=== PATIENT | female | born 1950 | race Caucasian/White ===

== ENCOUNTER → 2017-01-12 | Outpatient (CLI) | payer MEDICARE, BC ==
[2016-11-05 15:00] VITALS: BP 139/61
[~2017-01-12] MED LIST: ALBU2.5V14 NEB; ALPR1TAB2 PO; AMOX1TAB61 PO; ASPI-482 PO; BARIUM SULFATE 40% 148 GM PWD PO ONE; CILO50TA PO; CITA20TA5 PO; DABI150C PO; DIGO125T PO; DILT180C29 PO; DILT300C23 PO; DILT360C PO; DIPH25CA58 PO; FERR325C PO; FLUT1DIS3 INH; FURO20TA3 PO; FURO40TA4 PO; GABA-586 PO; GUAI600T38 PO; HYDR-2762 PO; INSU100I13 SQ; INSU100V31 SQ; INSU100V8 SQ; IPRA4AER IH; LEVO750T31 PO; MELA1TAB6 PO; MOME13HF2 IH; MORP10CA2 PO; MORP30TA3 PO; NIFE60TA16 PO; POTA20TA82 PO; PROP150T PO; PROP150T2 PO; TIOT18CA IH; VITA1TAB61 PO
--- NOTE | 2017-01-12 11:34 | RAD ---
Clinical Indication: Dysphagia Technique: Current study is dated January 12, 2017. Oropharyngeal swallow evaluation was performed with the speech therapist present with images obtained in the lateral view. Total fluoroscopy time was 4.7 minutes. Image count is 16. Patient was challenged with thin, nectar, honey, pureed, and solid consistencies. Findings: There is mild oral discoordination with repeated loss of a portion of the bolus over the base of the tongue and pooling repeatedly noted within the vallecula and piriform sinuses. There is repeated silent deep penetration with all consistencies, with or without chin tuck. Multiple prompted clearing swallows were required to avoid aspiration. There was a single episode of aspiration of thin liquid. There is a prominent cricopharyngeal bar. Please see speech therapy notes for additional details. Impression: 1. Aspiration of thin liquid, silent. 2. Repeated silent penetration with all consistencies. 3. Significant pooling within the vallecula and piriform sinuses prior to triggering of the swallow mechanism. Significant post swallow residual within the vallecula and piriform sinuses.
== END | disposition home or self-care (01) ==
LOC: RAD 08:19
PROVIDERS: ATTEND Internal Medicine Cardiovascular Disease
DX: R13.10 Dysphagia, unspecified (principal)
CPT/HCPCS: 74230; 92526; 92611; G8996; G8997; G8998

== ENCOUNTER 2017-02-17 07:13 | Inpatient (IN) | payer MEDICARE, BC ==
[~2017-02-17] VITALS: Ht 175.3 cm; Wt 91.8 kg
[2017-02-17] VITALS (8 sets, daily range): BP systolic 116–171; BP diastolic 51–89
[~2017-02-17 07:13] MED LIST changes: -BARIUM SULFATE 40% 148 GM PWD PO ONE
[2017-02-17] MEDS ORDERED: IPRATRPIUM/ALBUTEROL 0.5/2.5MG 3 ML NEBU. ONE (07:40)
[2017-02-17] MEDS ORDERED: IPRATRPIUM/ALBUTEROL 0.5/2.5MG 3 ML NEBU. NEB ONE (07:45)
[2017-02-17 07:54] LABS: BASO # 0.1 x10^3/uL (0.0-0.2); BASO % 0 % (0-3); EOS % 0 % (0-3); HEMATOCRIT 33.2 % (36.0-47.0); HEMOGLOBIN 10.4 g/dL (12.0-15.5); LYMPH # 1.2 x10^3/uL (1.0-4.8); LYMPH % 5 % (24-48); MEAN CORPUSCULAR HEMOGLOBIN 29 pg (25-35); MEAN CORPUSCULAR HGB CONC 31 g/dL (31-37); MEAN CORPUSCULAR VOLUME 94 fL (79-100); MONO % 6 % (0-9); NEUT % 89 % (31-73); PLATELET COUNT 582 x10^3/uL (140-400); RED BLOOD COUNT 3.52 x10^6/uL (3.50-5.40); WHITE BLOOD COUNT 21.5 x10^3/uL (4.0-11.0)
--- NOTE | 2017-02-17 07:55 | PHYS DOC ---
Past Medical History Past Medical History: A-Fib, Asthma, CHF, COPD, Diabetes-Type II, Hypertension Past Surgical History: Tubal ligation, Other Additional Past Surgical Histo: TIP OF RIGHT FINGER #2 AMPUTATED Alcohol Use: Rarely Drug Use: None Adult General Chief Complaint Chief Complaint: SHORTNESS OF BREATH HPI HPI Patient is a 67 year old female presents to the emergency department with a history of SOA since Wednesday. Patient was seen by her PCP Dr Bowling in which she was placed on prednisone and antibiotic at that time. She comes to the emergency department with increase SOA. Patient has a hx of CHF, COPD Diabetes and hypertension. Patient is afebrile at the current time. O2 sat is 88-92. Patient als C/o left wrist pain and discomfort after hitting wrist on wall when tripping on step at home. Review of Systems Review of Systems Constitutional: Denies fever or chills [] Eyes: Denies change in visual acuity, redness, or eye pain [] HENT: Denies nasal congestion or sore throat [] Respiratory: Denies cough C/o shortness of breath [] Cardiovascular: No additional information not addressed in HPI [] GI: Denies abdominal pain, nausea, vomiting, bloody stools or diarrhea [] : Denies dysuria or hematuria [] Musculoskeletal: Denies back pain or joint pain [] Integument: Denies rash or skin lesions [] Neurologic: Denies headache, focal weakness or sensory changes [] Current Medications Current Medications Current Medications Medications (Trade) Dose Ordered Sig/Myrtle Start Time Stop Time Status Last Admin Dose Admin Albuterol/ Ipratropium (Duoneb) 3 ml STK-MED ONCE 02/17/17 07:40 02/17/17 07:41 DC Allergies Allergies Allergies Coded Allergies Type Severity Reaction Last Updated Verified lisinopril Allergy Severe Anaphylaxis 01/08/15 Yes zolpidem Adverse Reaction Mild 07/09/16 Yes Physical Exam Physical Exam Constitutional: Well developed, well nourished, no acute distress, non-toxic appearance. [] HENT: Normocephalic, atraumatic, bilateral external ears normal, oropharynx moist, no oral exudates, nose normal. [] Eyes: PERRLA, EOMI, conjunctiva normal, no discharge. [] Neck: Normal range of motion, no tenderness, supple, no stridor. [] Cardiovascular:Heart rate regular rhythm, no murmur [] Lungs & Thorax: Bilateral breath sounds wheezes and coarse noted decreased air movement noted. Abdomen: Bowel sounds normal, soft, no tenderness, no masses, no pulsatile masses. [] Skin: Warm, dry, no erythema, no rash. [] Back: No tenderness Extremities: No tenderness, no cyanosis, no clubbing, ROM intact, no edema. Peripheral pulses 2+ cap refill is less than 3 seconds. No lower extremity edema noted. Neurologic: Alert and oriented X 3, normal motor function, normal sensory function, no focal deficits noted. [] Psychologic: Affect normal, judgement normal, mood normal. [] Current Patient Data Vital Signs Vital Signs Date Time Temp Pulse Resp B/P Pulse Ox O2 Delivery O2 Flow Rate FiO2 02/17/17 07:46 89 Venturi Mask 02/17/17 07:16 98.3 106 32 152/61 98.3 Lab Values Laboratory Tests Test 02/17/17 07:30 White Blood Count 21.5x10^3/uL (4.0-11.0) H Red Blood Count 3.52x10^6/uL (3.50-5.40) Hemoglobin 10.4g/dL (12.0-15.5) L Hematocrit 33.2% (36.0-47.0) L Mean Corpuscular Volume 94fL (79-100) Mean Corpuscular Hemoglobin 29pg (25-35) Mean Corpuscular Hemoglobin Concent 31g/dL (31-37) Red Cell Distribution Width 17.0% (11.5-14.5) H Platelet Count 582x10^3/uL (140-400) H Neutrophils (%) (Auto) 89% (31-73) H Lymphocytes (%) (Auto) 5% (24-48) L Monocytes (%) (Auto) 6% (0-9) Eosinophils (%) (Auto) 0% (0-3) Basophils (%) (Auto) 0% (0-3) Neutrophils # (Auto) 19.0x10^3uL (1.8-7.7) H Lymphocytes # (Auto) 1.2x10^3/uL (1.0-4.8) Monocytes # (Auto) 1.2x10^3/uL (0.0-1.1) H Eosinophils # (Auto) 0.0x10^3/uL (0.0-0.7) Basophils # (Auto) 0.1x10^3/uL (0.0-0.2) Segmented Neutrophils % 87% (35-66) H Band Neutrophils % 3% (0-9) Lymphocytes % 6% (24-48) L Monocytes % 4% (0-10) Platelet Estimate Adequate (ADEQUATE) Sodium Level 127mmol/L (136-145) L Potassium Level 5.8mmol/L (3.5-5.1) H Chloride Level 92mmol/L (98-107) L Carbon Dioxide Level 22mmol/L (21-32) Anion Gap 13 (6-14) Blood Urea Nitrogen 54mg/dL (7-20) H Creatinine 2.4mg/dL (0.6-1.0) H Estimated GFR (Cockcroft-Gault) 20.2 BUN/Creatinine Ratio 23 (6-20) H Glucose Level 285mg/dL (70-99) H Uric Acid 9.1mg/dL (2.6-6.0) H Calcium Level 9.3mg/dL (8.5-10.1) Total Bilirubin 0.3mg/dL (0.2-1.0) Aspartate Amino Transferase (AST) 175U/L (15-37) H Alanine Aminotransferase (ALT) 92U/L (14-59) H Alkaline Phosphatase 98U/L (46-116) Creatine Kinase 221U/L (26-192) H Troponin I Quantitative < 0.017ng/mL (0.000-0.055) ME-Ovq-V-Type Natriuretic Peptide 370pg/mL (0-124) H Total Protein 7.6g/dL (6.4-8.2) Albumin 3.1g/dL (3.4-5.0) L Albumin/Globulin Ratio 0.7 (1.0-1.7) L Laboratory Tests 02/17/17 07:30 Laboratory Tests 02/17/17 07:30 EKG EKG EKG completed with a heart rate of 103 A. fib/A flutter noted with no STEMI noted per Dr Mishra.[] Radiology/Procedures Radiology/Procedures [facility] [address] [place], [place] [id number] IMAGING REPORT Signed PATIENT: LILIAN CABRAL ACCOUNT: [id number] : 1950 LOCATION: ER AGE: 67 SEX: F EXAM STATUS: PRE ER ORD. PHYSICIAN: GAB ARIAS APRN REASON: shortness of air PROCEDURE: PORTABLE CHEST 1V Portable chest, 02/17/2017: History: Shortness of breath Comparison is made to the study 11/04/2016. A left-sided transvenous pacemaker remains in place with a single lead extending into the right ventricle. The heart is moderately enlarged. The pulmonary vascularity appears congested. There are persistent prominent basilar interstitial markings. There appears to be left infrahilar infiltrate or atelectasis. Moderate pleural thickening has developed inferolaterally in the left compatible with pleural fluid. No definite right-sided pleural fluid is seen. IMPRESSION: 1. Congestive heart failure with associated left-sided pleural fluid. 2. Left infrahilar atelectasis/infiltrate. DICTATED and SIGNED BY: KEELY BROWN MD DATE: 02/17/17 0800 CC: MINERVA BOWLING MD; GAB ARIAS APRN ~ [facility] [address], [place] [id number] IMAGING REPORT Signed PATIENT: LILIAN CABRAL ACCOUNT: [id number] : 1950 LOCATION: ER AGE: 67 SEX: F EXAM STATUS: PRE ER ORD. PHYSICIAN: GAB ARIAS APRN REASON: pain and discomfort PROCEDURE: WRIST 3V LEFT Right wrist, 3 views, 02/17/2017: History: Wrist pain and discomfort No fracture or dislocation is identified. A benign-appearing cyst in the lunate bone is probably on a degenerative basis. There is mild degenerative change at the first CMC joint. There is mild subcutaneous edema about the wrist. IMPRESSION: No acute bony abnormality is detected. DICTATED and SIGNED BY: KEELY BORWN MD DATE: 02/17/17 0814 CC: MINERVA BOWLING MD; GAB ARIAS APRN ~ [] Course & Med Decision Making Course & Med Decision Making Pertinent Labs and Imaging studies reviewed. (See chart for details) 0748 Dr Mishra in to evaluate the patient. 0815 presents with more of movement noted although she sounds wheezy throughout. 0842 Dr. Mishra in to evaluate the patient. ABG ordered. [address] Saha in regards to admission for this patient. Dr Saha was provided with lab results. Recommend renal consult. No further recommendations received. Dr Saha aware antibiotics have been ordered. 0925 Dr Mishra in with patient. pH is low, CO2 is high. Dr Mishra will have the patient placed on Bipap. Patient re-assessed by myself with Bilateral breath sounds coarse throughout. [] Dragon Disclaimer Dragon Disclaimer This electronic medical record was generated, in whole or in part, using a voice recognition dictation system. Departure Departure Impression: Primary Impression: Community acquired pneumonia Additional Impression: COPD exacerbation Disposition: 09 ADMITTED INPATIENT Admitting Physician: Miesha Saha Condition: STABLE Referrals: MINERVA BOWLING MD (PCP) Problem Qualifiers GAB ARIAS APRN Feb 17, 2017 07:55
[2017-02-17] MEDS ORDERED: methylPREDNISolone SOD SUCC PF 125 MG/2 ML VIAL. IV ONE (08:00)
[2017-02-17] MEDS ORDERED: ALBUTEROL SULFATE 2.5 MG/3 ML NEBU. CONT NEB ONE (08:00)
[2017-02-17] MEDS ORDERED: DOXYCYCLINE HYCLATE 100 MG in IV DEXTROSE 5% 100 ML IV ONE (08:15)
[2017-02-17] MEDS ORDERED: CEFTRIAXONE 1GM IVPB FOR OMNI 50 ML IV ONE (08:15)
--- NOTE | 2017-02-17 08:17 | RAD ---
Portable chest, 02/17/2017: History: Shortness of breath Comparison is made to the study 11/04/2016. A left-sided transvenous pacemaker remains in place with a single lead extending into the right ventricle. The heart is moderately enlarged. The pulmonary vascularity appears congested. There are persistent prominent basilar interstitial markings. There appears to be left infrahilar infiltrate or atelectasis. Moderate pleural thickening has developed inferolaterally in the left compatible with pleural fluid. No definite right-sided pleural fluid is seen. IMPRESSION: 1. Congestive heart failure with associated left-sided pleural fluid. 2. Left infrahilar atelectasis/infiltrate.
[2017-02-17 08:18] LABS: CALCIUM 9.3 mg/dL (8.5-10.1); CREATININE 2.4 mg/dL (0.6-1.0); GFR 20.2; POTASSIUM 5.8 mmol/L (3.5-5.1)
--- NOTE | 2017-02-17 08:18 | RAD ---
Right wrist, 3 views, 02/17/2017: History: Wrist pain and discomfort No fracture or dislocation is identified. A benign-appearing cyst in the lunate bone is probably on a degenerative basis. There is mild degenerative change at the first CMC joint. There is mild subcutaneous edema about the wrist. IMPRESSION: No acute bony abnormality is detected.
--- NOTE | 2017-02-17 08:36 | EKG ---
[facility] [address] [place] [address] Test Date: 2017-02-17 Test Time: 07:36:02 Pat Name: LILIAN CABRAL Department: Room: Gender: F Filer Finish: : 1950 Requested By: GAB ARIAS Order Number: [id number] Reading MD: Rubina Johnson Measurements Intervals [place] Rate: 103 P: CA: QRS: 81 QRSD: 98 T: -116 QT: 320 QTc: 421 Interpretive Statements ATRIAL FIB./FLUTTER WITH RAPID VENTRICULAR RESPONSE QRS(T) CONTOUR ABNORMALITY CONSIDER ANTEROSEPTAL MYOCARDIAL DAMAGE ST & T ABNORMALITY, CONSIDER ANTEROLATERAL ISCHEMIA INFEROLATERAL ISCHEMIA Electronically Signed On 02-21-2017 15:05:44 CDT by Rubina Johnson
[2017-02-17 08:39] LABS: ALBUMIN 3.1 g/dL (3.4-5.0); ALBUMIN/GLOBULIN RATIO 0.7 (1.0-1.7); TOTAL BILIRUBIN 0.3 mg/dL (0.2-1.0); TOTAL PROTEIN 7.6 g/dL (6.4-8.2)
[2017-02-17 09:14] LABS: PLT ESTIMATE ADEQUATE (ADEQUATE)
[2017-02-17 09:20] LABS: BASE EXCESS COOX -6 mmol/L (-3-3); CARBON MONOXIDE 1.4 % (0.0-1.9); HCO3 COOX 22 mmol/L (21-28); METHEMOGLOBIN 0.4 % (0.0-1.9); OXYHEMOGLOBIN 86.7 %; PCO2 COOX 49 mmHg (35-46); PH COOX 7.26 (7.35-7.45); PO2 COOX 67 mmHg (65-108); SAT O2 COOX 88 % (92-99); TOTAL HEMOGLOBIN 11.6 g/dL
[2017-02-17] MEDS ORDERED: DEXTROSE 50% 25 GM / 50ML DISP.SYRIN. IV PRN (10:00)
[2017-02-17 11:28] LABS: HCO3 ABG 22 mmol/L (21-28); PO2 ABG 65 mmHg (65-108); SAT O2 ABG 90 % (92-99)
[2017-02-17 11:31] LABS: PCO2 ABG 44 mmHg (35-46); PH ABG 7.32 (7.35-7.45)
--- NOTE | 2017-02-17 12:39 | ACF ---
Admission Forms Criteria PNEUMONIA, COMMUNITY ACQUIRED Clinical Indications for Admission to Inpatient Care ( Place 'X' for any and all applicable criteria): Admission is indicated for ANY ONE of the following (1)(2)(3): [ ]I. Hypoxemia indicated by ANY ONE of the following: [ ]a) Oxygen saturation less than 90% while breathing room air [ ]b) PO2 less than 60 mm Hg (8.0 kPa) while breathing room air [ ]c) Chronic lung disease with significant deterioration from baseline oxygenation [ ]II. Appropriate diagnostic testing and treatment unavailable in outpatient or recovery facility (eg,testing or infection control measures unavailable(10) [X]III. Moderate-risk or high-risk category patients (Pneumonia Severity Index (PSI) class IV or V, or CURB-65 score of 3 or greater). [ ]IV. Outpatient treatment failure as indicated by ANY ONE of the following(9) : [ ]a) Failure to respond to antibiotic (eg, resistant organism) [ ]b) Clinically significant adverse effects from medication (eg, vomiting) [ ]c) Complications of pneumonia (eg, empyema, bacteremia) [ ]d) Significant worsening of comorbid cond necessitating inpatient care (eg, chronic heart failure) [ ]V. Intermediate-risk category patients (eg, PSI class III or CURB-65 score 2) who do not improve with initial therapy and observation. [ ]. Immunocompromised patients (eg, AIDS, chronic steroid use) at moderate or high risk based on clinical evaluation. [ ]VII. Complicated pleural effusions (eg, exudative, loculated) [ ]VIII.Hemodynamic instability [ ] IX. Altered mental status that is severe or persistent. [ ]X. Dehydration that is severe or persistent. [ ]XI. Bacteremia [ ]XII. Respiratory finding (eg. tachypnea) that do not respond to outpatient or observation care treatment Extended stay beyond goal length of stay may be needed for (20) [ ]a) Unclear diagnosis [ ]b) Pleural disease [ ]c) Severe pneumonia or treatment failure (25 [ ]d) Respiratory failure (anticipate invasive or noninvasive ventilatory support) [ ]e) Abnormal serum electrolytes (serum Na concentration less than 135 mEq/L (mmol/L) (32)(33) [ ]f) Clinically significant comorbid illness (eg, heart failure, atrial fibrillation with rapid heart rate, alcohol withdrawal, renal insufficiency)(34)(35) [ ]g) Comorbid acute exacerbation of COPD(36) [ ]h) Concomitant diagnosis of malignancy that may be associated with malnutrition, immunologic impairment, or bronchial obstruction. [ ]i) Concomitant altered mental status [ ]j) Culture-identified Gram-negative or antibiotic-resistant organism (eg, Pseudomonas, methicillin-resistant Staphylococcus aureus)(30) [ ]k) Healthcare-associated pneumonia The original [facility] content created by [employer] has been revised. The portions of the content which have been revised are identified through the use of italic text or in bold, and [facility] has neither reviewed nor approved the modified material. All other unmodified content is copyright [facility]. Please see references footnoted in the original [facility] edition 2016 Admission Criteria Met?: Yes JOSE BAUMANN Feb 17, 2017 12:39
[2017-02-17] MEDS ORDERED: SULF1TAB3 PO (14:20)
[2017-02-17] MEDS ORDERED: PRED2.5T PO (14:20)
--- NOTE | 2017-02-17 14:40 | PDOC2 ---
CONSULT Date of Consult Date of Consult DATE: 02/17/17 TIME: 14:36 Reason for Consult Reason for Consult: JOSE Referring Physician Referring Physician: Dr Saha Source Source: Chart review, Patient Past Medical History Cardiovascular: AFIB, CHF, HTN Pulmonary: Bronchitis, COPD GI: GERD Endocrine: Diabetes Past Surgical History Past Surgical History: Pacemaker, Tubal Ligation Family History Family History: Hypertension Social History ALCOHOL: none Drugs: None Current Problem List Problem List Problems Medical Problems: (1) Community acquired pneumonia Status: Acute (2) COPD exacerbation Status: Acute Current Medications Current Medications Current Medications Albuterol/ Ipratropium (Duoneb) 3 ml 1X ONCE NEB Last administered on 07:46; Start 02/17/17 at 07:45; Stop 02/17/17 at 07:46; Status DC Albuterol/ Ipratropium (Duoneb) 3 ml STK-MED ONCE .ROUTE ; Start 02/17/17 at 07: 40; Stop 02/17/17 at 07:41; Status DC Albuterol Sulfate (Ventolin Neb Soln) 10 mg 1X ONCE CONT NEB Last administered on 02/17/17 08:02; Start 02/17/17 at 08:00; Stop 02/17/17 at 08:01 ; Status DC Methylprednisolone Sodium Succinate 60 mg 60 mg 1X ONCE IV Last administered on 02/17/17 08:49; Start 02/17/17 at 08:00; Stop 02/17/17 at 08:06; Status DC Ceftriaxone Sodium 50 ml @ 100 mls/hr 1X ONCE IV Last administered on 08:50; Start 02/17/17 at 08:15; Stop 02/17/17 at 08:44; Status DC Doxycycline Hyclate 100 mg/ Dextrose 100 ml @ 50 mls/hr 1X ONCE IV Last administered on 02/17/17 08:50; Start 02/17/17 at 08:15; Stop 02/17/17 at 10:14 ; Status DC Ceftriaxone Sodium 50 ml @ 100 mls/hr DAILY IV ; Start 02/18/17 at 09:00; Status UNV Doxycycline Hyclate 100 mg/ Dextrose 100 ml @ 50 mls/hr BID IV ; Start at 21:00 Ceftriaxone Sodium/Sodium Chloride (Rocephin/Iv Sodium Chloride 0.9% 50ml) 50 ml @ 100 mls/hr Q24H IV ; Start 02/18/17 at 09:00 Insulin Aspart (Novolog) 0-7 UNITS TIDWMEALS SQ ; Start 02/17/17 at 12:00 Dextrose (Dextrose 50%-Water Syringe) 12.5 gm PRN Q15MIN PRN IV SEE COMMENTS; Start 02/17/17 at 10:00 Active Scripts Active Iron (Ferrous Sulfate) 325 Mg Capsule.er 325 Mg PO DAILY B Complex # 1 (Vitamin B Complex) 1 Each Tablet 1 Each PO DAILY Levaquin (Levofloxacin) 750 Mg Tablet 1 Tab PO DAILY Advair 250-50 Diskus (Fluticasone/Salmeterol) 1 Puff Puff 1 Puff INH BID Mucinex (Guaifenesin) 600 Mg Tablet.er 600 Mg PO BID Reported Prednisone 2.5 Mg Tablet 2 Tab PO DAILY Sulfamethoxazole-Tmp Ds Tablet (Sulfamethoxazole/Trimethoprim) 1 Each Tablet 1 Tab PO BID Albuterol Sulfate Conc Neb Soln (Albuterol Sulfate) 2.5 Mg/0.5 Ml Vial.neb 1 Vial NEB Q4HRS Lantus Solostar (Insulin Glargine,Hum.rec.anlog) 100 Unit/1 Ml Insuln.pen 14 Unit SQ BID Furosemide 40 Mg Tablet 1 Tab PO DAILY Mucinex (Guaifenesin) 600 Mg Tablet.er 400 Mg PO BID Xanax (Alprazolam) 1 Mg Tablet 1 Tab PO Q8HRS PRN Melatonin 10 Mg Tablet (Melatonin/Pyridoxine Hcl (B6)) 1 Each Tab.mphase 1 Each PO HS Nifedipine Er (Nifedipine) 60 Mg Tab.er.24 1 Tab PO DAILY Morphine Sulfate Er (Morphine Sulfate) 30 Mg Tablet.er 1 Tab PO TID Gabapentin 300 Mg Capsule 900 Mg PO QID Furosemide 20 Mg Tablet 1.5 Tab PO DAILY Cardizem Cd (Diltiazem Hcl) 360 Mg Cap.er.24h 1 Cap PO DAILY Next dose: 05/14 Rythmol (Propafenone Hcl) 150 Mg Tablet 150 Mg PO BID Next dose: 05/13 in pm Benadryl (Diphenhydramine Hcl) 25 Mg Capsule 2 Cap PO QHS Next dose: 05/14 Novolog (Insulin Aspart) 100 Unit/1 Ml Vial 100 Unit SQ Next dose: 05/13 at dinner Lantus (Insulin Glargine,Hum.rec.anlog) 100 Unit/1 Ml Vial 1 Unit SQ Next dose: 05/13 at bedtime Hydrocodone-Apap 7.5-325 (Hydrocodone Bit/Acetaminophen) 1 Each Tablet 1 Tab PO QID Next dose: 05/14 at 1 pm Combivent Respimat Inhal (Ipratropium/Albuterol Sulfate) 4 Gm Aer.w.adap 2 Inh IH QID Spiriva (Tiotropium [place]) 18 Mcg Cap.w.dev 1 Cap IH DAILY Next dose: 05/13 Dulera 100 Mcg/5 Mcg Inhaler (Mometasone/Formoterol) 13 Gm Hfa.aer.ad 2 Puff IH BID Digoxin 125 Mcg Tablet 1 Tab PO DAILY Next dose: 05/14 Citalopram Hbr (Citalopram Hydrobromide) 20 Mg Tablet 1 Tab PO DAILY Next dose: 05/14 Aspir 81 (Aspirin) 81 Mg Tablet.dr 1 Tab PO DAILY Next dose: 05/14 Cilostazol 50 Mg Tablet 50 Mg PO BID Next dose: 05/13 in PM Pradaxa (Dabigatran Etexilate Mesylate) 150 Mg Capsule 1 Cap PO BID Next dose: 05/13 in PM Potassium Chloride 20 Meq Tablet.er 20 Meq PO DAILY Next dose: 05/14 Allergies Allergies: Coded Allergies: lisinopril (Verified Allergy, Severe, Anaphylaxis, 01/08/15) zolpidem (Verified Adverse Reaction, Mild, 07/09/16) "Gets really loopy, 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" ROS Review of System Unable to get ROS while pt is on BiPAP Physical Exam Physical Exam General Appearance: Awake senior care Alert Oriented x 1 In mod resp Distress Eyes: VIsion Unchanged Conjunctiva Normal EN: No EN Drainage Mucous Memb. dry Neck: + JVD + JVP Supple no Thyromegaly CVS: S1 S2 + Murmur No Gallop No Rub tr Edema Resp: few Rales no Rhonchi no Acc. Muscle use GI: BAS +ve NO Bruit Non Tender ? Distended : no CVA tenderness; no Suprapubic Tenderness SKIN: no Rashes Breast Exam deferred Mu.Sk: Adequate ROM moist Muscle Atrophy Heme: Unable to palpate Obvious LAD no palp Splenomegaly NEURO: Unable to assess currently while on BiPAP Psych: Unable to assess currently while on BiPAP Vital Signs Vital Signs Date Time Temp Pulse Resp B/P Pulse Ox O2 Delivery O2 Flow Rate FiO2 02/17/17 13:00 96.7 99 24 116/75 92 Nasal Cannula 4.0 96.7 Assessment & Plan JOSE - suspect Vol depletion; Bactrim, Current FLuid and E-lyte status does not necessitate emergent need for Dialysis. Will re-evaluate for Dialysis in am ^K - Possibl etios include, Bactrim, JOSE, KCL supplementation, Cannot R/o Addisonian state due to Ch Pred use. Low Na - ? Vol dpeltion, SSRi, Cannot R/o Addisonian state due to Ch Pred use. - Will hold off of IVF unless Oliguric SOB - currently felt to be COPD Exac significant Cardiac ABN as noted on most recent ECHO. Suspect ^^ JVD is due Rt HF ? vol depletion - ([facility]) - may need IVF/ Alb Discussed Plan of Care and prognosis etc. at length with family. Labs Labs Laboratory Tests Test 02/17/17 07:30 02/17/17 09:20 02/17/17 11:20 02/17/17 13:15 White Blood Count 21.5x10^3/uL (4.0-11.0) Red Blood Count 3.52x10^6/uL (3.50-5.40) Hemoglobin 10.4g/dL (12.0-15.5) Hematocrit 33.2% (36.0-47.0) Mean Corpuscular Volume 94fL (79-100) Mean Corpuscular Hemoglobin 29pg (25-35) Mean Corpuscular Hemoglobin Concent 31g/dL (31-37) Red Cell Distribution Width 17.0% (11.5-14.5) Platelet Count 582x10^3/uL (140-400) Neutrophils (%) (Auto) 89% (31-73) Lymphocytes (%) (Auto) 5% (24-48) Monocytes (%) (Auto) 6% (0-9) Eosinophils (%) (Auto) 0% (0-3) Basophils (%) (Auto) 0% (0-3) Neutrophils # (Auto) 19.0x10^3uL (1.8-7.7) Lymphocytes # (Auto) 1.2x10^3/uL (1.0-4.8) Monocytes # (Auto) 1.2x10^3/uL (0.0-1.1) Eosinophils # (Auto) 0.0x10^3/uL (0.0-0.7) Basophils # (Auto) 0.1x10^3/uL (0.0-0.2) Segmented Neutrophils % 87% (35-66) Band Neutrophils % 3% (0-9) Lymphocytes % 6% (24-48) Monocytes % 4% (0-10) Platelet Estimate Adequate (ADEQUATE) Sodium Level 127mmol/L (136-145) Potassium Level 5.8mmol/L (3.5-5.1) Chloride Level 92mmol/L (98-107) Carbon Dioxide Level 22mmol/L (21-32) Anion Gap 13 (6-14) Blood Urea Nitrogen 54mg/dL (7-20) Creatinine 2.4mg/dL (0.6-1.0) Estimated GFR (Cockcroft-Gault) 20.2 BUN/Creatinine Ratio 23 (6-20) Glucose Level 285mg/dL (70-99) Calcium Level 9.3mg/dL (8.5-10.1) Total Bilirubin 0.3mg/dL (0.2-1.0) Aspartate Amino Transf (AST/SGOT) 175U/L (15-37) Alanine Aminotransferase (ALT/SGPT) 92U/L (14-59) Alkaline Phosphatase 98U/L (46-116) Troponin I Quantitative < 0.017ng/mL (0.000-0.055) MZ-Ssp-S-Type Natriuretic Peptide 370pg/mL (0-124) Total Protein 7.6g/dL (6.4-8.2) Albumin 3.1g/dL (3.4-5.0) Albumin/Globulin Ratio 0.7 (1.0-1.7) O2 Saturation 88% (92-99) 90% (92-99) Arterial Blood pH 7.26 (7.35-7.45) 7.32 (7.35-7.45) Arterial Blood pCO2 at Patient Temp 49mmHg (35-46) 44mmHg (35-46) Arterial Blood pO2 at Patient Temp 67mmHg (65-108) 65mmHg (65-108) Arterial Blood HCO3 22mmol/L (21-28) 22mmol/L (21-28) Arterial Blood Base Excess -6mmol/L (-3-3) -4mmol/L (-3-3) Oxyhemoglobin 86.7% Methemoglobin 0.4% (0.0-1.9) Carbon Monoxide, Quantitative 1.4% (0.0-1.9) FiO2 40.0 35.0 Glucose (Fingerstick) 279mg/dL (70-99) Laboratory Tests Test 02/17/17 07:30 02/17/17 09:20 02/17/17 11:20 02/17/17 13:15 White Blood Count 21.5x10^3/uL (4.0-11.0) Red Blood Count 3.52x10^6/uL (3.50-5.40) Hemoglobin 10.4g/dL (12.0-15.5) Hematocrit 33.2% (36.0-47.0) Mean Corpuscular Volume 94fL (79-100) Mean Corpuscular Hemoglobin 29pg (25-35) Mean Corpuscular Hemoglobin Concent 31g/dL (31-37) Red Cell Distribution Width 17.0% (11.5-14.5) Platelet Count 582x10^3/uL (140-400) Neutrophils (%) (Auto) 89% (31-73) Lymphocytes (%) (Auto) 5% (24-48) Monocytes (%) (Auto) 6% (0-9) Eosinophils (%) (Auto) 0% (0-3) Basophils (%) (Auto) 0% (0-3) Neutrophils # (Auto) 19.0x10^3uL (1.8-7.7) Lymphocytes # (Auto) 1.2x10^3/uL (1.0-4.8) Monocytes # (Auto) 1.2x10^3/uL (0.0-1.1) Eosinophils # (Auto) 0.0x10^3/uL (0.0-0.7) Basophils # (Auto) 0.1x10^3/uL (0.0-0.2) Segmented Neutrophils % 87% (35-66) Band Neutrophils % 3% (0-9) Lymphocytes % 6% (24-48) Monocytes % 4% (0-10) Platelet Estimate Adequate (ADEQUATE) Sodium Level 127mmol/L (136-145) Potassium Level 5.8mmol/L (3.5-5.1) Chloride Level 92mmol/L (98-107) Carbon Dioxide Level 22mmol/L (21-32) Anion Gap 13 (6-14) Blood Urea Nitrogen 54mg/dL (7-20) Creatinine 2.4mg/dL (0.6-1.0) Estimated GFR (Cockcroft-Gault) 20.2 BUN/Creatinine Ratio 23 (6-20) Glucose Level 285mg/dL (70-99) Calcium Level 9.3mg/dL (8.5-10.1) Total Bilirubin 0.3mg/dL (0.2-1.0) Aspartate Amino Transf (AST/SGOT) 175U/L (15-37) Alanine Aminotransferase (ALT/SGPT) 92U/L (14-59) Alkaline Phosphatase 98U/L (46-116) Troponin I Quantitative < 0.017ng/mL (0.000-0.055) NE-Qun-H-Type Natriuretic Peptide 370pg/mL (0-124) Total Protein 7.6g/dL (6.4-8.2) Albumin 3.1g/dL (3.4-5.0) Albumin/Globulin Ratio 0.7 (1.0-1.7) O2 Saturation 88% (92-99) 90% (92-99) Arterial Blood pH 7.26 (7.35-7.45) 7.32 (7.35-7.45) Arterial Blood pCO2 at Patient Temp 49mmHg (35-46) 44mmHg (35-46) Arterial Blood pO2 at Patient Temp 67mmHg (65-108) 65mmHg (65-108) Arterial Blood HCO3 22mmol/L (21-28) 22mmol/L (21-28) Arterial Blood Base Excess -6mmol/L (-3-3) -4mmol/L (-3-3) Oxyhemoglobin 86.7% Methemoglobin 0.4% (0.0-1.9) Carbon Monoxide, Quantitative 1.4% (0.0-1.9) FiO2 40.0 35.0 Glucose (Fingerstick) 279mg/dL (70-99) Images Images IMPRESSION: 1. Congestive heart failure with associated left-sided pleural fluid. 2. Left infrahilar atelectasis/infiltrate. ECHO from 2016: The left ventricular systolic function is normal and the ejection fraction is within normal range. The Ejection Fraction is 60%. There is mild concentric left ventricular hypertrophy. The right ventricle is hypertrophic The left atrium is mildly to moderately dilated. The right atrium is mildly to moderately dilated. Doppler and Color Flow revealed moderate aortic regurgitation. The aortic valve is mildly to moderatly calcified but opens well. The aortic valve is tri-cuspid. The mitral valve is moderatly calcified and displays decreased opening. Mitral annular calcification is moderate. cannot exclude mitral valve vegitation. Doppler and Color Flow revealed moderate mitral regurgitation. There is moderate mitral valve stenosis. Calculated mitral valve area is 1.5 cm2 with maximum pressure gradient of 18 mmHg and mean pressure gradient of 6 mmHg. Doppler and Color Flow revealed moderate tricuspid regurgitation. There is moderate-severe pulmonary hypertension. The PA pressure was estimated at 62 mmHg. The pulmonic valve is not well visualized. There is a trace pericardial effusion. JUNIOR VALERIO MD Feb 17, 2017 14:40
[2017-02-17] MEDS ORDERED: MAGNESIUM SULFATE 2GM 50 ML IV PRN (14:45)
[2017-02-17] MEDS ORDERED: IV NORMAL SALINE 500ML BAG 500 ML IV PRN (15:00)
[2017-02-17 15:22] LABS: URIC ACID 9.1 mg/dL (2.6-6.0)
[2017-02-17] MEDS ORDERED: SODIUM BICARB ADULT 8.4% 50 MEQ/50 ML DISP.SYRIN. IV ONE (15:30)
[2017-02-17] MEDS ORDERED: SODIUM POLYSTYRENE SULFONATE 15 GM/60 ML ORAL.SUSP. PO ONE (15:30)
--- NOTE | 2017-02-17 15:30 | PDOC ---
Provider Note Provider Note dictated BARBARA KELLOGG MD Feb 17, 2017 15:30
[2017-02-17] MEDS ORDERED: ALPRAZOLAM 1 MG TABLET PO PRN (15:45)
[2017-02-17] MEDS ORDERED: IV NORMAL SALINE 1000ML BAG 1,000 ML IV ONE (15:45)
[2017-02-17] MEDS ORDERED: IPRATRPIUM/ALBUTEROL 0.5/2.5MG 3 ML NEBU. NEB SCH (16:00)
--- NOTE | 2017-02-17 16:17 | PDOC1 ---
History and Physical Date of Admission Date of Admission DATE: 02/17/17 TIME: 16:06 Identification/Chief Complaint Chief Complaint dyspnea, cough Problems: Source Source: Caregiver, Chart review, Patient History of Present Illness History of Present Illness Ms. Mendoza, is a 67 year old female admitted from ER with acutely worsening dyspnea for hte past few days SHe had contacted Dr. Silva last week, and nebs and steroid and abx given , no tmuch improved, Lasix was doubled yesterday, and dyspnea worse today Pt has history of long hospitalisation with LTAC stay about 6 mos ago. cough and dyspnea but no sputum she has ongoing dysphagia and drinks thickened liquids, . Patient has a hx of CHF, COPD Diabetes and hypertension. Past Medical History Cardiovascular: AFIB, CHF, HTN Pulmonary: Bronchitis, COPD GI: GERD Musculoskeletal: low back pain Infectious disease: No pertinent hx ENT: No pertinent hx Endocrine: Diabetes Past Surgical History Past Surgical History: Pacemaker, Tubal Ligation Family History Family History: Hypertension Social History Smoke: Quit ALCOHOL: none Drugs: None Current Problem List Problem List Problems Medical Problems: (1) Community acquired pneumonia Status: Acute (2) COPD exacerbation Status: Acute Problems: Current Medications Current Medications Current Medications Albuterol/ Ipratropium (Duoneb) 3 ml 1X ONCE NEB Last administered on 07:46; Start 02/17/17 at 07:45; Stop 02/17/17 at 07:46; Status DC Albuterol/ Ipratropium (Duoneb) 3 ml STK-MED ONCE .ROUTE ; Start 02/17/17 at 07: 40; Stop 02/17/17 at 07:41; Status DC Albuterol Sulfate (Ventolin Neb Soln) 10 mg 1X ONCE CONT NEB Last administered on 02/17/17 08:02; Start 02/17/17 at 08:00; Stop 02/17/17 at 08:01 ; Status DC Methylprednisolone Sodium Succinate 60 mg 60 mg 1X ONCE IV Last administered on 02/17/17 08:49; Start 02/17/17 at 08:00; Stop 02/17/17 at 08:06; Status DC Ceftriaxone Sodium 50 ml @ 100 mls/hr 1X ONCE IV Last administered on 08:50; Start 02/17/17 at 08:15; Stop 02/17/17 at 08:44; Status DC Doxycycline Hyclate 100 mg/ Dextrose 100 ml @ 50 mls/hr 1X ONCE IV Last administered on 02/17/17t 08:50; Start 02/17/17 at 08:15; Stop 02/17/17 at 10:14 ; Status DC Ceftriaxone Sodium 50 ml @ 100 mls/hr DAILY IV ; Start 02/18/17 at 09:00; Status UNV Doxycycline Hyclate 100 mg/ Dextrose 100 ml @ 50 mls/hr BID IV ; Start at 21:00 Ceftriaxone Sodium/Sodium Chloride (Rocephin/Iv Sodium Chloride 0.9% 50ml) 50 ml @ 100 mls/hr Q24H IV ; Start 02/18/17 at 09:00 Insulin Aspart (Novolog) 0-7 UNITS TIDWMEALS SQ ; Start 02/17/17 at 12:00 Dextrose 12.5 gm 12.5 gm PRN Q15MIN PRN IV SEE COMMENTS; Start 02/17/17 at 10: 00 Magnesium Sulfate/ Dextrose (Magnesium Sulfate PREMIX 2GM) 50 ml @ 25 mls/hr PRN DAILY PRN IV for Mag < 1.7 on am labs; Start 02/17/17 at 14:45 Sodium Polystyrene Sulfonate 45 gm 45 gm 1X ONCE PO ; Start 02/17/17 at 15:30; Stop 02/17/17 at 15:31; Status DC Sodium Chloride (Iv Sodium Chloride 0.9% 500ml Bag) 500 ml @ 0 mls/hr PRN QID PRN IV UO< 30cc/hr over previous 6hrs; Start 02/17/17 at 15:00 Sodium Bicarbonate 50 meq 50 meq 1X ONCE IV Last administered on 02/17/17t 15: 46; Start 02/17/17 at 15:30; Stop 02/17/17 at 15:35; Status DC Sodium Chloride (Iv Sodium Chloride 0.9% 1000ml Bag) 1,000 ml @ 75 mls/hr 1X ONCE IV ; Start 02/17/17 at 15:45; Stop 02/18/17 at 05:04 Prednisone (Prednisone) 60 mg DAILY07 PO ; Start 02/18/17 at 07:00 Alprazolam (Xanax) 1 mg PRN Q8HRS PRN PO ANXIETY / AGITATION; Start 02/17/17 at 15:45 Aspirin (Ecotrin) 81 mg DAILY PO ; Start 02/18/17 at 09:00 Cilostazol (Pletal) 50 mg BID PO ; Start 02/17/17 at 21:00 Citalopram Hydrobromide (Celexa) 20 mg DAILY PO ; Start 02/18/17 at 09:00 Dabigatran (Pradaxa) 75 mg BID PO ; Start 02/17/17 at 21:00 Digoxin (Lanoxin) 125 mcg DAILY PO ; Start 02/18/17 at 09:00 Diphenhydramine HCl (Benadryl) 25 mg QHS PO ; Start 02/17/17 at 21:00 Guaifenesin (Mucinex) 600 mg BID PO ; Start 02/17/17 at 21:00 Acetaminophen/ Hydrocodone Bitart (Lortab 7.5/325) 1 tab QID PO ; Start at 17:00 Morphine Sulfate (Ms Contin) 30 mg TID PO ; Start 02/17/17 at 21:00 Propafenone HCl (Rythmol) 150 mg BID PO ; Start 02/17/17 at 21:00 Trimethoprim/ Sulfamethoxazole (Bactrim Ds) 1 tab DAILY PO ; Start 02/17/17 at 21:00 Vitamin B Complex (Moi B) 1 tab DAILY PO ; Start 02/18/17 at 09:00 Albuterol/ Ipratropium (Duoneb) 3 ml Q4HRS NEB ; Start 02/17/17 at 16:00; Status Cancel Diltiazem HCl (Cardizem 24hr Cd) 360 mg DAILY PO ; Start 02/18/17 at 09:00 Ferrous Sulfate (Feosol) 325 mg DAILYWBKFT PO ; Start 02/18/17 at 08:00 Non-Formulary Medication 1 puff BID INH ; Start 02/17/17 at 21:00; Status UNV Gabapentin (Neurontin) 900 mg BID PO ; Start 02/17/17 at 21:00 Insulin Detemir (Levemir) 14 units BID SQ ; Start 02/17/17 at 21:00 Non-Formulary Medication 1 each HS PO ; Start 02/17/17 at 21:00; Status UNV Budesonide (Pulmicort) 0.5 mg RTBID NEB ; Start 02/17/17 at 20:00 Albuterol/ Ipratropium (Duoneb) 3 ml Q4HRS W/A NEB ; Start 02/17/17 at 18:00 Active Scripts Active Iron (Ferrous Sulfate) 325 Mg Capsule.er 325 Mg PO DAILY B Complex # 1 (Vitamin B Complex) 1 Each Tablet 1 Each PO DAILY Levaquin (Levofloxacin) 750 Mg Tablet 1 Tab PO DAILY Advair 250-50 Diskus (Fluticasone/Salmeterol) 1 Puff Puff 1 Puff INH BID Mucinex (Guaifenesin) 600 Mg Tablet.er 600 Mg PO BID Reported Prednisone 2.5 Mg Tablet 2 Tab PO DAILY Sulfamethoxazole-Tmp Ds Tablet (Sulfamethoxazole/Trimethoprim) 1 Each Tablet 1 Tab PO BID Albuterol Sulfate Conc Neb Soln (Albuterol Sulfate) 2.5 Mg/0.5 Ml Vial.neb 1 Vial NEB Q4HRS Lantus Solostar (Insulin Glargine,Hum.rec.anlog) 100 Unit/1 Ml Insuln.pen 14 Unit SQ BID Furosemide 40 Mg Tablet 1 Tab PO DAILY Mucinex (Guaifenesin) 600 Mg Tablet.er 400 Mg PO BID Xanax (Alprazolam) 1 Mg Tablet 1 Tab PO Q8HRS PRN Melatonin 10 Mg Tablet (Melatonin/Pyridoxine Hcl (B6)) 1 Each Tab.mphase 1 Each PO HS Nifedipine Er (Nifedipine) 60 Mg Tab.er.24 1 Tab PO DAILY Morphine Sulfate Er (Morphine Sulfate) 30 Mg Tablet.er 1 Tab PO TID Gabapentin 300 Mg Capsule 900 Mg PO QID Furosemide 20 Mg Tablet 1.5 Tab PO DAILY Cardizem Cd (Diltiazem Hcl) 360 Mg Cap.er.24h 1 Cap PO DAILY Next dose: 05/14 Rythmol (Propafenone Hcl) 150 Mg Tablet 150 Mg PO BID Next dose: 05/13 in pm Benadryl (Diphenhydramine Hcl) 25 Mg Capsule 2 Cap PO QHS Next dose: 05/14 Novolog (Insulin Aspart) 100 Unit/1 Ml Vial 100 Unit SQ Next dose: 05/13 at dinner Lantus (Insulin Glargine,Hum.rec.anlog) 100 Unit/1 Ml Vial 1 Unit SQ Next dose: 05/13 at bedtime Hydrocodone-Apap 7.5-325 (Hydrocodone Bit/Acetaminophen) 1 Each Tablet 1 Tab PO QID Next dose: 05/14 at 1 pm Combivent Respimat Inhal (Ipratropium/Albuterol Sulfate) 4 Gm Aer.w.adap 2 Inh IH QID Spiriva (Tiotropium Esmond) 18 Mcg Cap.w.dev 1 Cap IH DAILY Next dose: 05/13 Dulera 100 Mcg/5 Mcg Inhaler (Mometasone/Formoterol) 13 Gm Hfa.aer.ad 2 Puff IH BID Digoxin 125 Mcg Tablet 1 Tab PO DAILY Next dose: 05/14 Citalopram Hbr (Citalopram Hydrobromide) 20 Mg Tablet 1 Tab PO DAILY Next dose: 05/14 Aspir 81 (Aspirin) 81 Mg Tablet.dr 1 Tab PO DAILY Next dose: 05/14 Cilostazol 50 Mg Tablet 50 Mg PO BID Next dose: 05/13 in PM Pradaxa (Dabigatran Etexilate Mesylate) 150 Mg Capsule 1 Cap PO BID Next dose: 05/13 in PM Potassium Chloride 20 Meq Tablet.er 20 Meq PO DAILY Next dose: 05/14 Allergies Allergies: Coded Allergies: lisinopril (Verified Allergy, Severe, Anaphylaxis, 01/08/15) zolpidem (Verified Adverse Reaction, Mild, 07/09/16) "Gets really loopy, 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" ROS General: YES: Appetite, Fatigue PSYCHOLOGICAL ROS: No: Anxiety, Behavioral Disorder, Concentration difficultie , Decreased libido, Depression, Disorientation, Hallucinations, Hostility, Irritablity, Memory difficulties, Mood Swings, Obsessive thoughts, Other, Physical abuse, Sexual abuse, Sleep disturbances, Suicidal ideation Eyes: No Blurry vision, No Decreased vision, No Double vision, No Dry eyes, No Excessive tearing, No Eye Pain, No Itchy Eyes, No Loss of vision, No Other, No Photophobia, No Scotomata, No Uses contacts, No Uses glasses HEENT: No: Epistaxis, Heacaches, Hearing change, Nasal congestion, Nasal discharge, Oral lesions, Other, Sinus pain, Sneezing, Snoring, Sore Throat, Tinnitus, Vertigo, Visual Changes, Vocal changes Respiratory: YES: Cough, SOB with excertion, Shortness of breath, No: Hemoptysis, Orthopnea, Other, Pleuritic Pain, Sputum Changes, Stridor, Tachypnea, Wheezing Cardiovascular: No Chest Pain, No Edema, No Lt Headedness, No Orthopnea, No Other, No Palpitations, No Paroxysmal Noc. Dyspnea Gastrointestinal: Yes Nausea, No Abdominal Pain, No Constipation, No Diarrhea, No Hematochezia, No Melena, No Other, No Vomiting Genitourinary: No , No , No , No , No , No , No , No Discharge, No Dysuria, No Flank Pain, No Frequency, No Hematuria, No Incontinence, No Other, No Pain, No Retention, No Urgency Musculoskeletal: No Gait Disturbance, No Joint Pain, No Joint Stiffness, No Joint Swelling, No Muscle Pain, No Muscular Weakness, No Other, No Pain In:, No Swelling In: Neurological: No Behavorial Changes, No Bowel/Bladder ControlChng, No Confusion , No Dizziness, No Gait Disturbance, No Headaches, No Impaired Coord/balance, No Memory Loss, No Numbness/Tingling, No Other, No Seizures, No Speech Problems , No Tremors, No Visual Changes, No Weakness Skin: Yes Dry Skin, No Acne, No Eczema, No Hair Changes, No Lumps, No Mole Changes, No Mottling, No Nail Changes, No Other, No Pruritus, No Rash, No Skin Lesion Changes Physical Exam General: Alert, Cooperative, moderate distress HEENT: Atraumatic, PERRLA, EOMI, Other (OP dry) Lungs: Other (castillo volume, rales and wheeze, no rub) Heart: no gallops, no murmurs, irregularly irregular Abdomen: Normal bowel sounds, Soft Rectal Exam: not examined Extremities: No clubbing, No cyanosis, No edema Skin: No rashes, No significant lesion, Other (dry) Neuro: Normal speech, Sensation intact Psych/Mental Status: Mood NL (d) Vitals Vitals Vital Signs Date Time Temp Pulse Resp B/P Pulse Ox O2 Delivery O2 Flow Rate FiO2 02/17/17 15:00 97.2 60 22 123/51 95 BiPAP/CPAP 97.2 02/17/17 13:00 4.0 Labs Labs Laboratory Tests Test 02/17/17 07:30 02/17/17 09:20 02/17/17 11:20 02/17/17 13:15 White Blood Count 21.5x10^3/uL (4.0-11.0) Red Blood Count 3.52x10^6/uL (3.50-5.40) Hemoglobin 10.4g/dL (12.0-15.5) Hematocrit 33.2% (36.0-47.0) Mean Corpuscular Volume 94fL (79-100) Mean Corpuscular Hemoglobin 29pg (25-35) Mean Corpuscular Hemoglobin Concent 31g/dL (31-37) Red Cell Distribution Width 17.0% (11.5-14.5) Platelet Count 582x10^3/uL (140-400) Neutrophils (%) (Auto) 89% (31-73) Lymphocytes (%) (Auto) 5% (24-48) Monocytes (%) (Auto) 6% (0-9) Eosinophils (%) (Auto) 0% (0-3) Basophils (%) (Auto) 0% (0-3) Neutrophils # (Auto) 19.0x10^3uL (1.8-7.7) Lymphocytes # (Auto) 1.2x10^3/uL (1.0-4.8) Monocytes # (Auto) 1.2x10^3/uL (0.0-1.1) Eosinophils # (Auto) 0.0x10^3/uL (0.0-0.7) Basophils # (Auto) 0.1x10^3/uL (0.0-0.2) Segmented Neutrophils % 87% (35-66) Band Neutrophils % 3% (0-9) Lymphocytes % 6% (24-48) Monocytes % 4% (0-10) Platelet Estimate Adequate (ADEQUATE) Sodium Level 127mmol/L (136-145) Potassium Level 5.8mmol/L (3.5-5.1) Chloride Level 92mmol/L (98-107) Carbon Dioxide Level 22mmol/L (21-32) Anion Gap 13 (6-14) Blood Urea Nitrogen 54mg/dL (7-20) Creatinine 2.4mg/dL (0.6-1.0) Estimated GFR (Cockcroft-Gault) 20.2 BUN/Creatinine Ratio 23 (6-20) Glucose Level 285mg/dL (70-99) Uric Acid 9.1mg/dL (2.6-6.0) Calcium Level 9.3mg/dL (8.5-10.1) Total Bilirubin 0.3mg/dL (0.2-1.0) Aspartate Amino Transf (AST/SGOT) 175U/L (15-37) Alanine Aminotransferase (ALT/SGPT) 92U/L (14-59) Alkaline Phosphatase 98U/L (46-116) Creatine Kinase 221U/L (26-192) Troponin I Quantitative < 0.017ng/mL (0.000-0.055) FF-Aes-F-Type Natriuretic Peptide 370pg/mL (0-124) Total Protein 7.6g/dL (6.4-8.2) Albumin 3.1g/dL (3.4-5.0) Albumin/Globulin Ratio 0.7 (1.0-1.7) O2 Saturation 88% (92-99) 90% (92-99) Arterial Blood pH 7.26 (7.35-7.45) 7.32 (7.35-7.45) Arterial Blood pCO2 at Patient Temp 49mmHg (35-46) 44mmHg (35-46) Arterial Blood pO2 at Patient Temp 67mmHg (65-108) 65mmHg (65-108) Arterial Blood HCO3 22mmol/L (21-28) 22mmol/L (21-28) Arterial Blood Base Excess -6mmol/L (-3-3) -4mmol/L (-3-3) Oxyhemoglobin 86.7% Methemoglobin 0.4% (0.0-1.9) Carbon Monoxide, Quantitative 1.4% (0.0-1.9) FiO2 40.0 35.0 Glucose (Fingerstick) 279mg/dL (70-99) Laboratory Tests Test 02/17/17 07:30 02/17/17 09:20 02/17/17 11:20 02/17/17 13:15 White Blood Count 21.5x10^3/uL (4.0-11.0) Red Blood Count 3.52x10^6/uL (3.50-5.40) Hemoglobin 10.4g/dL (12.0-15.5) Hematocrit 33.2% (36.0-47.0) Mean Corpuscular Volume 94fL (79-100) Mean Corpuscular Hemoglobin 29pg (25-35) Mean Corpuscular Hemoglobin Concent 31g/dL (31-37) Red Cell Distribution Width 17.0% (11.5-14.5) Platelet Count 582x10^3/uL (140-400) Neutrophils (%) (Auto) 89% (31-73) Lymphocytes (%) (Auto) 5% (24-48) Monocytes (%) (Auto) 6% (0-9) Eosinophils (%) (Auto) 0% (0-3) Basophils (%) (Auto) 0% (0-3) Neutrophils # (Auto) 19.0x10^3uL (1.8-7.7) Lymphocytes # (Auto) 1.2x10^3/uL (1.0-4.8) Monocytes # (Auto) 1.2x10^3/uL (0.0-1.1) Eosinophils # (Auto) 0.0x10^3/uL (0.0-0.7) Basophils # (Auto) 0.1x10^3/uL (0.0-0.2) Segmented Neutrophils % 87% (35-66) Band Neutrophils % 3% (0-9) Lymphocytes % 6% (24-48) Monocytes % 4% (0-10) Platelet Estimate Adequate (ADEQUATE) Sodium Level 127mmol/L (136-145) Potassium Level 5.8mmol/L (3.5-5.1) Chloride Level 92mmol/L (98-107) Carbon Dioxide Level 22mmol/L (21-32) Anion Gap 13 (6-14) Blood Urea Nitrogen 54mg/dL (7-20) Creatinine 2.4mg/dL (0.6-1.0) Estimated GFR (Cockcroft-Gault) 20.2 BUN/Creatinine Ratio 23 (6-20) Glucose Level 285mg/dL (70-99) Uric Acid 9.1mg/dL (2.6-6.0) Calcium Level 9.3mg/dL (8.5-10.1) Total Bilirubin 0.3mg/dL (0.2-1.0) Aspartate Amino Transf (AST/SGOT) 175U/L (15-37) Alanine Aminotransferase (ALT/SGPT) 92U/L (14-59) Alkaline Phosphatase 98U/L (46-116) Creatine Kinase 221U/L (26-192) Troponin I Quantitative < 0.017ng/mL (0.000-0.055) OY-Gal-P-Type Natriuretic Peptide 370pg/mL (0-124) Total Protein 7.6g/dL (6.4-8.2) Albumin 3.1g/dL (3.4-5.0) Albumin/Globulin Ratio 0.7 (1.0-1.7) O2 Saturation 88% (92-99) 90% (92-99) Arterial Blood pH 7.26 (7.35-7.45) 7.32 (7.35-7.45) Arterial Blood pCO2 at Patient Temp 49mmHg (35-46) 44mmHg (35-46) Arterial Blood pO2 at Patient Temp 67mmHg (65-108) 65mmHg (65-108) Arterial Blood HCO3 22mmol/L (21-28) 22mmol/L (21-28) Arterial Blood Base Excess -6mmol/L (-3-3) -4mmol/L (-3-3) Oxyhemoglobin 86.7% Methemoglobin 0.4% (0.0-1.9) Carbon Monoxide, Quantitative 1.4% (0.0-1.9) FiO2 40.0 35.0 Glucose (Fingerstick) 279mg/dL (70-99) VTE Prophylaxis Ordered VTE Prophylaxis Devices: No VTE Pharmacological Prophylaxi: Yes Assessment/Plan Assessment/Plan Acute hypoxic resp failure, req. ventimast in ER, now on 4 liters NC COPD, Acute execerbation w/ sepsis CHF, chronic diastolic failure, w/ afib Acute vasomotor nephropathy, dehydration hypovolumic hyponatremia and hyperkalemia mild malnutrition transaminitis \\DM2, poor control, exac. with IV steroids given in ER< increase SSI and meal insu.lni VAUGHN ECHEVERRIA MD Feb 17, 2017 16:17
[2017-02-17] MEDS: INSULIN ASPART 300 UNITS/3 ML INSULN.PEN SQ SCH ×3 (16:28→16:30)
--- NOTE | 2017-02-17 16:36 | RAD ---
Indication acute renal failure superimposed on chronic renal disease. The examination is very limited. The patient could not assume normal positioning for the study. The right kidney was seen which appeared grossly unremarkable. The left kidney was not visualized. (The patient does have a left kidney as partially viewed on an examination 06/04/2016). IMPRESSION: Very limited study. The right kidney appeared grossly unremarkable
--- NOTE | 2017-02-17 16:47 | CONS ---
DATE OF CONSULTATION: ATTENDING PHYSICIAN: Dr. Miesha Saha. REASON FOR CONSULTATION: Respiratory failure. HISTORY OF PRESENT ILLNESS: The patient is a 67-year-old female, who came to the Emergency Department with increasing shortness of breath. She also has a mild cough. No fever, no chills, no chest pains. The patient says she normally is on home oxygen. Her saturations were 88%-92% on arrival. Her chest x-ray revealed prominent interstitial marking with some atelectasis versus infiltrate left lower lobe. However, the old x-rays have shown similarly prominent interstitial markings. She was placed on BiPAP as she had an abnormal blood gases with the pH of 7.26, pCO2 of 49, pO2 of 67 with a bicarbonate of 22 on 40% FiO2. Currently, she is on 35% FiO2 and pH 7.32, pCO2 of 44 and pO2 of 65 with bicarbonate is 22. She is found to be in renal failure with a BUN of 54 and creatinine 2.4. Consultation requested for further evaluation and management. She is awake and following commands. PAST MEDICAL HISTORY: History of COPD, history of chronic respiratory failure, CHF, diabetes and hypertension. PAST SURGICAL HISTORY: Tubal ligation. ALLERGIES: LISINOPRIL AND AMBIEN. CURRENT MEDICATIONS: Reviewed as listed in the [facility]AD including Rocephin and doxycycline. REVIEW OF SYSTEMS: Twelve-point system obtained. Pertinent positives discussed in history of present illness, otherwise noncontributory. All systems that were negative were reviewed as well. SOCIAL HISTORY: Has a history of tobacco use in the past, no longer smokes cigarettes. FAMILY HISTORY: Noncontributory to lungs. PHYSICAL EXAMINATION: VITAL SIGNS: Blood pressure 152/61, pulse ox 92% on current BiPAP, afebrile. HEENT: Sclerae nonicteric. NECK: Supple. LUNGS: Showed diminished breath sounds. CARDIOVASCULAR: With a regular rate. ABDOMEN: Soft, nontender. EXTREMITIES: With trace pitting edema. LABORATORY DATA: Her chest x-ray was reviewed. Her last echocardiogram done on 07/2016, had shown an EF of 60% and right atrium was moderately dilated. She also had a transesophageal echo, which showed [id number] mitral regurgitation and pulmonary artery systolic pressure of 70. IMPRESSION: 1. Acute respiratory failure, I suspect this is secondary to combination of metabolic and respiratory acidosis. In addition, she has diffuse bilateral mild interstitial infiltrates which could be related to interstitial lung disease versus congestive heart failure. 2. Abnormal chest x-ray with bilateral prominent interstitial markings, could be related to interstitial edema versus interstitial lung disease. She has infiltrates seen previously on her older x-rays as well. I would obtain noncontrast CT chest for further evaluation. 3. Previously abnormal transesophageal echo with moderate to severe mitral regurgitation. 4. Acute renal failure with metabolic acidosis. 5. Secondary pulmonary hypertension with a pulmonary artery systolic pressure of 70 on transesophageal echo from 07/2016. RECOMMENDATIONS: 1. Continue with present BiPAP to correct the respiratory component of acidosis. 2. Give 2 amps of bicarbonate. 3. Noncontrast CT chest to further evaluate parenchymal lung disease. 4. Repeat an echocardiogram. 5. Follow renal recommendations. 6. Follow ABGs to see an improvement in pH. BARBARA KELLOGG MD DR: CHARLIE/kina JOB#: [id number] / [id number] HARPAL
[2017-02-17] MEDS: IPRATRPIUM/ALBUTEROL 0.5/2.5MG 3 ML NEBU. NEB SCH ×2 (17:00→19:32)
[2017-02-17] MEDS: HYDROCODONE/APAP 7.5/325MG TABLET. PO SCH ×2 (17:12→21:00)
[2017-02-17] MEDS: ONDANSETRON PF 4 MG/2 ML VIAL. IV PRN ×2 (18:33→21:05)
[2017-02-17] MEDS: BUDESONIDE 0.5 MG/2 ML NEBU. NEB SCH (19:32)
[2017-02-17 19:38] LABS: HCO3 ABG 13 mmol/L (21-28); PCO2 ABG 30 mmHg (35-46); PO2 ABG 73 mmHg (65-108); SAT O2 ABG 92 % (92-99)
[2017-02-17 19:39] LABS: FIO2 ABG 35; PH ABG 7.27 (7.35-7.45)
[2017-02-17] MEDS ORDERED: FUROSEMIDE 100 MG/10 ML VIAL. IVP ONE (20:00)
[2017-02-17] MEDS ORDERED: SMZ/TMP 800/160MG TABLET. PO SCH (21:00)
[2017-02-17] MEDS ORDERED: INSULIN DETEMIR 300 UNITS/3 ML INSULN.PEN. SQ SCH (21:00)
[2017-02-17] MEDS ORDERED: PYRIDOXINE HCL PO SCH (21:00)
[2017-02-17] MEDS: MORPHINE ER 30 MG TABLET.ER PO SCH (21:00)
[2017-02-17] MEDS ORDERED: NON FORMULARY ITEM (Fluticasone/Salmeterol (Advair 250-50 Diskus) 1 PUFF) INH SCH (21:00)
[2017-02-17] MEDS ORDERED: MELATONIN PO SCH (21:00)
[2017-02-17] MEDS ORDERED: SODIUM BICARBONATE VIAL 150 MEQ in IV DEXTROSE 5% 1,000 ML IV SCH (21:00)
[2017-02-17] MEDS: DABIGATRAN ETEXILATE 75 MG CAPSULE. PO SCH (22:13)
[2017-02-17] MEDS: PROPAFENONE 150 MG TABLET. PO SCH (22:13)
[2017-02-17] MEDS: CILOSTAZOL 50 MG TABLET. PO SCH (22:13)
[2017-02-17] MEDS: diphenhydrAMINE HCL 25 MG CAPSULE PO SCH (22:15)
[2017-02-17] MEDS: GABAPENTIN 300 MG CAPSULE. PO SCH (22:15)
[2017-02-17] MEDS: GUAIFENESIN ER 600 MG TABLET.ER PO SCH (22:15)
[2017-02-17] MEDS: DOXYCYCLINE HYCLATE 100 MG in IV DEXTROSE 5% 100 ML IV SCH (22:16)
[2017-02-18] VITALS (23 sets, daily range): BP systolic 140–194; BP diastolic 53–90
[2017-02-18 05:17] LABS: BILIRUBIN,URINE NEGATIVE (NEG); GLUCOSE,URINE 250 mg/dL (NEG); NITRITE,URINE NEGATIVE (NEG); PROTEIN,URINE NEGATIVE (NEG-TRACE); UROBILINOGEN,URINE 0.2 mg/dL (0.2 mg/dL)
[2017-02-18 05:27] LABS: BACTERIA,URINE FEW /HPF (0-FEW); RBC,URINE TNTC /HPF (0-2); SQUAMOUS EPITHELIAL CELL,UR FEW /LPF; WBC,URINE OCC /HPF (0-4)
--- NOTE | 2017-02-18 06:30 | CONS ---
DATE OF CONSULTATION: REASON FOR CONSULTATION: Acute renal failure. HISTORY OF PRESENT ILLNESS: The patient is a pleasant 67-year-old female who was recently at this facility and was diagnosed with COPD, pneumonia, has been followed by the Pulmonary Service. She presented to the ER with worsening shortness of air. She was seen by Dr. Sykes yesterday, her primary care physician, was placed on prednisone and antibiotic. She cannot tell me how long she has been on prednisone, however, she has used in the recent past. She was also placed on Bactrim per her list of medications. It is unclear to me if she has already at this time. On presentation she has noted to have sodium of 127, potassium 5.8, BUN of 54, creatinine 2.4, her last creatinine in our system was 1.0 as of 11/2016. She did get Solu-Medrol in the ER x 1. She currently is on a BiPAP and is unable to communicate much with me. She was noted to be somewhat tachycardic at presentation as well as tachypneic. Chest x-ray report shows left-sided pleural effusion, which I doubt is related to her fluid status. She does have numerous valvular abnormalities as noted on an echocardiogram done about 6 months ago. She does appear to have chronic fibrosis on her chest x-ray on my review other than history as documented in my notes. 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 FAMILY HISTORY: Also positive for diabetes, asthma, no kidney problems that she admits to at this time. SOCIAL HISTORY: Positive history of smoking. For rest of details, please see electronic renal consult note. JUNIOR VALERIO MD DR: LEONARD/kina JOB#: [id number] / [id number]
[2017-02-18] MEDS ORDERED: SODIUM BICARBONATE IV SCH (07:00)
[2017-02-18] MEDS ORDERED: DEXTROSE 5% IV SCH (07:00)
[2017-02-18 07:09] LABS: BASO % 0 % (0-3); EOS % 0 % (0-3); HEMATOCRIT 29.4 % (36.0-47.0); HEMOGLOBIN 9.5 g/dL (12.0-15.5); LYMPH # 0.8 x10^3/uL (1.0-4.8); LYMPH % 3 % (24-48); MEAN CORPUSCULAR HEMOGLOBIN 30 pg (25-35); MEAN CORPUSCULAR HGB CONC 32 g/dL (31-37); MEAN CORPUSCULAR VOLUME 93 fL (79-100); MONO % 5 % (0-9); NEUT % 91 % (31-73); PLATELET COUNT 478 x10^3/uL (140-400); RED BLOOD COUNT 3.18 x10^6/uL (3.50-5.40); RED CELL DISTRIBUTION WIDTH 16.8 % (11.5-14.5); WHITE BLOOD COUNT 23.9 x10^3/uL (4.0-11.0)
[2017-02-18] MEDS: BUDESONIDE 0.5 MG/2 ML NEBU. NEB SCH ×2 (07:35→20:01)
[2017-02-18] MEDS: IPRATRPIUM/ALBUTEROL 0.5/2.5MG 3 ML NEBU. NEB SCH ×4 (07:35→20:02)
[2017-02-18 07:45] LABS: CALCIUM 8.3 mg/dL (8.5-10.1); CREATININE 3.2 mg/dL (0.6-1.0); GFR 14.5; PHOSPHORUS 5.3 mg/dL (2.6-4.7); POTASSIUM 5.1 mmol/L (3.5-5.1)
--- NOTE | 2017-02-18 08:09 | PDOC ---
SUBJECTIVE ROS JOSE/ ATN Remains on BiPAP and now on Dobutamine gtt. unable to get ROS from pt x that she is thirsty and thinks she can go home OBJECTIVE Vital Signs Vital Signs Date Time Temp Pulse Resp B/P Pulse Ox O2 Delivery O2 Flow Rate FiO2 02/18/17 07:37 94 BiPAP/CPAP 02/18/17 06:00 98 28 184/60 02/18/17 04:00 98.8 98.8 02/17/17 22:00 5.0 I & 0 Intake and Output 02/18/17 07:00 Intake Total 1708 ml Output Total 530 ml Balance 1178 ml Intake Oral 630 ml IV Total 1078 ml Output Urine Total 510 ml Emesis 20 ml PHYSICAL EXAM Physical Exam General Appearance: Awake partially Alert Oriented x 1-2 In mod resp Distress on BiPAP Eyes: VIsion Unchanged Conjunctiva Normal EN: No EN Drainage Mucous Memb. dry Neck: + JVD + JVP Supple no Thyromegaly CVS: S1 S2 + Murmur No Gallop No Rub no Edema Resp: few Rales no Rhonchi no Acc. Muscle use GI: BS +ve NO Bruit Non Tender ? Distended : no CVA tenderness; no Suprapubic Tenderness SKIN: no Rashes Breast Exam deferred Mu.Sk: Adequate ROM no Muscle Atrophy Heme: Unable to palpate Obvious LAD no palp Splenomegaly NEURO: Unable to assess currently while on BiPAP Psych: Unable to assess currently while on BiPAP Assessment & Plan JOSE - suspect intravascular Vol depletion; Pre-renal from VHDz state, Bactrim, cannnot R/o ATN. Remains Oligo-anuric despite IV Lasix/ and now Doubtamine. Current FLuid and E-lyte status does not necessitate emergent need for Dialysis. Will re-evaluate for Dialysis in am ^K - now resolved after correction of Met acidosis as ntoed on ABG. Low Na - Worse today. Multifactorial - Suspect HypoOsmolar. Soraya will not be help ful since she got lasix yest. Sev ^ Phos - ? due to Renal Failure; SOB - ABGs noted Previous Met ACidosis (on ABG) - now better on todays ABG significant Cardiac ABN as noted on most recent ECHO. ? Need for Re-ECHO, Await CT Chest ? vol depletion - ([facility]) - IVF boluses prn for Low UO. May need respt status optimized prior to aggressive IVF COMMENT/RELEVANT DATA Meds Current Medications Medications (Trade) Dose Ordered Sig/Myrtle Start Time Stop Time Status Last Admin Dose Admin Acetaminophen/ Hydrocodone Bitart (Lortab 7.5/325) 1 tab QID 02/17/17 17:00 02/17/17 17:12 1 TAB Albuterol Sulfate (Ventolin Neb Soln) 10 mg 1X ONCE 02/17/17 08:00 02/17/17 08:01 DC 02/17/17 08:02 10 MG Albuterol/ Ipratropium (Duoneb) 3 ml Q4HRS W/A 02/17/17 18:00 02/18/17 07:35 3 ML Alprazolam (Xanax) 1 mg PRN Q8HRS PRN 02/17/17 15:45 02/17/17 22:13 1 MG Aspirin (Ecotrin) 81 mg DAILY 02/18/17 09:00 Budesonide (Pulmicort) 0.5 mg RTBID 02/17/17 20:00 02/18/17 07:35 0.5 MG Ceftriaxone Sodium/Sodium Chloride (Rocephin/Iv Sodium Chloride 0.9% 50ml) 50 ml @ 100 mls/hr Q24H 02/18/17 09:00 Ceftriaxone Sodium 50 ml @ 100 mls/hr DAILY 02/18/17 09:00 UNV Cilostazol (Pletal) 50 mg BID 02/17/17 21:00 02/17/17 22:13 50 MG Citalopram Hydrobromide (Celexa) 20 mg DAILY 02/18/17 09:00 Dabigatran (Pradaxa) 75 mg BID 02/17/17 21:00 02/17/17 22:13 75 MG Dextrose 12.5 gm 12.5 gm PRN Q15MIN PRN 02/17/17 10:00 Digoxin (Lanoxin) 125 mcg DAILY 02/18/17 09:00 Diltiazem HCl (Cardizem 24hr Cd) 360 mg DAILY 02/18/17 09:00 Diphenhydramine HCl (Benadryl) 25 mg QHS 02/17/17 21:00 02/17/17 22:15 25 MG Dobutamine HCl/ Dextrose 250 ml @ 0 mls/hr CONT PRN 02/17/17 23:00 02/17/17 23:38 7.348 MLS/HR Doxycycline Hyclate 100 mg/ Dextrose 100 ml @ 50 mls/hr BID 02/17/17 21:00 02/17/17 22:16 50 MLS/HR Ferrous Sulfate (Feosol) 325 mg [id number] 02/18/17 08:00 Furosemide 80 mg 80 mg 1X ONCE 02/17/17 20:00 02/17/17 20:01 DC Gabapentin (Neurontin) 900 mg BID 02/17/17 21:00 02/17/17 22:15 900 MG Guaifenesin (Mucinex) 600 mg BID 02/17/17 21:00 02/17/17 22:15 600 MG Insulin Aspart (Novolog) 9 units TIDAC 02/17/17 16:30 02/17/17 16:28 9 UNITS Insulin Detemir (Levemir) 14 units BID 02/17/17 21:00 02/17/17 22:12 14 UNITS Magnesium Sulfate/ Dextrose (Magnesium Sulfate PREMIX 2GM) 50 ml @ 25 mls/hr PRN DAILY PRN 02/17/17 14:45 Methylprednisolone Sodium Succinate 60 mg 60 mg 1X ONCE 02/17/17 08:00 02/17/17 08:06 DC 02/17/17 08:49 60 MG Morphine Sulfate (Ms Contin) 30 mg TID 02/17/17 21:00 Non-Formulary Medication 1 each HS 02/17/17 21:00 UNV Ondansetron HCl (Zofran) 4 mg PRN Q6HRS PRN 02/17/17 18:15 02/17/17 21:05 4 MG Prednisone (Prednisone) 60 mg DAILY07 02/18/17 07:00 Propafenone HCl (Rythmol) 150 mg BID 02/17/17 21:00 02/17/17 22:13 150 MG Sodium Bicarbonate 150 meq/Dextrose 1,150 ml @ 100 mls/hr [id number] 02/17/17 21:00 02/18/17 06:59 DC 02/17/17 21:11 100 MLS/HR Sodium Bicarbonate 50 meq 50 meq 1X ONCE 02/17/17 15:30 02/17/17 15:35 DC 02/17/17 15:46 50 MEQ Sodium Bicarbonate 75 meq/Dextrose 575 ml @ 100 mls/hr [id number] 02/18/17 07:00 02/18/17 11:59 Sodium Polystyrene Sulfonate 45 gm 45 gm 1X ONCE 02/17/17 15:30 02/17/17 15:31 DC 02/17/17 22:21 45 GM Sodium Chloride (Iv Sodium Chloride 0.9% 500ml Bag) 500 ml @ 0 mls/hr PRN QID PRN 02/17/17 15:00 Sodium Chloride (Iv Sodium Chloride 0.9% 1000ml Bag) 1,000 ml @ 75 mls/hr 1X ONCE 02/17/17 15:45 02/18/17 05:04 DC 02/17/17 16:11 75 MLS/HR Trimethoprim/ Sulfamethoxazole (Bactrim Ds) 1 tab DAILY 02/17/17 21:00 Vitamin B Complex (Moi B) 1 tab DAILY 02/18/17 09:00 Lab Laboratory Tests Test 02/17/17 09:20 02/17/17 11:20 02/17/17 13:15 02/17/17 16:14 O2 Saturation 88% (92-99) 90% (92-99) Arterial Blood pH 7.26 (7.35-7.45) 7.32 (7.35-7.45) Arterial Blood pCO2 at Patient Temp 49mmHg (35-46) 44mmHg (35-46) Arterial Blood pO2 at Patient Temp 67mmHg (65-108) 65mmHg (65-108) Arterial Blood HCO3 22mmol/L (21-28) 22mmol/L (21-28) Arterial Blood Base Excess -6mmol/L (-3-3) -4mmol/L (-3-3) Oxyhemoglobin 86.7% Methemoglobin 0.4% (0.0-1.9) Carbon Monoxide, Quantitative 1.4% (0.0-1.9) FiO2 40.0 35.0 Glucose (Fingerstick) 279mg/dL (70-99) 243mg/dL (70-99) Test 02/17/17 18:19 02/17/17 22:03 02/18/17 04:45 02/18/17 05:30 O2 Saturation 92% (92-99) Arterial Blood pH 7.27 (7.35-7.45) Arterial Blood pCO2 at Patient Temp 30mmHg (35-46) Arterial Blood pO2 at Patient Temp 73mmHg (65-108) Arterial Blood HCO3 13mmol/L (21-28) Arterial Blood Base Excess -12mmol/L (-3-3) FiO2 35 Glucose (Fingerstick) 175mg/dL (70-99) Urine Collection Type Unknown Urine Color Yellow Urine Clarity Clear Urine pH 5.0 Urine Specific [place] 1.015 Urine Protein Negativemg/dL (NEG-TRACE) Urine Glucose (UA) 250mg/dL (NEG) Urine Ketones (Stick) Negativemg/dL (NEG) Urine Blood Large (NEG) Urine Nitrite Negative (NEG) Urine Bilirubin Negative (NEG) Urine Urobilinogen Dipstick 0.2mg/dL (0.2 mg/dL) Urine Leukocyte Esterase Negative (NEG) Urine RBC Tntc/HPF (0-2) Urine WBC Occ/HPF (0-4) Urine Squamous Epithelial Cells Few/LPF Urine Bacteria Few/HPF (0-FEW) Urine Hyaline Casts Moderate/HPF Urine Mucus Mod/LPF White Blood Count 23.9x10^3/uL (4.0-11.0) Red Blood Count 3.18x10^6/uL (3.50-5.40) Hemoglobin 9.5g/dL (12.0-15.5) Hematocrit 29.4% (36.0-47.0) Mean Corpuscular Volume 93fL (79-100) Mean Corpuscular Hemoglobin 30pg (25-35) Mean Corpuscular Hemoglobin Concent 32g/dL (31-37) Red Cell Distribution Width 16.8% (11.5-14.5) Platelet Count 478x10^3/uL (140-400) Neutrophils (%) (Auto) 91% (31-73) Lymphocytes (%) (Auto) 3% (24-48) Monocytes (%) (Auto) 5% (0-9) Eosinophils (%) (Auto) 0% (0-3) Basophils (%) (Auto) 0% (0-3) Neutrophils # (Auto) 21.8x10^3uL (1.8-7.7) Lymphocytes # (Auto) 0.8x10^3/uL (1.0-4.8) Monocytes # (Auto) 1.2x10^3/uL (0.0-1.1) Eosinophils # (Auto) 0.0x10^3/uL (0.0-0.7) Basophils # (Auto) 0.0x10^3/uL (0.0-0.2) Sodium Level 122mmol/L (136-145) Potassium Level 5.1mmol/L (3.5-5.1) Chloride Level 86mmol/L (98-107) Carbon Dioxide Level 23mmol/L (21-32) Anion Gap 13 (6-14) Blood Urea Nitrogen 73mg/dL (7-20) Creatinine 3.2mg/dL (0.6-1.0) Estimated GFR (Cockcroft-Gault) 14.5 Glucose Level 368mg/dL (70-99) Calcium Level 8.3mg/dL (8.5-10.1) Phosphorus Level 5.3mg/dL (2.6-4.7) Magnesium Level 2.3mg/dL (1.8-2.4) Albumin 3.0g/dL (3.4-5.0) JUNIOR VALERIO MD Feb 18, 2017 08:09
[2017-02-18] MEDS ORDERED: CEFTRIAXONE 1GM IVPB FOR OMNI 50 ML IV SCH (09:00)
[2017-02-18 09:03] LABS: FREE T4 1.24 ng/dL (0.76-1.46)
[2017-02-18 09:04] LABS: URIC ACID 12.6 mg/dL (2.6-6.0)
[2017-02-18] MEDS: SODIUM CHLORIDE 3 % 500 ML IV PRN (09:09)
[2017-02-18] MEDS: INSULIN ASPART 300 UNITS/3 ML INSULN.PEN SQ SCH ×6 (09:24→18:11)
[2017-02-18] MEDS: HYDROCODONE/APAP 7.5/325MG TABLET. PO SCH ×4 (09:41→21:06)
[2017-02-18] MEDS: MORPHINE ER 30 MG TABLET.ER PO SCH ×3 (09:42→21:06)
[2017-02-18] MEDS: GABAPENTIN 300 MG CAPSULE. PO SCH ×2 (09:43→17:56)
[2017-02-18] MEDS: VITAMIN B COMPLEX TABLET. PO SCH (09:44)
[2017-02-18] MEDS: DIGOXIN 125 MCG TABLET. PO SCH (09:45)
[2017-02-18] MEDS: DILTIAZEM HCL 180 MG CAP.ER.24H PO SCH (09:46)
[2017-02-18] MEDS: CILOSTAZOL 50 MG TABLET. PO SCH ×2 (09:47→21:05)
[2017-02-18] MEDS: FERROUS SULFATE 325 MG TABLET. PO SCH (09:48)
[2017-02-18] MEDS: ASPIRIN ENTERIC COATED 81 MG TABLET.DR. PO SCH (09:48)
[2017-02-18] MEDS: CITALOPRAM 20 MG TABLET. PO SCH (09:48)
[2017-02-18] MEDS: DABIGATRAN ETEXILATE 75 MG CAPSULE. PO SCH ×2 (09:49→21:05)
[2017-02-18] MEDS: CALCIUM ACETATE 667 MG CAPSULE PO SCH ×3 (09:50→17:00)
[2017-02-18] MEDS: GUAIFENESIN ER 600 MG TABLET.ER PO SCH ×2 (09:51→21:05)
[2017-02-18] MEDS: predniSONE 20 MG TABLET PO SCH (09:53)
[2017-02-18] MEDS: PROPAFENONE 150 MG TABLET. PO SCH ×2 (09:53→21:05)
[2017-02-18] MEDS ORDERED: LIDOCAINE 1% / SOD BICARB 8.4% 20 ML VIAL. IJ ONE ×2 (09:53→10:15)
[2017-02-18] MEDS ORDERED: HEPARIN for IV BOLUS 10,000 UNIT/10 ML VIAL. ONE (09:53)
[2017-02-18 10:55] LABS: HCO3 ABG 23 mmol/L (21-28); PCO2 ABG 38 mmHg (35-46); PH ABG 7.41 (7.35-7.45); PO2 ABG 57 mmHg (65-108); SAT O2 ABG 86 % (92-99)
[2017-02-18 10:58] LABS: FIO2 ABG 30
--- NOTE | 2017-02-18 11:14 | PDOC ---
Exam Security Guard Dispatcher Security Guard Dispatcher Belinda Sole Trimmer Sole Trimmer F Ndumbu Pre-Procedure Diagnosis Pre-Procedure Diagnosis 67 YO female ICU patient admitted with respiratory failure, JOSE and met acidosis. Post-Procedure Diagnosis Post-Procedure Diagnosis Same Procedure Performed Procedure Performed Bedside ICU sono guided 3L temp HDC---for dobutamine infusion and HD. Type of Anesthesia Type of Anesthesia Local Estimated Blood Loss EBL: Minimal Drain/Tubes Drains/Tubes Rt IJ 13F 3L 20cm Trialysis temp HDC Condition of Patient Condition of Patient No change. No apparent complication. Disposition Disposition STAT pCXR requested for 3L temp HDC position. Full report to follow. LEE COOL MD Feb 18, 2017 11:14
--- NOTE | 2017-02-18 11:32 | PDOC ---
PULMONARY PROGRESS NOTES Subjective FEELS BETTER, ON BIPAP WORSENING RENAL FAILURE Vitals Vital Signs Date Time Temp Pulse Resp B/P Pulse Ox O2 Delivery O2 Flow Rate FiO2 02/18/17 09:53 102 194/62 02/18/17 09:42 25 95 Nasal Cannula 5.0 02/18/17 04:00 98.8 98.8 General: Alert HEENT: Other Lungs: Wheezing (faint) Cardiovascular: S1, S2 Abdomen: Soft, Non-tender, Other Extremities: Other Labs Laboratory Tests Test 02/17/17 07:30 02/17/17 09:20 02/17/17 11:20 02/17/17 13:15 White Blood Count 21.5x10^3/uL (4.0-11.0) Red Blood Count 3.52x10^6/uL (3.50-5.40) Hemoglobin 10.4g/dL (12.0-15.5) Hematocrit 33.2% (36.0-47.0) Mean Corpuscular Volume 94fL (79-100) Mean Corpuscular Hemoglobin 29pg (25-35) Mean Corpuscular Hemoglobin Concent 31g/dL (31-37) Red Cell Distribution Width 17.0% (11.5-14.5) Platelet Count 582x10^3/uL (140-400) Neutrophils (%) (Auto) 89% (31-73) Lymphocytes (%) (Auto) 5% (24-48) Monocytes (%) (Auto) 6% (0-9) Eosinophils (%) (Auto) 0% (0-3) Basophils (%) (Auto) 0% (0-3) Neutrophils # (Auto) 19.0x10^3uL (1.8-7.7) Lymphocytes # (Auto) 1.2x10^3/uL (1.0-4.8) Monocytes # (Auto) 1.2x10^3/uL (0.0-1.1) Eosinophils # (Auto) 0.0x10^3/uL (0.0-0.7) Basophils # (Auto) 0.1x10^3/uL (0.0-0.2) Segmented Neutrophils % 87% (35-66) Band Neutrophils % 3% (0-9) Lymphocytes % 6% (24-48) Monocytes % 4% (0-10) Platelet Estimate Adequate (ADEQUATE) Sodium Level 127mmol/L (136-145) Potassium Level 5.8mmol/L (3.5-5.1) Chloride Level 92mmol/L (98-107) Carbon Dioxide Level 22mmol/L (21-32) Anion Gap 13 (6-14) Blood Urea Nitrogen 54mg/dL (7-20) Creatinine 2.4mg/dL (0.6-1.0) Estimated GFR (Cockcroft-Gault) 20.2 BUN/Creatinine Ratio 23 (6-20) Glucose Level 285mg/dL (70-99) Uric Acid 9.1mg/dL (2.6-6.0) Calcium Level 9.3mg/dL (8.5-10.1) Total Bilirubin 0.3mg/dL (0.2-1.0) Aspartate Amino Transf (AST/SGOT) 175U/L (15-37) Alanine Aminotransferase (ALT/SGPT) 92U/L (14-59) Alkaline Phosphatase 98U/L (46-116) Creatine Kinase 221U/L (26-192) Troponin I Quantitative < 0.017ng/mL (0.000-0.055) MH-Xsj-X-Type Natriuretic Peptide 370pg/mL (0-124) Total Protein 7.6g/dL (6.4-8.2) Albumin 3.1g/dL (3.4-5.0) Albumin/Globulin Ratio 0.7 (1.0-1.7) O2 Saturation 88% (92-99) 90% (92-99) Arterial Blood pH 7.26 (7.35-7.45) 7.32 (7.35-7.45) Arterial Blood pCO2 at Patient Temp 49mmHg (35-46) 44mmHg (35-46) Arterial Blood pO2 at Patient Temp 67mmHg (65-108) 65mmHg (65-108) Arterial Blood HCO3 22mmol/L (21-28) 22mmol/L (21-28) Arterial Blood Base Excess -6mmol/L (-3-3) -4mmol/L (-3-3) Oxyhemoglobin 86.7% Methemoglobin 0.4% (0.0-1.9) Carbon Monoxide, Quantitative 1.4% (0.0-1.9) FiO2 40.0 35.0 Glucose (Fingerstick) 279mg/dL (70-99) Test 02/17/17 16:14 02/17/17 18:19 02/17/17 22:03 02/18/17 04:45 Glucose (Fingerstick) 243mg/dL (70-99) 175mg/dL (70-99) O2 Saturation 92% (92-99) Arterial Blood pH 7.27 (7.35-7.45) Arterial Blood pCO2 at Patient Temp 30mmHg (35-46) Arterial Blood pO2 at Patient Temp 73mmHg (65-108) Arterial Blood HCO3 13mmol/L (21-28) Arterial Blood Base Excess -12mmol/L (-3-3) FiO2 35 Urine Collection Type Unknown Urine Color Yellow Urine Clarity Clear Urine pH 5.0 Urine Specific [place] 1.015 Urine Protein Negativemg/dL (NEG-TRACE) Urine Glucose (UA) 250mg/dL (NEG) Urine Ketones (Stick) Negativemg/dL (NEG) Urine Blood Large (NEG) Urine Nitrite Negative (NEG) Urine Bilirubin Negative (NEG) Urine Urobilinogen Dipstick 0.2mg/dL (0.2 mg/dL) Urine Leukocyte Esterase Negative (NEG) Urine RBC Tntc/HPF (0-2) Urine WBC Occ/HPF (0-4) Urine Squamous Epithelial Cells Few/LPF Urine Bacteria Few/HPF (0-FEW) Urine Hyaline Casts Moderate/HPF Urine Mucus Mod/LPF Test 02/18/17 05:30 02/18/17 08:00 02/18/17 08:47 White Blood Count 23.9x10^3/uL (4.0-11.0) Red Blood Count 3.18x10^6/uL (3.50-5.40) Hemoglobin 9.5g/dL (12.0-15.5) Hematocrit 29.4% (36.0-47.0) Mean Corpuscular Volume 93fL (79-100) Mean Corpuscular Hemoglobin 30pg (25-35) Mean Corpuscular Hemoglobin Concent 32g/dL (31-37) Red Cell Distribution Width 16.8% (11.5-14.5) Platelet Count 478x10^3/uL (140-400) Neutrophils (%) (Auto) 91% (31-73) Lymphocytes (%) (Auto) 3% (24-48) Monocytes (%) (Auto) 5% (0-9) Eosinophils (%) (Auto) 0% (0-3) Basophils (%) (Auto) 0% (0-3) Neutrophils # (Auto) 21.8x10^3uL (1.8-7.7) Lymphocytes # (Auto) 0.8x10^3/uL (1.0-4.8) Monocytes # (Auto) 1.2x10^3/uL (0.0-1.1) Eosinophils # (Auto) 0.0x10^3/uL (0.0-0.7) Basophils # (Auto) 0.0x10^3/uL (0.0-0.2) Sodium Level 122mmol/L (136-145) Potassium Level 5.1mmol/L (3.5-5.1) Chloride Level 86mmol/L (98-107) Carbon Dioxide Level 23mmol/L (21-32) Anion Gap 13 (6-14) Blood Urea Nitrogen 73mg/dL (7-20) Creatinine 3.2mg/dL (0.6-1.0) Estimated GFR (Cockcroft-Gault) 14.5 Glucose Level 368mg/dL (70-99) Serum Osmolality 301mOsm/Kg (279-304) Uric Acid 12.6mg/dL (2.6-6.0) Calcium Level 8.3mg/dL (8.5-10.1) Phosphorus Level 5.3mg/dL (2.6-4.7) Magnesium Level 2.3mg/dL (1.8-2.4) Lactate Dehydrogenase 1948U/L (81-234) Creatine Kinase 667U/L (26-192) Albumin 3.0g/dL (3.4-5.0) Lipase 48U/L (73-393) Thyroid Stimulating Hormone (TSH) 0.870uIU/mL (0.358-3.74) Free Thyroxine 1.24ng/dL (0.76-1.46) O2 Saturation 86% (92-99) Arterial Blood pH 7.41 (7.35-7.45) Arterial Blood pCO2 at Patient Temp 38mmHg (35-46) Arterial Blood pO2 at Patient Temp 57mmHg (65-108) Arterial Blood HCO3 23mmol/L (21-28) Arterial Blood Base Excess -1mmol/L (-3-3) FiO2 30 Glucose (Fingerstick) 379mg/dL (70-99) Laboratory Tests Test 02/17/17 13:15 02/17/17 16:14 02/17/17 18:19 02/17/17 22:03 Glucose (Fingerstick) 279mg/dL (70-99) 243mg/dL (70-99) 175mg/dL (70-99) O2 Saturation 92% (92-99) Arterial Blood pH 7.27 (7.35-7.45) Arterial Blood pCO2 at Patient Temp 30mmHg (35-46) Arterial Blood pO2 at Patient Temp 73mmHg (65-108) Arterial Blood HCO3 13mmol/L (21-28) Arterial Blood Base Excess -12mmol/L (-3-3) FiO2 35 Test 02/18/17 04:45 02/18/17 05:30 02/18/17 08:00 02/18/17 08:47 Urine Collection Type Unknown Urine Color Yellow Urine Clarity Clear Urine pH 5.0 Urine Specific [place] 1.015 Urine Protein Negativemg/dL (NEG-TRACE) Urine Glucose (UA) 250mg/dL (NEG) Urine Ketones (Stick) Negativemg/dL (NEG) Urine Blood Large (NEG) Urine Nitrite Negative (NEG) Urine Bilirubin Negative (NEG) Urine Urobilinogen Dipstick 0.2mg/dL (0.2 mg/dL) Urine Leukocyte Esterase Negative (NEG) Urine RBC Tntc/HPF (0-2) Urine WBC Occ/HPF (0-4) Urine Squamous Epithelial Cells Few/LPF Urine Bacteria Few/HPF (0-FEW) Urine Hyaline Casts Moderate/HPF Urine Mucus Mod/LPF White Blood Count 23.9x10^3/uL (4.0-11.0) Red Blood Count 3.18x10^6/uL (3.50-5.40) Hemoglobin 9.5g/dL (12.0-15.5) Hematocrit 29.4% (36.0-47.0) Mean Corpuscular Volume 93fL (79-100) Mean Corpuscular Hemoglobin 30pg (25-35) Mean Corpuscular Hemoglobin Concent 32g/dL (31-37) Red Cell Distribution Width 16.8% (11.5-14.5) Platelet Count 478x10^3/uL (140-400) Neutrophils (%) (Auto) 91% (31-73) Lymphocytes (%) (Auto) 3% (24-48) Monocytes (%) (Auto) 5% (0-9) Eosinophils (%) (Auto) 0% (0-3) Basophils (%) (Auto) 0% (0-3) Neutrophils # (Auto) 21.8x10^3uL (1.8-7.7) Lymphocytes # (Auto) 0.8x10^3/uL (1.0-4.8) Monocytes # (Auto) 1.2x10^3/uL (0.0-1.1) Eosinophils # (Auto) 0.0x10^3/uL (0.0-0.7) Basophils # (Auto) 0.0x10^3/uL (0.0-0.2) Sodium Level 122mmol/L (136-145) Potassium Level 5.1mmol/L (3.5-5.1) Chloride Level 86mmol/L (98-107) Carbon Dioxide Level 23mmol/L (21-32) Anion Gap 13 (6-14) Blood Urea Nitrogen 73mg/dL (7-20) Creatinine 3.2mg/dL (0.6-1.0) Estimated GFR (Cockcroft-Gault) 14.5 Glucose Level 368mg/dL (70-99) Serum Osmolality 301mOsm/Kg (279-304) Uric Acid 12.6mg/dL (2.6-6.0) Calcium Level 8.3mg/dL (8.5-10.1) Phosphorus Level 5.3mg/dL (2.6-4.7) Magnesium Level 2.3mg/dL (1.8-2.4) Lactate Dehydrogenase 1948U/L (81-234) Creatine Kinase 667U/L (26-192) Albumin 3.0g/dL (3.4-5.0) Lipase 48U/L (73-393) Thyroid Stimulating Hormone (TSH) 0.870uIU/mL (0.358-3.74) Free Thyroxine 1.24ng/dL (0.76-1.46) O2 Saturation 86% (92-99) Arterial Blood pH 7.41 (7.35-7.45) Arterial Blood pCO2 at Patient Temp 38mmHg (35-46) Arterial Blood pO2 at Patient Temp 57mmHg (65-108) Arterial Blood HCO3 23mmol/L (21-28) Arterial Blood Base Excess -1mmol/L (-3-3) FiO2 30 Glucose (Fingerstick) 379mg/dL (70-99) Medications Active Scripts Medications Dose Route/Sig Days Date Category Dose Instructions Prednisone 2.5 Mg Tablet 2 Tab PO DAILY 02/17/17 Reported Sulfamethoxazole-Tmp Ds Tablet (Sulfamethoxazole/Trimethoprim) 1 Each Tablet 1 Tab PO BID 02/17/17 Reported Albuterol Sulfate Conc Neb Soln (Albuterol Sulfate) 2.5 Mg/0.5 Ml Vial.neb 1 Vial NEB Q4HRS 11/03/16 Reported Lantus Solostar (Insulin Glargine,Hum.rec.anlog) 100 Unit/1 Ml Insuln.pen 14 Unit SQ BID 11/03/16 Reported Furosemide 40 Mg Tablet 1 Tab PO DAILY 11/03/16 Reported Mucinex (Guaifenesin) 600 Mg Tablet.er 400 Mg PO BID 11/03/16 Reported Xanax (Alprazolam) 1 Mg Tablet 1 Tab PO Q8HRS PRN 11/03/16 Reported Melatonin 10 Mg Tablet (Melatonin/Pyridoxine Hcl (B6)) 1 Each Tab.mphase 1 Each PO HS 11/03/16 Reported Iron (Ferrous Sulfate) 325 Mg Capsule.er 325 Mg PO DAILY 06/07/16 Rx B Complex # 1 (Vitamin B Complex) 1 Each Tablet 1 Each PO DAILY 06/07/16 Rx Levaquin (Levofloxacin) 750 Mg Tablet 1 Tab PO DAILY 06/07/16 Rx Nifedipine Er (Nifedipine) 60 Mg Tab.er.24 1 Tab PO DAILY 06/03/16 Reported Morphine Sulfate Er (Morphine Sulfate) 30 Mg Tablet.er 1 Tab PO TID 06/03/16 Reported Gabapentin 300 Mg Capsule 900 Mg PO QID 06/03/16 Reported Furosemide 20 Mg Tablet 1.5 Tab PO DAILY 06/03/16 Reported Cardizem Cd (Diltiazem Hcl) 360 Mg Cap.er.24h 1 Cap PO DAILY 03/07/15 Reported Next dose: 05/14 Rythmol (Propafenone Hcl) 150 Mg Tablet 150 Mg PO BID 03/07/15 Reported Next dose: 05/13 in pm Advair 250-50 Diskus (Fluticasone/Salmeterol) 1 Puff Puff 1 Puff INH BID 01/11/15 Rx Mucinex (Guaifenesin) 600 Mg Tablet.er 600 Mg PO BID 01/11/15 Rx Benadryl (Diphenhydramine Hcl) 25 Mg Capsule 2 Cap PO QHS 01/09/15 Reported Next dose: 05/14 Novolog (Insulin Aspart) 100 Unit/1 Ml Vial 100 Unit SQ 01/08/15 Reported Next dose: 05/13 at dinner Lantus (Insulin Glargine,Hum.rec.anlog) 100 Unit/1 Ml Vial 1 Unit SQ 01/08/15 Reported Next dose: 05/13 at bedtime Hydrocodone-Apap 7.5-325 (Hydrocodone Bit/Acetaminophen) 1 Each Tablet 1 Tab PO QID 01/08/15 Reported Next dose: 05/14 at 1 pm Combivent Respimat Inhal (Ipratropium/Albuterol Sulfate) 4 Gm Aer.w.adap 2 Inh IH QID 01/08/15 Reported Spiriva (Tiotropium [place]) 18 Mcg Cap.w.dev 1 Cap IH DAILY 01/08/15 Reported Next dose: 05/13 Dulera 100 Mcg/5 Mcg Inhaler (Mometasone/Formoterol) 13 Gm Hfa.aer.ad 2 Puff IH BID 01/08/15 Reported Digoxin 125 Mcg Tablet 1 Tab PO DAILY 01/08/15 Reported Next dose: 05/14 Citalopram Hbr (Citalopram Hydrobromide) 20 Mg Tablet 1 Tab PO DAILY 01/08/15 Reported Next dose: 05/14 Aspir 81 (Aspirin) 81 Mg Tablet.dr 1 Tab PO DAILY 01/08/15 Reported Next dose: 05/14 Cilostazol 50 Mg Tablet 50 Mg PO BID 01/08/15 Reported Next dose: 05/13 in PM Pradaxa (Dabigatran Etexilate Mesylate) 150 Mg Capsule 1 Cap PO BID 01/08/15 Reported Next dose: 05/13 in PM Potassium Chloride 20 Meq Tablet.er 20 Meq PO DAILY 01/08/15 Reported Next dose: 05/14 Impression . 1. Acute respiratory failure, secondary to combination of metabolic and respiratory acidosis. In addition, she has diffuse bilateral mild interstitial infiltrates which could be related to interstitial lung disease, ? pneumonia versus congestive heart failure. 2. Abnormal chest x-ray with bilateral prominent interstitial markings, could be related to interstitial edema versus interstitial lung disease. She has infiltrates seen previously on her older x-rays as well. I would obtain noncontrast CT chest for further evaluation. 3. Previously abnormal transesophageal echo with moderate to severe mitral regurgitation. 4. Acute renal failure with metabolic acidosis. worse RF today 5. Secondary pulmonary hypertension with a pulmonary artery systolic pressure of 70 on transesophageal echo from 07/2016. 6. Leukocytosis Plan . 1. PRN BiPAP . respiratory component of acidosis is resolved 2. prn bicarbonate. 3. Noncontrast CT chest to further evaluate parenchymal lung disease. 4. Repeat an echocardiogram. 5. Follow renal recommendations. will need HD 6. Follow up ABGs improved 7. follow wbc 8. nebs d/w BARBARA Carlson MD Feb 18, 2017 11:32
--- NOTE | 2017-02-18 11:39 | PDOC ---
PROGRESS NOTES Chief Complaint Chief Complaint Acute hypoxic resp failure COPD exacerbation JOSE, vasomotor, dehydration CHF, chroinc diastolic chronic afib hypovolumic hyponatremia and hyperkalemia mild malnutrition transaminitis \DM2, metabolic acidosis chronic normocytic anemia plan: 1. icu care, on bipap, repeat ABG 2. FU WITH card, pulm, renal 3. on duoneb, doxy, prednisone 60mg daily 4. increase insulin to levemir 20u bid, aspart 10u tid, SSI 5. HOLD DIuretics, IVF 6. dvt ppx, gi ppx monitor in and output History of Present Illness History of Present Illness on bipap, very weak, some sob, feels dry oliguria higher Cr lower Na not responiding to lasix yesterday on dobutamine drip with HIgh BP Vitals Vitals Vital Signs Date Time Temp Pulse Resp B/P Pulse Ox O2 Delivery O2 Flow Rate FiO2 02/18/17 09:53 102 194/62 02/18/17 09:42 25 95 Nasal Cannula 5.0 02/18/17 04:00 98.8 98.8 Physical Exam Physical Exam eye closing, follow commands on bipap General: Alert, Cooperative, moderate distress Lungs: Wheezing (faint) Abdomen: Normal bowel sounds, Soft Extremities: No clubbing, No cyanosis, No edema Skin: No rashes, No significant lesion, Other (dry) Labs LABS Laboratory Tests Test 02/17/17 13:15 02/17/17 16:14 02/17/17 18:19 02/17/17 22:03 Glucose (Fingerstick) 279mg/dL (70-99) 243mg/dL (70-99) 175mg/dL (70-99) O2 Saturation 92% (92-99) Arterial Blood pH 7.27 (7.35-7.45) Arterial Blood pCO2 at Patient Temp 30mmHg (35-46) Arterial Blood pO2 at Patient Temp 73mmHg (65-108) Arterial Blood HCO3 13mmol/L (21-28) Arterial Blood Base Excess -12mmol/L (-3-3) FiO2 35 Test 02/18/17 04:45 02/18/17 05:30 02/18/17 08:00 02/18/17 08:47 Urine Collection Type Unknown Urine Color Yellow Urine Clarity Clear Urine pH 5.0 Urine Specific Brandon 1.015 Urine Protein Negativemg/dL (NEG-TRACE) Urine Glucose (UA) 250mg/dL (NEG) Urine Ketones (Stick) Negativemg/dL (NEG) Urine Blood Large (NEG) Urine Nitrite Negative (NEG) Urine Bilirubin Negative (NEG) Urine Urobilinogen Dipstick 0.2mg/dL (0.2 mg/dL) Urine Leukocyte Esterase Negative (NEG) Urine RBC Tntc/HPF (0-2) Urine WBC Occ/HPF (0-4) Urine Squamous Epithelial Cells Few/LPF Urine Bacteria Few/HPF (0-FEW) Urine Hyaline Casts Moderate/HPF Urine Mucus Mod/LPF White Blood Count 23.9x10^3/uL (4.0-11.0) Red Blood Count 3.18x10^6/uL (3.50-5.40) Hemoglobin 9.5g/dL (12.0-15.5) Hematocrit 29.4% (36.0-47.0) Mean Corpuscular Volume 93fL (79-100) Mean Corpuscular Hemoglobin 30pg (25-35) Mean Corpuscular Hemoglobin Concent 32g/dL (31-37) Red Cell Distribution Width 16.8% (11.5-14.5) Platelet Count 478x10^3/uL (140-400) Neutrophils (%) (Auto) 91% (31-73) Lymphocytes (%) (Auto) 3% (24-48) Monocytes (%) (Auto) 5% (0-9) Eosinophils (%) (Auto) 0% (0-3) Basophils (%) (Auto) 0% (0-3) Neutrophils # (Auto) 21.8x10^3uL (1.8-7.7) Lymphocytes # (Auto) 0.8x10^3/uL (1.0-4.8) Monocytes # (Auto) 1.2x10^3/uL (0.0-1.1) Eosinophils # (Auto) 0.0x10^3/uL (0.0-0.7) Basophils # (Auto) 0.0x10^3/uL (0.0-0.2) Sodium Level 122mmol/L (136-145) Potassium Level 5.1mmol/L (3.5-5.1) Chloride Level 86mmol/L (98-107) Carbon Dioxide Level 23mmol/L (21-32) Anion Gap 13 (6-14) Blood Urea Nitrogen 73mg/dL (7-20) Creatinine 3.2mg/dL (0.6-1.0) Estimated GFR (Cockcroft-Gault) 14.5 Glucose Level 368mg/dL (70-99) Serum Osmolality 301mOsm/Kg (279-304) Uric Acid 12.6mg/dL (2.6-6.0) Calcium Level 8.3mg/dL (8.5-10.1) Phosphorus Level 5.3mg/dL (2.6-4.7) Magnesium Level 2.3mg/dL (1.8-2.4) Lactate Dehydrogenase 1948U/L (81-234) Creatine Kinase 667U/L (26-192) Albumin 3.0g/dL (3.4-5.0) Lipase 48U/L (73-393) Thyroid Stimulating Hormone (TSH) 0.870uIU/mL (0.358-3.74) Free Thyroxine 1.24ng/dL (0.76-1.46) O2 Saturation 86% (92-99) Arterial Blood pH 7.41 (7.35-7.45) Arterial Blood pCO2 at Patient Temp 38mmHg (35-46) Arterial Blood pO2 at Patient Temp 57mmHg (65-108) Arterial Blood HCO3 23mmol/L (21-28) Arterial Blood Base Excess -1mmol/L (-3-3) FiO2 30 Glucose (Fingerstick) 379mg/dL (70-99) Review of Systems Review of Systems no fever, chills, chest pain Assessment and Plan Assessmemt and Plan Problems Medical Problems: (1) Community acquired pneumonia Status: Acute (2) COPD exacerbation Status: Acute Problems: Comment Review of Relevant I have reviewed the following items luke (where applicable) has been applied. Labs Laboratory Tests Test 02/17/17 07:30 02/17/17 09:20 02/17/17 11:20 02/17/17 13:15 White Blood Count 21.5x10^3/uL (4.0-11.0) Red Blood Count 3.52x10^6/uL (3.50-5.40) Hemoglobin 10.4g/dL (12.0-15.5) Hematocrit 33.2% (36.0-47.0) Mean Corpuscular Volume 94fL (79-100) Mean Corpuscular Hemoglobin 29pg (25-35) Mean Corpuscular Hemoglobin Concent 31g/dL (31-37) Red Cell Distribution Width 17.0% (11.5-14.5) Platelet Count 582x10^3/uL (140-400) Neutrophils (%) (Auto) 89% (31-73) Lymphocytes (%) (Auto) 5% (24-48) Monocytes (%) (Auto) 6% (0-9) Eosinophils (%) (Auto) 0% (0-3) Basophils (%) (Auto) 0% (0-3) Neutrophils # (Auto) 19.0x10^3uL (1.8-7.7) Lymphocytes # (Auto) 1.2x10^3/uL (1.0-4.8) Monocytes # (Auto) 1.2x10^3/uL (0.0-1.1) Eosinophils # (Auto) 0.0x10^3/uL (0.0-0.7) Basophils # (Auto) 0.1x10^3/uL (0.0-0.2) Segmented Neutrophils % 87% (35-66) Band Neutrophils % 3% (0-9) Lymphocytes % 6% (24-48) Monocytes % 4% (0-10) Platelet Estimate Adequate (ADEQUATE) Sodium Level 127mmol/L (136-145) Potassium Level 5.8mmol/L (3.5-5.1) Chloride Level 92mmol/L (98-107) Carbon Dioxide Level 22mmol/L (21-32) Anion Gap 13 (6-14) Blood Urea Nitrogen 54mg/dL (7-20) Creatinine 2.4mg/dL (0.6-1.0) Estimated GFR (Cockcroft-Gault) 20.2 BUN/Creatinine Ratio 23 (6-20) Glucose Level 285mg/dL (70-99) Uric Acid 9.1mg/dL (2.6-6.0) Calcium Level 9.3mg/dL (8.5-10.1) Total Bilirubin 0.3mg/dL (0.2-1.0) Aspartate Amino Transf (AST/SGOT) 175U/L (15-37) Alanine Aminotransferase (ALT/SGPT) 92U/L (14-59) Alkaline Phosphatase 98U/L (46-116) Creatine Kinase 221U/L (26-192) Troponin I Quantitative < 0.017ng/mL (0.000-0.055) RJ-Xei-R-Type Natriuretic Peptide 370pg/mL (0-124) Total Protein 7.6g/dL (6.4-8.2) Albumin 3.1g/dL (3.4-5.0) Albumin/Globulin Ratio 0.7 (1.0-1.7) O2 Saturation 88% (92-99) 90% (92-99) Arterial Blood pH 7.26 (7.35-7.45) 7.32 (7.35-7.45) Arterial Blood pCO2 at Patient Temp 49mmHg (35-46) 44mmHg (35-46) Arterial Blood pO2 at Patient Temp 67mmHg (65-108) 65mmHg (65-108) Arterial Blood HCO3 22mmol/L (21-28) 22mmol/L (21-28) Arterial Blood Base Excess -6mmol/L (-3-3) -4mmol/L (-3-3) Oxyhemoglobin 86.7% Methemoglobin 0.4% (0.0-1.9) Carbon Monoxide, Quantitative 1.4% (0.0-1.9) FiO2 40.0 35.0 Glucose (Fingerstick) 279mg/dL (70-99) Test 02/17/17 16:14 02/17/17 18:19 02/17/17 22:03 02/18/17 04:45 Glucose (Fingerstick) 243mg/dL (70-99) 175mg/dL (70-99) O2 Saturation 92% (92-99) Arterial Blood pH 7.27 (7.35-7.45) Arterial Blood pCO2 at Patient Temp 30mmHg (35-46) Arterial Blood pO2 at Patient Temp 73mmHg (65-108) Arterial Blood HCO3 13mmol/L (21-28) Arterial Blood Base Excess -12mmol/L (-3-3) FiO2 35 Urine Collection Type Unknown Urine Color Yellow Urine Clarity Clear Urine pH 5.0 Urine Specific [place] 1.015 Urine Protein Negativemg/dL (NEG-TRACE) Urine Glucose (UA) 250mg/dL (NEG) Urine Ketones (Stick) Negativemg/dL (NEG) Urine Blood Large (NEG) Urine Nitrite Negative (NEG) Urine Bilirubin Negative (NEG) Urine Urobilinogen Dipstick 0.2mg/dL (0.2 mg/dL) Urine Leukocyte Esterase Negative (NEG) Urine RBC Tntc/HPF (0-2) Urine WBC Occ/HPF (0-4) Urine Squamous Epithelial Cells Few/LPF Urine Bacteria Few/HPF (0-FEW) Urine Hyaline Casts Moderate/HPF Urine Mucus Mod/LPF Test 02/18/17 05:30 02/18/17 08:00 02/18/17 08:47 White Blood Count 23.9x10^3/uL (4.0-11.0) Red Blood Count 3.18x10^6/uL (3.50-5.40) Hemoglobin 9.5g/dL (12.0-15.5) Hematocrit 29.4% (36.0-47.0) Mean Corpuscular Volume 93fL (79-100) Mean Corpuscular Hemoglobin 30pg (25-35) Mean Corpuscular Hemoglobin Concent 32g/dL (31-37) Red Cell Distribution Width 16.8% (11.5-14.5) Platelet Count 478x10^3/uL (140-400) Neutrophils (%) (Auto) 91% (31-73) Lymphocytes (%) (Auto) 3% (24-48) Monocytes (%) (Auto) 5% (0-9) Eosinophils (%) (Auto) 0% (0-3) Basophils (%) (Auto) 0% (0-3) Neutrophils # (Auto) 21.8x10^3uL (1.8-7.7) Lymphocytes # (Auto) 0.8x10^3/uL (1.0-4.8) Monocytes # (Auto) 1.2x10^3/uL (0.0-1.1) Eosinophils # (Auto) 0.0x10^3/uL (0.0-0.7) Basophils # (Auto) 0.0x10^3/uL (0.0-0.2) Sodium Level 122mmol/L (136-145) Potassium Level 5.1mmol/L (3.5-5.1) Chloride Level 86mmol/L (98-107) Carbon Dioxide Level 23mmol/L (21-32) Anion Gap 13 (6-14) Blood Urea Nitrogen 73mg/dL (7-20) Creatinine 3.2mg/dL (0.6-1.0) Estimated GFR (Cockcroft-Gault) 14.5 Glucose Level 368mg/dL (70-99) Serum Osmolality 301mOsm/Kg (279-304) Uric Acid 12.6mg/dL (2.6-6.0) Calcium Level 8.3mg/dL (8.5-10.1) Phosphorus Level 5.3mg/dL (2.6-4.7) Magnesium Level 2.3mg/dL (1.8-2.4) Lactate Dehydrogenase 1948U/L (81-234) Creatine Kinase 667U/L (26-192) Albumin 3.0g/dL (3.4-5.0) Lipase 48U/L (73-393) Thyroid Stimulating Hormone (TSH) 0.870uIU/mL (0.358-3.74) Free Thyroxine 1.24ng/dL (0.76-1.46) O2 Saturation 86% (92-99) Arterial Blood pH 7.41 (7.35-7.45) Arterial Blood pCO2 at Patient Temp 38mmHg (35-46) Arterial Blood pO2 at Patient Temp 57mmHg (65-108) Arterial Blood HCO3 23mmol/L (21-28) Arterial Blood Base Excess -1mmol/L (-3-3) FiO2 30 Glucose (Fingerstick) 379mg/dL (70-99) Laboratory Tests Test 02/17/17 13:15 02/17/17 16:14 02/17/17 18:19 02/17/17 22:03 Glucose (Fingerstick) 279mg/dL (70-99) 243mg/dL (70-99) 175mg/dL (70-99) O2 Saturation 92% (92-99) Arterial Blood pH 7.27 (7.35-7.45) Arterial Blood pCO2 at Patient Temp 30mmHg (35-46) Arterial Blood pO2 at Patient Temp 73mmHg (65-108) Arterial Blood HCO3 13mmol/L (21-28) Arterial Blood Base Excess -12mmol/L (-3-3) FiO2 35 Test 02/18/17 04:45 02/18/17 05:30 02/18/17 08:00 02/18/17 08:47 Urine Collection Type Unknown Urine Color Yellow Urine Clarity Clear Urine pH 5.0 Urine Specific Brandon 1.015 Urine Protein Negativemg/dL (NEG-TRACE) Urine Glucose (UA) 250mg/dL (NEG) Urine Ketones (Stick) Negativemg/dL (NEG) Urine Blood Large (NEG) Urine Nitrite Negative (NEG) Urine Bilirubin Negative (NEG) Urine Urobilinogen Dipstick 0.2mg/dL (0.2 mg/dL) Urine Leukocyte Esterase Negative (NEG) Urine RBC Tntc/HPF (0-2) Urine WBC Occ/HPF (0-4) Urine Squamous Epithelial Cells Few/LPF Urine Bacteria Few/HPF (0-FEW) Urine Hyaline Casts Moderate/HPF Urine Mucus Mod/LPF White Blood Count 23.9x10^3/uL (4.0-11.0) Red Blood Count 3.18x10^6/uL (3.50-5.40) Hemoglobin 9.5g/dL (12.0-15.5) Hematocrit 29.4% (36.0-47.0) Mean Corpuscular Volume 93fL (79-100) Mean Corpuscular Hemoglobin 30pg (25-35) Mean Corpuscular Hemoglobin Concent 32g/dL (31-37) Red Cell Distribution Width 16.8% (11.5-14.5) Platelet Count 478x10^3/uL (140-400) Neutrophils (%) (Auto) 91% (31-73) Lymphocytes (%) (Auto) 3% (24-48) Monocytes (%) (Auto) 5% (0-9) Eosinophils (%) (Auto) 0% (0-3) Basophils (%) (Auto) 0% (0-3) Neutrophils # (Auto) 21.8x10^3uL (1.8-7.7) Lymphocytes # (Auto) 0.8x10^3/uL (1.0-4.8) Monocytes # (Auto) 1.2x10^3/uL (0.0-1.1) Eosinophils # (Auto) 0.0x10^3/uL (0.0-0.7) Basophils # (Auto) 0.0x10^3/uL (0.0-0.2) Sodium Level 122mmol/L (136-145) Potassium Level 5.1mmol/L (3.5-5.1) Chloride Level 86mmol/L (98-107) Carbon Dioxide Level 23mmol/L (21-32) Anion Gap 13 (6-14) Blood Urea Nitrogen 73mg/dL (7-20) Creatinine 3.2mg/dL (0.6-1.0) Estimated GFR (Cockcroft-Gault) 14.5 Glucose Level 368mg/dL (70-99) Serum Osmolality 301mOsm/Kg (279-304) Uric Acid 12.6mg/dL (2.6-6.0) Calcium Level 8.3mg/dL (8.5-10.1) Phosphorus Level 5.3mg/dL (2.6-4.7) Magnesium Level 2.3mg/dL (1.8-2.4) Lactate Dehydrogenase 1948U/L (81-234) Creatine Kinase 667U/L (26-192) Albumin 3.0g/dL (3.4-5.0) Lipase 48U/L (73-393) Thyroid Stimulating Hormone (TSH) 0.870uIU/mL (0.358-3.74) Free Thyroxine 1.24ng/dL (0.76-1.46) O2 Saturation 86% (92-99) Arterial Blood pH 7.41 (7.35-7.45) Arterial Blood pCO2 at Patient Temp 38mmHg (35-46) Arterial Blood pO2 at Patient Temp 57mmHg (65-108) Arterial Blood HCO3 23mmol/L (21-28) Arterial Blood Base Excess -1mmol/L (-3-3) FiO2 30 Glucose (Fingerstick) 379mg/dL (70-99) Microbiology 02/17/17 Blood Culture - Preliminary, Resulted NO GROWTH AFTER 1 DAY Medications Current Medications Albuterol/ Ipratropium (Duoneb) 3 ml 1X ONCE NEB Last administered on t 07:46; Start 02/17/17 at 07:45; Stop 02/17/17 at 07:46; Status DC Albuterol/ Ipratropium (Duoneb) 3 ml STK-MED ONCE .ROUTE ; Start 02/17/17 at 07: 40; Stop 02/17/17 at 07:41; Status DC Albuterol Sulfate (Ventolin Neb Soln) 10 mg 1X ONCE CONT NEB Last administered on 02/17/17 08:02; Start 02/17/17 at 08:00; Stop 02/17/17 at 08:01 ; Status DC Methylprednisolone Sodium Succinate 60 mg 60 mg 1X ONCE IV Last administered on 02/17/17 08:49; Start 02/17/17 at 08:00; Stop 02/17/17 at 08:06; Status DC Ceftriaxone Sodium 50 ml @ 100 mls/hr 1X ONCE IV Last administered on 08:50; Start 02/17/17 at 08:15; Stop 02/17/17 at 08:44; Status DC Doxycycline Hyclate 100 mg/ Dextrose 100 ml @ 50 mls/hr 1X ONCE IV Last administered on 02/17/17 08:50; Start 02/17/17 at 08:15; Stop 02/17/17 at 10:14 ; Status DC Ceftriaxone Sodium 50 ml @ 100 mls/hr DAILY IV ; Start 02/18/17 at 09:00; Status UNV Doxycycline Hyclate 100 mg/ Dextrose 100 ml @ 50 mls/hr BID IV Last administered on 02/17/17 22:16; Start 02/17/17 at 21:00 Ceftriaxone Sodium/Sodium Chloride (Rocephin/Iv Sodium Chloride 0.9% 50ml) 50 ml @ 100 mls/hr Q24H IV ; Start 02/18/17 at 09:00 Insulin Aspart (Novolog) 0-7 UNITS TIDWMEALS SQ Last administered on 02/18/17 09:24; Start 02/17/17 at 12:00 Dextrose 12.5 gm 12.5 gm PRN Q15MIN PRN IV SEE COMMENTS; Start 02/17/17 at 10: 00 Magnesium Sulfate/ Dextrose (Magnesium Sulfate PREMIX 2GM) 50 ml @ 25 mls/hr PRN DAILY PRN IV for Mag < 1.7 on am labs; Start 02/17/17 at 14:45 Sodium Polystyrene Sulfonate 45 gm 45 gm 1X ONCE PO Last administered on 22:21; Start 02/17/17 at 15:30; Stop 02/17/17 at 15:31; Status DC Sodium Chloride (Iv Sodium Chloride 0.9% 500ml Bag) 500 ml @ 0 mls/hr PRN QID PRN IV UO< 30cc/hr over previous 6hrs; Start 02/17/17 at 15:00 Sodium Bicarbonate 50 meq 50 meq 1X ONCE IV Last administered on 02/17/17 15: 46; Start 02/17/17 at 15:30; Stop 02/17/17 at 15:35; Status DC Sodium Chloride (Iv Sodium Chloride 0.9% 1000ml Bag) 1,000 ml @ 75 mls/hr 1X ONCE IV Last administered on 02/17/17 16:11; Start 02/17/17 at 15:45; Stop at 05:04; Status DC Prednisone (Prednisone) 60 mg DAILY07 PO Last administered on 02/18/17 09:53; Start 02/18/17 at 07:00 Alprazolam (Xanax) 1 mg PRN Q8HRS PRN PO ANXIETY / AGITATION Last administered on 02/17/17 22:13; Start 02/17/17 at 15:45 Aspirin (Ecotrin) 81 mg DAILY PO Last administered on 02/18/17 09:48; Start at 09:00 Cilostazol (Pletal) 50 mg BID PO Last administered on 02/18/17 09:47; Start at 21:00 Citalopram Hydrobromide (Celexa) 20 mg DAILY PO Last administered on 02/18/17 09:48; Start 02/18/17 at 09:00 Dabigatran (Pradaxa) 75 mg BID PO Last administered on 02/18/17 09:49; Start 02/17/17 at 21:00 Digoxin (Lanoxin) 125 mcg DAILY PO Last administered on 02/18/17 09:45; Start 02/18/17 at 09:00 Diphenhydramine HCl (Benadryl) 25 mg QHS PO Last administered on 02/17/17 22: 15; Start 02/17/17 at 21:00 Guaifenesin (Mucinex) 600 mg BID PO Last administered on 02/18/17 09:51; Start 02/17/17 at 21:00 Acetaminophen/ Hydrocodone Bitart (Lortab 7.5/325) 1 tab QID PO Last administered on 02/18/17 09:41; Start 02/17/17 at 17:00 Morphine Sulfate (Ms Contin) 30 mg TID PO Last administered on 02/18/17 09:42 ; Start 02/17/17 at 21:00 Propafenone HCl (Rythmol) 150 mg BID PO Last administered on 02/18/17 09:53; Start 02/17/17 at 21:00 Trimethoprim/ Sulfamethoxazole (Bactrim Ds) 1 tab DAILY PO ; Start 02/17/17 at 21:00; Stop 02/18/17 at 08:22; Status DC Vitamin B Complex (Moi B) 1 tab DAILY PO Last administered on 02/18/17 09:44 ; Start 02/18/17 at 09:00 Albuterol/ Ipratropium (Duoneb) 3 ml Q4HRS NEB ; Start 02/17/17 at 16:00; Status Cancel Diltiazem HCl (Cardizem 24hr Cd) 360 mg DAILY PO Last administered on 09:46; Start 02/18/17 at 09:00 Ferrous Sulfate (Feosol) 325 mg DAILYWBKFT PO Last administered on 02/18/17 09 :48; Start 02/18/17 at 08:00 Non-Formulary Medication 1 puff BID INH ; Start 02/17/17 at 21:00; Status UNV Gabapentin (Neurontin) 900 mg BID PO Last administered on 02/18/17 09:43; Start 02/17/17 at 21:00 Insulin Detemir (Levemir) 14 units BID SQ Last administered on 02/17/17 22:12 ; Start 02/17/17 at 21:00 Non-Formulary Medication 1 each HS PO ; Start 02/17/17 at 21:00; Status UNV Budesonide (Pulmicort) 0.5 mg RTBID NEB Last administered on 02/18/17 07:35; Start 02/17/17 at 20:00 Albuterol/ Ipratropium (Duoneb) 3 ml Q4HRS W/A NEB Last administered on 07:35; Start 02/17/17 at 18:00 Insulin Aspart (Novolog) 9 units TIDAC SQ Last administered on 02/18/17 09:24 ; Start 02/17/17 at 16:30 Ondansetron HCl (Zofran) 4 mg PRN Q6HRS PRN IV NAUSEA/VOMITING Last administered on 02/17/17 21:05; Start 02/17/17 at 18:15 Furosemide 80 mg 80 mg 1X ONCE IVP ; Start 02/17/17 at 20:00; Stop 02/17/17 at 20:01; Status DC Sodium Bicarbonate 150 meq/Dextrose 1,150 ml @ 100 mls/hr [id number] IV Last administered on 02/17/17 21:11; Start 02/17/17 at 21:00; Stop 02/18/17 at 06:59 ; Status DC Sodium Bicarbonate 75 meq/Dextrose 575 ml @ 100 mls/hr Q5H45M IV ; Start at 07:00; Stop 02/18/17 at 11:59 Dobutamine HCl/ Dextrose 250 ml @ 0 mls/hr CONT PRN IV SEE I/O RECORD Last administered on 02/17/17 23:38; Start 02/17/17 at 23:00 Calcium Acetate 1334 mg 1,334 mg TIDWMEALS PO Last administered on 02/18/17 09 :50; Start 02/18/17 at 09:00 Sodium Chloride (Hypertonic Saline) 500 ml @ 30 mls/hr CONT PRN PRN IV see comments Last administered on 02/18/17 09:09; Start 02/18/17 at 08:15 Heparin Sodium (Porcine) (Heparin Sodium) 10,000 unit STK-MED ONCE .ROUTE ; Start 02/18/17 at 09:53; Stop 02/18/17 at 09:54; Status DC Lidocaine/Sodium Bicarbonate 20 ml 20 ml STK-MED ONCE IJ ; Start 02/18/17 at 09: 53; Stop 02/18/17 at 09:54; Status DC Heparin Sodium/ Sodium Chloride 500 ml @ As Directed STK-MED ONCE .ROUTE ; Start 02/18/17 at 09:53; Stop 02/18/17 at 09:54; Status DC Heparin Sodium/ Sodium Chloride 60 unit 1X ONCE IV Last administered on 10:42; Start 02/18/17 at 10:15; Stop 02/18/17 at 10:19; Status DC Heparin Sodium (Porcine) (Heparin Sodium) 2,500 unit 1X ONCE INT CAT Last administered on 02/18/17 10:41; Start 02/18/17 at 10:15; Stop 02/18/17 at 10:19 ; Status DC Lidocaine/Sodium Bicarbonate (Buffered Lidocaine 1%) 3 ml 1X ONCE IJ Last administered on 02/18/17 10:41; Start 02/18/17 at 10:15; Stop 02/18/17 at 10:19 ; Status DC Active Scripts Active Iron (Ferrous Sulfate) 325 Mg Capsule.er 325 Mg PO DAILY B Complex # 1 (Vitamin B Complex) 1 Each Tablet 1 Each PO DAILY Levaquin (Levofloxacin) 750 Mg Tablet 1 Tab PO DAILY Advair 250-50 Diskus (Fluticasone/Salmeterol) 1 Puff Puff 1 Puff INH BID Mucinex (Guaifenesin) 600 Mg Tablet.er 600 Mg PO BID Reported Prednisone 2.5 Mg Tablet 2 Tab PO DAILY Sulfamethoxazole-Tmp Ds Tablet (Sulfamethoxazole/Trimethoprim) 1 Each Tablet 1 Tab PO BID Albuterol Sulfate Conc Neb Soln (Albuterol Sulfate) 2.5 Mg/0.5 Ml Vial.neb 1 Vial NEB Q4HRS Lantus Solostar (Insulin Glargine,Hum.rec.anlog) 100 Unit/1 Ml Insuln.pen 14 Unit SQ BID Furosemide 40 Mg Tablet 1 Tab PO DAILY Mucinex (Guaifenesin) 600 Mg Tablet.er 400 Mg PO BID Xanax (Alprazolam) 1 Mg Tablet 1 Tab PO Q8HRS PRN Melatonin 10 Mg Tablet (Melatonin/Pyridoxine Hcl (B6)) 1 Each Tab.mphase 1 Each PO HS Nifedipine Er (Nifedipine) 60 Mg Tab.er.24 1 Tab PO DAILY Morphine Sulfate Er (Morphine Sulfate) 30 Mg Tablet.er 1 Tab PO TID Gabapentin 300 Mg Capsule 900 Mg PO QID Furosemide 20 Mg Tablet 1.5 Tab PO DAILY Cardizem Cd (Diltiazem Hcl) 360 Mg Cap.er.24h 1 Cap PO DAILY Next dose: 05/14 Rythmol (Propafenone Hcl) 150 Mg Tablet 150 Mg PO BID Next dose: 05/13 in pm Benadryl (Diphenhydramine Hcl) 25 Mg Capsule 2 Cap PO QHS Next dose: 05/14 Novolog (Insulin Aspart) 100 Unit/1 Ml Vial 100 Unit SQ Next dose: 05/13 at dinner Lantus (Insulin Glargine,Hum.rec.anlog) 100 Unit/1 Ml Vial 1 Unit SQ Next dose: 05/13 at bedtime Hydrocodone-Apap 7.5-325 (Hydrocodone Bit/Acetaminophen) 1 Each Tablet 1 Tab PO QID Next dose: 05/14 at 1 pm Combivent Respimat Inhal (Ipratropium/Albuterol Sulfate) 4 Gm Aer.w.adap 2 Inh IH QID Spiriva (Tiotropium [place]) 18 Mcg Cap.w.dev 1 Cap IH DAILY Next dose: 05/13 Dulera 100 Mcg/5 Mcg Inhaler (Mometasone/Formoterol) 13 Gm Hfa.aer.ad 2 Puff IH BID Digoxin 125 Mcg Tablet 1 Tab PO DAILY Next dose: 05/14 Citalopram Hbr (Citalopram Hydrobromide) 20 Mg Tablet 1 Tab PO DAILY Next dose: 05/14 Aspir 81 (Aspirin) 81 Mg Tablet.dr 1 Tab PO DAILY Next dose: 05/14 Cilostazol 50 Mg Tablet 50 Mg PO BID Next dose: 05/13 in PM Pradaxa (Dabigatran Etexilate Mesylate) 150 Mg Capsule 1 Cap PO BID Next dose: 05/13 in PM Potassium Chloride 20 Meq Tablet.er 20 Meq PO DAILY Next dose: 05/14 Vitals/I & O Vital Sign - Last 24 Hours 02/17/17 02/17/17 02/17/17 02/17/17 12:00 13:00 14:00 15:00 Temp 96.7 97.2 96.7 97.2 Pulse 68 99 60 Resp 22 24 22 B/P 136/60 116/75 123/51 Pulse Ox 93 92 95 O2 Delivery BiPAP/CPAP Nasal Cannula Bi-pap BiPAP/CPAP O2 Flow Rate 4.0 4.0 02/17/17 02/17/17 02/17/17 02/17/17 17:00 17:12 18:12 19:03 Resp 24 22 Pulse Ox 92 92 92 90 O2 Delivery BiPAP/CPAP BiPAP/CPAP BiPAP/CPAP BiPAP/CPAP O2 Flow Rate 4.0 02/17/17 02/17/17 02/17/17 02/17/17 20:00 20:37 21:05 21:05 Temp 99.9 98.4 99.9 98.4 Pulse 60 60 Resp 22 20 B/P 150/66 132/80 Pulse Ox 92 89 O2 Delivery Bi-pap BiPAP/CPAP Nasal Cannula Nasal Cannula O2 Flow Rate 5.0 5.0 02/17/17 02/17/17 02/17/17 02/17/17 21:15 21:30 21:45 22:00 Pulse 60 60 60 62 Resp 18 18 22 23 B/P 142/52 165/65 166/57 Pulse Ox 92 93 92 92 O2 Delivery Nasal Cannula Nasal Cannula Nasal Cannula Nasal Cannula O2 Flow Rate 5.0 5.0 5.0 5.0 02/17/17 02/17/17 02/17/17 02/18/17 22:13 23:00 23:39 00:00 Pulse 74 85 Resp 27 B/P 166/57 171/89 Pulse Ox 93 92 O2 Delivery BiPAP/CPAP BiPAP/CPAP Bi-pap 02/18/17 02/18/17 02/18/17 02/18/17 00:00 01:00 02:00 02:19 Temp 98.6 98.6 Pulse 82 96 91 Resp 20 23 B/P 140/60 177/61 152/86 Pulse Ox 90 92 95 94 O2 Delivery BiPAP/CPAP BiPAP/CPAP BiPAP/CPAP BiPAP/CPAP 02/18/17 02/18/17 02/18/17 02/18/17 03:00 04:00 04:00 04:02 Temp 98.8 98.8 Pulse 97 102 Resp 22 B/P 160/59 177/81 Pulse Ox 93 92 94 O2 Delivery BiPAP/CPAP Bi-pap BiPAP/CPAP BiPAP/CPAP 02/18/17 02/18/17 02/18/17 02/18/17 05:00 06:00 07:23 07:37 Pulse 95 98 Resp 26 28 B/P 163/73 184/60 Pulse Ox 92 93 94 94 O2 Delivery BiPAP/CPAP BiPAP/CPAP BiPAP/CPAP BiPAP/CPAP 402/18/17 02/18/17 02/18/17 08:00 08:24 09:41 09:42 Resp 25 25 Pulse Ox 90 95 95 O2 Delivery Nasal Cannula Nasal Cannula Nasal Cannula O2 Flow Rate 5.0 5.0 5.0 5.0 02/18/17 02/18/17 02/18/17 09:45 09:46 09:53 Pulse 109 103 102 B/P 194/62 194/62 194/62 Intake and Output 02/17/17 02/17/17 02/18/17 15:00 23:00 07:00 Intake Total 150 ml 480 ml 1078 ml Output Total 0 ml 59 ml 471 ml Balance 150 ml 421 ml 607 ml NASIM FABIAN MD Feb 18, 2017 11:39
--- NOTE | 2017-02-18 12:34 | RAD ---
Portable chest, 02/18/2017: History: Check catheter placement Comparison is made to yesterday's study. A right jugular dialysis type catheter has been inserted extending into the superior aspect of the right atrium. A left-sided transvenous pacemaker is unchanged. The heart is enlarged. The pulmonary vascularity is at the upper limits of normal. Left-sided pleural fluid has diminished or is layering differently due to differences in patient positioning. The left lower lobe appears to be better aerated. No right lung infiltrate is seen. There is no evidence of pneumothorax. IMPRESSION: 1. Interval insertion of a right jugular dialysis type catheter extending into the superior aspect of the right atrium. 2. Cardiomegaly. 3. Improving left basilar opacities.
--- NOTE | 2017-02-18 13:36 | RAD ---
Indication interstitial lung disease versus congestive heart failure. Difficulty breathing. Axial images through the chest were obtained. No IV contrast was administered. Note is made of a previous exam 06/04/2016. Imaging through the upper abdomen shows no acute finding. There is a small amount of perihepatic fluid. There is moderate adenopathy in the left axilla. This represents a new finding relative to the previous exam. Some stranding is seen in the soft tissues of the upper left lateral chest wall. The etiology is unclear. Cellulitis could account for this appearance. Clinical correlation advised. There is a large pericardial effusion. A few mediastinal lymph nodes are noted but these are probably incidental and appear similar to the prior study. There is a trace amount of pleural fluid both lungs. An acute parenchymal infiltrate in either lung or dominant soft tissue mass is not seen. There is some pleural-parenchymal scarring in the lingula similar to the previous exam. Evaluation for interstitial lung disease is significantly compromised secondary to respiratory motion artifact but advanced interstitial lung disease or fibrotic changes are not seen. Gross congestive heart failure is not apparent. IMPRESSION: Large pericardial effusion. Small bilateral pleural effusions. Pleural parenchymal scarring in the left lung similar to the previous exam. Limited evaluation for interstitial lung disease but advanced interstitial lung disease is not seen. Gross congestive heart failure is not seen. Adenopathy in the left axilla, new relative to the previous exam, with some accompanying soft tissue swelling of the left chest wall noted. Clinical correlation advised PQRS Compliance Statement: One or more of the following individualized dose reduction techniques were utilized for this examination: 1. Automated exposure control 2. Adjustment of the mA and/or kV according to patient size 3. Use of iterative reconstruction technique
[2017-02-18] MEDS: DOXYCYCLINE HYCLATE 100 MG in IV DEXTROSE 5% 100 ML IV SCH ×2 (13:44→21:05)
[2017-02-18] MEDS: CEFTRIAXONE SODIUM 1 GM in IV NORMAL SALINE 50ML 50 ML IV SCH (13:45)
[2017-02-18 14:28] LABS: UR PROTEIN RD 24.2 mg/dL (Not Estab.)
[2017-02-18] MEDS ORDERED: LIDOCAINE 2%/EPI 1:100,000 20 ML VIAL. ONE (16:19)
--- NOTE | 2017-02-18 16:25 | PDOC ---
MODERATE SEDATION ASSESSMENT RISKS/ALTERNATIVES Risks/Alternatives Risks and alternatives of this type of sedation and procedure discussed with: RISK/ALTERNATIVES: Patient H & P ON CHART H & P H & P on chart and reviewed for co-morbid conditions and appropriate labs. H&P ON CHART: Yes STATUS PREG STATUS ASSESSED: Yes MEDS/ALLERGIES REVIEWED Meds/Allergies Reviewed Medications and Allergies including time and route of recently administered narcotics and sedatives. MEDS/ALLERGIES REVIEWED: Yes ASA RATING ASA RATING: II AIRWAY ASSESSMENT Airway Assessment Airway patency, oral function limitations, presence of caps, crowns, dentures, partials, and ability to extend neck assessed. AIRWAY ASSESSMENT: Yes MALLAMPATI SCORE MALLAMPATI SCORE: II PRE-SEDATION ASSESSMENT PRE-SEDATION ASSESSMENT: Yes TOBY SON MD Feb 18, 2017 16:25
[2017-02-18] MEDS ORDERED: FENTANYL PF 100 MCG/2 ML VIAL. ONE ×2 (16:30→16:46)
[2017-02-18] MEDS ORDERED: MIDAZOLAM HCL/PF 2 MG/2 ML VIAL. ONE (16:30)
[2017-02-18] MEDS ORDERED: MIDAZOLAM HCL/PF 2 MG/2 ML VIAL. IV ONE (16:45)
[2017-02-18] MEDS ORDERED: FENTANYL PF 100 MCG/2 ML VIAL. IV ONE (16:45)
[2017-02-18] MEDS ORDERED: LIDOCAINE 2%/EPI 1:100,000 20 ML VIAL. IJ ONE (16:45)
[2017-02-18] MEDS ORDERED: LABETALOL 20 MG/4 ML DISP.SYRIN. ONE (16:51)
[2017-02-18] MEDS ORDERED: LABETALOL 20 MG/4 ML DISP.SYRIN. IVP ONE (17:00)
--- NOTE | 2017-02-18 18:03 | RAD ---
PROCEDURE Chest, single view. HISTORY Pericardiocentesis. FINDINGS A frontal view of the chest is obtained and compared to a prior study obtained on the same date. There is been no significant change in enlargement of the cardiac silhouette. There is a stable suspected small left pleural effusion. There is stable diffuse interstitial prominence. There is no pneumothorax. There is a left cardiac pacemaker with leads in expected position. There is a right internal jugular catheter with the tip in the superior cavoatrial junction. There is a drainage catheter overlying the left heart. IMPRESSION 1. Catheter overlying the cardiac shadow without significant change in enlargement of the cardiac silhouette. 2. Stable diffuse increased interstitial opacity suggesting trace congestion. There may also be a stable small left pleural effusion or basilar plural thickening. Electronically signed by: Loida Goodson (Feb 18, 2017 18:02:43)
--- NOTE | 2017-02-18 19:09 | CARD ---
APPROVED REPORT EXAM: LIMITED Two-dimensional and M-mode echocardiogram. Other Information Quality : Fair Rhythm : Tachycardia INDICATION Pericardial Effusion LEFT VENTRICLE The left ventricle is normal size. There is normal left ventricular wall thickness. Left ventricle sy stolic function is normal. The Ejection Fraction is 55-60%. There is normal LV segmental wall motion. RIGHT VENTRICLE The right ventricle is normal size. The right ventricular systolic function is normal. ATRIA The left atrium appears dilated. The right atrium size is normal. GREAT VESSELS The great vessels were not evaluated PERICARDIAL EFFUSION There is a large circumferential pericardial effusion. After this was evaluated and with the patient in the supine position in the [employer] the subxiphoid area was prepped and draped in the usual fashi on. The area was infiltrated with Xylocaine to obtain topical anesthesia. We then advanced a needle i nto the pericardial sac and then a guidewire was positioned there. A dilator was then advanced over t he guidewire and removed then multiple attempts at advancing an 8 Kinyarwanda pigtail catheter were done a nd finally after changing to a stiff for why her we were finally able to get the pigtail catheter int o the pericardial sac. This catheter was then connected to a bag and 800 mL of bloody fluid were brenda kieran. A portion of the fluid was sent to the lab for culture sensitivity and analysis. The pigtail cat heter was then sutured in place with a drainage bag and the patient was transferred back to the [facility] care unit in stable condition after tolerating the procedure rather well. At the end of the proc edure repeat views of the echocardiogram were done and we saw that there was only a minimal amount of fluid left. Critical Notification Critical Value: No <Conclusion> Left ventricle systolic function is normal. The Ejection Fraction is 55-60%. There is normal left ventricular wall thickness. The left atrium appears dilated. The right atrium size is normal. There is a large circumferential pericardial effusion. After this was evaluated and with the patient in the supine position in the [employer] the subxiphoid a anthony was prepped and draped in the usual fashion. The area was infiltrated with Xylocaine to obtain topical anesthesia. We then advanced a needle into the pericardial sac and then a guidewire was positioned there. A dilator was then advanced over the guidewire and removed then multiple attempts at advancing an 8 F rench pigtail catheter were done and finally after changing to a stiff for why her we were finally ab ginny to get the pigtail catheter into the pericardial sac. This catheter was then connected to a bag and 800 mL of bloody fluid were removed. A portion of the fluid was sent to the lab for culture sensitivity and analysis. The pigtail catheter was then sutured in place with a drainage bag and the patient was transferred [facility] to the intensive care unit in stable condition after tolerating the procedure rather well. At the end of the procedure repeat views of the echocardiogram were done and we saw that there was on ly a minimal amount of fluid left. This is the report in a pericardiocentesis done in the [employer] with fluoroscopic as well as ultrasou nd assistance.
--- NOTE | 2017-02-18 19:18 | PDOC2 ---
CONSULT Date of Consult Date of Consult DATE: 02/18/17 TIME: 19:10 Reason for Consult Reason for Consult: Pericardial effusion Identification/Chief Complaint Chief Complaint Dyspnea History of Present Illness Reason for Visit: This patient is a very pleasant 67-year-old lady that has a long history of COPD as well as valvular disease. She has had previous episodes of an arrest with bradycardia, complete heart block and atrial fibrillation requiring insertion of a pacemaker. The patient had been at home and on Wednesday he had been feeling a little fatigued but doing okay otherwise by Wednesday she was getting very short of breath and this kept getting worse and worse until last night when she came in to the hospital. After she was seen and evaluated in the ER she was admitted. Today she had a CT of the chest and it showed a large pericardial effusion. I was asked to evaluate this. The patient had an echocardiogram done and this showed the effusion. No paradoxical motion of the right ventricle or collapse of the atrium was seen. The effusion however was somewhat rather large and the patient was becoming more and more dyspneic and also had a very poor urinary output. She has a known history of chronic renal failure. She has been on dialysis before. Past Medical History Cardiovascular: AFIB, CHF, HTN Pulmonary: Bronchitis, COPD GI: GERD Musculoskeletal: low back pain Infectious disease: No pertinent hx ENT: No pertinent hx Endocrine: Diabetes Past Surgical History Past Surgical History: Pacemaker, Tubal Ligation Family History Family History: Hypertension Social History Quit ALCOHOL: none Drugs: None Current Problem List Problem List Problems Medical Problems: (1) Community acquired pneumonia Status: Acute (2) COPD exacerbation Status: Acute Current Medications Current Medications Current Medications Albuterol/ Ipratropium (Duoneb) 3 ml 1X ONCE NEB Last administered on 07:46; Start 02/17/17 at 07:45; Stop 02/17/17 at 07:46; Status DC Albuterol/ Ipratropium (Duoneb) 3 ml STK-MED ONCE .ROUTE ; Start 02/17/17 at 07: 40; Stop 02/17/17 at 07:41; Status DC Albuterol Sulfate (Ventolin Neb Soln) 10 mg 1X ONCE CONT NEB Last administered on 02/17/17 08:02; Start 02/17/17 at 08:00; Stop 02/17/17 at 08:01 ; Status DC Methylprednisolone Sodium Succinate 60 mg 60 mg 1X ONCE IV Last administered on 02/17/17 08:49; Start 02/17/17 at 08:00; Stop 02/17/17 at 08:06; Status DC Ceftriaxone Sodium 50 ml @ 100 mls/hr 1X ONCE IV Last administered on 08:50; Start 02/17/17 at 08:15; Stop 02/17/17 at 08:44; Status DC Doxycycline Hyclate 100 mg/ Dextrose 100 ml @ 50 mls/hr 1X ONCE IV Last administered on 02/17/17 08:50; Start 02/17/17 at 08:15; Stop 02/17/17 at 10:14 ; Status DC Ceftriaxone Sodium 50 ml @ 100 mls/hr DAILY IV ; Start 02/18/17 at 09:00; Status UNV Doxycycline Hyclate 100 mg/ Dextrose 100 ml @ 50 mls/hr BID IV Last administered on 02/18/17 13:44; Start 02/17/17 at 21:00 Ceftriaxone Sodium/Sodium Chloride (Rocephin/Iv Sodium Chloride 0.9% 50ml) 50 ml @ 100 mls/hr Q24H IV Last administered on 02/18/17 13:45; Start 02/18/17 at 09:00 Insulin Aspart (Novolog) 0-7 UNITS TIDWMEALS SQ Last administered on 02/18/17 18:11; Start 02/17/17 at 12:00 Dextrose 12.5 gm 12.5 gm PRN Q15MIN PRN IV SEE COMMENTS; Start 02/17/17 at 10: 00 Magnesium Sulfate/ Dextrose (Magnesium Sulfate PREMIX 2GM) 50 ml @ 25 mls/hr PRN DAILY PRN IV for Mag < 1.7 on am labs; Start 02/17/17 at 14:45 Sodium Polystyrene Sulfonate 45 gm 45 gm 1X ONCE PO Last administered on 22:21; Start 02/17/17 at 15:30; Stop 02/17/17 at 15:31; Status DC Sodium Chloride (Iv Sodium Chloride 0.9% 500ml Bag) 500 ml @ 0 mls/hr PRN QID PRN IV UO< 30cc/hr over previous 6hrs; Start 02/17/17 at 15:00 Sodium Bicarbonate 50 meq 50 meq 1X ONCE IV Last administered on 02/17/17 15: 46; Start 02/17/17 at 15:30; Stop 02/17/17 at 15:35; Status DC Sodium Chloride (Iv Sodium Chloride 0.9% 1000ml Bag) 1,000 ml @ 75 mls/hr 1X ONCE IV Last administered on 02/17/17 16:11; Start 02/17/17 at 15:45; Stop at 05:04; Status DC Prednisone (Prednisone) 60 mg DAILY07 PO Last administered on 02/18/17 09:53; Start 02/18/17 at 07:00 Alprazolam (Xanax) 1 mg PRN Q8HRS PRN PO ANXIETY / AGITATION Last administered on 02/17/17 22:13; Start 02/17/17 at 15:45 Aspirin (Ecotrin) 81 mg DAILY PO Last administered on 02/18/17 09:48; Start at 09:00 Cilostazol (Pletal) 50 mg BID PO Last administered on 02/18/17 09:47; Start at 21:00 Citalopram Hydrobromide (Celexa) 20 mg DAILY PO Last administered on 02/18/17 09:48; Start 02/18/17 at 09:00 Dabigatran (Pradaxa) 75 mg BID PO Last administered on 02/18/17 09:49; Start 02/17/17 at 21:00 Digoxin (Lanoxin) 125 mcg DAILY PO Last administered on 02/18/17 09:45; Start 02/18/17 at 09:00 Diphenhydramine HCl (Benadryl) 25 mg QHS PO Last administered on 02/17/17 22: 15; Start 02/17/17 at 21:00 Guaifenesin (Mucinex) 600 mg BID PO Last administered on 02/18/17 09:51; Start 02/17/17 at 21:00 Acetaminophen/ Hydrocodone Bitart (Lortab 7.5/325) 1 tab QID PO Last administered on 02/18/17 09:41; Start 02/17/17 at 17:00 Morphine Sulfate (Ms Contin) 30 mg TID PO Last administered on 02/18/17 09:42 ; Start 02/17/17 at 21:00 Propafenone HCl (Rythmol) 150 mg BID PO Last administered on 02/18/17 09:53; Start 02/17/17 at 21:00 Trimethoprim/ Sulfamethoxazole (Bactrim Ds) 1 tab DAILY PO ; Start 02/17/17 at 21:00; Stop 02/18/17 at 08:22; Status DC Vitamin B Complex (Moi B) 1 tab DAILY PO Last administered on 02/18/17 09:44 ; Start 02/18/17 at 09:00 Albuterol/ Ipratropium (Duoneb) 3 ml Q4HRS NEB ; Start 02/17/17 at 16:00; Status Cancel Diltiazem HCl (Cardizem 24hr Cd) 360 mg DAILY PO Last administered on 09:46; Start 02/18/17 at 09:00 Ferrous Sulfate (Feosol) 325 mg DAILYWBKFT PO Last administered on 02/18/17 09 :48; Start 02/18/17 at 08:00 Non-Formulary Medication 1 puff BID INH ; Start 02/17/17 at 21:00; Status UNV Gabapentin (Neurontin) 900 mg BID PO Last administered on 02/18/17 17:56; Start 02/17/17 at 21:00 Insulin Detemir (Levemir) 14 units BID SQ Last administered on 02/17/17 22:12 ; Start 02/17/17 at 21:00; Stop 02/18/17 at 11:35; Status DC Non-Formulary Medication 1 each HS PO ; Start 02/17/17 at 21:00; Status UNV Budesonide (Pulmicort) 0.5 mg RTBID NEB Last administered on 02/18/17 07:35; Start 02/17/17 at 20:00 Albuterol/ Ipratropium (Duoneb) 3 ml Q4HRS W/A NEB Last administered on 15:54; Start 02/17/17 at 18:00 Insulin Aspart (Novolog) 9 units TIDAC SQ Last administered on 02/18/17 09:24 ; Start 02/17/17 at 16:30; Stop 02/18/17 at 11:36; Status DC Ondansetron HCl (Zofran) 4 mg PRN Q6HRS PRN IV NAUSEA/VOMITING Last administered on 02/17/17 21:05; Start 02/17/17 at 18:15 Furosemide 80 mg 80 mg 1X ONCE IVP ; Start 02/17/17 at 20:00; Stop 02/17/17 at 20:01; Status DC Sodium Bicarbonate 150 meq/Dextrose 1,150 ml @ 100 mls/hr [id number] IV Last administered on 02/17/17 21:11; Start 02/17/17 at 21:00; Stop 02/18/17 at 06:59 ; Status DC Sodium Bicarbonate 75 meq/Dextrose 575 ml @ 100 mls/hr Q5H45M IV ; Start at 07:00; Stop 02/18/17 at 11:59; Status DC Dobutamine HCl/ Dextrose 250 ml @ 0 mls/hr CONT PRN IV SEE I/O RECORD Last administered on 02/17/17 23:38; Start 02/17/17 at 23:00 Calcium Acetate 1334 mg 1,334 mg TIDWMEALS PO Last administered on 02/18/17 17 :00; Start 02/18/17 at 09:00 Sodium Chloride (Hypertonic Saline) 500 ml @ 30 mls/hr CONT PRN PRN IV see comments Last administered on 02/18/17 09:09; Start 02/18/17 at 08:15 Heparin Sodium (Porcine) (Heparin Sodium) 10,000 unit STK-MED ONCE .ROUTE ; Start 02/18/17 at 09:53; Stop 02/18/17 at 09:54; Status DC Lidocaine/Sodium Bicarbonate 20 ml 20 ml STK-MED ONCE IJ ; Start 02/18/17 at 09: 53; Stop 02/18/17 at 09:54; Status DC Heparin Sodium/ Sodium Chloride 500 ml @ As Directed STK-MED ONCE .ROUTE ; Start 02/18/17 at 09:53; Stop 02/18/17 at 09:54; Status DC Heparin Sodium/ Sodium Chloride 60 unit 1X ONCE IV Last administered on 10:42; Start 02/18/17 at 10:15; Stop 02/18/17 at 10:19; Status DC Heparin Sodium (Porcine) (Heparin Sodium) 2,500 unit 1X ONCE INT CAT Last administered on 02/18/17 10:41; Start 02/18/17 at 10:15; Stop 02/18/17 at 10:19 ; Status DC Lidocaine/Sodium Bicarbonate (Buffered Lidocaine 1%) 3 ml 1X ONCE IJ Last administered on 02/18/17 10:41; Start 02/18/17 at 10:15; Stop 02/18/17 at 10:19 ; Status DC Insulin Aspart (Novolog) 10 units TIDAC SQ Last administered on 02/18/17 18:10 ; Start 02/18/17 at 12:00 Insulin Detemir 20 units 20 units BID SQ ; Start 02/18/17 at 21:00 Heparin Sodium/ Sodium Chloride 500 ml @ As Directed STK-MED ONCE .ROUTE ; Start 02/18/17 at 16:19; Stop 02/18/17 at 16:20; Status DC Lidocaine/ Epinephrine (Xylocaine 2%-Epi 1:100,000) 20 ml STK-MED ONCE .ROUTE ; Start 02/18/17 at 16:19; Stop 02/18/17 at 16:20; Status DC Fentanyl Citrate (Fentanyl 2ml Vial) 100 mcg STK-MED ONCE .ROUTE ; Start at 16:30; Stop 02/18/17 at 16:31; Status DC Midazolam HCl (Versed) 2 mg STK-MED ONCE .ROUTE ; Start 02/18/17 at 16:30; Stop 02/18/17 at 16:31; Status DC Heparin Sodium/ Sodium Chloride 1,000 unit 1X ONCE IART Last administered on 17:27; Start 02/18/17 at 16:45; Stop 02/18/17 at 16:46; Status DC Midazolam HCl (Versed) 2 mg 1X ONCE IV Last administered on 02/18/17 17:26; Start 02/18/17 at 16:45; Stop 02/18/17 at 16:46; Status DC Fentanyl Citrate (Fentanyl 2ml Vial) 100 mcg 1X ONCE IV Last administered on 17:27; Start 02/18/17 at 16:45; Stop 02/18/17 at 16:46; Status DC Lidocaine/ Epinephrine (Xylocaine 2%-Epi 1:100,000) 20 ml 1X ONCE IJ Last administered on 02/18/17 17:24; Start 02/18/17 at 16:45; Stop 02/18/17 at 16:46 ; Status DC Fentanyl Citrate (Fentanyl 2ml Vial) 100 mcg STK-MED ONCE .ROUTE ; Start at 16:46; Stop 02/18/17 at 16:47; Status DC Labetalol HCl (Normodyne) 20 mg STK-MED ONCE .ROUTE ; Start 02/18/17 at 16:51; Stop 02/18/17 at 16:52; Status DC Labetalol HCl (Normodyne) 10 mg 1X ONCE IVP Last administered on 02/18/17t 17: 26; Start 02/18/17 at 17:00; Stop 02/18/17 at 17:01; Status DC Active Scripts Active Iron (Ferrous Sulfate) 325 Mg Capsule.er 325 Mg PO DAILY B Complex # 1 (Vitamin B Complex) 1 Each Tablet 1 Each PO DAILY Levaquin (Levofloxacin) 750 Mg Tablet 1 Tab PO DAILY Advair 250-50 Diskus (Fluticasone/Salmeterol) 1 Puff Puff 1 Puff INH BID Mucinex (Guaifenesin) 600 Mg Tablet.er 600 Mg PO BID Reported Prednisone 2.5 Mg Tablet 2 Tab PO DAILY Sulfamethoxazole-Tmp Ds Tablet (Sulfamethoxazole/Trimethoprim) 1 Each Tablet 1 Tab PO BID Albuterol Sulfate Conc Neb Soln (Albuterol Sulfate) 2.5 Mg/0.5 Ml Vial.neb 1 Vial NEB Q4HRS Lantus Solostar (Insulin Glargine,Hum.rec.anlog) 100 Unit/1 Ml Insuln.pen 14 Unit SQ BID Furosemide 40 Mg Tablet 1 Tab PO DAILY Mucinex (Guaifenesin) 600 Mg Tablet.er 400 Mg PO BID Xanax (Alprazolam) 1 Mg Tablet 1 Tab PO Q8HRS PRN Melatonin 10 Mg Tablet (Melatonin/Pyridoxine Hcl (B6)) 1 Each Tab.mphase 1 Each PO HS Nifedipine Er (Nifedipine) 60 Mg Tab.er.24 1 Tab PO DAILY Morphine Sulfate Er (Morphine Sulfate) 30 Mg Tablet.er 1 Tab PO TID Gabapentin 300 Mg Capsule 900 Mg PO QID Furosemide 20 Mg Tablet 1.5 Tab PO DAILY Cardizem Cd (Diltiazem Hcl) 360 Mg Cap.er.24h 1 Cap PO DAILY Next dose: 05/14 Rythmol (Propafenone Hcl) 150 Mg Tablet 150 Mg PO BID Next dose: 05/13 in pm Benadryl (Diphenhydramine Hcl) 25 Mg Capsule 2 Cap PO QHS Next dose: 05/14 Novolog (Insulin Aspart) 100 Unit/1 Ml Vial 100 Unit SQ Next dose: 05/13 at dinner Lantus (Insulin Glargine,Hum.rec.anlog) 100 Unit/1 Ml Vial 1 Unit SQ Next dose: 05/13 at bedtime Hydrocodone-Apap 7.5-325 (Hydrocodone Bit/Acetaminophen) 1 Each Tablet 1 Tab PO QID Next dose: 05/14 at 1 pm Combivent Respimat Inhal (Ipratropium/Albuterol Sulfate) 4 Gm Aer.w.adap 2 Inh IH QID Spiriva (Tiotropium Keller) 18 Mcg Cap.w.dev 1 Cap IH DAILY Next dose: 05/13 Dulera 100 Mcg/5 Mcg Inhaler (Mometasone/Formoterol) 13 Gm Hfa.aer.ad 2 Puff IH BID Digoxin 125 Mcg Tablet 1 Tab PO DAILY Next dose: 05/14 Citalopram Hbr (Citalopram Hydrobromide) 20 Mg Tablet 1 Tab PO DAILY Next dose: 05/14 Aspir 81 (Aspirin) 81 Mg Tablet.dr 1 Tab PO DAILY Next dose: 05/14 Cilostazol 50 Mg Tablet 50 Mg PO BID Next dose: 05/13 in PM Pradaxa (Dabigatran Etexilate Mesylate) 150 Mg Capsule 1 Cap PO BID Next dose: 05/13 in PM Potassium Chloride 20 Meq Tablet.er 20 Meq PO DAILY Next dose: 05/14 Allergies Allergies: Coded Allergies: lisinopril (Verified Allergy, Severe, Anaphylaxis, 01/08/15) zolpidem (Verified Adverse Reaction, Mild, 07/09/16) "Gets really loopy, 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 H EENT pupils are reactive, oral mucosa poorly hydrated. Neck is supple 3 cm JVD. Lungs diffuse wheezing with decreased breath sounds and diffuse crackles. Heart tachycardic, irregular, distant small for heart sounds. No changes in her heart murmur. Abdomen is soft bowel sounds are present. Extremities 1+ edema. Vitals VITALS Vital Signs Date Time Temp Pulse Resp B/P Pulse Ox O2 Delivery O2 Flow Rate FiO2 02/18/17 17:27 16 94 Nasal Cannula 5.0 02/18/17 17:26 95 188/70 02/18/17 16:00 98.9 98.9 Labs Labs Laboratory Tests Test 02/17/17 07:30 02/17/17 09:20 02/17/17 11:20 02/17/17 13:15 White Blood Count 21.5x10^3/uL (4.0-11.0) Red Blood Count 3.52x10^6/uL (3.50-5.40) Hemoglobin 10.4g/dL (12.0-15.5) Hematocrit 33.2% (36.0-47.0) Mean Corpuscular Volume 94fL (79-100) Mean Corpuscular Hemoglobin 29pg (25-35) Mean Corpuscular Hemoglobin Concent 31g/dL (31-37) Red Cell Distribution Width 17.0% (11.5-14.5) Platelet Count 582x10^3/uL (140-400) Neutrophils (%) (Auto) 89% (31-73) Lymphocytes (%) (Auto) 5% (24-48) Monocytes (%) (Auto) 6% (0-9) Eosinophils (%) (Auto) 0% (0-3) Basophils (%) (Auto) 0% (0-3) Neutrophils # (Auto) 19.0x10^3uL (1.8-7.7) Lymphocytes # (Auto) 1.2x10^3/uL (1.0-4.8) Monocytes # (Auto) 1.2x10^3/uL (0.0-1.1) Eosinophils # (Auto) 0.0x10^3/uL (0.0-0.7) Basophils # (Auto) 0.1x10^3/uL (0.0-0.2) Segmented Neutrophils % 87% (35-66) Band Neutrophils % 3% (0-9) Lymphocytes % 6% (24-48) Monocytes % 4% (0-10) Platelet Estimate Adequate (ADEQUATE) Sodium Level 127mmol/L (136-145) Potassium Level 5.8mmol/L (3.5-5.1) Chloride Level 92mmol/L (98-107) Carbon Dioxide Level 22mmol/L (21-32) Anion Gap 13 (6-14) Blood Urea Nitrogen 54mg/dL (7-20) Creatinine 2.4mg/dL (0.6-1.0) Estimated GFR (Cockcroft-Gault) 20.2 BUN/Creatinine Ratio 23 (6-20) Glucose Level 285mg/dL (70-99) Uric Acid 9.1mg/dL (2.6-6.0) Calcium Level 9.3mg/dL (8.5-10.1) Total Bilirubin 0.3mg/dL (0.2-1.0) Aspartate Amino Transf (AST/SGOT) 175U/L (15-37) Alanine Aminotransferase (ALT/SGPT) 92U/L (14-59) Alkaline Phosphatase 98U/L (46-116) Creatine Kinase 221U/L (26-192) Troponin I Quantitative < 0.017ng/mL (0.000-0.055) [id number]-[id number]-M-Type Natriuretic Peptide 370pg/mL (0-124) Total Protein 7.6g/dL (6.4-8.2) Albumin 3.1g/dL (3.4-5.0) Albumin/Globulin Ratio 0.7 (1.0-1.7) O2 Saturation 88% (92-99) 90% (92-99) Arterial Blood pH 7.26 (7.35-7.45) 7.32 (7.35-7.45) Arterial Blood pCO2 at Patient Temp 49mmHg (35-46) 44mmHg (35-46) Arterial Blood pO2 at Patient Temp 67mmHg (65-108) 65mmHg (65-108) Arterial Blood HCO3 22mmol/L (21-28) 22mmol/L (21-28) Arterial Blood Base Excess -6mmol/L (-3-3) -4mmol/L (-3-3) Oxyhemoglobin 86.7% Methemoglobin 0.4% (0.0-1.9) Carbon Monoxide, Quantitative 1.4% (0.0-1.9) FiO2 40.0 35.0 Glucose (Fingerstick) 279mg/dL (70-99) Test 02/17/17 16:14 02/17/17 17:20 02/17/17 18:19 02/17/17 22:03 Glucose (Fingerstick) 243mg/dL (70-99) 175mg/dL (70-99) Urine Protein 24.2mg/dL (Not Estab.) Urine Creatinine 93.5mg/dL (Not Estab.) Urine Protein/Creatinine Ratio 259mg/g creat (0-200) O2 Saturation 92% (92-99) Arterial Blood pH 7.27 (7.35-7.45) Arterial Blood pCO2 at Patient Temp 30mmHg (35-46) Arterial Blood pO2 at Patient Temp 73mmHg (65-108) Arterial Blood HCO3 13mmol/L (21-28) Arterial Blood Base Excess -12mmol/L (-3-3) FiO2 35 Test 02/18/17 04:45 02/18/17 05:30 02/18/17 08:00 02/18/17 08:47 Urine Collection Type Unknown Urine Color Yellow Urine Clarity Clear Urine pH 5.0 Urine Specific [place] 1.015 Urine Protein Negativemg/dL (NEG-TRACE) Urine Glucose (UA) 250mg/dL (NEG) Urine Ketones (Stick) Negativemg/dL (NEG) Urine Blood Large (NEG) Urine Nitrite Negative (NEG) Urine Bilirubin Negative (NEG) Urine Urobilinogen Dipstick 0.2mg/dL (0.2 mg/dL) Urine Leukocyte Esterase Negative (NEG) Urine RBC Tntc/HPF (0-2) Urine WBC Occ/HPF (0-4) Urine Squamous Epithelial Cells Few/LPF Urine Bacteria Few/HPF (0-FEW) Urine Hyaline Casts Moderate/HPF Urine Mucus Mod/LPF Urine Random Sodium 23mmol/L (Not Estab.) White Blood Count 23.9x10^3/uL (4.0-11.0) Red Blood Count 3.18x10^6/uL (3.50-5.40) Hemoglobin 9.5g/dL (12.0-15.5) Hematocrit 29.4% (36.0-47.0) Mean Corpuscular Volume 93fL (79-100) Mean Corpuscular Hemoglobin 30pg (25-35) Mean Corpuscular Hemoglobin Concent 32g/dL (31-37) Red Cell Distribution Width 16.8% (11.5-14.5) Platelet Count 478x10^3/uL (140-400) Neutrophils (%) (Auto) 91% (31-73) Lymphocytes (%) (Auto) 3% (24-48) Monocytes (%) (Auto) 5% (0-9) Eosinophils (%) (Auto) 0% (0-3) Basophils (%) (Auto) 0% (0-3) Neutrophils # (Auto) 21.8x10^3uL (1.8-7.7) Lymphocytes # (Auto) 0.8x10^3/uL (1.0-4.8) Monocytes # (Auto) 1.2x10^3/uL (0.0-1.1) Eosinophils # (Auto) 0.0x10^3/uL (0.0-0.7) Basophils # (Auto) 0.0x10^3/uL (0.0-0.2) Sodium Level 122mmol/L (136-145) Potassium Level 5.1mmol/L (3.5-5.1) Chloride Level 86mmol/L (98-107) Carbon Dioxide Level 23mmol/L (21-32) Anion Gap 13 (6-14) Blood Urea Nitrogen 73mg/dL (7-20) Creatinine 3.2mg/dL (0.6-1.0) Estimated GFR (Cockcroft-Gault) 14.5 Glucose Level 368mg/dL (70-99) Serum Osmolality 301mOsm/Kg (279-304) Uric Acid 12.6mg/dL (2.6-6.0) Calcium Level 8.3mg/dL (8.5-10.1) Phosphorus Level 5.3mg/dL (2.6-4.7) Magnesium Level 2.3mg/dL (1.8-2.4) Lactate Dehydrogenase 1948U/L (81-234) Creatine Kinase 667U/L (26-192) Albumin 3.0g/dL (3.4-5.0) Lipase 48U/L (73-393) Thyroid Stimulating Hormone (TSH) 0.870uIU/mL (0.358-3.74) Free Thyroxine 1.24ng/dL (0.76-1.46) O2 Saturation 86% (92-99) Arterial Blood pH 7.41 (7.35-7.45) Arterial Blood pCO2 at Patient Temp 38mmHg (35-46) Arterial Blood pO2 at Patient Temp 57mmHg (65-108) Arterial Blood HCO3 23mmol/L (21-28) Arterial Blood Base Excess -1mmol/L (-3-3) FiO2 30 Glucose (Fingerstick) 379mg/dL (70-99) Test 02/18/17 09:00 02/18/17 11:50 02/18/17 11:56 02/18/17 15:55 Urine Random Sodium <20mmol/L (Not Estab.) Sodium Level 125mmol/L (136-145) 127mmol/L (136-145) Glucose (Fingerstick) 295mg/dL (70-99) Test 02/18/17 17:54 Glucose (Fingerstick) 190mg/dL (70-99) Laboratory Tests Test 02/17/17 22:03 02/18/17 04:45 02/18/17 05:30 02/18/17 08:00 Glucose (Fingerstick) 175mg/dL (70-99) Urine Collection Type Unknown Urine Color Yellow Urine Clarity Clear Urine pH 5.0 Urine Specific [place] 1.015 Urine Protein Negativemg/dL (NEG-TRACE) Urine Glucose (UA) 250mg/dL (NEG) Urine Ketones (Stick) Negativemg/dL (NEG) Urine Blood Large (NEG) Urine Nitrite Negative (NEG) Urine Bilirubin Negative (NEG) Urine Urobilinogen Dipstick 0.2mg/dL (0.2 mg/dL) Urine Leukocyte Esterase Negative (NEG) Urine RBC Tntc/HPF (0-2) Urine WBC Occ/HPF (0-4) Urine Squamous Epithelial Cells Few/LPF Urine Bacteria Few/HPF (0-FEW) Urine Hyaline Casts Moderate/HPF Urine Mucus Mod/LPF Urine Random Sodium 23mmol/L (Not Estab.) White Blood Count 23.9x10^3/uL (4.0-11.0) Red Blood Count 3.18x10^6/uL (3.50-5.40) Hemoglobin 9.5g/dL (12.0-15.5) Hematocrit 29.4% (36.0-47.0) Mean Corpuscular Volume 93fL (79-100) Mean Corpuscular Hemoglobin 30pg (25-35) Mean Corpuscular Hemoglobin Concent 32g/dL (31-37) Red Cell Distribution Width 16.8% (11.5-14.5) Platelet Count 478x10^3/uL (140-400) Neutrophils (%) (Auto) 91% (31-73) Lymphocytes (%) (Auto) 3% (24-48) Monocytes (%) (Auto) 5% (0-9) Eosinophils (%) (Auto) 0% (0-3) Basophils (%) (Auto) 0% (0-3) Neutrophils # (Auto) 21.8x10^3uL (1.8-7.7) Lymphocytes # (Auto) 0.8x10^3/uL (1.0-4.8) Monocytes # (Auto) 1.2x10^3/uL (0.0-1.1) Eosinophils # (Auto) 0.0x10^3/uL (0.0-0.7) Basophils # (Auto) 0.0x10^3/uL (0.0-0.2) Sodium Level 122mmol/L (136-145) Potassium Level 5.1mmol/L (3.5-5.1) Chloride Level 86mmol/L (98-107) Carbon Dioxide Level 23mmol/L (21-32) Anion Gap 13 (6-14) Blood Urea Nitrogen 73mg/dL (7-20) Creatinine 3.2mg/dL (0.6-1.0) Estimated GFR (Cockcroft-Gault) 14.5 Glucose Level 368mg/dL (70-99) Serum Osmolality 301mOsm/Kg (279-304) Uric Acid 12.6mg/dL (2.6-6.0) Calcium Level 8.3mg/dL (8.5-10.1) Phosphorus Level 5.3mg/dL (2.6-4.7) Magnesium Level 2.3mg/dL (1.8-2.4) Lactate Dehydrogenase 1948U/L (81-234) Creatine Kinase 667U/L (26-192) Albumin 3.0g/dL (3.4-5.0) Lipase 48U/L (73-393) Thyroid Stimulating Hormone (TSH) 0.870uIU/mL (0.358-3.74) Free Thyroxine 1.24ng/dL (0.76-1.46) O2 Saturation 86% (92-99) Arterial Blood pH 7.41 (7.35-7.45) Arterial Blood pCO2 at Patient Temp 38mmHg (35-46) Arterial Blood pO2 at Patient Temp 57mmHg (65-108) Arterial Blood HCO3 23mmol/L (21-28) Arterial Blood Base Excess -1mmol/L (-3-3) FiO2 30 Test 02/18/17 08:47 02/18/17 09:00 02/18/17 11:50 02/18/17 11:56 Glucose (Fingerstick) 379mg/dL (70-99) 295mg/dL (70-99) Urine Random Sodium <20mmol/L (Not Estab.) Sodium Level 125mmol/L (136-145) Test 02/18/17 15:55 02/18/17 17:54 Sodium Level 127mmol/L (136-145) Glucose (Fingerstick) 190mg/dL (70-99) Assessment/Plan Assessment/Plan This patient comes in with respiratory failure and has known severe COPD however at this point she appears to be having problems secondary to a pericarditis with a large pericardial effusion. 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 At this point I would recommend to do a pericardiocentesis to remove the fluid. This was discussed with the family and a consent was obtained. We will take the patient to the catheter lab now to perform the pericardiocentesis with fluoroscopy and ultrasound assistance. Thank you very much for asking me to participate in the care of this patient. TOBY SON MD Feb 18, 2017 19:18
--- NOTE | 2017-02-18 19:21 | PDOC4 ---
PROCEDURE Procedure PROCEDURE NOTE After obtaining informed consent a limited echocardiogram was performed in the [facility]. There is a large circumferential pericardial effusion. After this was evaluated and with the patient in the supine position in the [facility] the subxiphoid area was prepped and draped in the usual fashion. The area was infiltrated with Xylocaine to obtain topical anesthesia. We then advanced a needle into the pericardial sac and then a guidewire was positioned there. A dilator was then advanced over the guidewire and removed then multiple attempts at advancing an 8 [place] pigtail catheter were done and finally after changing to a stiff for why her we were finally able to get the pigtail catheter into the pericardial sac. This catheter was then connected to a bag and 800 mL of bloody fluid were removed. A portion of the fluid was sent to the lab for culture sensitivity and analysis. The pigtail catheter was then sutured in place with a drainage bag and the patient was transferred back to the intensive care unit in stable condition after tolerating the procedure rather well. At the end of the procedure repeat views of the echocardiogram were done and we saw that there was only a minimal amount of fluid left. This is the report on a pericardiocentesis that was done in the catheter lab under sterile conditions and with fluoroscopy and ultrasound assistance. TOBY SON MD Feb 18, 2017 19:20
[2017-02-18 20:39] LABS: BF CLARITY TURBID; BF COLOR RED
[2017-02-18] MEDS: diphenhydrAMINE HCL 25 MG CAPSULE PO SCH (21:05)
[2017-02-18] MEDS: INSULIN DETEMIR 300 UNITS/3 ML INSULN.PEN. SQ SCH (21:39)
[2017-02-18] MEDS: LABETALOL 20 MG/4 ML DISP.SYRIN. IVP PRN (21:44)
[2017-02-19] VITALS (21 sets, daily range): BP systolic 114–190; BP diastolic 44–87
[2017-02-19] MEDS: SODIUM CHLORIDE 3 % 500 ML IV PRN (03:09)
[2017-02-19] MEDS: LABETALOL 20 MG/4 ML DISP.SYRIN. IVP PRN (03:09)
[2017-02-19 05:50] LABS: ALBUMIN 2.4 g/dL (3.4-5.0); CREATININE 1.5 mg/dL (0.6-1.0); GFR 34.7; PHOSPHORUS 3.7 mg/dL (2.6-4.7); POTASSIUM 4.4 mmol/L (3.5-5.1)
[2017-02-19] MEDS: predniSONE 20 MG TABLET PO SCH ×2 (06:35→08:02)
--- NOTE | 2017-02-19 07:21 | RAD ---
Ultrasound-guided insertion of triple-lumen Trialysis temporary hemodialysis catheter Indication: 67-year-old female ICU patient admitted with acute respiratory failure, acute renal failure, with metabolic acidosis. Bedside triple lumen hemodialysis catheter insertion has been requested for dialysis and for dobutamine infusion. Anesthesia: Local only Sterility: All elements of maximal sterile barrier technique, including the use of a cap, mask, sterile gown, sterile gloves, large sterile sheet, appropriate hand hygiene, and 2% chlorhexidine for cutaneous antisepsis (or acceptable alternative antiseptic per current guidelines) were utilized. Procedure: Informed consent was obtained from the patient. This procedure was performed bedside in the intensive care unit. Preliminary ultrasound examination of right neck revealed wide patency of right internal jugular vein, which was documented with a single hard copy ultrasound image. Right neck was then prepped and draped in the usual sterile fashion, utilizing all elements of maximal sterile barrier technique, as described above. Using aseptic technique and local anesthesia, a small skin incision was made lateral to right internal jugular vein, just above clavicle. Using aseptic technique, local anesthesia, and direct ultrasound guidance, a small micropuncture sheath was successfully introduced through the supraclavicular dermatotomy into right internal jugular vein. The micropuncture sheath was then removed over a guidewire. The percutaneous tract was dilated and a 13 [place] triple lumen 20 cm Trialysis temporary hemodialysis catheter was easily advanced centrally. All three lumens of the dialysis catheter were documented to flush and aspirate normally. The two dialysis catheter lumens were packed with heparin. The Trialysis catheter was then secured at the skin exit site utilizing suture and sterile dressing. Patient tolerated the procedure well without apparent complication. A stat portable chest x-ray was requested for catheter position. Impression: Successful, uneventful ultrasound-guided insertion of a 13 [place] triple lumen 20 cm Trialysis temporary hemodialysis catheter, bedside in the intensive care unit, as described.
[2017-02-19] MEDS: GABAPENTIN 300 MG CAPSULE. PO SCH ×2 (08:00→21:33)
[2017-02-19] MEDS: CITALOPRAM 20 MG TABLET. PO SCH (08:00)
[2017-02-19] MEDS: ASPIRIN ENTERIC COATED 81 MG TABLET.DR. PO SCH (08:00)
[2017-02-19] MEDS: DIGOXIN 125 MCG TABLET. PO SCH (08:01)
[2017-02-19] MEDS: MORPHINE ER 30 MG TABLET.ER PO SCH ×3 (08:01→21:35)
[2017-02-19] MEDS: HYDROCODONE/APAP 7.5/325MG TABLET. PO SCH ×4 (08:01→21:36)
[2017-02-19] MEDS: FERROUS SULFATE 325 MG TABLET. PO SCH (08:01)
[2017-02-19] MEDS: DILTIAZEM HCL 180 MG CAP.ER.24H PO SCH (08:02)
[2017-02-19] MEDS: CILOSTAZOL 50 MG TABLET. PO SCH ×2 (08:02→21:33)
[2017-02-19] MEDS: DABIGATRAN ETEXILATE 75 MG CAPSULE. PO SCH ×2 (08:02→21:34)
[2017-02-19] MEDS: CALCIUM ACETATE 667 MG CAPSULE PO SCH ×3 (08:03→17:20)
[2017-02-19] MEDS: PROPAFENONE 150 MG TABLET. PO SCH ×2 (08:03→21:34)
[2017-02-19] MEDS: VITAMIN B COMPLEX TABLET. PO SCH (08:03)
[2017-02-19] MEDS: GUAIFENESIN ER 600 MG TABLET.ER PO SCH ×2 (08:03→21:36)
[2017-02-19] MEDS: DOXYCYCLINE HYCLATE 100 MG in IV DEXTROSE 5% 100 ML IV SCH ×2 (08:05→21:36)
[2017-02-19] MEDS: INSULIN ASPART 300 UNITS/3 ML INSULN.PEN SQ SCH ×6 (08:10→17:09)
[2017-02-19] MEDS: INSULIN DETEMIR 300 UNITS/3 ML INSULN.PEN. SQ SCH ×2 (08:11→21:32)
[2017-02-19] MEDS: IPRATRPIUM/ALBUTEROL 0.5/2.5MG 3 ML NEBU. NEB SCH ×5 (08:41→22:23)
[2017-02-19] MEDS: BUDESONIDE 0.5 MG/2 ML NEBU. NEB SCH ×2 (08:41→20:32)
--- NOTE | 2017-02-19 10:18 | PDOC ---
SUBJECTIVE ROS JOSE DOing much better today CVS: no Orthopnea, no CP RESP: no SOB, no BROWN GI: no Nausea, no Vomiting : no Dysuria, no Urgency OBJECTIVE Vital Signs Vital Signs Date Time Temp Pulse Resp B/P Pulse Ox O2 Delivery O2 Flow Rate FiO2 02/19/17 09:02 26 95 Nasal Cannula 5.0 02/19/17 09:00 87 178/72 02/19/17 08:00 98.1 98.1 I & 0 Intake and Output 02/19/17 07:00 Intake Total 2568 ml Output Total 4325 ml Balance -1757 ml Intake Oral 1545 ml IV Total 1023 ml Output Urine Total 3125 ml Drainage Total 1200 ml # Bowel Movements 1 PHYSICAL EXAM Physical Exam General Appearance: Awake partially Alert Oriented x 3 In no Distress off of BiPAP Eyes: VIsion Unchanged Conjunctiva Normal EN: No EN Drainage Mucous Memb. moist Neck: + JVD + JVP Supple no Thyromegaly CVS: S1 S2 + Murmur No Gallop ? Rub no Edema Resp: few Rales no Rhonchi no Acc. Muscle use GI: BS +ve NO Bruit Non Tender ? Distended : no CVA tenderness; no Suprapubic Tenderness SKIN: no Rashes Breast Exam deferred Mu.Sk: Adequate ROM no Muscle Atrophy Heme: Unable to palpate Obvious LAD no palp Splenomegaly NEURO: MOves all 4 ext. No Asterixis Psych: NOt depressed, No Active Hallucinations Assessment & Plan JOSE - suspect intravascular Vol depletion; Pre-renal from VHDz state and or from Pericardial Eff, Bactrim. Better with IVF and improved RBF. watch off of IVF fo rnow. UO is good Current FLuid and E-lyte status does not necessitate emergent need for Dialysis. Pericardial eff - Very unlikely to be Uremic (freedom with Normal Creat in Nov 2016 and rapid resolution of JOSE with Drainage) . Would suggest looking at Axillary Ly Node as a possible clue to this. ? malignant Low Na - resolved - watch off of 3% for now Sev ^ Phos - ? due to Renal Failure; Now better - LDH ^ed - ? Source. ^K - ? asso with ^ LDH. Uric Acid - ? Cell lysis of unclear source SOB - much improved after Pericardiocentesis; now on min O2 Cell lysis ongoing somewhere - not sure if it is all due to Pericardial Eff or other malignancy/ TLS may need to be looked at CK is min ^ed and makes it unlikely to be the source of LDH and Uric ACid. Long D/w Dr Sunshine and Dr Finney COMMENT/RELEVANT DATA Meds Current Medications Medications (Trade) Dose Ordered Sig/Myrtle Start Time Stop Time Status Last Admin Dose Admin Acetaminophen/ Hydrocodone Bitart (Lortab 7.5/325) 1 tab QID 02/17/17 17:00 02/19/17 08:01 1 TAB Albuterol Sulfate (Ventolin Neb Soln) 10 mg 1X ONCE 02/17/17 08:00 02/17/17 08:01 DC 02/17/17 08:02 10 MG Albuterol/ Ipratropium (Duoneb) 3 ml Q4HRS W/A 02/17/17 18:00 02/19/17 08:41 3 ML Alprazolam (Xanax) 1 mg PRN Q8HRS PRN 02/17/17 15:45 02/17/17 22:13 1 MG Aspirin (Ecotrin) 81 mg DAILY 02/18/17 09:00 02/19/17 08:00 81 MG Budesonide (Pulmicort) 0.5 mg RTBID 02/17/17 20:00 02/19/17 08:41 0.5 MG Calcium Acetate 1334 mg 1,334 mg TIDWMEALS 02/18/17 09:00 02/19/17 08:03 1,334 MG Ceftriaxone Sodium/Sodium Chloride (Rocephin/Iv Sodium Chloride 0.9% 50ml) 50 ml @ 100 mls/hr Q24H 02/18/17 09:00 02/18/17 13:45 100 MLS/HR Ceftriaxone Sodium 50 ml @ 100 mls/hr DAILY 02/18/17 09:00 UNV Cilostazol (Pletal) 50 mg BID 02/17/17 21:00 02/19/17 08:02 50 MG Citalopram Hydrobromide (Celexa) 20 mg DAILY 02/18/17 09:00 02/19/17 08:00 20 MG Dabigatran (Pradaxa) 75 mg BID 02/17/17 21:00 02/19/17 08:02 75 MG Dextrose 12.5 gm 12.5 gm PRN Q15MIN PRN 02/17/17 10:00 Digoxin (Lanoxin) 125 mcg DAILY 02/18/17 09:00 02/19/17 08:01 125 MCG Diltiazem HCl (Cardizem 24hr Cd) 360 mg DAILY 02/18/17 09:00 02/19/17 08:02 360 MG Diphenhydramine HCl (Benadryl) 25 mg QHS 02/17/17 21:00 02/18/17 21:05 25 MG Dobutamine HCl/ Dextrose 250 ml @ 0 mls/hr CONT PRN 02/17/17 23:00 02/17/17 23:38 7.348 MLS/HR Doxycycline Hyclate 100 mg/ Dextrose 100 ml @ 50 mls/hr BID 02/17/17 21:00 02/19/17 08:05 50 MLS/HR Fentanyl Citrate (Fentanyl 2ml Vial) 100 mcg STK-MED ONCE 02/18/17 16:46 02/18/17 16:47 DC Ferrous Sulfate (Feosol) 325 mg [id number] 02/18/17 08:00 02/19/17 08:01 325 MG Furosemide 80 mg 80 mg 1X ONCE 02/17/17 20:00 02/17/17 20:01 DC Gabapentin (Neurontin) 900 mg BID 02/17/17 21:00 02/19/17 08:00 900 MG Guaifenesin (Mucinex) 600 mg BID 02/17/17 21:00 02/19/17 08:03 600 MG Heparin Sodium (Porcine) (Heparin Sodium) 2,500 unit 1X ONCE 02/18/17 10:15 02/18/17 10:19 DC 02/18/17 10:41 2,500 UNIT Heparin Sodium/ Sodium Chloride 1,000 unit 1X ONCE 02/18/17 16:45 02/18/17 16:46 DC 02/18/17 17:27 1,000 UNIT Insulin Aspart (Novolog) 10 units TIDAC 02/18/17 12:00 02/19/17 08:10 10 UNITS Insulin Detemir (Levemir) 20 units BID 02/18/17 21:00 02/19/17 08:11 20 UNITS Labetalol HCl (Normodyne) 10 mg PRN Q3HRS PRN 02/18/17 20:15 02/19/17 03:09 10 MG Lidocaine/ Epinephrine (Xylocaine 2%-Epi 1:100,000) 20 ml 1X ONCE 02/18/17 16:45 02/18/17 16:46 DC 02/18/17 17:24 10 ML Lidocaine/Sodium Bicarbonate (Buffered Lidocaine 1%) 3 ml 1X ONCE 02/18/17 10:15 02/18/17 10:19 DC 02/18/17 10:41 3 ML Magnesium Sulfate/ Dextrose (Magnesium Sulfate PREMIX 2GM) 50 ml @ 25 mls/hr PRN DAILY PRN 02/17/17 14:45 Methylprednisolone Sodium Succinate 60 mg 60 mg 1X ONCE 02/17/17 08:00 02/17/17 08:06 DC 02/17/17 08:49 60 MG Midazolam HCl (Versed) 2 mg 1X ONCE 02/18/17 16:45 02/18/17 16:46 DC 02/18/17 17:26 1 MG Morphine Sulfate (Ms Contin) 30 mg TID 02/17/17 21:00 02/19/17 08:01 30 MG Non-Formulary Medication 1 each HS 02/17/17 21:00 UNV Ondansetron HCl (Zofran) 4 mg PRN Q6HRS PRN 02/17/17 18:15 02/17/17 21:05 4 MG Prednisone (Prednisone) 60 mg DAILY07 02/18/17 07:00 02/19/17 08:02 60 MG Propafenone HCl (Rythmol) 150 mg BID 02/17/17 21:00 02/19/17 08:03 150 MG Sodium Bicarbonate 150 meq/Dextrose 1,150 ml @ 100 mls/hr [id number] 02/17/17 21:00 02/18/17 06:59 DC 02/17/17 21:11 100 MLS/HR Sodium Bicarbonate 50 meq 50 meq 1X ONCE 02/17/17 15:30 02/17/17 15:35 DC 02/17/17 15:46 50 MEQ Sodium Bicarbonate 75 meq/Dextrose 575 ml @ 100 mls/hr [id number] 02/18/17 07:00 02/18/17 11:59 DC Sodium Polystyrene Sulfonate 45 gm 45 gm 1X ONCE 02/17/17 15:30 02/17/17 15:31 DC 02/17/17 22:21 45 GM Sodium Chloride (Hypertonic Saline) 500 ml @ 30 mls/hr CONT PRN PRN 02/18/17 08:15 02/19/17 03:09 30 MLS/HR Sodium Chloride (Iv Sodium Chloride 0.9% 500ml Bag) 500 ml @ 0 mls/hr PRN QID PRN 02/17/17 15:00 Sodium Chloride (Iv Sodium Chloride 0.9% 1000ml Bag) 1,000 ml @ 75 mls/hr 1X ONCE 02/17/17 15:45 02/18/17 05:04 DC 02/17/17 16:11 75 MLS/HR Trimethoprim/ Sulfamethoxazole (Bactrim Ds) 1 tab DAILY 02/17/17 21:00 02/18/17 08:22 DC Vitamin B Complex (Moi B) 1 tab DAILY 02/18/17 09:00 02/19/17 08:03 1 TAB Lab Laboratory Tests Test 02/18/17 11:50 02/18/17 11:56 02/18/17 15:55 02/18/17 17:00 Sodium Level 125mmol/L (136-145) 127mmol/L (136-145) Glucose (Fingerstick) 295mg/dL (70-99) Body Fluid Source Pericardial Body Fluid Color Red Body Fluid Clarity Turbid Body Fluid Nucleated Cells 5970/cmm Body Fluid Mononuclear WBCs (%) 15% Body Fluid Polymorphonuclear Cells 85% Body Fluid Total RBCs Counted 2625038/cmm Test 02/18/17 17:54 02/18/17 20:05 02/18/17 21:36 02/19/17 00:15 Glucose (Fingerstick) 190mg/dL (70-99) 159mg/dL (70-99) Sodium Level 132mmol/L (136-145) 133mmol/L (136-145) Test 02/19/17 04:45 02/19/17 08:07 Sodium Level 135mmol/L (136-145) Potassium Level 4.4mmol/L (3.5-5.1) Chloride Level 98mmol/L (98-107) Carbon Dioxide Level 32mmol/L (21-32) Anion Gap 5 (6-14) Blood Urea Nitrogen 53mg/dL (7-20) Creatinine 1.5mg/dL (0.6-1.0) Estimated GFR (Cockcroft-Gault) 34.7 Glucose Level 190mg/dL (70-99) Calcium Level 8.0mg/dL (8.5-10.1) Phosphorus Level 3.7mg/dL (2.6-4.7) Magnesium Level 2.6mg/dL (1.8-2.4) Albumin 2.4g/dL (3.4-5.0) Glucose (Fingerstick) 216mg/dL (70-99) Other IMPRESSION: Large pericardial effusion. Small bilateral pleural effusions. Pleural parenchymal scarring in the left lung similar to the previous exam. Limited evaluation for interstitial lung disease but advanced interstitial lung disease is not seen. Gross congestive heart failure is not seen. Adenopathy in the left axilla, new relative to the previous exam, with some accompanying soft tissue swelling of the left chest wall noted. Clinical correlation advised JUNIOR VALERIO MD Feb 19, 2017 10:18
[2017-02-19] MEDS: CEFTRIAXONE SODIUM 1 GM in IV NORMAL SALINE 50ML 50 ML IV SCH (10:32)
[2017-02-19 10:44] LABS: BASO # 0.1 x10^3/uL (0.0-0.2); BASO % 0 % (0-3); EOS % 0 % (0-3); HEMATOCRIT 27.6 % (36.0-47.0); LYMPH % 4 % (24-48); MEAN CORPUSCULAR HEMOGLOBIN 30 pg (25-35); MEAN CORPUSCULAR HGB CONC 33 g/dL (31-37); MEAN CORPUSCULAR VOLUME 92 fL (79-100); MONO % 4 % (0-9); NEUT % 92 % (31-73); PLATELET COUNT 442 x10^3/uL (140-400); RED CELL DISTRIBUTION WIDTH 16.8 % (11.5-14.5); WHITE BLOOD COUNT 28.1 x10^3/uL (4.0-11.0)
--- NOTE | 2017-02-19 11:38 | PDOC ---
PULMONARY PROGRESS NOTES Subjective s/p emergent pericardiocentesis 02/18 large pericardial effusion on ct chest Vitals Vital Signs Date Time Temp Pulse Resp B/P Pulse Ox O2 Delivery O2 Flow Rate FiO2 02/19/17 11:00 82 22 184/74 96 Nasal Cannula 5.0 02/19/17 08:00 98.1 98.1 General: Alert, No acute distress HEENT: Other Lungs: Other (decrease bs) Cardiovascular: S1, S2 Abdomen: Soft, Non-tender, Other Neuro Exam: Alert Extremities: Other (1+edema) Labs Laboratory Tests Test 02/17/17 13:15 02/17/17 16:14 02/17/17 17:20 02/17/17 18:19 Glucose (Fingerstick) 279mg/dL (70-99) 243mg/dL (70-99) Urine Protein 24.2mg/dL (Not Estab.) Urine Creatinine 93.5mg/dL (Not Estab.) Urine Protein/Creatinine Ratio 259mg/g creat (0-200) O2 Saturation 92% (92-99) Arterial Blood pH 7.27 (7.35-7.45) Arterial Blood pCO2 at Patient Temp 30mmHg (35-46) Arterial Blood pO2 at Patient Temp 73mmHg (65-108) Arterial Blood HCO3 13mmol/L (21-28) Arterial Blood Base Excess -12mmol/L (-3-3) FiO2 35 Test 02/17/17 20:42 02/17/17 22:03 02/18/17 04:45 02/18/17 05:30 Glucose (Fingerstick) 173mg/dL (70-99) 175mg/dL (70-99) Urine Collection Type Unknown Urine Color Yellow Urine Clarity Clear Urine pH 5.0 Urine Specific Weinert 1.015 Urine Protein Negativemg/dL (NEG-TRACE) Urine Glucose (UA) 250mg/dL (NEG) Urine Ketones (Stick) Negativemg/dL (NEG) Urine Blood Large (NEG) Urine Nitrite Negative (NEG) Urine Bilirubin Negative (NEG) Urine Urobilinogen Dipstick 0.2mg/dL (0.2 mg/dL) Urine Leukocyte Esterase Negative (NEG) Urine RBC Tntc/HPF (0-2) Urine WBC Occ/HPF (0-4) Urine Squamous Epithelial Cells Few/LPF Urine Bacteria Few/HPF (0-FEW) Urine Hyaline Casts Moderate/HPF Urine Mucus Mod/LPF Urine Random Sodium 23mmol/L (Not Estab.) Nasal Screen MRSA (PCR) Negative (Negative) White Blood Count 23.9x10^3/uL (4.0-11.0) Red Blood Count 3.18x10^6/uL (3.50-5.40) Hemoglobin 9.5g/dL (12.0-15.5) Hematocrit 29.4% (36.0-47.0) Mean Corpuscular Volume 93fL (79-100) Mean Corpuscular Hemoglobin 30pg (25-35) Mean Corpuscular Hemoglobin Concent 32g/dL (31-37) Red Cell Distribution Width 16.8% (11.5-14.5) Platelet Count 478x10^3/uL (140-400) Neutrophils (%) (Auto) 91% (31-73) Lymphocytes (%) (Auto) 3% (24-48) Monocytes (%) (Auto) 5% (0-9) Eosinophils (%) (Auto) 0% (0-3) Basophils (%) (Auto) 0% (0-3) Neutrophils # (Auto) 21.8x10^3uL (1.8-7.7) Lymphocytes # (Auto) 0.8x10^3/uL (1.0-4.8) Monocytes # (Auto) 1.2x10^3/uL (0.0-1.1) Eosinophils # (Auto) 0.0x10^3/uL (0.0-0.7) Basophils # (Auto) 0.0x10^3/uL (0.0-0.2) Sodium Level 122mmol/L (136-145) Potassium Level 5.1mmol/L (3.5-5.1) Chloride Level 86mmol/L (98-107) Carbon Dioxide Level 23mmol/L (21-32) Anion Gap 13 (6-14) Blood Urea Nitrogen 73mg/dL (7-20) Creatinine 3.2mg/dL (0.6-1.0) Estimated GFR (Cockcroft-Gault) 14.5 Glucose Level 368mg/dL (70-99) Serum Osmolality 301mOsm/Kg (279-304) Uric Acid 12.6mg/dL (2.6-6.0) Calcium Level 8.3mg/dL (8.5-10.1) Phosphorus Level 5.3mg/dL (2.6-4.7) Magnesium Level 2.3mg/dL (1.8-2.4) Lactate Dehydrogenase 1948U/L (81-234) Creatine Kinase 667U/L (26-192) Albumin 3.0g/dL (3.4-5.0) Lipase 48U/L (73-393) Thyroid Stimulating Hormone (TSH) 0.870uIU/mL (0.358-3.74) Free Thyroxine 1.24ng/dL (0.76-1.46) Test 02/18/17 08:00 02/18/17 08:47 02/18/17 09:00 02/18/17 11:50 O2 Saturation 86% (92-99) Arterial Blood pH 7.41 (7.35-7.45) Arterial Blood pCO2 at Patient Temp 38mmHg (35-46) Arterial Blood pO2 at Patient Temp 57mmHg (65-108) Arterial Blood HCO3 23mmol/L (21-28) Arterial Blood Base Excess -1mmol/L (-3-3) FiO2 30 Glucose (Fingerstick) 379mg/dL (70-99) Urine Random Sodium <20mmol/L (Not Estab.) Sodium Level 125mmol/L (136-145) Test 02/18/17 11:56 02/18/17 15:55 02/18/17 17:00 02/18/17 17:54 Glucose (Fingerstick) 295mg/dL (70-99) 190mg/dL (70-99) Sodium Level 127mmol/L (136-145) Body Fluid Source Pericardial Body Fluid Color Red Body Fluid Clarity Turbid Body Fluid Nucleated Cells 5970/cmm Body Fluid Mononuclear WBCs (%) 15% Body Fluid Polymorphonuclear Cells 85% Body Fluid Total RBCs Counted 4781179/cmm Test 02/18/17 20:05 02/18/17 21:36 02/19/17 00:15 02/19/17 04:45 Sodium Level 132mmol/L (136-145) 133mmol/L (136-145) 135mmol/L (136-145) Glucose (Fingerstick) 159mg/dL (70-99) White Blood Count 28.1x10^3/uL (4.0-11.0) Red Blood Count 3.00x10^6/uL (3.50-5.40) Hemoglobin 9.0g/dL (12.0-15.5) Hematocrit 27.6% (36.0-47.0) Mean Corpuscular Volume 92fL (79-100) Mean Corpuscular Hemoglobin 30pg (25-35) Mean Corpuscular Hemoglobin Concent 33g/dL (31-37) Red Cell Distribution Width 16.8% (11.5-14.5) Platelet Count 442x10^3/uL (140-400) Neutrophils (%) (Auto) 92% (31-73) Lymphocytes (%) (Auto) 4% (24-48) Monocytes (%) (Auto) 4% (0-9) Eosinophils (%) (Auto) 0% (0-3) Basophils (%) (Auto) 0% (0-3) Neutrophils # (Auto) 25.8x10^3uL (1.8-7.7) Lymphocytes # (Auto) 1.0x10^3/uL (1.0-4.8) Monocytes # (Auto) 1.1x10^3/uL (0.0-1.1) Eosinophils # (Auto) 0.0x10^3/uL (0.0-0.7) Basophils # (Auto) 0.1x10^3/uL (0.0-0.2) Potassium Level 4.4mmol/L (3.5-5.1) Chloride Level 98mmol/L (98-107) Carbon Dioxide Level 32mmol/L (21-32) Anion Gap 5 (6-14) Blood Urea Nitrogen 53mg/dL (7-20) Creatinine 1.5mg/dL (0.6-1.0) Estimated GFR (Cockcroft-Gault) 34.7 Glucose Level 190mg/dL (70-99) Calcium Level 8.0mg/dL (8.5-10.1) Phosphorus Level 3.7mg/dL (2.6-4.7) Magnesium Level 2.6mg/dL (1.8-2.4) Albumin 2.4g/dL (3.4-5.0) Test 02/19/17 08:07 Glucose (Fingerstick) 216mg/dL (70-99) Laboratory Tests Test 02/18/17 11:50 02/18/17 11:56 02/18/17 15:55 02/18/17 17:00 Sodium Level 125mmol/L (136-145) 127mmol/L (136-145) Glucose (Fingerstick) 295mg/dL (70-99) Body Fluid Source Pericardial Body Fluid Color Red Body Fluid Clarity Turbid Body Fluid Nucleated Cells 5970/cmm Body Fluid Mononuclear WBCs (%) 15% Body Fluid Polymorphonuclear Cells 85% Body Fluid Total RBCs Counted [id number]/cmm Test 02/18/17 17:54 02/18/17 20:05 02/18/17 21:36 02/19/17 00:15 Glucose (Fingerstick) 190mg/dL (70-99) 159mg/dL (70-99) Sodium Level 132mmol/L (136-145) 133mmol/L (136-145) Test 02/19/17 04:45 02/19/17 08:07 White Blood Count 28.1x10^3/uL (4.0-11.0) Red Blood Count 3.00x10^6/uL (3.50-5.40) Hemoglobin 9.0g/dL (12.0-15.5) Hematocrit 27.6% (36.0-47.0) Mean Corpuscular Volume 92fL (79-100) Mean Corpuscular Hemoglobin 30pg (25-35) Mean Corpuscular Hemoglobin Concent 33g/dL (31-37) Red Cell Distribution Width 16.8% (11.5-14.5) Platelet Count 442x10^3/uL (140-400) Neutrophils (%) (Auto) 92% (31-73) Lymphocytes (%) (Auto) 4% (24-48) Monocytes (%) (Auto) 4% (0-9) Eosinophils (%) (Auto) 0% (0-3) Basophils (%) (Auto) 0% (0-3) Neutrophils # (Auto) 25.8x10^3uL (1.8-7.7) Lymphocytes # (Auto) 1.0x10^3/uL (1.0-4.8) Monocytes # (Auto) 1.1x10^3/uL (0.0-1.1) Eosinophils # (Auto) 0.0x10^3/uL (0.0-0.7) Basophils # (Auto) 0.1x10^3/uL (0.0-0.2) Sodium Level 135mmol/L (136-145) Potassium Level 4.4mmol/L (3.5-5.1) Chloride Level 98mmol/L (98-107) Carbon Dioxide Level 32mmol/L (21-32) Anion Gap 5 (6-14) Blood Urea Nitrogen 53mg/dL (7-20) Creatinine 1.5mg/dL (0.6-1.0) Estimated GFR (Cockcroft-Gault) 34.7 Glucose Level 190mg/dL (70-99) Calcium Level 8.0mg/dL (8.5-10.1) Phosphorus Level 3.7mg/dL (2.6-4.7) Magnesium Level 2.6mg/dL (1.8-2.4) Albumin 2.4g/dL (3.4-5.0) Glucose (Fingerstick) 216mg/dL (70-99) Medications Active Scripts Medications Dose Route/Sig Days Date Category Dose Instructions Prednisone 2.5 Mg Tablet 2 Tab PO DAILY 02/17/17 Reported Sulfamethoxazole-Tmp Ds Tablet (Sulfamethoxazole/Trimethoprim) 1 Each Tablet 1 Tab PO BID 02/17/17 Reported Albuterol Sulfate Conc Neb Soln (Albuterol Sulfate) 2.5 Mg/0.5 Ml Vial.neb 1 Vial NEB Q4HRS 11/03/16 Reported Lantus Solostar (Insulin Glargine,Hum.rec.anlog) 100 Unit/1 Ml Insuln.pen 14 Unit SQ BID 11/03/16 Reported Furosemide 40 Mg Tablet 1 Tab PO DAILY 11/03/16 Reported Mucinex (Guaifenesin) 600 Mg Tablet.er 400 Mg PO BID 11/03/16 Reported Xanax (Alprazolam) 1 Mg Tablet 1 Tab PO Q8HRS PRN 11/03/16 Reported Melatonin 10 Mg Tablet (Melatonin/Pyridoxine Hcl (B6)) 1 Each Tab.mphase 1 Each PO HS 11/03/16 Reported Iron (Ferrous Sulfate) 325 Mg Capsule.er 325 Mg PO DAILY 06/07/16 Rx B Complex # 1 (Vitamin B Complex) 1 Each Tablet 1 Each PO DAILY 06/07/16 Rx Levaquin (Levofloxacin) 750 Mg Tablet 1 Tab PO DAILY 06/07/16 Rx Nifedipine Er (Nifedipine) 60 Mg Tab.er.24 1 Tab PO DAILY 06/03/16 Reported Morphine Sulfate Er (Morphine Sulfate) 30 Mg Tablet.er 1 Tab PO TID 06/03/16 Reported Gabapentin 300 Mg Capsule 900 Mg PO QID 06/03/16 Reported Furosemide 20 Mg Tablet 1.5 Tab PO DAILY 06/03/16 Reported Cardizem Cd (Diltiazem Hcl) 360 Mg Cap.er.24h 1 Cap PO DAILY 03/07/15 Reported Next dose: 05/14 Rythmol (Propafenone Hcl) 150 Mg Tablet 150 Mg PO BID 03/07/15 Reported Next dose: 05/13 in pm Advair 250-50 Diskus (Fluticasone/Salmeterol) 1 Puff Puff 1 Puff INH BID 01/11/15 Rx Mucinex (Guaifenesin) 600 Mg Tablet.er 600 Mg PO BID 01/11/15 Rx Benadryl (Diphenhydramine Hcl) 25 Mg Capsule 2 Cap PO QHS 01/09/15 Reported Next dose: 05/14 Novolog (Insulin Aspart) 100 Unit/1 Ml Vial 100 Unit SQ 01/08/15 Reported Next dose: 05/13 at dinner Lantus (Insulin Glargine,Hum.rec.anlog) 100 Unit/1 Ml Vial 1 Unit SQ 01/08/15 Reported Next dose: 05/13 at bedtime Hydrocodone-Apap 7.5-325 (Hydrocodone Bit/Acetaminophen) 1 Each Tablet 1 Tab PO QID 01/08/15 Reported Next dose: 05/14 at 1 pm Combivent Respimat Inhal (Ipratropium/Albuterol Sulfate) 4 Gm Aer.w.adap 2 Inh IH QID 01/08/15 Reported Spiriva (Tiotropium [place]) 18 Mcg Cap.w.dev 1 Cap IH DAILY 01/08/15 Reported Next dose: 05/13 Dulera 100 Mcg/5 Mcg Inhaler (Mometasone/Formoterol) 13 Gm Hfa.aer.ad 2 Puff IH BID 01/08/15 Reported Digoxin 125 Mcg Tablet 1 Tab PO DAILY 01/08/15 Reported Next dose: 05/14 Citalopram Hbr (Citalopram Hydrobromide) 20 Mg Tablet 1 Tab PO DAILY 01/08/15 Reported Next dose: 05/14 Aspir 81 (Aspirin) 81 Mg Tablet.dr 1 Tab PO DAILY 01/08/15 Reported Next dose: 05/14 Cilostazol 50 Mg Tablet 50 Mg PO BID 01/08/15 Reported Next dose: 05/13 in PM Pradaxa (Dabigatran Etexilate Mesylate) 150 Mg Capsule 1 Cap PO BID 01/08/15 Reported Next dose: 05/13 in PM Potassium Chloride 20 Meq Tablet.er 20 Meq PO DAILY 01/08/15 Reported Next dose: 05/14 Impression . 1. Acute respiratory failure, secondary to combination of metabolic and respiratory acidosis and large pericardial effusion 2. Abnormal chest x-ray with bilateral prominent interstitial markings, CT chest with no significant ILD/CHF but large pericardial effusion 3. Previously abnormal transesophageal echo with moderate to severe mitral regurgitation. 4. Acute renal failure with metabolic acidosis. resolved post pericardiocentesis due to improved renal perfusion 5. Secondary pulmonary hypertension with a pulmonary artery systolic pressure of 70 on transesophageal echo from 07/2016. 6. Leukocytosis Plan . 1. PRN BiPAP . respiratory status much improved 2. prn bicarbonate. 3. follow pericardial fluid analysis 4. pericardial drain per cardiology 5. Follow renal recommendations. 6. Follow up ABGs improved 7. follow wbc 8. nebs 9. antibiotics d/w Dr Lovett, Dr Montoya cct 30 min BARBARA KELLOGG MD Feb 19, 2017 11:38
--- NOTE | 2017-02-19 12:36 | PDOC ---
PROGRESS NOTES Subjective Subjective Patient states that she is feeling much better today and is wanting to go home. Objective Objective Vital Signs Date Time Temp Pulse Resp B/P Pulse Ox O2 Delivery O2 Flow Rate FiO2 02/19/17 12:22 11 89 Nasal Cannula 5.0 02/19/17 11:00 82 184/74 02/19/17 08:00 98.1 98.1 Intake and Output 02/19/17 07:00 Intake Total 2568 ml Output Total 4325 ml Balance -1757 ml Intake Oral 1545 ml IV Total 1023 ml Output Urine Total 3125 ml Drainage Total 1200 ml # Bowel Movements 1 Physical Exam Physical Exam Resting in bed comfortably, no acute distress. Heart regular rate. Pericardial catheter in place. Assessment Assessment Problems Medical Problems: (1) Community acquired pneumonia Status: Acute (2) COPD exacerbation Status: Acute Plan Plan of Care CT chest reviewed. Echo- EF 55-60%. 700 additional mL pericardial fluid removed from bag, sent for cytology and cell block. CBC ordered. Repeat CXR ordered for tomorrow morning. Continue to monitor. Agree with current plan. Comment Review of Relevant I have reviewed the following items luke (where applicable) has been applied. Labs Laboratory Tests Test 02/17/17 13:15 02/17/17 16:14 02/17/17 17:20 02/17/17 18:19 Glucose (Fingerstick) 279mg/dL (70-99) 243mg/dL (70-99) Urine Protein 24.2mg/dL (Not Estab.) Urine Creatinine 93.5mg/dL (Not Estab.) Urine Protein/Creatinine Ratio 259mg/g creat (0-200) O2 Saturation 92% (92-99) Arterial Blood pH 7.27 (7.35-7.45) Arterial Blood pCO2 at Patient Temp 30mmHg (35-46) Arterial Blood pO2 at Patient Temp 73mmHg (65-108) Arterial Blood HCO3 13mmol/L (21-28) Arterial Blood Base Excess -12mmol/L (-3-3) FiO2 35 Test 02/17/17 20:42 02/17/17 22:03 02/18/17 04:45 02/18/17 05:30 Glucose (Fingerstick) 173mg/dL (70-99) 175mg/dL (70-99) Urine Collection Type Unknown Urine Color Yellow Urine Clarity Clear Urine pH 5.0 Urine Specific [place] 1.015 Urine Protein Negativemg/dL (NEG-TRACE) Urine Glucose (UA) 250mg/dL (NEG) Urine Ketones (Stick) Negativemg/dL (NEG) Urine Blood Large (NEG) Urine Nitrite Negative (NEG) Urine Bilirubin Negative (NEG) Urine Urobilinogen Dipstick 0.2mg/dL (0.2 mg/dL) Urine Leukocyte Esterase Negative (NEG) Urine RBC Tntc/HPF (0-2) Urine WBC Occ/HPF (0-4) Urine Squamous Epithelial Cells Few/LPF Urine Bacteria Few/HPF (0-FEW) Urine Hyaline Casts Moderate/HPF Urine Mucus Mod/LPF Urine Random Sodium 23mmol/L (Not Estab.) Nasal Screen MRSA (PCR) Negative (Negative) White Blood Count 23.9x10^3/uL (4.0-11.0) Red Blood Count 3.18x10^6/uL (3.50-5.40) Hemoglobin 9.5g/dL (12.0-15.5) Hematocrit 29.4% (36.0-47.0) Mean Corpuscular Volume 93fL (79-100) Mean Corpuscular Hemoglobin 30pg (25-35) Mean Corpuscular Hemoglobin Concent 32g/dL (31-37) Red Cell Distribution Width 16.8% (11.5-14.5) Platelet Count 478x10^3/uL (140-400) Neutrophils (%) (Auto) 91% (31-73) Lymphocytes (%) (Auto) 3% (24-48) Monocytes (%) (Auto) 5% (0-9) Eosinophils (%) (Auto) 0% (0-3) Basophils (%) (Auto) 0% (0-3) Neutrophils # (Auto) 21.8x10^3uL (1.8-7.7) Lymphocytes # (Auto) 0.8x10^3/uL (1.0-4.8) Monocytes # (Auto) 1.2x10^3/uL (0.0-1.1) Eosinophils # (Auto) 0.0x10^3/uL (0.0-0.7) Basophils # (Auto) 0.0x10^3/uL (0.0-0.2) Sodium Level 122mmol/L (136-145) Potassium Level 5.1mmol/L (3.5-5.1) Chloride Level 86mmol/L (98-107) Carbon Dioxide Level 23mmol/L (21-32) Anion Gap 13 (6-14) Blood Urea Nitrogen 73mg/dL (7-20) Creatinine 3.2mg/dL (0.6-1.0) Estimated GFR (Cockcroft-Gault) 14.5 Glucose Level 368mg/dL (70-99) Serum Osmolality 301mOsm/Kg (279-304) Uric Acid 12.6mg/dL (2.6-6.0) Calcium Level 8.3mg/dL (8.5-10.1) Phosphorus Level 5.3mg/dL (2.6-4.7) Magnesium Level 2.3mg/dL (1.8-2.4) Lactate Dehydrogenase 1948U/L (81-234) Creatine Kinase 667U/L (26-192) Albumin 3.0g/dL (3.4-5.0) Lipase 48U/L (73-393) Thyroid Stimulating Hormone (TSH) 0.870uIU/mL (0.358-3.74) Free Thyroxine 1.24ng/dL (0.76-1.46) Test 02/18/17 08:00 02/18/17 08:47 02/18/17 09:00 02/18/17 11:50 O2 Saturation 86% (92-99) Arterial Blood pH 7.41 (7.35-7.45) Arterial Blood pCO2 at Patient Temp 38mmHg (35-46) Arterial Blood pO2 at Patient Temp 57mmHg (65-108) Arterial Blood HCO3 23mmol/L (21-28) Arterial Blood Base Excess -1mmol/L (-3-3) FiO2 30 Glucose (Fingerstick) 379mg/dL (70-99) Urine Random Sodium <20mmol/L (Not Estab.) Sodium Level 125mmol/L (136-145) Test 02/18/17 11:56 02/18/17 15:55 02/18/17 17:00 02/18/17 17:54 Glucose (Fingerstick) 295mg/dL (70-99) 190mg/dL (70-99) Sodium Level 127mmol/L (136-145) Body Fluid Source Pericardial Body Fluid Color Red Body Fluid Clarity Turbid Body Fluid Nucleated Cells 5970/cmm Body Fluid Mononuclear WBCs (%) 15% Body Fluid Polymorphonuclear Cells 85% Body Fluid Total RBCs Counted 0188170/cmm Test 02/18/17 20:05 02/18/17 21:36 02/19/17 00:15 02/19/17 04:45 Sodium Level 132mmol/L (136-145) 133mmol/L (136-145) 135mmol/L (136-145) Glucose (Fingerstick) 159mg/dL (70-99) White Blood Count 28.1x10^3/uL (4.0-11.0) Red Blood Count 3.00x10^6/uL (3.50-5.40) Hemoglobin 9.0g/dL (12.0-15.5) Hematocrit 27.6% (36.0-47.0) Mean Corpuscular Volume 92fL (79-100) Mean Corpuscular Hemoglobin 30pg (25-35) Mean Corpuscular Hemoglobin Concent 33g/dL (31-37) Red Cell Distribution Width 16.8% (11.5-14.5) Platelet Count 442x10^3/uL (140-400) Neutrophils (%) (Auto) 92% (31-73) Lymphocytes (%) (Auto) 4% (24-48) Monocytes (%) (Auto) 4% (0-9) Eosinophils (%) (Auto) 0% (0-3) Basophils (%) (Auto) 0% (0-3) Neutrophils # (Auto) 25.8x10^3uL (1.8-7.7) Lymphocytes # (Auto) 1.0x10^3/uL (1.0-4.8) Monocytes # (Auto) 1.1x10^3/uL (0.0-1.1) Eosinophils # (Auto) 0.0x10^3/uL (0.0-0.7) Basophils # (Auto) 0.1x10^3/uL (0.0-0.2) Potassium Level 4.4mmol/L (3.5-5.1) Chloride Level 98mmol/L (98-107) Carbon Dioxide Level 32mmol/L (21-32) Anion Gap 5 (6-14) Blood Urea Nitrogen 53mg/dL (7-20) Creatinine 1.5mg/dL (0.6-1.0) Estimated GFR (Cockcroft-Gault) 34.7 Glucose Level 190mg/dL (70-99) Calcium Level 8.0mg/dL (8.5-10.1) Phosphorus Level 3.7mg/dL (2.6-4.7) Magnesium Level 2.6mg/dL (1.8-2.4) Albumin 2.4g/dL (3.4-5.0) Test 02/19/17 08:07 02/19/17 12:15 Glucose (Fingerstick) 216mg/dL (70-99) 266mg/dL (70-99) Laboratory Tests Test 02/18/17 15:55 02/18/17 17:00 02/18/17 17:54 02/18/17 20:05 Sodium Level 127mmol/L (136-145) 132mmol/L (136-145) Body Fluid Source Pericardial Body Fluid Color Red Body Fluid Clarity Turbid Body Fluid Nucleated Cells 5970/cmm Body Fluid Mononuclear WBCs (%) 15% Body Fluid Polymorphonuclear Cells 85% Body Fluid Total RBCs Counted 8769760/cmm Glucose (Fingerstick) 190mg/dL (70-99) Test 02/18/17 21:36 02/19/17 00:15 02/19/17 04:45 02/19/17 08:07 Glucose (Fingerstick) 159mg/dL (70-99) 216mg/dL (70-99) Sodium Level 133mmol/L (136-145) 135mmol/L (136-145) White Blood Count 28.1x10^3/uL (4.0-11.0) Red Blood Count 3.00x10^6/uL (3.50-5.40) Hemoglobin 9.0g/dL (12.0-15.5) Hematocrit 27.6% (36.0-47.0) Mean Corpuscular Volume 92fL (79-100) Mean Corpuscular Hemoglobin 30pg (25-35) Mean Corpuscular Hemoglobin Concent 33g/dL (31-37) Red Cell Distribution Width 16.8% (11.5-14.5) Platelet Count 442x10^3/uL (140-400) Neutrophils (%) (Auto) 92% (31-73) Lymphocytes (%) (Auto) 4% (24-48) Monocytes (%) (Auto) 4% (0-9) Eosinophils (%) (Auto) 0% (0-3) Basophils (%) (Auto) 0% (0-3) Neutrophils # (Auto) 25.8x10^3uL (1.8-7.7) Lymphocytes # (Auto) 1.0x10^3/uL (1.0-4.8) Monocytes # (Auto) 1.1x10^3/uL (0.0-1.1) Eosinophils # (Auto) 0.0x10^3/uL (0.0-0.7) Basophils # (Auto) 0.1x10^3/uL (0.0-0.2) Potassium Level 4.4mmol/L (3.5-5.1) Chloride Level 98mmol/L (98-107) Carbon Dioxide Level 32mmol/L (21-32) Anion Gap 5 (6-14) Blood Urea Nitrogen 53mg/dL (7-20) Creatinine 1.5mg/dL (0.6-1.0) Estimated GFR (Cockcroft-Gault) 34.7 Glucose Level 190mg/dL (70-99) Calcium Level 8.0mg/dL (8.5-10.1) Phosphorus Level 3.7mg/dL (2.6-4.7) Magnesium Level 2.6mg/dL (1.8-2.4) Albumin 2.4g/dL (3.4-5.0) Test 02/19/17 12:15 Glucose (Fingerstick) 266mg/dL (70-99) Microbiology 02/17/17 Blood Culture - Preliminary, Resulted NO GROWTH AFTER 2 DAYS Medications Current Medications Albuterol/ Ipratropium (Duoneb) 3 ml 1X ONCE NEB Last administered on t 07:46; Start 02/17/17 at 07:45; Stop 02/17/17 at 07:46; Status DC Albuterol/ Ipratropium (Duoneb) 3 ml STK-MED ONCE .ROUTE ; Start 02/17/17 at 07: 40; Stop 02/17/17 at 07:41; Status DC Albuterol Sulfate (Ventolin Neb Soln) 10 mg 1X ONCE CONT NEB Last administered on 02/17/17 08:02; Start 02/17/17 at 08:00; Stop 02/17/17 at 08:01 ; Status DC Methylprednisolone Sodium Succinate 60 mg 60 mg 1X ONCE IV Last administered on 02/17/17 08:49; Start 02/17/17 at 08:00; Stop 02/17/17 at 08:06; Status DC Ceftriaxone Sodium 50 ml @ 100 mls/hr 1X ONCE IV Last administered on 08:50; Start 02/17/17 at 08:15; Stop 02/17/17 at 08:44; Status DC Doxycycline Hyclate 100 mg/ Dextrose 100 ml @ 50 mls/hr 1X ONCE IV Last administered on 02/17/17 08:50; Start 02/17/17 at 08:15; Stop 02/17/17 at 10:14 ; Status DC Ceftriaxone Sodium 50 ml @ 100 mls/hr DAILY IV ; Start 02/18/17 at 09:00; Status UNV Doxycycline Hyclate 100 mg/ Dextrose 100 ml @ 50 mls/hr BID IV Last administered on 02/19/17 08:05; Start 02/17/17 at 21:00 Ceftriaxone Sodium/Sodium Chloride (Rocephin/Iv Sodium Chloride 0.9% 50ml) 50 ml @ 100 mls/hr Q24H IV Last administered on 02/19/17 10:32; Start 02/18/17 at 09:00 Insulin Aspart (Novolog) 0-7 UNITS TIDWMEALS SQ Last administered on 02/19/17 12:22; Start 02/17/17 at 12:00 Dextrose 12.5 gm 12.5 gm PRN Q15MIN PRN IV SEE COMMENTS; Start 02/17/17 at 10: 00 Magnesium Sulfate/ Dextrose (Magnesium Sulfate PREMIX 2GM) 50 ml @ 25 mls/hr PRN DAILY PRN IV for Mag < 1.7 on am labs; Start 02/17/17 at 14:45 Sodium Polystyrene Sulfonate 45 gm 45 gm 1X ONCE PO Last administered on 22:21; Start 02/17/17 at 15:30; Stop 02/17/17 at 15:31; Status DC Sodium Chloride (Iv Sodium Chloride 0.9% 500ml Bag) 500 ml @ 0 mls/hr PRN QID PRN IV UO< 30cc/hr over previous 6hrs; Start 02/17/17 at 15:00 Sodium Bicarbonate 50 meq 50 meq 1X ONCE IV Last administered on 02/17/17 15: 46; Start 02/17/17 at 15:30; Stop 02/17/17 at 15:35; Status DC Sodium Chloride (Iv Sodium Chloride 0.9% 1000ml Bag) 1,000 ml @ 75 mls/hr 1X ONCE IV Last administered on 02/17/17 16:11; Start 02/17/17 at 15:45; Stop at 05:04; Status DC Prednisone (Prednisone) 60 mg DAILY07 PO Last administered on 02/19/17 08:02; Start 02/18/17 at 07:00 Alprazolam (Xanax) 1 mg PRN Q8HRS PRN PO ANXIETY / AGITATION Last administered on 02/17/17 22:13; Start 02/17/17 at 15:45 Aspirin (Ecotrin) 81 mg DAILY PO Last administered on 02/19/17 08:00; Start at 09:00 Cilostazol (Pletal) 50 mg BID PO Last administered on 02/19/17 08:02; Start at 21:00 Citalopram Hydrobromide (Celexa) 20 mg DAILY PO Last administered on 02/19/17 08:00; Start 02/18/17 at 09:00 Dabigatran (Pradaxa) 75 mg BID PO Last administered on 02/19/17 08:02; Start 02/17/17 at 21:00 Digoxin (Lanoxin) 125 mcg DAILY PO Last administered on 02/19/17 08:01; Start 02/18/17 at 09:00 Diphenhydramine HCl (Benadryl) 25 mg QHS PO Last administered on 02/18/17 21: 05; Start 02/17/17 at 21:00 Guaifenesin (Mucinex) 600 mg BID PO Last administered on 02/19/17 08:03; Start 02/17/17 at 21:00 Acetaminophen/ Hydrocodone Bitart (Lortab 7.5/325) 1 tab QID PO Last administered on 02/19/17 08:01; Start 02/17/17 at 17:00 Morphine Sulfate (Ms Contin) 30 mg TID PO Last administered on 02/19/17 08:01 ; Start 02/17/17 at 21:00 Propafenone HCl (Rythmol) 150 mg BID PO Last administered on 02/19/17 08:03; Start 02/17/17 at 21:00 Trimethoprim/ Sulfamethoxazole (Bactrim Ds) 1 tab DAILY PO ; Start 02/17/17 at 21:00; Stop 02/18/17 at 08:22; Status DC Vitamin B Complex (Moi B) 1 tab DAILY PO Last administered on 02/19/17 08:03 ; Start 02/18/17 at 09:00 Albuterol/ Ipratropium (Duoneb) 3 ml Q4HRS NEB ; Start 02/17/17 at 16:00; Status Cancel Diltiazem HCl (Cardizem 24hr Cd) 360 mg DAILY PO Last administered on 08:02; Start 02/18/17 at 09:00 Ferrous Sulfate (Feosol) 325 mg DAILYWBKFT PO Last administered on 02/19/17 08 :01; Start 02/18/17 at 08:00 Non-Formulary Medication 1 puff BID INH ; Start 02/17/17 at 21:00; Status UNV Gabapentin (Neurontin) 900 mg BID PO Last administered on 02/19/17 08:00; Start 02/17/17 at 21:00 Insulin Detemir (Levemir) 14 units BID SQ Last administered on 02/17/17 22:12 ; Start 02/17/17 at 21:00; Stop 02/18/17 at 11:35; Status DC Non-Formulary Medication 1 each HS PO ; Start 02/17/17 at 21:00; Status UNV Budesonide (Pulmicort) 0.5 mg RTBID NEB Last administered on 02/19/17 08:41; Start 02/17/17 at 20:00 Albuterol/ Ipratropium (Duoneb) 3 ml Q4HRS W/A NEB Last administered on 11:00; Start 02/17/17 at 18:00 Insulin Aspart (Novolog) 9 units TIDAC SQ Last administered on 02/18/17 09:24 ; Start 02/17/17 at 16:30; Stop 02/18/17 at 11:36; Status DC Ondansetron HCl (Zofran) 4 mg PRN Q6HRS PRN IV NAUSEA/VOMITING Last administered on 02/17/17 21:05; Start 02/17/17 at 18:15 Furosemide 80 mg 80 mg 1X ONCE IVP ; Start 02/17/17 at 20:00; Stop 02/17/17 at 20:01; Status DC Sodium Bicarbonate 150 meq/Dextrose 1,150 ml @ 100 mls/hr [id number] IV Last administered on 02/17/17 21:11; Start 02/17/17 at 21:00; Stop 02/18/17 at 06:59 ; Status DC Sodium Bicarbonate 75 meq/Dextrose 575 ml @ 100 mls/hr Q5H45M IV ; Start at 07:00; Stop 02/18/17 at 11:59; Status DC Dobutamine HCl/ Dextrose 250 ml @ 0 mls/hr CONT PRN IV SEE I/O RECORD Last administered on 02/17/17 23:38; Start 02/17/17 at 23:00 Calcium Acetate 1334 mg 1,334 mg TIDWMEALS PO Last administered on 02/19/17 12 :24; Start 02/18/17 at 09:00 Sodium Chloride (Hypertonic Saline) 500 ml @ 30 mls/hr CONT PRN PRN IV see comments Last administered on 02/19/17 03:09; Start 02/18/17 at 08:15 Heparin Sodium (Porcine) (Heparin Sodium) 10,000 unit STK-MED ONCE .ROUTE ; Start 02/18/17 at 09:53; Stop 02/18/17 at 09:54; Status DC Lidocaine/Sodium Bicarbonate 20 ml 20 ml STK-MED ONCE IJ ; Start 02/18/17 at 09: 53; Stop 02/18/17 at 09:54; Status DC Heparin Sodium/ Sodium Chloride 500 ml @ As Directed STK-MED ONCE .ROUTE ; Start 02/18/17 at 09:53; Stop 02/18/17 at 09:54; Status DC Heparin Sodium/ Sodium Chloride 60 unit 1X ONCE IV Last administered on 10:42; Start 02/18/17 at 10:15; Stop 02/18/17 at 10:19; Status DC Heparin Sodium (Porcine) (Heparin Sodium) 2,500 unit 1X ONCE INT CAT Last administered on 02/18/17 10:41; Start 02/18/17 at 10:15; Stop 02/18/17 at 10:19 ; Status DC Lidocaine/Sodium Bicarbonate (Buffered Lidocaine 1%) 3 ml 1X ONCE IJ Last administered on 02/18/17 10:41; Start 02/18/17 at 10:15; Stop 02/18/17 at 10:19 ; Status DC Insulin Aspart (Novolog) 10 units TIDAC SQ Last administered on 02/19/17 12:21 ; Start 02/18/17 at 12:00 Insulin Detemir 20 units 20 units BID SQ Last administered on 02/19/17 08:11; Start 02/18/17 at 21:00 Heparin Sodium/ Sodium Chloride 500 ml @ As Directed STK-MED ONCE .ROUTE ; Start 02/18/17 at 16:19; Stop 02/18/17 at 16:20; Status DC Lidocaine/ Epinephrine (Xylocaine 2%-Epi 1:100,000) 20 ml STK-MED ONCE .ROUTE ; Start 02/18/17 at 16:19; Stop 02/18/17 at 16:20; Status DC Fentanyl Citrate (Fentanyl 2ml Vial) 100 mcg STK-MED ONCE .ROUTE ; Start at 16:30; Stop 02/18/17 at 16:31; Status DC Midazolam HCl (Versed) 2 mg STK-MED ONCE .ROUTE ; Start 02/18/17 at 16:30; Stop 02/18/17 at 16:31; Status DC Heparin Sodium/ Sodium Chloride 1,000 unit 1X ONCE IART Last administered on 17:27; Start 02/18/17 at 16:45; Stop 02/18/17 at 16:46; Status DC Midazolam HCl (Versed) 2 mg 1X ONCE IV Last administered on 02/18/17 17:26; Start 02/18/17 at 16:45; Stop 02/18/17 at 16:46; Status DC Fentanyl Citrate (Fentanyl 2ml Vial) 100 mcg 1X ONCE IV Last administered on 17:27; Start 02/18/17 at 16:45; Stop 02/18/17 at 16:46; Status DC Lidocaine/ Epinephrine (Xylocaine 2%-Epi 1:100,000) 20 ml 1X ONCE IJ Last administered on 02/18/17 17:24; Start 02/18/17 at 16:45; Stop 02/18/17 at 16:46 ; Status DC Fentanyl Citrate (Fentanyl 2ml Vial) 100 mcg STK-MED ONCE .ROUTE ; Start at 16:46; Stop 02/18/17 at 16:47; Status DC Labetalol HCl (Normodyne) 20 mg STK-MED ONCE .ROUTE ; Start 02/18/17 at 16:51; Stop 02/18/17 at 16:52; Status DC Labetalol HCl (Normodyne) 10 mg 1X ONCE IVP Last administered on 02/18/17 17: 26; Start 02/18/17 at 17:00; Stop 02/18/17 at 17:01; Status DC Labetalol HCl (Normodyne) 10 mg PRN Q3HRS PRN IVP HYPERTENSION, SEE COMMENTS Last administered on 02/19/17 03:09; Start 02/18/17 at 20:15 Active Scripts Active Iron (Ferrous Sulfate) 325 Mg Capsule.er 325 Mg PO DAILY B Complex # 1 (Vitamin B Complex) 1 Each Tablet 1 Each PO DAILY Levaquin (Levofloxacin) 750 Mg Tablet 1 Tab PO DAILY Advair 250-50 Diskus (Fluticasone/Salmeterol) 1 Puff Puff 1 Puff INH BID Mucinex (Guaifenesin) 600 Mg Tablet.er 600 Mg PO BID Reported Prednisone 2.5 Mg Tablet 2 Tab PO DAILY Sulfamethoxazole-Tmp Ds Tablet (Sulfamethoxazole/Trimethoprim) 1 Each Tablet 1 Tab PO BID Albuterol Sulfate Conc Neb Soln (Albuterol Sulfate) 2.5 Mg/0.5 Ml Vial.neb 1 Vial NEB Q4HRS Lantus Solostar (Insulin Glargine,Hum.rec.anlog) 100 Unit/1 Ml Insuln.pen 14 Unit SQ BID Furosemide 40 Mg Tablet 1 Tab PO DAILY Mucinex (Guaifenesin) 600 Mg Tablet.er 400 Mg PO BID Xanax (Alprazolam) 1 Mg Tablet 1 Tab PO Q8HRS PRN Melatonin 10 Mg Tablet (Melatonin/Pyridoxine Hcl (B6)) 1 Each Tab.mphase 1 Each PO HS Nifedipine Er (Nifedipine) 60 Mg Tab.er.24 1 Tab PO DAILY Morphine Sulfate Er (Morphine Sulfate) 30 Mg Tablet.er 1 Tab PO TID Gabapentin 300 Mg Capsule 900 Mg PO QID Furosemide 20 Mg Tablet 1.5 Tab PO DAILY Cardizem Cd (Diltiazem Hcl) 360 Mg Cap.er.24h 1 Cap PO DAILY Next dose: 05/14 Rythmol (Propafenone Hcl) 150 Mg Tablet 150 Mg PO BID Next dose: 05/13 in pm Benadryl (Diphenhydramine Hcl) 25 Mg Capsule 2 Cap PO QHS Next dose: 05/14 Novolog (Insulin Aspart) 100 Unit/1 Ml Vial 100 Unit SQ Next dose: 05/13 at dinner Lantus (Insulin Glargine,Hum.rec.anlog) 100 Unit/1 Ml Vial 1 Unit SQ Next dose: 05/13 at bedtime Hydrocodone-Apap 7.5-325 (Hydrocodone Bit/Acetaminophen) 1 Each Tablet 1 Tab PO QID Next dose: 05/14 at 1 pm Combivent Respimat Inhal (Ipratropium/Albuterol Sulfate) 4 Gm Aer.w.adap 2 Inh IH QID Spiriva (Tiotropium [place]) 18 Mcg Cap.w.dev 1 Cap IH DAILY Next dose: 05/13 Dulera 100 Mcg/5 Mcg Inhaler (Mometasone/Formoterol) 13 Gm Hfa.aer.ad 2 Puff IH BID Digoxin 125 Mcg Tablet 1 Tab PO DAILY Next dose: 05/14 Citalopram Hbr (Citalopram Hydrobromide) 20 Mg Tablet 1 Tab PO DAILY Next dose: 05/14 Aspir 81 (Aspirin) 81 Mg Tablet.dr 1 Tab PO DAILY Next dose: 05/14 Cilostazol 50 Mg Tablet 50 Mg PO BID Next dose: 05/13 in PM Pradaxa (Dabigatran Etexilate Mesylate) 150 Mg Capsule 1 Cap PO BID Next dose: 05/13 in PM Potassium Chloride 20 Meq Tablet.er 20 Meq PO DAILY Next dose: 05/14 Vitals/I & O Vital Sign - Last 24 Hours 02/18/17 02/18/17 02/18/17 02/18/17 13:00 14:00 15:00 15:57 Pulse 112 114 110 B/P 163/76 151/71 164/80 Pulse Ox 92 93 93 93 O2 Delivery Nasal Cannula Nasal Cannula Nasal Cannula Nasal Cannula O2 Flow Rate 5.0 5.0 5.0 5.0 02/18/17 02/18/17 02/18/17 02/18/17 16:00 16:00 17:20 17:26 Temp 98.9 98.9 Pulse 110 86 95 Resp 21 B/P 168/74 188/70 Pulse Ox 94 95 O2 Delivery Nasal Cannula Nasal Cannula Nasal Cannula O2 Flow Rate 5.0 5.0 5.0 02/18/17 02/18/17 02/18/17 02/18/17 17:27 19:00 20:00 20:00 Temp 98.1 98.1 Pulse 74 79 Resp 16 B/P 173/53 173/67 Pulse Ox 94 90 93 O2 Delivery Nasal Cannula Nasal Cannula Nasal Cannula Nasal Cannula O2 Flow Rate 5.0 5.0 5.0 5.0 02/18/17 02/18/17 02/18/17 02/18/17 20:00 21:00 21:05 21:06 Pulse 78 80 Resp 16 B/P 156/63 173/83 Pulse Ox 92 91 90 O2 Delivery Nasal Cannula Nasal Cannula Nasal Cannula O2 Flow Rate 5.0 5.0 5.0 02/18/17 02/18/17 02/18/17 02/18/17 21:06 21:44 22:00 23:00 Pulse 86 70 72 Resp 16 13 B/P 173/83 148/66 176/74 Pulse Ox 90 90 92 O2 Delivery Nasal Cannula Nasal Cannula Nasal Cannula O2 Flow Rate 5.0 5.0 5.0 02/19/17 02/19/17 02/19/17 02/19/17 00:00 00:15 01:00 02:00 Temp 98.0 98.0 Pulse 62 65 77 Resp 12 19 B/P 160/59 140/55 167/82 Pulse Ox 91 91 89 O2 Delivery Nasal Cannula Nasal Cannula Nasal Cannula Nasal Cannula O2 Flow Rate 5.0 5.0 5.0 5.0 02/19/17 02/19/17 02/19/17 4/21/17 03:00 03:09 04:15 04:15 Temp 98.2 98.2 Pulse 64 68 71 Resp 14 B/P 175/55 175/55 165/64 Pulse Ox 90 91 O2 Delivery Nasal Cannula Nasal Cannula Nasal Cannula O2 Flow Rate 5.0 5.0 5.0 02/19/17 02/19/17 02/19/17 02/19/17 05:00 06:10 07:00 07:57 Pulse 70 82 80 Resp 15 18 14 B/P 174/56 141/51 183/56 Pulse Ox 90 90 88 90 O2 Delivery Nasal Cannula Nasal Cannula Nasal Cannula Nasal Cannula O2 Flow Rate 5.0 5.0 5.0 5.0 02/19/17 02/19/17 02/19/17 02/19/17 08:00 08:00 08:01 08:01 Temp 98.1 98.1 Pulse 78 89 Resp 17 32 B/P 170/59 183/56 Pulse Ox 85 94 O2 Delivery Nasal Cannula Nasal Cannula Nasal Cannula O2 Flow Rate 5.0 5.0 5.0 02/19/17 02/19/17 02/19/17 02/19/17 08:01 08:02 08:03 09:00 Pulse 80 84 87 Resp 15 26 B/P 170/59 170/59 178/72 Pulse Ox 94 95 O2 Delivery Nasal Cannula Nasal Cannula O2 Flow Rate 2.0 5.0 02/19/17 02/19/17 02/19/17 02/19/17 09:02 10:00 11:00 11:00 Pulse 74 82 Resp 26 12 22 B/P 170/60 184/74 Pulse Ox 95 95 95 96 O2 Delivery Nasal Cannula Nasal Cannula Nasal Cannula Nasal Cannula O2 Flow Rate 5.0 5.0 8.0 5.0 02/19/17 12:22 Resp 11 Pulse Ox 89 O2 Delivery Nasal Cannula O2 Flow Rate 5.0 Intake and Output 02/18/17 02/18/17 02/19/17 15:00 23:00 07:00 Intake Total 1045 ml 710 ml 813 ml Output Total 650 ml 2425 ml 1250 ml Balance 395 ml -1715 ml -437 ml TOBY SON MD Feb 19, 2017 12:36
--- NOTE | 2017-02-19 12:52 | PDOC ---
PROGRESS NOTES Chief Complaint Chief Complaint Acute hypoxic resp failure pericardiac effusion post pericardiocentesis 02/18 COPD exacerbation JOSE, vasomotor, dehydration CHF, chroinc diastolic chronic afib hypovolumic hyponatremia and hyperkalemia mild malnutrition transaminitis \DM2, metabolic acidosis chronic normocytic anemia plan: 1. icu care, on bipap, repeat ABG 2. FU WITH card, pulm, renal 3. on duoneb, doxy, prednisone 60mg daily 4. increase insulin to levemir 25u bid, aspart 10u tid, SSI 5. HOLD DIuretics 6. dvt ppx, gi ppx monitor in and output History of Present Illness History of Present Illness better post pericardiocentesis 02/18 oliguria higher Cr, BETTER today lower Na not responiding to lasix yesterday off dobutamine drip Vitals Vitals Vital Signs Date Time Temp Pulse Resp B/P Pulse Ox O2 Delivery O2 Flow Rate FiO2 02/19/17 12:22 11 89 Nasal Cannula 5.0 02/19/17 12:00 98.1 85 177/87 98.1 Physical Exam Physical Exam eye closing, follow commands on bipap General: Alert, Cooperative, moderate distress Heart: Regular rate Lungs: Clear, Other (decrease bs) Abdomen: Normal bowel sounds, Soft Extremities: No clubbing, No cyanosis, No edema Skin: No rashes, No significant lesion, Other (dry) Labs LABS Laboratory Tests Test 02/18/17 15:55 02/18/17 17:00 02/18/17 17:54 02/18/17 20:05 Sodium Level 127mmol/L (136-145) 132mmol/L (136-145) Body Fluid Source Pericardial Body Fluid Color Red Body Fluid Clarity Turbid Body Fluid Nucleated Cells 5970/cmm Body Fluid Mononuclear WBCs (%) 15% Body Fluid Polymorphonuclear Cells 85% Body Fluid Total RBCs Counted 5926938/cmm Glucose (Fingerstick) 190mg/dL (70-99) Test 02/18/17 21:36 02/19/17 00:15 02/19/17 04:45 02/19/17 08:07 Glucose (Fingerstick) 159mg/dL (70-99) 216mg/dL (70-99) Sodium Level 133mmol/L (136-145) 135mmol/L (136-145) White Blood Count 28.1x10^3/uL (4.0-11.0) Red Blood Count 3.00x10^6/uL (3.50-5.40) Hemoglobin 9.0g/dL (12.0-15.5) Hematocrit 27.6% (36.0-47.0) Mean Corpuscular Volume 92fL (79-100) Mean Corpuscular Hemoglobin 30pg (25-35) Mean Corpuscular Hemoglobin Concent 33g/dL (31-37) Red Cell Distribution Width 16.8% (11.5-14.5) Platelet Count 442x10^3/uL (140-400) Neutrophils (%) (Auto) 92% (31-73) Lymphocytes (%) (Auto) 4% (24-48) Monocytes (%) (Auto) 4% (0-9) Eosinophils (%) (Auto) 0% (0-3) Basophils (%) (Auto) 0% (0-3) Neutrophils # (Auto) 25.8x10^3uL (1.8-7.7) Lymphocytes # (Auto) 1.0x10^3/uL (1.0-4.8) Monocytes # (Auto) 1.1x10^3/uL (0.0-1.1) Eosinophils # (Auto) 0.0x10^3/uL (0.0-0.7) Basophils # (Auto) 0.1x10^3/uL (0.0-0.2) Potassium Level 4.4mmol/L (3.5-5.1) Chloride Level 98mmol/L (98-107) Carbon Dioxide Level 32mmol/L (21-32) Anion Gap 5 (6-14) Blood Urea Nitrogen 53mg/dL (7-20) Creatinine 1.5mg/dL (0.6-1.0) Estimated GFR (Cockcroft-Gault) 34.7 Glucose Level 190mg/dL (70-99) Calcium Level 8.0mg/dL (8.5-10.1) Phosphorus Level 3.7mg/dL (2.6-4.7) Magnesium Level 2.6mg/dL (1.8-2.4) Albumin 2.4g/dL (3.4-5.0) Test 02/19/17 12:15 Glucose (Fingerstick) 266mg/dL (70-99) Review of Systems Review of Systems no fever, chills, chest pain Assessment and Plan Assessmemt and Plan Problems Medical Problems: (1) Community acquired pneumonia Status: Acute (2) COPD exacerbation Status: Acute Problems: Comment Review of Relevant I have reviewed the following items luke (where applicable) has been applied. Labs Laboratory Tests Test 02/17/17 13:15 02/17/17 16:14 02/17/17 17:20 02/17/17 18:19 Glucose (Fingerstick) 279mg/dL (70-99) 243mg/dL (70-99) Urine Protein 24.2mg/dL (Not Estab.) Urine Creatinine 93.5mg/dL (Not Estab.) Urine Protein/Creatinine Ratio 259mg/g creat (0-200) O2 Saturation 92% (92-99) Arterial Blood pH 7.27 (7.35-7.45) Arterial Blood pCO2 at Patient Temp 30mmHg (35-46) Arterial Blood pO2 at Patient Temp 73mmHg (65-108) Arterial Blood HCO3 13mmol/L (21-28) Arterial Blood Base Excess -12mmol/L (-3-3) FiO2 35 Test 02/17/17 20:42 02/17/17 22:03 02/18/17 04:45 02/18/17 05:30 Glucose (Fingerstick) 173mg/dL (70-99) 175mg/dL (70-99) Urine Collection Type Unknown Urine Color Yellow Urine Clarity Clear Urine pH 5.0 Urine Specific [place] 1.015 Urine Protein Negativemg/dL (NEG-TRACE) Urine Glucose (UA) 250mg/dL (NEG) Urine Ketones (Stick) Negativemg/dL (NEG) Urine Blood Large (NEG) Urine Nitrite Negative (NEG) Urine Bilirubin Negative (NEG) Urine Urobilinogen Dipstick 0.2mg/dL (0.2 mg/dL) Urine Leukocyte Esterase Negative (NEG) Urine RBC Tntc/HPF (0-2) Urine WBC Occ/HPF (0-4) Urine Squamous Epithelial Cells Few/LPF Urine Bacteria Few/HPF (0-FEW) Urine Hyaline Casts Moderate/HPF Urine Mucus Mod/LPF Urine Random Sodium 23mmol/L (Not Estab.) Nasal Screen MRSA (PCR) Negative (Negative) White Blood Count 23.9x10^3/uL (4.0-11.0) Red Blood Count 3.18x10^6/uL (3.50-5.40) Hemoglobin 9.5g/dL (12.0-15.5) Hematocrit 29.4% (36.0-47.0) Mean Corpuscular Volume 93fL (79-100) Mean Corpuscular Hemoglobin 30pg (25-35) Mean Corpuscular Hemoglobin Concent 32g/dL (31-37) Red Cell Distribution Width 16.8% (11.5-14.5) Platelet Count 478x10^3/uL (140-400) Neutrophils (%) (Auto) 91% (31-73) Lymphocytes (%) (Auto) 3% (24-48) Monocytes (%) (Auto) 5% (0-9) Eosinophils (%) (Auto) 0% (0-3) Basophils (%) (Auto) 0% (0-3) Neutrophils # (Auto) 21.8x10^3uL (1.8-7.7) Lymphocytes # (Auto) 0.8x10^3/uL (1.0-4.8) Monocytes # (Auto) 1.2x10^3/uL (0.0-1.1) Eosinophils # (Auto) 0.0x10^3/uL (0.0-0.7) Basophils # (Auto) 0.0x10^3/uL (0.0-0.2) Sodium Level 122mmol/L (136-145) Potassium Level 5.1mmol/L (3.5-5.1) Chloride Level 86mmol/L (98-107) Carbon Dioxide Level 23mmol/L (21-32) Anion Gap 13 (6-14) Blood Urea Nitrogen 73mg/dL (7-20) Creatinine 3.2mg/dL (0.6-1.0) Estimated GFR (Cockcroft-Gault) 14.5 Glucose Level 368mg/dL (70-99) Serum Osmolality 301mOsm/Kg (279-304) Uric Acid 12.6mg/dL (2.6-6.0) Calcium Level 8.3mg/dL (8.5-10.1) Phosphorus Level 5.3mg/dL (2.6-4.7) Magnesium Level 2.3mg/dL (1.8-2.4) Lactate Dehydrogenase 1948U/L (81-234) Creatine Kinase 667U/L (26-192) Albumin 3.0g/dL (3.4-5.0) Lipase 48U/L (73-393) Thyroid Stimulating Hormone (TSH) 0.870uIU/mL (0.358-3.74) Free Thyroxine 1.24ng/dL (0.76-1.46) Test 02/18/17 08:00 02/18/17 08:47 02/18/17 09:00 02/18/17 11:50 O2 Saturation 86% (92-99) Arterial Blood pH 7.41 (7.35-7.45) Arterial Blood pCO2 at Patient Temp 38mmHg (35-46) Arterial Blood pO2 at Patient Temp 57mmHg (65-108) Arterial Blood HCO3 23mmol/L (21-28) Arterial Blood Base Excess -1mmol/L (-3-3) FiO2 30 Glucose (Fingerstick) 379mg/dL (70-99) Urine Random Sodium <20mmol/L (Not Estab.) Sodium Level 125mmol/L (136-145) Test 02/18/17 11:56 02/18/17 15:55 02/18/17 17:00 02/18/17 17:54 Glucose (Fingerstick) 295mg/dL (70-99) 190mg/dL (70-99) Sodium Level 127mmol/L (136-145) Body Fluid Source Pericardial Body Fluid Color Red Body Fluid Clarity Turbid Body Fluid Nucleated Cells 5970/cmm Body Fluid Mononuclear WBCs (%) 15% Body Fluid Polymorphonuclear Cells 85% Body Fluid Total RBCs Counted 9008153/cmm Test 02/18/17 20:05 02/18/17 21:36 02/19/17 00:15 02/19/17 04:45 Sodium Level 132mmol/L (136-145) 133mmol/L (136-145) 135mmol/L (136-145) Glucose (Fingerstick) 159mg/dL (70-99) White Blood Count 28.1x10^3/uL (4.0-11.0) Red Blood Count 3.00x10^6/uL (3.50-5.40) Hemoglobin 9.0g/dL (12.0-15.5) Hematocrit 27.6% (36.0-47.0) Mean Corpuscular Volume 92fL (79-100) Mean Corpuscular Hemoglobin 30pg (25-35) Mean Corpuscular Hemoglobin Concent 33g/dL (31-37) Red Cell Distribution Width 16.8% (11.5-14.5) Platelet Count 442x10^3/uL (140-400) Neutrophils (%) (Auto) 92% (31-73) Lymphocytes (%) (Auto) 4% (24-48) Monocytes (%) (Auto) 4% (0-9) Eosinophils (%) (Auto) 0% (0-3) Basophils (%) (Auto) 0% (0-3) Neutrophils # (Auto) 25.8x10^3uL (1.8-7.7) Lymphocytes # (Auto) 1.0x10^3/uL (1.0-4.8) Monocytes # (Auto) 1.1x10^3/uL (0.0-1.1) Eosinophils # (Auto) 0.0x10^3/uL (0.0-0.7) Basophils # (Auto) 0.1x10^3/uL (0.0-0.2) Potassium Level 4.4mmol/L (3.5-5.1) Chloride Level 98mmol/L (98-107) Carbon Dioxide Level 32mmol/L (21-32) Anion Gap 5 (6-14) Blood Urea Nitrogen 53mg/dL (7-20) Creatinine 1.5mg/dL (0.6-1.0) Estimated GFR (Cockcroft-Gault) 34.7 Glucose Level 190mg/dL (70-99) Calcium Level 8.0mg/dL (8.5-10.1) Phosphorus Level 3.7mg/dL (2.6-4.7) Magnesium Level 2.6mg/dL (1.8-2.4) Albumin 2.4g/dL (3.4-5.0) Test 02/19/17 08:07 02/19/17 12:15 Glucose (Fingerstick) 216mg/dL (70-99) 266mg/dL (70-99) Laboratory Tests Test 02/18/17 15:55 02/18/17 17:00 02/18/17 17:54 02/18/17 20:05 Sodium Level 127mmol/L (136-145) 132mmol/L (136-145) Body Fluid Source Pericardial Body Fluid Color Red Body Fluid Clarity Turbid Body Fluid Nucleated Cells 5970/cmm Body Fluid Mononuclear WBCs (%) 15% Body Fluid Polymorphonuclear Cells 85% Body Fluid Total RBCs Counted 4279329/cmm Glucose (Fingerstick) 190mg/dL (70-99) Test 02/18/17 21:36 02/19/17 00:15 02/19/17 04:45 02/19/17 08:07 Glucose (Fingerstick) 159mg/dL (70-99) 216mg/dL (70-99) Sodium Level 133mmol/L (136-145) 135mmol/L (136-145) White Blood Count 28.1x10^3/uL (4.0-11.0) Red Blood Count 3.00x10^6/uL (3.50-5.40) Hemoglobin 9.0g/dL (12.0-15.5) Hematocrit 27.6% (36.0-47.0) Mean Corpuscular Volume 92fL (79-100) Mean Corpuscular Hemoglobin 30pg (25-35) Mean Corpuscular Hemoglobin Concent 33g/dL (31-37) Red Cell Distribution Width 16.8% (11.5-14.5) Platelet Count 442x10^3/uL (140-400) Neutrophils (%) (Auto) 92% (31-73) Lymphocytes (%) (Auto) 4% (24-48) Monocytes (%) (Auto) 4% (0-9) Eosinophils (%) (Auto) 0% (0-3) Basophils (%) (Auto) 0% (0-3) Neutrophils # (Auto) 25.8x10^3uL (1.8-7.7) Lymphocytes # (Auto) 1.0x10^3/uL (1.0-4.8) Monocytes # (Auto) 1.1x10^3/uL (0.0-1.1) Eosinophils # (Auto) 0.0x10^3/uL (0.0-0.7) Basophils # (Auto) 0.1x10^3/uL (0.0-0.2) Potassium Level 4.4mmol/L (3.5-5.1) Chloride Level 98mmol/L (98-107) Carbon Dioxide Level 32mmol/L (21-32) Anion Gap 5 (6-14) Blood Urea Nitrogen 53mg/dL (7-20) Creatinine 1.5mg/dL (0.6-1.0) Estimated GFR (Cockcroft-Gault) 34.7 Glucose Level 190mg/dL (70-99) Calcium Level 8.0mg/dL (8.5-10.1) Phosphorus Level 3.7mg/dL (2.6-4.7) Magnesium Level 2.6mg/dL (1.8-2.4) Albumin 2.4g/dL (3.4-5.0) Test 02/19/17 12:15 Glucose (Fingerstick) 266mg/dL (70-99) Microbiology 02/17/17 Blood Culture - Preliminary, Resulted NO GROWTH AFTER 2 DAYS Medications Current Medications Albuterol/ Ipratropium (Duoneb) 3 ml 1X ONCE NEB Last administered on 07:46; Start 02/17/17 at 07:45; Stop 02/17/17 at 07:46; Status DC Albuterol/ Ipratropium (Duoneb) 3 ml STK-MED ONCE .ROUTE ; Start 02/17/17 at 07: 40; Stop 02/17/17 at 07:41; Status DC Albuterol Sulfate (Ventolin Neb Soln) 10 mg 1X ONCE CONT NEB Last administered on 02/17/17 08:02; Start 02/17/17 at 08:00; Stop 02/17/17 at 08:01 ; Status DC Methylprednisolone Sodium Succinate 60 mg 60 mg 1X ONCE IV Last administered on 02/17/17 08:49; Start 02/17/17 at 08:00; Stop 02/17/17 at 08:06; Status DC Ceftriaxone Sodium 50 ml @ 100 mls/hr 1X ONCE IV Last administered on 08:50; Start 02/17/17 at 08:15; Stop 02/17/17 at 08:44; Status DC Doxycycline Hyclate 100 mg/ Dextrose 100 ml @ 50 mls/hr 1X ONCE IV Last administered on 02/17/17 08:50; Start 02/17/17 at 08:15; Stop 02/17/17 at 10:14 ; Status DC Ceftriaxone Sodium 50 ml @ 100 mls/hr DAILY IV ; Start 02/18/17 at 09:00; Status UNV Doxycycline Hyclate 100 mg/ Dextrose 100 ml @ 50 mls/hr BID IV Last administered on 02/19/17 08:05; Start 02/17/17 at 21:00 Ceftriaxone Sodium/Sodium Chloride (Rocephin/Iv Sodium Chloride 0.9% 50ml) 50 ml @ 100 mls/hr Q24H IV Last administered on 02/19/17 10:32; Start 02/18/17 at 09:00 Insulin Aspart (Novolog) 0-7 UNITS TIDWMEALS SQ Last administered on 02/19/17 12:22; Start 02/17/17 at 12:00 Dextrose 12.5 gm 12.5 gm PRN Q15MIN PRN IV SEE COMMENTS; Start 02/17/17 at 10: 00 Magnesium Sulfate/ Dextrose (Magnesium Sulfate PREMIX 2GM) 50 ml @ 25 mls/hr PRN DAILY PRN IV for Mag < 1.7 on am labs; Start 02/17/17 at 14:45 Sodium Polystyrene Sulfonate 45 gm 45 gm 1X ONCE PO Last administered on 22:21; Start 02/17/17 at 15:30; Stop 02/17/17 at 15:31; Status DC Sodium Chloride (Iv Sodium Chloride 0.9% 500ml Bag) 500 ml @ 0 mls/hr PRN QID PRN IV UO< 30cc/hr over previous 6hrs; Start 02/17/17 at 15:00 Sodium Bicarbonate 50 meq 50 meq 1X ONCE IV Last administered on 02/17/17 15: 46; Start 02/17/17 at 15:30; Stop 02/17/17 at 15:35; Status DC Sodium Chloride (Iv Sodium Chloride 0.9% 1000ml Bag) 1,000 ml @ 75 mls/hr 1X ONCE IV Last administered on 02/17/17 16:11; Start 02/17/17 at 15:45; Stop at 05:04; Status DC Prednisone (Prednisone) 60 mg DAILY07 PO Last administered on 02/19/17 08:02; Start 02/18/17 at 07:00 Alprazolam (Xanax) 1 mg PRN Q8HRS PRN PO ANXIETY / AGITATION Last administered on 02/17/17 22:13; Start 02/17/17 at 15:45 Aspirin (Ecotrin) 81 mg DAILY PO Last administered on 02/19/17 08:00; Start at 09:00 Cilostazol (Pletal) 50 mg BID PO Last administered on 02/19/17 08:02; Start at 21:00 Citalopram Hydrobromide (Celexa) 20 mg DAILY PO Last administered on 02/19/17 08:00; Start 02/18/17 at 09:00 Dabigatran (Pradaxa) 75 mg BID PO Last administered on 02/19/17 08:02; Start 02/17/17 at 21:00 Digoxin (Lanoxin) 125 mcg DAILY PO Last administered on 02/19/17 08:01; Start 02/18/17 at 09:00 Diphenhydramine HCl (Benadryl) 25 mg QHS PO Last administered on 02/18/17 21: 05; Start 02/17/17 at 21:00 Guaifenesin (Mucinex) 600 mg BID PO Last administered on 02/19/17 08:03; Start 02/17/17 at 21:00 Acetaminophen/ Hydrocodone Bitart (Lortab 7.5/325) 1 tab QID PO Last administered on 02/19/17 08:01; Start 02/17/17 at 17:00 Morphine Sulfate (Ms Contin) 30 mg TID PO Last administered on 02/19/17 08:01 ; Start 02/17/17 at 21:00 Propafenone HCl (Rythmol) 150 mg BID PO Last administered on 02/19/17 08:03; Start 02/17/17 at 21:00 Trimethoprim/ Sulfamethoxazole (Bactrim Ds) 1 tab DAILY PO ; Start 02/17/17 at 21:00; Stop 02/18/17 at 08:22; Status DC Vitamin B Complex (Moi B) 1 tab DAILY PO Last administered on 02/19/17 08:03 ; Start 02/18/17 at 09:00 Albuterol/ Ipratropium (Duoneb) 3 ml Q4HRS NEB ; Start 02/17/17 at 16:00; Status Cancel Diltiazem HCl (Cardizem 24hr Cd) 360 mg DAILY PO Last administered on 08:02; Start 02/18/17 at 09:00 Ferrous Sulfate (Feosol) 325 mg DAILYWBKFT PO Last administered on 02/19/17 08 :01; Start 02/18/17 at 08:00 Non-Formulary Medication 1 puff BID INH ; Start 02/17/17 at 21:00; Status UNV Gabapentin (Neurontin) 900 mg BID PO Last administered on 02/19/17 08:00; Start 02/17/17 at 21:00 Insulin Detemir (Levemir) 14 units BID SQ Last administered on 02/17/17 22:12 ; Start 02/17/17 at 21:00; Stop 02/18/17 at 11:35; Status DC Non-Formulary Medication 1 each HS PO ; Start 02/17/17 at 21:00; Status UNV Budesonide (Pulmicort) 0.5 mg RTBID NEB Last administered on 02/19/17 08:41; Start 02/17/17 at 20:00 Albuterol/ Ipratropium (Duoneb) 3 ml Q4HRS W/A NEB Last administered on 11:00; Start 02/17/17 at 18:00 Insulin Aspart (Novolog) 9 units TIDAC SQ Last administered on 02/18/17 09:24 ; Start 02/17/17 at 16:30; Stop 02/18/17 at 11:36; Status DC Ondansetron HCl (Zofran) 4 mg PRN Q6HRS PRN IV NAUSEA/VOMITING Last administered on 02/17/17 21:05; Start 02/17/17 at 18:15 Furosemide 80 mg 80 mg 1X ONCE IVP ; Start 02/17/17 at 20:00; Stop 02/17/17 at 20:01; Status DC Sodium Bicarbonate 150 meq/Dextrose 1,150 ml @ 100 mls/hr [id number] IV Last administered on 02/17/17 21:11; Start 02/17/17 at 21:00; Stop 02/18/17 at 06:59 ; Status DC Sodium Bicarbonate 75 meq/Dextrose 575 ml @ 100 mls/hr Q5H45M IV ; Start at 07:00; Stop 02/18/17 at 11:59; Status DC Dobutamine HCl/ Dextrose 250 ml @ 0 mls/hr CONT PRN IV SEE I/O RECORD Last administered on 02/17/17 23:38; Start 02/17/17 at 23:00 Calcium Acetate 1334 mg 1,334 mg TIDWMEALS PO Last administered on 02/19/17 12 :24; Start 02/18/17 at 09:00 Sodium Chloride (Hypertonic Saline) 500 ml @ 30 mls/hr CONT PRN PRN IV see comments Last administered on 02/19/17 03:09; Start 02/18/17 at 08:15 Heparin Sodium (Porcine) (Heparin Sodium) 10,000 unit STK-MED ONCE .ROUTE ; Start 02/18/17 at 09:53; Stop 02/18/17 at 09:54; Status DC Lidocaine/Sodium Bicarbonate 20 ml 20 ml STK-MED ONCE IJ ; Start 02/18/17 at 09: 53; Stop 02/18/17 at 09:54; Status DC Heparin Sodium/ Sodium Chloride 500 ml @ As Directed STK-MED ONCE .ROUTE ; Start 02/18/17 at 09:53; Stop 02/18/17 at 09:54; Status DC Heparin Sodium/ Sodium Chloride 60 unit 1X ONCE IV Last administered on 10:42; Start 02/18/17 at 10:15; Stop 02/18/17 at 10:19; Status DC Heparin Sodium (Porcine) (Heparin Sodium) 2,500 unit 1X ONCE INT CAT Last administered on 02/18/17 10:41; Start 02/18/17 at 10:15; Stop 02/18/17 at 10:19 ; Status DC Lidocaine/Sodium Bicarbonate (Buffered Lidocaine 1%) 3 ml 1X ONCE IJ Last administered on 02/18/17 10:41; Start 02/18/17 at 10:15; Stop 02/18/17 at 10:19 ; Status DC Insulin Aspart (Novolog) 10 units TIDAC SQ Last administered on 02/19/17 12:21 ; Start 02/18/17 at 12:00 Insulin Detemir 20 units 20 units BID SQ Last administered on 02/19/17 08:11; Start 02/18/17 at 21:00 Heparin Sodium/ Sodium Chloride 500 ml @ As Directed STK-MED ONCE .ROUTE ; Start 02/18/17 at 16:19; Stop 02/18/17 at 16:20; Status DC Lidocaine/ Epinephrine (Xylocaine 2%-Epi 1:100,000) 20 ml STK-MED ONCE .ROUTE ; Start 02/18/17 at 16:19; Stop 02/18/17 at 16:20; Status DC Fentanyl Citrate (Fentanyl 2ml Vial) 100 mcg STK-MED ONCE .ROUTE ; Start at 16:30; Stop 02/18/17 at 16:31; Status DC Midazolam HCl (Versed) 2 mg STK-MED ONCE .ROUTE ; Start 02/18/17 at 16:30; Stop 02/18/17 at 16:31; Status DC Heparin Sodium/ Sodium Chloride 1,000 unit 1X ONCE IART Last administered on 17:27; Start 02/18/17 at 16:45; Stop 02/18/17 at 16:46; Status DC Midazolam HCl (Versed) 2 mg 1X ONCE IV Last administered on 02/18/17 17:26; Start 02/18/17 at 16:45; Stop 02/18/17 at 16:46; Status DC Fentanyl Citrate (Fentanyl 2ml Vial) 100 mcg 1X ONCE IV Last administered on 17:27; Start 02/18/17 at 16:45; Stop 02/18/17 at 16:46; Status DC Lidocaine/ Epinephrine (Xylocaine 2%-Epi 1:100,000) 20 ml 1X ONCE IJ Last administered on 02/18/17 17:24; Start 02/18/17 at 16:45; Stop 02/18/17 at 16:46 ; Status DC Fentanyl Citrate (Fentanyl 2ml Vial) 100 mcg STK-MED ONCE .ROUTE ; Start at 16:46; Stop 02/18/17 at 16:47; Status DC Labetalol HCl (Normodyne) 20 mg STK-MED ONCE .ROUTE ; Start 02/18/17 at 16:51; Stop 02/18/17 at 16:52; Status DC Labetalol HCl (Normodyne) 10 mg 1X ONCE IVP Last administered on 02/18/17t 17: 26; Start 02/18/17 at 17:00; Stop 02/18/17 at 17:01; Status DC Labetalol HCl (Normodyne) 10 mg PRN Q3HRS PRN IVP HYPERTENSION, SEE COMMENTS Last administered on 02/19/17t 03:09; Start 02/18/17 at 20:15 Active Scripts Active Iron (Ferrous Sulfate) 325 Mg Capsule.er 325 Mg PO DAILY B Complex # 1 (Vitamin B Complex) 1 Each Tablet 1 Each PO DAILY Levaquin (Levofloxacin) 750 Mg Tablet 1 Tab PO DAILY Advair 250-50 Diskus (Fluticasone/Salmeterol) 1 Puff Puff 1 Puff INH BID Mucinex (Guaifenesin) 600 Mg Tablet.er 600 Mg PO BID Reported Prednisone 2.5 Mg Tablet 2 Tab PO DAILY Sulfamethoxazole-Tmp Ds Tablet (Sulfamethoxazole/Trimethoprim) 1 Each Tablet 1 Tab PO BID Albuterol Sulfate Conc Neb Soln (Albuterol Sulfate) 2.5 Mg/0.5 Ml Vial.neb 1 Vial NEB Q4HRS Lantus Solostar (Insulin Glargine,Hum.rec.anlog) 100 Unit/1 Ml Insuln.pen 14 Unit SQ BID Furosemide 40 Mg Tablet 1 Tab PO DAILY Mucinex (Guaifenesin) 600 Mg Tablet.er 400 Mg PO BID Xanax (Alprazolam) 1 Mg Tablet 1 Tab PO Q8HRS PRN Melatonin 10 Mg Tablet (Melatonin/Pyridoxine Hcl (B6)) 1 Each Tab.mphase 1 Each PO HS Nifedipine Er (Nifedipine) 60 Mg Tab.er.24 1 Tab PO DAILY Morphine Sulfate Er (Morphine Sulfate) 30 Mg Tablet.er 1 Tab PO TID Gabapentin 300 Mg Capsule 900 Mg PO QID Furosemide 20 Mg Tablet 1.5 Tab PO DAILY Cardizem Cd (Diltiazem Hcl) 360 Mg Cap.er.24h 1 Cap PO DAILY Next dose: 05/14 Rythmol (Propafenone Hcl) 150 Mg Tablet 150 Mg PO BID Next dose: 05/13 in pm Benadryl (Diphenhydramine Hcl) 25 Mg Capsule 2 Cap PO QHS Next dose: 05/14 Novolog (Insulin Aspart) 100 Unit/1 Ml Vial 100 Unit SQ Next dose: 05/13 at dinner Lantus (Insulin Glargine,Hum.rec.anlog) 100 Unit/1 Ml Vial 1 Unit SQ Next dose: 05/13 at bedtime Hydrocodone-Apap 7.5-325 (Hydrocodone Bit/Acetaminophen) 1 Each Tablet 1 Tab PO QID Next dose: 05/14 at 1 pm Combivent Respimat Inhal (Ipratropium/Albuterol Sulfate) 4 Gm Aer.w.adap 2 Inh IH QID Spiriva (Tiotropium Assonet) 18 Mcg Cap.w.dev 1 Cap IH DAILY Next dose: 05/13 Dulera 100 Mcg/5 Mcg Inhaler (Mometasone/Formoterol) 13 Gm Hfa.aer.ad 2 Puff IH BID Digoxin 125 Mcg Tablet 1 Tab PO DAILY Next dose: 05/14 Citalopram Hbr (Citalopram Hydrobromide) 20 Mg Tablet 1 Tab PO DAILY Next dose: 05/14 Aspir 81 (Aspirin) 81 Mg Tablet.dr 1 Tab PO DAILY Next dose: 05/14 Cilostazol 50 Mg Tablet 50 Mg PO BID Next dose: 05/13 in PM Pradaxa (Dabigatran Etexilate Mesylate) 150 Mg Capsule 1 Cap PO BID Next dose: 05/13 in PM Potassium Chloride 20 Meq Tablet.er 20 Meq PO DAILY Next dose: 05/14 Vitals/I & O Vital Sign - Last 24 Hours 02/18/17 02/18/17 02/18/17 02/18/17 13:00 14:00 15:00 15:57 Pulse 112 114 110 B/P 163/76 151/71 164/80 Pulse Ox 92 93 93 93 O2 Delivery Nasal Cannula Nasal Cannula Nasal Cannula Nasal Cannula O2 Flow Rate 5.0 5.0 5.0 5.0 02/18/17 02/18/17 02/18/17 02/18/17 16:00 16:00 17:20 17:26 Temp 98.9 98.9 Pulse 110 86 95 Resp 21 B/P 168/74 188/70 Pulse Ox 94 95 O2 Delivery Nasal Cannula Nasal Cannula Nasal Cannula O2 Flow Rate 5.0 5.0 5.0 02/18/17 02/18/17 02/18/17 02/18/17 17:27 19:00 20:00 20:00 Temp 98.1 98.1 Pulse 74 79 Resp 16 B/P 173/53 173/67 Pulse Ox 94 90 93 O2 Delivery Nasal Cannula Nasal Cannula Nasal Cannula Nasal Cannula O2 Flow Rate 5.0 5.0 5.0 5.0 02/18/17 02/18/17 02/18/17 02/18/17 20:00 21:00 21:05 21:06 Pulse 78 80 Resp 16 B/P 156/63 173/83 Pulse Ox 92 91 90 O2 Delivery Nasal Cannula Nasal Cannula Nasal Cannula O2 Flow Rate 5.0 5.0 5.0 02/18/17 02/18/17 02/18/17 02/18/17 21:06 21:44 22:00 23:00 Pulse 86 70 72 Resp 16 13 B/P 173/83 148/66 176/74 Pulse Ox 90 90 92 O2 Delivery Nasal Cannula Nasal Cannula Nasal Cannula O2 Flow Rate 5.0 5.0 5.0 02/19/17 02/19/17 02/19/17 02/19/17 00:00 00:15 01:00 02:00 Temp 98.0 98.0 Pulse 62 65 77 Resp 12 19 B/P 160/59 140/55 167/82 Pulse Ox 91 91 89 O2 Delivery Nasal Cannula Nasal Cannula Nasal Cannula Nasal Cannula O2 Flow Rate 5.0 5.0 5.0 5.0 02/19/17 02/19/17 02/19/17 02/19/17 03:00 03:09 04:15 04:15 Temp 98.2 98.2 Pulse 64 68 71 Resp 13 14 B/P 175/55 175/55 165/64 Pulse Ox 90 91 O2 Delivery Nasal Cannula Nasal Cannula Nasal Cannula O2 Flow Rate 5.0 5.0 5.0 02/19/17 02/19/17 02/19/17 02/19/17 05:00 06:10 07:00 07:57 Pulse 70 82 80 Resp 15 18 14 B/P 174/56 141/51 183/56 Pulse Ox 90 90 88 90 O2 Delivery Nasal Cannula Nasal Cannula Nasal Cannula Nasal Cannula O2 Flow Rate 5.0 5.0 5.0 5.0 402/19/17 02/19/17 02/19/17 08:00 08:00 08:01 08:01 Temp 98.1 98.1 Pulse 78 89 Resp 17 32 B/P 170/59 183/56 Pulse Ox 85 94 O2 Delivery Nasal Cannula Nasal Cannula Nasal Cannula O2 Flow Rate 5.0 5.0 5.0 02/19/17 02/19/17 02/19/17 02/19/17 08:01 08:02 08:03 09:00 Pulse 80 84 87 Resp 15 26 B/P 170/59 170/59 178/72 Pulse Ox 94 95 O2 Delivery Nasal Cannula Nasal Cannula O2 Flow Rate 2.0 5.0 02/19/17 02/19/17 02/19/17 02/19/17 09:02 10:00 11:00 11:00 Pulse 74 82 Resp 26 12 22 B/P 170/60 184/74 Pulse Ox 95 95 95 96 O2 Delivery Nasal Cannula Nasal Cannula Nasal Cannula Nasal Cannula O2 Flow Rate 5.0 5.0 8.0 5.0 02/19/17 02/19/17 02/19/17 12:00 12:00 12:22 Temp 98.1 98.1 Pulse 85 Resp 23 11 B/P 177/87 Pulse Ox 92 89 O2 Delivery Nasal Cannula Nasal Cannula Nasal Cannula O2 Flow Rate 5.0 5.0 5.0 Intake and Output 02/18/17 02/18/17 02/19/17 15:00 23:00 07:00 Intake Total 1045 ml 710 ml 813 ml Output Total 650 ml 2425 ml 1250 ml Balance 395 ml -1715 ml -437 ml NASIM FABIAN MD Feb 19, 2017 12:52
--- NOTE | 2017-02-19 16:04 | CARD ---
APPROVED REPORT Procedure(s) performed: pericardiocentesis [facility] PROCEDURE Patient Name: Nighat Mendoza Number: [id number] Date of : 1Patient Status: Admitted Inpatient Attending Doctor: Miesha Saha [facility] Number: [id number] PROCEDURE NOTE PROCEDURE Procedure PROCEDURE NOTE After obtaining informed consent a limited echocardiogram was performed in the [employer] [facility]. There is a large circumferential pericardial effusion. After this was evaluated and with the patient in the supine position in the [employer]iance [facility] the subxiphoid a anthony was prepped and draped in the usual fashion. The area was infiltrated with Xylocaine to obtain topical anesthesia. We then advanced a needle into the pericardial sac and then a guidewire was positioned there. A dilator was then advanced over the guidewire and removed then multiple attempts at advancing an 8 F rench pigtail catheter were done and finally after changing to a stiff for why her we were finally ab le to get the pigtail catheter into the pericardial sac. This catheter was then connected to a bag and 800 mL of bloody fluid were removed. A portion of the fluid was sent to the lab for culture sensitivity and analysis. The pigtail catheter was then sutured in place with a drainage bag and the patient was transferred ba to the intensive care unit in stable condition after tolerating the procedure rather well. At the end of the procedure repeat views of the echocardiogram were done and we saw that there was on ly a minimal amount of fluid left. This is the report on a pericardiocentesis that was done in the catheter lab under sterile conditions and with fluoroscopy and ultrasound assistance. TOBY SON [facility] 2016 19:20
[2017-02-19] MEDS: diphenhydrAMINE HCL 25 MG CAPSULE PO SCH (21:35)
[2017-02-20 03:25] VITALS: BP 137/58
[2017-02-20 05:42] LABS: BASO % 0 % (0-3); EOS % 0 % (0-3); HEMATOCRIT 26.7 % (36.0-47.0); HEMOGLOBIN 8.9 g/dL (12.0-15.5); LYMPH # 1.9 x10^3/uL (1.0-4.8); LYMPH % 9 % (24-48); MEAN CORPUSCULAR HEMOGLOBIN 31 pg (25-35); MEAN CORPUSCULAR HGB CONC 33 g/dL (31-37); MEAN CORPUSCULAR VOLUME 92 fL (79-100); MONO % 7 % (0-9); NEUT % 84 % (31-73); PLATELET COUNT 412 x10^3/uL (140-400); RED BLOOD COUNT 2.91 x10^6/uL (3.50-5.40); RED CELL DISTRIBUTION WIDTH 16.8 % (11.5-14.5); WHITE BLOOD COUNT 21.7 x10^3/uL (4.0-11.0)
[2017-02-20 05:49] LABS: ALBUMIN 2.5 g/dL (3.4-5.0); CALCIUM 8.4 mg/dL (8.5-10.1); CREATININE 0.9 mg/dL (0.6-1.0); GFR 62.6; PHOSPHORUS 1.9 mg/dL (2.6-4.7); POTASSIUM 4.2 mmol/L (3.5-5.1)
[2017-02-20 05:50] LABS: URIC ACID 5.5 mg/dL (2.6-6.0)
[2017-02-20 07:00] VITALS: BP 136/73
[2017-02-20] MEDS: INSULIN ASPART 300 UNITS/3 ML INSULN.PEN SQ SCH ×6 (07:30→17:46)
[2017-02-20] MEDS: IPRATRPIUM/ALBUTEROL 0.5/2.5MG 3 ML NEBU. NEB SCH ×5 (07:48→22:00)
[2017-02-20] MEDS: BUDESONIDE 0.5 MG/2 ML NEBU. NEB SCH ×2 (07:48→19:38)
[2017-02-20] MEDS: DOXYCYCLINE HYCLATE 100 MG in IV DEXTROSE 5% 100 ML IV SCH (09:00)
--- NOTE | 2017-02-20 09:17 | RAD ---
AP portable chest radiograph 02/20/2017 Clinical History: Shortness of breath. An AP portable erect digital radiograph of the chest was obtained. Comparison study is dated 02/18/2017. A pacemaker is unchanged position. A right internal jugular central venous catheter is unchanged. The cardiac silhouette is mildly enlarged. Atherosclerotic calcification of the thoracic aorta is noted. A drainage catheter overlies the left heart border, unchanged. Congestive changes are seen involving both lungs which have improved slightly. No area of consolidation is seen. No pneumothorax is noted. There is a small left pleural effusion, unchanged. There may be minimal right pleural effusion, unchanged. The osseous structures are unchanged. Impression: Slightly improved congestive changes are seen involving both lungs.
[2017-02-20] MEDS: MORPHINE ER 30 MG TABLET.ER PO SCH ×3 (09:27→21:01)
[2017-02-20] MEDS: HYDROCODONE/APAP 7.5/325MG TABLET. PO SCH ×4 (09:27→21:01)
[2017-02-20] MEDS: FERROUS SULFATE 325 MG TABLET. PO SCH (09:28)
[2017-02-20] MEDS: PROPAFENONE 150 MG TABLET. PO SCH ×2 (09:28→20:59)
[2017-02-20] MEDS: CALCIUM ACETATE 667 MG CAPSULE PO SCH ×3 (09:28→17:41)
[2017-02-20] MEDS: DABIGATRAN ETEXILATE 75 MG CAPSULE. PO SCH (09:28)
[2017-02-20] MEDS: GABAPENTIN 300 MG CAPSULE. PO SCH ×2 (09:28→20:59)
[2017-02-20] MEDS: VITAMIN B COMPLEX TABLET. PO SCH (09:29)
[2017-02-20] MEDS: GUAIFENESIN ER 600 MG TABLET.ER PO SCH ×2 (09:29→20:59)
[2017-02-20] MEDS: DILTIAZEM HCL 180 MG CAP.ER.24H PO SCH (09:29)
[2017-02-20] MEDS: ASPIRIN ENTERIC COATED 81 MG TABLET.DR. PO SCH (09:29)
[2017-02-20] MEDS: CITALOPRAM 20 MG TABLET. PO SCH (09:29)
[2017-02-20] MEDS: predniSONE 20 MG TABLET PO SCH (09:29)
[2017-02-20] MEDS: CILOSTAZOL 50 MG TABLET. PO SCH ×2 (09:30→20:59)
[2017-02-20] MEDS: INSULIN DETEMIR 300 UNITS/3 ML INSULN.PEN. SQ SCH ×2 (09:43→21:06)
[2017-02-20] MEDS: DIGOXIN 125 MCG TABLET. PO SCH (09:52)
[2017-02-20] MEDS: DOXYCYCLINE HYCLATE 100 MG TABLET PO SCH ×2 (10:00→20:59)
[2017-02-20] MEDS ORDERED: SODIUM PHOSPHATE 20 MMOL in IV DEXTROSE 5% 250 ML IV ONE ×2 (10:00→12:00)
[2017-02-20 11:00] VITALS: BP 136/79
--- NOTE | 2017-02-20 11:11 | PDOC ---
PULMONARY PROGRESS NOTES Subjective s/p emergent pericardiocentesis 02/18 large pericardial effusion on ct chest Vitals Vital Signs Date Time Temp Pulse Resp B/P Pulse Ox O2 Delivery O2 Flow Rate FiO2 02/20/17 09:52 92 02/20/17 09:27 Nasal Cannula 5.0 02/20/17 07:51 89 02/20/17 07:00 98.0 19 136/73 98.0 General: Alert, No acute distress HEENT: Other Lungs: Other (decrease bs) Cardiovascular: S1, S2 Abdomen: Soft, Non-tender, Other Neuro Exam: Alert Extremities: Other (1+edema) Labs Laboratory Tests Test 02/18/17 11:50 02/18/17 11:56 02/18/17 15:55 02/18/17 17:00 Sodium Level 125mmol/L (136-145) 127mmol/L (136-145) Glucose (Fingerstick) 295mg/dL (70-99) Body Fluid Source Pericardial Body Fluid Color Red Body Fluid Clarity Turbid Body Fluid Nucleated Cells 5970/cmm Body Fluid Mononuclear WBCs (%) 15% Body Fluid Polymorphonuclear Cells 85% Body Fluid Total RBCs Counted 1413120/cmm Test 02/18/17 17:54 02/18/17 20:05 02/18/17 21:36 02/19/17 00:15 Glucose (Fingerstick) 190mg/dL (70-99) 159mg/dL (70-99) Sodium Level 132mmol/L (136-145) 133mmol/L (136-145) Test 02/19/17 04:45 02/19/17 08:07 02/19/17 09:10 02/19/17 12:15 White Blood Count 28.1x10^3/uL (4.0-11.0) Red Blood Count 3.00x10^6/uL (3.50-5.40) Hemoglobin 9.0g/dL (12.0-15.5) Hematocrit 27.6% (36.0-47.0) Mean Corpuscular Volume 92fL (79-100) Mean Corpuscular Hemoglobin 30pg (25-35) Mean Corpuscular Hemoglobin Concent 33g/dL (31-37) Red Cell Distribution Width 16.8% (11.5-14.5) Platelet Count 442x10^3/uL (140-400) Neutrophils (%) (Auto) 92% (31-73) Lymphocytes (%) (Auto) 4% (24-48) Monocytes (%) (Auto) 4% (0-9) Eosinophils (%) (Auto) 0% (0-3) Basophils (%) (Auto) 0% (0-3) Neutrophils # (Auto) 25.8x10^3uL (1.8-7.7) Lymphocytes # (Auto) 1.0x10^3/uL (1.0-4.8) Monocytes # (Auto) 1.1x10^3/uL (0.0-1.1) Eosinophils # (Auto) 0.0x10^3/uL (0.0-0.7) Basophils # (Auto) 0.1x10^3/uL (0.0-0.2) Sodium Level 135mmol/L (136-145) 135mmol/L (136-145) Potassium Level 4.4mmol/L (3.5-5.1) Chloride Level 98mmol/L (98-107) Carbon Dioxide Level 32mmol/L (21-32) Anion Gap 5 (6-14) Blood Urea Nitrogen 53mg/dL (7-20) Creatinine 1.5mg/dL (0.6-1.0) Estimated GFR (Cockcroft-Gault) 34.7 Glucose Level 190mg/dL (70-99) Calcium Level 8.0mg/dL (8.5-10.1) Phosphorus Level 3.7mg/dL (2.6-4.7) Magnesium Level 2.6mg/dL (1.8-2.4) Albumin 2.4g/dL (3.4-5.0) Glucose (Fingerstick) 216mg/dL (70-99) 266mg/dL (70-99) Cortisol AM Sample 11.3ug/dL (6.2-19.4) Test 02/19/17 17:07 02/19/17 20:50 02/20/17 04:40 Glucose (Fingerstick) 323mg/dL (70-99) 227mg/dL (70-99) White Blood Count 21.7x10^3/uL (4.0-11.0) Red Blood Count 2.91x10^6/uL (3.50-5.40) Hemoglobin 8.9g/dL (12.0-15.5) Hematocrit 26.7% (36.0-47.0) Mean Corpuscular Volume 92fL (79-100) Mean Corpuscular Hemoglobin 31pg (25-35) Mean Corpuscular Hemoglobin Concent 33g/dL (31-37) Red Cell Distribution Width 16.8% (11.5-14.5) Platelet Count 412x10^3/uL (140-400) Neutrophils (%) (Auto) 84% (31-73) Lymphocytes (%) (Auto) 9% (24-48) Monocytes (%) (Auto) 7% (0-9) Eosinophils (%) (Auto) 0% (0-3) Basophils (%) (Auto) 0% (0-3) Neutrophils # (Auto) 18.3x10^3uL (1.8-7.7) Lymphocytes # (Auto) 1.9x10^3/uL (1.0-4.8) Monocytes # (Auto) 1.5x10^3/uL (0.0-1.1) Eosinophils # (Auto) 0.0x10^3/uL (0.0-0.7) Basophils # (Auto) 0.0x10^3/uL (0.0-0.2) Sodium Level 139mmol/L (136-145) Potassium Level 4.2mmol/L (3.5-5.1) Chloride Level 100mmol/L (98-107) Carbon Dioxide Level 37mmol/L (21-32) Anion Gap 2 (6-14) Blood Urea Nitrogen 34mg/dL (7-20) Creatinine 0.9mg/dL (0.6-1.0) Estimated GFR (Cockcroft-Gault) 62.6 Glucose Level 120mg/dL (70-99) Uric Acid 5.5mg/dL (2.6-6.0) Calcium Level 8.4mg/dL (8.5-10.1) Phosphorus Level 1.9mg/dL (2.6-4.7) Magnesium Level 2.5mg/dL (1.8-2.4) Lactate Dehydrogenase 370U/L (81-234) Creatine Kinase 89U/L (26-192) Albumin 2.5g/dL (3.4-5.0) Laboratory Tests Test 02/19/17 12:15 02/19/17 17:07 02/19/17 20:50 02/20/17 04:40 Glucose (Fingerstick) 266mg/dL (70-99) 323mg/dL (70-99) 227mg/dL (70-99) White Blood Count 21.7x10^3/uL (4.0-11.0) Red Blood Count 2.91x10^6/uL (3.50-5.40) Hemoglobin 8.9g/dL (12.0-15.5) Hematocrit 26.7% (36.0-47.0) Mean Corpuscular Volume 92fL (79-100) Mean Corpuscular Hemoglobin 31pg (25-35) Mean Corpuscular Hemoglobin Concent 33g/dL (31-37) Red Cell Distribution Width 16.8% (11.5-14.5) Platelet Count 412x10^3/uL (140-400) Neutrophils (%) (Auto) 84% (31-73) Lymphocytes (%) (Auto) 9% (24-48) Monocytes (%) (Auto) 7% (0-9) Eosinophils (%) (Auto) 0% (0-3) Basophils (%) (Auto) 0% (0-3) Neutrophils # (Auto) 18.3x10^3uL (1.8-7.7) Lymphocytes # (Auto) 1.9x10^3/uL (1.0-4.8) Monocytes # (Auto) 1.5x10^3/uL (0.0-1.1) Eosinophils # (Auto) 0.0x10^3/uL (0.0-0.7) Basophils # (Auto) 0.0x10^3/uL (0.0-0.2) Sodium Level 139mmol/L (136-145) Potassium Level 4.2mmol/L (3.5-5.1) Chloride Level 100mmol/L (98-107) Carbon Dioxide Level 37mmol/L (21-32) Anion Gap 2 (6-14) Blood Urea Nitrogen 34mg/dL (7-20) Creatinine 0.9mg/dL (0.6-1.0) Estimated GFR (Cockcroft-Gault) 62.6 Glucose Level 120mg/dL (70-99) Uric Acid 5.5mg/dL (2.6-6.0) Calcium Level 8.4mg/dL (8.5-10.1) Phosphorus Level 1.9mg/dL (2.6-4.7) Magnesium Level 2.5mg/dL (1.8-2.4) Lactate Dehydrogenase 370U/L (81-234) Creatine Kinase 89U/L (26-192) Albumin 2.5g/dL (3.4-5.0) Medications Active Scripts Medications Dose Route/Sig Days Date Category Dose Instructions Prednisone 2.5 Mg Tablet 2 Tab PO DAILY 02/17/17 Reported Sulfamethoxazole-Tmp Ds Tablet (Sulfamethoxazole/Trimethoprim) 1 Each Tablet 1 Tab PO BID 02/17/17 Reported Albuterol Sulfate Conc Neb Soln (Albuterol Sulfate) 2.5 Mg/0.5 Ml Vial.neb 1 Vial NEB Q4HRS 11/03/16 Reported Lantus Solostar (Insulin Glargine,Hum.rec.anlog) 100 Unit/1 Ml Insuln.pen 14 Unit SQ BID 11/03/16 Reported Furosemide 40 Mg Tablet 1 Tab PO DAILY 11/03/16 Reported Mucinex (Guaifenesin) 600 Mg Tablet.er 400 Mg PO BID 11/03/16 Reported Xanax (Alprazolam) 1 Mg Tablet 1 Tab PO Q8HRS PRN 11/03/16 Reported Melatonin 10 Mg Tablet (Melatonin/Pyridoxine Hcl (B6)) 1 Each Tab.mphase 1 Each PO HS 11/03/16 Reported Iron (Ferrous Sulfate) 325 Mg Capsule.er 325 Mg PO DAILY 06/07/16 Rx B Complex # 1 (Vitamin B Complex) 1 Each Tablet 1 Each PO DAILY 06/07/16 Rx Levaquin (Levofloxacin) 750 Mg Tablet 1 Tab PO DAILY 06/07/16 Rx Nifedipine Er (Nifedipine) 60 Mg Tab.er.24 1 Tab PO DAILY 06/03/16 Reported Morphine Sulfate Er (Morphine Sulfate) 30 Mg Tablet.er 1 Tab PO TID 06/03/16 Reported Gabapentin 300 Mg Capsule 900 Mg PO QID 06/03/16 Reported Furosemide 20 Mg Tablet 1.5 Tab PO DAILY 06/03/16 Reported Cardizem Cd (Diltiazem Hcl) 360 Mg Cap.er.24h 1 Cap PO DAILY 03/07/15 Reported Next dose: 05/14 Rythmol (Propafenone Hcl) 150 Mg Tablet 150 Mg PO BID 03/07/15 Reported Next dose: 05/13 in pm Advair 250-50 Diskus (Fluticasone/Salmeterol) 1 Puff Puff 1 Puff INH BID 01/11/15 Rx Mucinex (Guaifenesin) 600 Mg Tablet.er 600 Mg PO BID 01/11/15 Rx Benadryl (Diphenhydramine Hcl) 25 Mg Capsule 2 Cap PO QHS 01/09/15 Reported Next dose: 05/14 Novolog (Insulin Aspart) 100 Unit/1 Ml Vial 100 Unit SQ 01/08/15 Reported Next dose: 05/13 at dinner Lantus (Insulin Glargine,Hum.rec.anlog) 100 Unit/1 Ml Vial 1 Unit SQ 01/08/15 Reported Next dose: 05/13 at bedtime Hydrocodone-Apap 7.5-325 (Hydrocodone Bit/Acetaminophen) 1 Each Tablet 1 Tab PO QID 01/08/15 Reported Next dose: 05/14 at 1 pm Combivent Respimat Inhal (Ipratropium/Albuterol Sulfate) 4 Gm Aer.w.adap 2 Inh IH QID 01/08/15 Reported Spiriva (Tiotropium [place]) 18 Mcg Cap.w.dev 1 Cap IH DAILY 01/08/15 Reported Next dose: 05/13 Dulera 100 Mcg/5 Mcg Inhaler (Mometasone/Formoterol) 13 Gm Hfa.aer.ad 2 Puff IH BID 01/08/15 Reported Digoxin 125 Mcg Tablet 1 Tab PO DAILY 01/08/15 Reported Next dose: 05/14 Citalopram Hbr (Citalopram Hydrobromide) 20 Mg Tablet 1 Tab PO DAILY 01/08/15 Reported Next dose: 05/14 Aspir 81 (Aspirin) 81 Mg Tablet.dr 1 Tab PO DAILY 01/08/15 Reported Next dose: 05/14 Cilostazol 50 Mg Tablet 50 Mg PO BID 01/08/15 Reported Next dose: 05/13 in PM Pradaxa (Dabigatran Etexilate Mesylate) 150 Mg Capsule 1 Cap PO BID 01/08/15 Reported Next dose: 05/13 in PM Potassium Chloride 20 Meq Tablet.er 20 Meq PO DAILY 01/08/15 Reported Next dose: 05/14 Impression . 1. Acute respiratory failure, secondary to combination of metabolic and respiratory acidosis and large pericardial effusion 2. Abnormal chest x-ray with bilateral prominent interstitial markings, CT chest with no significant ILD/CHF but large pericardial effusion 3. Previously abnormal transesophageal echo with moderate to severe mitral regurgitation. 4. Acute renal failure with metabolic acidosis. resolved post pericardiocentesis due to improved renal perfusion 5. Secondary pulmonary hypertension with a pulmonary artery systolic pressure of 70 on transesophageal echo from 07/2016. 6. Leukocytosis Plan . 1. respiratory status much improved 2. prn bicarbonate. 3. follow pericardial fluid analysis 4. pericardial drain per cardiology 5. Follow renal recommendations. 6. Follow up ABGs improved 7. follow wbc 8. nebs 9. antibiotics BARBARA KELLOGG MD Feb 20, 2017 11:11
--- NOTE | 2017-02-20 11:40 | PDOC ---
Renal-Progress Notes Subjective Notes Notes NONE History of Present Illness Hx of present illness NO CHANGE Vitals Vitals Vital Signs Date Time Temp Pulse Resp B/P Pulse Ox O2 Delivery O2 Flow Rate FiO2 02/20/17 09:52 92 02/20/17 09:27 Nasal Cannula 5.0 02/20/17 07:51 89 02/20/17 07:00 98.0 19 136/73 98.0 Weight Weight [ ] I.O. Intake and Output Intake and Output 02/20/17 07:00 Intake Total 1580 ml Output Total 3700 ml Balance -2120 ml Intake Oral 1580 ml Output Urine Total 3000 ml Chest Tube Drainage Total 700 ml Labs Labs Laboratory Tests Test 02/19/17 12:15 02/19/17 17:07 02/19/17 20:50 02/20/17 04:40 Glucose (Fingerstick) 266mg/dL (70-99) 323mg/dL (70-99) 227mg/dL (70-99) White Blood Count 21.7x10^3/uL (4.0-11.0) Red Blood Count 2.91x10^6/uL (3.50-5.40) Hemoglobin 8.9g/dL (12.0-15.5) Hematocrit 26.7% (36.0-47.0) Mean Corpuscular Volume 92fL (79-100) Mean Corpuscular Hemoglobin 31pg (25-35) Mean Corpuscular Hemoglobin Concent 33g/dL (31-37) Red Cell Distribution Width 16.8% (11.5-14.5) Platelet Count 412x10^3/uL (140-400) Neutrophils (%) (Auto) 84% (31-73) Lymphocytes (%) (Auto) 9% (24-48) Monocytes (%) (Auto) 7% (0-9) Eosinophils (%) (Auto) 0% (0-3) Basophils (%) (Auto) 0% (0-3) Neutrophils # (Auto) 18.3x10^3uL (1.8-7.7) Lymphocytes # (Auto) 1.9x10^3/uL (1.0-4.8) Monocytes # (Auto) 1.5x10^3/uL (0.0-1.1) Eosinophils # (Auto) 0.0x10^3/uL (0.0-0.7) Basophils # (Auto) 0.0x10^3/uL (0.0-0.2) Sodium Level 139mmol/L (136-145) Potassium Level 4.2mmol/L (3.5-5.1) Chloride Level 100mmol/L (98-107) Carbon Dioxide Level 37mmol/L (21-32) Anion Gap 2 (6-14) Blood Urea Nitrogen 34mg/dL (7-20) Creatinine 0.9mg/dL (0.6-1.0) Estimated GFR (Cockcroft-Gault) 62.6 Glucose Level 120mg/dL (70-99) Uric Acid 5.5mg/dL (2.6-6.0) Calcium Level 8.4mg/dL (8.5-10.1) Phosphorus Level 1.9mg/dL (2.6-4.7) Magnesium Level 2.5mg/dL (1.8-2.4) Lactate Dehydrogenase 370U/L (81-234) Creatine Kinase 89U/L (26-192) Albumin 2.5g/dL (3.4-5.0) Micro Micro Microbiology 02/17/17 Blood Culture - Preliminary, Resulted NO GROWTH AFTER 3 DAYS 02/18/17 Gram Stain - Final, Complete Review of Systems Constitutional: yes: no symptom reported Physical Exam General Appearance: no apparent distress Skin: warm Respiratory: decreased breath sounds Heart: S1S2 Abdomen: soft, bowel sounds present Extremities: pulses present Assessment Assessment IMP JOSE-RESOLVED HYPONATREMIA-BETTER PERICARDIAL EFFUSION-S/P DRAINAGE LOW PO4 HYPERKALEMIA - RESOLVED PLAN REPLACE PO4 D/C TEMP HD CATHETER WILL FOLLOW NEERAJ DELACRUZ MD Feb 20, 2017 11:40
[2017-02-20] MEDS: CEFTRIAXONE SODIUM 1 GM in IV NORMAL SALINE 50ML 50 ML IV SCH (12:18)
--- NOTE | 2017-02-20 12:46 | PDOC ---
PROGRESS NOTES Chief Complaint Chief Complaint Acute hypoxic resp failure pericardiac effusion post pericardiocentesis 02/18 COPD exacerbation JOSE, vasomotor, dehydration CHF, chroinc diastolic chronic afib hypovolumic hyponatremia and hyperkalemia mild malnutrition transaminitis DM2, metabolic acidosis chronic normocytic anemia HYPOPHOsphotemia plan: 1. icu care, on bipap, repeat ABG 2. FU WITH card, pulm, renal 3. on duoneb, doxy, decrease prednisone 40mg daily 4. increase insulin to levemir 25u bid, aspart 10u tid, SSI 5. HOLD DIuretics 6. dvt ppx, gi ppx monitor in and output replete NIC hope dc in 1-2ds ptot History of Present Illness History of Present Illness better post pericardiocentesis 02/18 low P cr normal off dobutamine drip Vitals Vitals Vital Signs Date Time Temp Pulse Resp B/P Pulse Ox O2 Delivery O2 Flow Rate FiO2 02/20/17 12:19 Nasal Cannula 5.0 02/20/17 12:11 96 02/20/17 11:00 98.3 90 21 136/79 98.3 Physical Exam Physical Exam eye closing, follow commands on bipap General: Alert, Cooperative, moderate distress Heart: Regular rate Lungs: Other (decrease bs) Abdomen: Normal bowel sounds, Soft Extremities: No clubbing, No cyanosis, No edema Skin: No rashes, No significant lesion, Other (dry) Labs LABS Laboratory Tests Test 02/19/17 17:07 02/19/17 20:50 02/20/17 04:40 02/20/17 07:55 Glucose (Fingerstick) 323mg/dL (70-99) 227mg/dL (70-99) 100mg/dL (70-99) White Blood Count 21.7x10^3/uL (4.0-11.0) Red Blood Count 2.91x10^6/uL (3.50-5.40) Hemoglobin 8.9g/dL (12.0-15.5) Hematocrit 26.7% (36.0-47.0) Mean Corpuscular Volume 92fL (79-100) Mean Corpuscular Hemoglobin 31pg (25-35) Mean Corpuscular Hemoglobin Concent 33g/dL (31-37) Red Cell Distribution Width 16.8% (11.5-14.5) Platelet Count 412x10^3/uL (140-400) Neutrophils (%) (Auto) 84% (31-73) Lymphocytes (%) (Auto) 9% (24-48) Monocytes (%) (Auto) 7% (0-9) Eosinophils (%) (Auto) 0% (0-3) Basophils (%) (Auto) 0% (0-3) Neutrophils # (Auto) 18.3x10^3uL (1.8-7.7) Lymphocytes # (Auto) 1.9x10^3/uL (1.0-4.8) Monocytes # (Auto) 1.5x10^3/uL (0.0-1.1) Eosinophils # (Auto) 0.0x10^3/uL (0.0-0.7) Basophils # (Auto) 0.0x10^3/uL (0.0-0.2) Sodium Level 139mmol/L (136-145) Potassium Level 4.2mmol/L (3.5-5.1) Chloride Level 100mmol/L (98-107) Carbon Dioxide Level 37mmol/L (21-32) Anion Gap 2 (6-14) Blood Urea Nitrogen 34mg/dL (7-20) Creatinine 0.9mg/dL (0.6-1.0) Estimated GFR (Cockcroft-Gault) 62.6 Glucose Level 120mg/dL (70-99) Uric Acid 5.5mg/dL (2.6-6.0) Calcium Level 8.4mg/dL (8.5-10.1) Phosphorus Level 1.9mg/dL (2.6-4.7) Magnesium Level 2.5mg/dL (1.8-2.4) Lactate Dehydrogenase 370U/L (81-234) Creatine Kinase 89U/L (26-192) Albumin 2.5g/dL (3.4-5.0) Test 02/20/17 11:29 Glucose (Fingerstick) 252mg/dL (70-99) Review of Systems Review of Systems no fever, chills, sob or chest pain Assessment and Plan Assessmemt and Plan Problems Medical Problems: (1) Community acquired pneumonia Status: Acute (2) COPD exacerbation Status: Acute Problems: Comment Review of Relevant I have reviewed the following items luke (where applicable) has been applied. Labs Laboratory Tests Test 02/18/17 15:55 02/18/17 17:00 02/18/17 17:54 02/18/17 20:05 Sodium Level 127mmol/L (136-145) 132mmol/L (136-145) Body Fluid Source Pericardial Body Fluid Color Red Body Fluid Clarity Turbid Body Fluid Nucleated Cells 5970/cmm Body Fluid Mononuclear WBCs (%) 15% Body Fluid Polymorphonuclear Cells 85% Body Fluid Total RBCs Counted 7564238/cmm Glucose (Fingerstick) 190mg/dL (70-99) Test 02/18/17 21:36 02/19/17 00:15 02/19/17 04:45 02/19/17 08:07 Glucose (Fingerstick) 159mg/dL (70-99) 216mg/dL (70-99) Sodium Level 133mmol/L (136-145) 135mmol/L (136-145) White Blood Count 28.1x10^3/uL (4.0-11.0) Red Blood Count 3.00x10^6/uL (3.50-5.40) Hemoglobin 9.0g/dL (12.0-15.5) Hematocrit 27.6% (36.0-47.0) Mean Corpuscular Volume 92fL (79-100) Mean Corpuscular Hemoglobin 30pg (25-35) Mean Corpuscular Hemoglobin Concent 33g/dL (31-37) Red Cell Distribution Width 16.8% (11.5-14.5) Platelet Count 442x10^3/uL (140-400) Neutrophils (%) (Auto) 92% (31-73) Lymphocytes (%) (Auto) 4% (24-48) Monocytes (%) (Auto) 4% (0-9) Eosinophils (%) (Auto) 0% (0-3) Basophils (%) (Auto) 0% (0-3) Neutrophils # (Auto) 25.8x10^3uL (1.8-7.7) Lymphocytes # (Auto) 1.0x10^3/uL (1.0-4.8) Monocytes # (Auto) 1.1x10^3/uL (0.0-1.1) Eosinophils # (Auto) 0.0x10^3/uL (0.0-0.7) Basophils # (Auto) 0.1x10^3/uL (0.0-0.2) Potassium Level 4.4mmol/L (3.5-5.1) Chloride Level 98mmol/L (98-107) Carbon Dioxide Level 32mmol/L (21-32) Anion Gap 5 (6-14) Blood Urea Nitrogen 53mg/dL (7-20) Creatinine 1.5mg/dL (0.6-1.0) Estimated GFR (Cockcroft-Gault) 34.7 Glucose Level 190mg/dL (70-99) Calcium Level 8.0mg/dL (8.5-10.1) Phosphorus Level 3.7mg/dL (2.6-4.7) Magnesium Level 2.6mg/dL (1.8-2.4) Albumin 2.4g/dL (3.4-5.0) Test 02/19/17 09:10 02/19/17 12:15 02/19/17 17:07 02/19/17 20:50 Sodium Level 135mmol/L (136-145) Cortisol AM Sample 11.3ug/dL (6.2-19.4) Glucose (Fingerstick) 266mg/dL (70-99) 323mg/dL (70-99) 227mg/dL (70-99) Test 02/20/17 04:40 02/20/17 07:55 02/20/17 11:29 White Blood Count 21.7x10^3/uL (4.0-11.0) Red Blood Count 2.91x10^6/uL (3.50-5.40) Hemoglobin 8.9g/dL (12.0-15.5) Hematocrit 26.7% (36.0-47.0) Mean Corpuscular Volume 92fL (79-100) Mean Corpuscular Hemoglobin 31pg (25-35) Mean Corpuscular Hemoglobin Concent 33g/dL (31-37) Red Cell Distribution Width 16.8% (11.5-14.5) Platelet Count 412x10^3/uL (140-400) Neutrophils (%) (Auto) 84% (31-73) Lymphocytes (%) (Auto) 9% (24-48) Monocytes (%) (Auto) 7% (0-9) Eosinophils (%) (Auto) 0% (0-3) Basophils (%) (Auto) 0% (0-3) Neutrophils # (Auto) 18.3x10^3uL (1.8-7.7) Lymphocytes # (Auto) 1.9x10^3/uL (1.0-4.8) Monocytes # (Auto) 1.5x10^3/uL (0.0-1.1) Eosinophils # (Auto) 0.0x10^3/uL (0.0-0.7) Basophils # (Auto) 0.0x10^3/uL (0.0-0.2) Sodium Level 139mmol/L (136-145) Potassium Level 4.2mmol/L (3.5-5.1) Chloride Level 100mmol/L (98-107) Carbon Dioxide Level 37mmol/L (21-32) Anion Gap 2 (6-14) Blood Urea Nitrogen 34mg/dL (7-20) Creatinine 0.9mg/dL (0.6-1.0) Estimated GFR (Cockcroft-Gault) 62.6 Glucose Level 120mg/dL (70-99) Uric Acid 5.5mg/dL (2.6-6.0) Calcium Level 8.4mg/dL (8.5-10.1) Phosphorus Level 1.9mg/dL (2.6-4.7) Magnesium Level 2.5mg/dL (1.8-2.4) Lactate Dehydrogenase 370U/L (81-234) Creatine Kinase 89U/L (26-192) Albumin 2.5g/dL (3.4-5.0) Glucose (Fingerstick) 100mg/dL (70-99) 252mg/dL (70-99) Laboratory Tests Test 02/19/17 17:07 02/19/17 20:50 02/20/17 04:40 02/20/17 07:55 Glucose (Fingerstick) 323mg/dL (70-99) 227mg/dL (70-99) 100mg/dL (70-99) White Blood Count 21.7x10^3/uL (4.0-11.0) Red Blood Count 2.91x10^6/uL (3.50-5.40) Hemoglobin 8.9g/dL (12.0-15.5) Hematocrit 26.7% (36.0-47.0) Mean Corpuscular Volume 92fL (79-100) Mean Corpuscular Hemoglobin 31pg (25-35) Mean Corpuscular Hemoglobin Concent 33g/dL (31-37) Red Cell Distribution Width 16.8% (11.5-14.5) Platelet Count 412x10^3/uL (140-400) Neutrophils (%) (Auto) 84% (31-73) Lymphocytes (%) (Auto) 9% (24-48) Monocytes (%) (Auto) 7% (0-9) Eosinophils (%) (Auto) 0% (0-3) Basophils (%) (Auto) 0% (0-3) Neutrophils # (Auto) 18.3x10^3uL (1.8-7.7) Lymphocytes # (Auto) 1.9x10^3/uL (1.0-4.8) Monocytes # (Auto) 1.5x10^3/uL (0.0-1.1) Eosinophils # (Auto) 0.0x10^3/uL (0.0-0.7) Basophils # (Auto) 0.0x10^3/uL (0.0-0.2) Sodium Level 139mmol/L (136-145) Potassium Level 4.2mmol/L (3.5-5.1) Chloride Level 100mmol/L (98-107) Carbon Dioxide Level 37mmol/L (21-32) Anion Gap 2 (6-14) Blood Urea Nitrogen 34mg/dL (7-20) Creatinine 0.9mg/dL (0.6-1.0) Estimated GFR (Cockcroft-Gault) 62.6 Glucose Level 120mg/dL (70-99) Uric Acid 5.5mg/dL (2.6-6.0) Calcium Level 8.4mg/dL (8.5-10.1) Phosphorus Level 1.9mg/dL (2.6-4.7) Magnesium Level 2.5mg/dL (1.8-2.4) Lactate Dehydrogenase 370U/L (81-234) Creatine Kinase 89U/L (26-192) Albumin 2.5g/dL (3.4-5.0) Test 02/20/17 11:29 Glucose (Fingerstick) 252mg/dL (70-99) Microbiology 02/17/17 Blood Culture - Preliminary, Resulted NO GROWTH AFTER 3 DAYS 02/18/17 Gram Stain - Final, Complete Medications Current Medications Albuterol/ Ipratropium (Duoneb) 3 ml 1X ONCE NEB Last administered on 07:46; Start 02/17/17 at 07:45; Stop 02/17/17 at 07:46; Status DC Albuterol/ Ipratropium (Duoneb) 3 ml STK-MED ONCE .ROUTE ; Start 02/17/17 at 07: 40; Stop 02/17/17 at 07:41; Status DC Albuterol Sulfate (Ventolin Neb Soln) 10 mg 1X ONCE CONT NEB Last administered on 02/17/17 08:02; Start 02/17/17 at 08:00; Stop 02/17/17 at 08:01 ; Status DC Methylprednisolone Sodium Succinate 60 mg 60 mg 1X ONCE IV Last administered on 02/17/17 08:49; Start 02/17/17 at 08:00; Stop 02/17/17 at 08:06; Status DC Ceftriaxone Sodium 50 ml @ 100 mls/hr 1X ONCE IV Last administered on 08:50; Start 02/17/17 at 08:15; Stop 02/17/17 at 08:44; Status DC Doxycycline Hyclate 100 mg/ Dextrose 100 ml @ 50 mls/hr 1X ONCE IV Last administered on 02/17/17 08:50; Start 02/17/17 at 08:15; Stop 02/17/17 at 10:14 ; Status DC Ceftriaxone Sodium 50 ml @ 100 mls/hr DAILY IV ; Start 02/18/17 at 09:00; Status UNV Doxycycline Hyclate 100 mg/ Dextrose 100 ml @ 50 mls/hr BID IV Last administered on 02/19/17 21:36; Start 02/17/17 at 21:00; Stop 02/20/17 at 09:34 ; Status DC Ceftriaxone Sodium/Sodium Chloride (Rocephin/Iv Sodium Chloride 0.9% 50ml) 50 ml @ 100 mls/hr Q24H IV Last administered on 02/20/17 12:18; Start 02/18/17 at 09:00 Insulin Aspart (Novolog) 0-7 UNITS TIDWMEALS SQ Last administered on 02/20/17 12:27; Start 02/17/17 at 12:00 Dextrose 12.5 gm 12.5 gm PRN Q15MIN PRN IV SEE COMMENTS; Start 02/17/17 at 10: 00 Magnesium Sulfate/ Dextrose (Magnesium Sulfate PREMIX 2GM) 50 ml @ 25 mls/hr PRN DAILY PRN IV for Mag < 1.7 on am labs; Start 02/17/17 at 14:45 Sodium Polystyrene Sulfonate 45 gm 45 gm 1X ONCE PO Last administered on 22:21; Start 02/17/17 at 15:30; Stop 02/17/17 at 15:31; Status DC Sodium Chloride (Iv Sodium Chloride 0.9% 500ml Bag) 500 ml @ 0 mls/hr PRN QID PRN IV UO< 30cc/hr over previous 6hrs; Start 02/17/17 at 15:00 Sodium Bicarbonate 50 meq 50 meq 1X ONCE IV Last administered on 02/17/17 15: 46; Start 02/17/17 at 15:30; Stop 02/17/17 at 15:35; Status DC Sodium Chloride (Iv Sodium Chloride 0.9% 1000ml Bag) 1,000 ml @ 75 mls/hr 1X ONCE IV Last administered on 02/17/17 16:11; Start 02/17/17 at 15:45; Stop at 05:04; Status DC Prednisone (Prednisone) 60 mg DAILY07 PO Last administered on 02/20/17 09:29; Start 02/18/17 at 07:00 Alprazolam (Xanax) 1 mg PRN Q8HRS PRN PO ANXIETY / AGITATION Last administered on 02/17/17 22:13; Start 02/17/17 at 15:45 Aspirin (Ecotrin) 81 mg DAILY PO Last administered on 02/20/17 09:29; Start at 09:00 Cilostazol (Pletal) 50 mg BID PO Last administered on 02/20/17 09:30; Start at 21:00 Citalopram Hydrobromide (Celexa) 20 mg DAILY PO Last administered on 02/20/17 09:29; Start 02/18/17 at 09:00 Dabigatran (Pradaxa) 75 mg BID PO Last administered on 02/20/17 09:28; Start 02/17/17 at 21:00 Digoxin (Lanoxin) 125 mcg DAILY PO Last administered on 02/20/17 09:52; Start 02/18/17 at 09:00 Diphenhydramine HCl (Benadryl) 25 mg QHS PO Last administered on 02/19/17 21: 35; Start 02/17/17 at 21:00 Guaifenesin (Mucinex) 600 mg BID PO Last administered on 02/20/17 09:29; Start 02/17/17 at 21:00 Acetaminophen/ Hydrocodone Bitart (Lortab 7.5/325) 1 tab QID PO Last administered on 02/20/17 12:19; Start 02/17/17 at 17:00 Morphine Sulfate (Ms Contin) 30 mg TID PO Last administered on 02/20/17 09:27 ; Start 02/17/17 at 21:00 Propafenone HCl (Rythmol) 150 mg BID PO Last administered on 02/20/17 09:28; Start 02/17/17 at 21:00 Trimethoprim/ Sulfamethoxazole (Bactrim Ds) 1 tab DAILY PO ; Start 02/17/17 at 21:00; Stop 02/18/17 at 08:22; Status DC Vitamin B Complex (Moi B) 1 tab DAILY PO Last administered on 02/20/17 09:29 ; Start 02/18/17 at 09:00 Albuterol/ Ipratropium (Duoneb) 3 ml Q4HRS NEB ; Start 02/17/17 at 16:00; Status Cancel Diltiazem HCl (Cardizem 24hr Cd) 360 mg DAILY PO Last administered on 09:29; Start 02/18/17 at 09:00 Ferrous Sulfate (Feosol) 325 mg DAILYWBKFT PO Last administered on 02/20/17 09 :28; Start 02/18/17 at 08:00 Non-Formulary Medication 1 puff BID INH ; Start 02/17/17 at 21:00; Status UNV Gabapentin (Neurontin) 900 mg BID PO Last administered on 02/20/17 09:28; Start 02/17/17 at 21:00 Insulin Detemir (Levemir) 14 units BID SQ Last administered on 02/17/17 22:12 ; Start 02/17/17 at 21:00; Stop 02/18/17 at 11:35; Status DC Non-Formulary Medication 1 each HS PO ; Start 02/17/17 at 21:00; Status UNV Budesonide (Pulmicort) 0.5 mg RTBID NEB Last administered on 02/20/17 07:48; Start 02/17/17 at 20:00 Albuterol/ Ipratropium (Duoneb) 3 ml Q4HRS W/A NEB Last administered on 12:11; Start 02/17/17 at 18:00 Insulin Aspart (Novolog) 9 units TIDAC SQ Last administered on 02/18/17 09:24 ; Start 02/17/17 at 16:30; Stop 02/18/17 at 11:36; Status DC Ondansetron HCl (Zofran) 4 mg PRN Q6HRS PRN IV NAUSEA/VOMITING Last administered on 02/17/17 21:05; Start 02/17/17 at 18:15 Furosemide 80 mg 80 mg 1X ONCE IVP ; Start 02/17/17 at 20:00; Stop 02/17/17 at 20:01; Status DC Sodium Bicarbonate 150 meq/Dextrose 1,150 ml @ 100 mls/hr [id number] IV Last administered on 02/17/17 21:11; Start 02/17/17 at 21:00; Stop 02/18/17 at 06:59 ; Status DC Sodium Bicarbonate 75 meq/Dextrose 575 ml @ 100 mls/hr Q5H45M IV ; Start at 07:00; Stop 02/18/17 at 11:59; Status DC Dobutamine HCl/ Dextrose 250 ml @ 0 mls/hr CONT PRN IV SEE I/O RECORD Last administered on 02/17/17 23:38; Start 02/17/17 at 23:00 Calcium Acetate 1334 mg 1,334 mg TIDWMEALS PO Last administered on 02/20/17 12 :18; Start 02/18/17 at 09:00 Sodium Chloride (Hypertonic Saline) 500 ml @ 30 mls/hr CONT PRN PRN IV see comments Last administered on 02/19/17 03:09; Start 02/18/17 at 08:15 Heparin Sodium (Porcine) (Heparin Sodium) 10,000 unit STK-MED ONCE .ROUTE ; Start 02/18/17 at 09:53; Stop 02/18/17 at 09:54; Status DC Lidocaine/Sodium Bicarbonate 20 ml 20 ml STK-MED ONCE IJ ; Start 02/18/17 at 09: 53; Stop 02/18/17 at 09:54; Status DC Heparin Sodium/ Sodium Chloride 500 ml @ As Directed STK-MED ONCE .ROUTE ; Start 02/18/17 at 09:53; Stop 02/18/17 at 09:54; Status DC Heparin Sodium/ Sodium Chloride 60 unit 1X ONCE IV Last administered on 10:42; Start 02/18/17 at 10:15; Stop 02/18/17 at 10:19; Status DC Heparin Sodium (Porcine) (Heparin Sodium) 2,500 unit 1X ONCE INT CAT Last administered on 02/18/17 10:41; Start 02/18/17 at 10:15; Stop 02/18/17 at 10:19 ; Status DC Lidocaine/Sodium Bicarbonate (Buffered Lidocaine 1%) 3 ml 1X ONCE IJ Last administered on 02/18/17 10:41; Start 02/18/17 at 10:15; Stop 02/18/17 at 10:19 ; Status DC Insulin Aspart (Novolog) 10 units TIDAC SQ Last administered on 02/20/17 12:25 ; Start 02/18/17 at 12:00 Insulin Detemir 20 units 20 units BID SQ Last administered on 02/19/17 08:11; Start 02/18/17 at 21:00; Stop 02/19/17 at 12:50; Status DC Heparin Sodium/ Sodium Chloride 500 ml @ As Directed STK-MED ONCE .ROUTE ; Start 02/18/17 at 16:19; Stop 02/18/17 at 16:20; Status DC Lidocaine/ Epinephrine (Xylocaine 2%-Epi 1:100,000) 20 ml STK-MED ONCE .ROUTE ; Start 02/18/17 at 16:19; Stop 02/18/17 at 16:20; Status DC Fentanyl Citrate (Fentanyl 2ml Vial) 100 mcg STK-MED ONCE .ROUTE ; Start at 16:30; Stop 02/18/17 at 16:31; Status DC Midazolam HCl (Versed) 2 mg STK-MED ONCE .ROUTE ; Start 02/18/17 at 16:30; Stop 02/18/17 at 16:31; Status DC Heparin Sodium/ Sodium Chloride 1,000 unit 1X ONCE IART Last administered on 17:27; Start 02/18/17 at 16:45; Stop 02/18/17 at 16:46; Status DC Midazolam HCl (Versed) 2 mg 1X ONCE IV Last administered on 02/18/17 17:26; Start 02/18/17 at 16:45; Stop 02/18/17 at 16:46; Status DC Fentanyl Citrate (Fentanyl 2ml Vial) 100 mcg 1X ONCE IV Last administered on 17:27; Start 02/18/17 at 16:45; Stop 02/18/17 at 16:46; Status DC Lidocaine/ Epinephrine (Xylocaine 2%-Epi 1:100,000) 20 ml 1X ONCE IJ Last administered on 02/18/17 17:24; Start 02/18/17 at 16:45; Stop 02/18/17 at 16:46 ; Status DC Fentanyl Citrate (Fentanyl 2ml Vial) 100 mcg STK-MED ONCE .ROUTE ; Start at 16:46; Stop 02/18/17 at 16:47; Status DC Labetalol HCl (Normodyne) 20 mg STK-MED ONCE .ROUTE ; Start 02/18/17 at 16:51; Stop 02/18/17 at 16:52; Status DC Labetalol HCl (Normodyne) 10 mg 1X ONCE IVP Last administered on 02/18/17 17: 26; Start 02/18/17 at 17:00; Stop 02/18/17 at 17:01; Status DC Labetalol HCl (Normodyne) 10 mg PRN Q3HRS PRN IVP HYPERTENSION, SEE COMMENTS Last administered on 02/19/17 03:09; Start 02/18/17 at 20:15 Insulin Detemir (Levemir) 25 units BID SQ Last administered on 4/22/17at 09:43 ; Start 02/19/17 at 21:00 Doxycycline Hyclate 100 mg 100 mg BID PO ; Start 02/20/17 at 10:00 Sodium Phosphate 20 mmol/Dextrose 256.6667 ml @ 64.167 m... 1X ONCE IV ; Start 02/20/17 at 10:00; Stop 02/20/17 at 13:59 Sodium Phosphate/ Dextrose 256.6667 ml @ 64.167 m... 1X ONCE IV ; Start at 12:00; Stop 02/20/17 at 15:59 Active Scripts Active Iron (Ferrous Sulfate) 325 Mg Capsule.er 325 Mg PO DAILY B Complex # 1 (Vitamin B Complex) 1 Each Tablet 1 Each PO DAILY Levaquin (Levofloxacin) 750 Mg Tablet 1 Tab PO DAILY Advair 250-50 Diskus (Fluticasone/Salmeterol) 1 Puff Puff 1 Puff INH BID Mucinex (Guaifenesin) 600 Mg Tablet.er 600 Mg PO BID Reported Prednisone 2.5 Mg Tablet 2 Tab PO DAILY Sulfamethoxazole-Tmp Ds Tablet (Sulfamethoxazole/Trimethoprim) 1 Each Tablet 1 Tab PO BID Albuterol Sulfate Conc Neb Soln (Albuterol Sulfate) 2.5 Mg/0.5 Ml Vial.neb 1 Vial NEB Q4HRS Lantus Solostar (Insulin Glargine,Hum.rec.anlog) 100 Unit/1 Ml Insuln.pen 14 Unit SQ BID Furosemide 40 Mg Tablet 1 Tab PO DAILY Mucinex (Guaifenesin) 600 Mg Tablet.er 400 Mg PO BID Xanax (Alprazolam) 1 Mg Tablet 1 Tab PO Q8HRS PRN Melatonin 10 Mg Tablet (Melatonin/Pyridoxine Hcl (B6)) 1 Each Tab.mphase 1 Each PO HS Nifedipine Er (Nifedipine) 60 Mg Tab.er.24 1 Tab PO DAILY Morphine Sulfate Er (Morphine Sulfate) 30 Mg Tablet.er 1 Tab PO TID Gabapentin 300 Mg Capsule 900 Mg PO QID Furosemide 20 Mg Tablet 1.5 Tab PO DAILY Cardizem Cd (Diltiazem Hcl) 360 Mg Cap.er.24h 1 Cap PO DAILY Next dose: 05/14 Rythmol (Propafenone Hcl) 150 Mg Tablet 150 Mg PO BID Next dose: 05/13 in pm Benadryl (Diphenhydramine Hcl) 25 Mg Capsule 2 Cap PO QHS Next dose: 05/14 Novolog (Insulin Aspart) 100 Unit/1 Ml Vial 100 Unit SQ Next dose: 05/13 at dinner Lantus (Insulin Glargine,Hum.rec.anlog) 100 Unit/1 Ml Vial 1 Unit SQ Next dose: 05/13 at bedtime Hydrocodone-Apap 7.5-325 (Hydrocodone Bit/Acetaminophen) 1 Each Tablet 1 Tab PO QID Next dose: 05/14 at 1 pm Combivent Respimat Inhal (Ipratropium/Albuterol Sulfate) 4 Gm Aer.w.adap 2 Inh IH QID Spiriva (Tiotropium [place]) 18 Mcg Cap.w.dev 1 Cap IH DAILY Next dose: 05/13 Dulera 100 Mcg/5 Mcg Inhaler (Mometasone/Formoterol) 13 Gm Hfa.aer.ad 2 Puff IH BID Digoxin 125 Mcg Tablet 1 Tab PO DAILY Next dose: 05/14 Citalopram Hbr (Citalopram Hydrobromide) 20 Mg Tablet 1 Tab PO DAILY Next dose: 05/14 Aspir 81 (Aspirin) 81 Mg Tablet.dr 1 Tab PO DAILY Next dose: 05/14 Cilostazol 50 Mg Tablet 50 Mg PO BID Next dose: 05/13 in PM Pradaxa (Dabigatran Etexilate Mesylate) 150 Mg Capsule 1 Cap PO BID Next dose: 05/13 in PM Potassium Chloride 20 Meq Tablet.er 20 Meq PO DAILY Next dose: 05/14 Vitals/I & O Vital Sign - Last 24 Hours 02/19/17 02/19/17 02/19/17 02/19/17 13:00 14:00 15:00 15:44 Pulse 74 68 88 Resp 14 12 17 B/P 180/73 175/68 147/69 Pulse Ox 96 95 97 92 O2 Delivery Nasal Cannula Nasal Cannula Room Air Nasal Cannula O2 Flow Rate 5.0 5.0 5.0 7.0 02/19/17 02/19/17 02/19/17 02/19/17 16:00 16:00 17:00 17:20 Pulse 76 84 Resp 23 29 22 B/P 178/75 184/65 Pulse Ox 95 95 90 O2 Delivery Nasal Cannula Nasal Cannula Nasal Cannula Nasal Cannula O2 Flow Rate 5.0 5.0 5.0 5.0 02/19/17 02/19/17 02/19/17 02/19/17 18:00 19:20 20:28 20:33 Temp 98.1 98.1 Pulse 76 81 Resp 24 14 B/P 168/61 117/44 Pulse Ox 91 91 95 O2 Delivery Nasal Cannula Room Air Nasal Cannula Nasal Cannula O2 Flow Rate 5.0 5.0 5.0 02/19/17 02/19/17 02/19/17 02/19/17 21:34 21:35 21:36 22:24 Pulse 81 Resp 20 18 B/P 117/44 Pulse Ox 93 93 O2 Delivery Nasal Cannula Nasal Cannula Nasal Cannula O2 Flow Rate 5.0 5.0 5.0 02/19/17 02/19/17 02/20/17 02/20/17 22:36 23:20 01:35 03:15 Temp 98.0 98.0 Pulse 81 Resp 20 16 18 B/P 140/57 Pulse Ox 93 94 95 O2 Delivery Nasal Cannula BiPAP/CPAP BiPAP/CPAP O2 Flow Rate 5.0 2.0 95.0 02/20/17 02/20/17 02/20/17 02/20/17 03:25 07:00 07:51 09:27 Temp 98.6 98.0 98.6 98.0 Pulse 75 77 Resp 13 19 B/P 137/58 136/73 Pulse Ox 95 93 89 O2 Delivery Nasal Cannula Nasal Cannula Nasal Cannula Nasal Cannula O2 Flow Rate 2.0 5.0 5.0 5.0 02/20/17 02/20/17 02/20/17 02/20/17 09:27 09:28 09:29 09:52 Pulse 78 78 92 O2 Delivery Nasal Cannula O2 Flow Rate 5.0 02/20/17 02/20/17 02/20/17 02/20/17 10:27 11:00 12:11 12:19 Temp 98.3 98.3 Pulse 90 Resp 21 B/P 136/79 Pulse Ox 93 96 O2 Delivery Nasal Cannula Nasal Cannula Nasal Cannula Nasal Cannula O2 Flow Rate 5.0 5.0 5.0 Intake and Output 02/19/17 02/19/17 02/20/17 15:00 23:00 07:00 Intake Total 700 ml 400 ml 480 ml Output Total 1550 ml 550 ml 1600 ml Balance -850 ml -150 ml -1120 ml NASIM FABIAN MD Feb 20, 2017 12:46
[2017-02-20 15:00] VITALS: BP 132/72
--- NOTE | 2017-02-20 15:46 | PDOC ---
PROGRESS NOTES Subjective Subjective Patient feels better today. Objective Objective Vital Signs Date Time Temp Pulse Resp B/P Pulse Ox O2 Delivery O2 Flow Rate FiO2 02/20/17 13:19 Nasal Cannula 5.0 02/20/17 12:11 96 02/20/17 11:00 98.3 90 21 136/79 98.3 Intake and Output 02/20/17 07:00 Intake Total 1580 ml Output Total 3700 ml Balance -2120 ml Intake Oral 1580 ml Output Urine Total 3000 ml Chest Tube Drainage Total 700 ml Physical Exam Physical Exam No significant changes in cardiac exam Assessment Assessment The patient seems to be doing better. The day of the insertion of the pericardial catheter I obtain 800 mL of fluid. Yesterday we had 700 mL of fluid. Today there is 250 mL of fluid in the bag. In view of this I would like to keep the pericardial catheter in place for another 24-48 hours before removing it. I would like to avoid having to do a pericardial window in this patient due to her pulmonary problems and in trying to avoid having to intubate her again. Problems Medical Problems: (1) Community acquired pneumonia Status: Acute (2) COPD exacerbation Status: Acute Comment Review of Relevant I have reviewed the following items luke (where applicable) has been applied. Labs Laboratory Tests Test 02/18/17 15:55 02/18/17 17:00 02/18/17 17:54 02/18/17 20:05 Sodium Level 127mmol/L (136-145) 132mmol/L (136-145) Body Fluid Source Pericardial Body Fluid Color Red Body Fluid Clarity Turbid Body Fluid Nucleated Cells 5970/cmm Body Fluid Mononuclear WBCs (%) 15% Body Fluid Polymorphonuclear Cells 85% Body Fluid Total RBCs Counted 7563343/cmm Glucose (Fingerstick) 190mg/dL (70-99) Test 02/18/17 21:36 02/19/17 00:15 02/19/17 04:45 02/19/17 08:07 Glucose (Fingerstick) 159mg/dL (70-99) 216mg/dL (70-99) Sodium Level 133mmol/L (136-145) 135mmol/L (136-145) White Blood Count 28.1x10^3/uL (4.0-11.0) Red Blood Count 3.00x10^6/uL (3.50-5.40) Hemoglobin 9.0g/dL (12.0-15.5) Hematocrit 27.6% (36.0-47.0) Mean Corpuscular Volume 92fL (79-100) Mean Corpuscular Hemoglobin 30pg (25-35) Mean Corpuscular Hemoglobin Concent 33g/dL (31-37) Red Cell Distribution Width 16.8% (11.5-14.5) Platelet Count 442x10^3/uL (140-400) Neutrophils (%) (Auto) 92% (31-73) Lymphocytes (%) (Auto) 4% (24-48) Monocytes (%) (Auto) 4% (0-9) Eosinophils (%) (Auto) 0% (0-3) Basophils (%) (Auto) 0% (0-3) Neutrophils # (Auto) 25.8x10^3uL (1.8-7.7) Lymphocytes # (Auto) 1.0x10^3/uL (1.0-4.8) Monocytes # (Auto) 1.1x10^3/uL (0.0-1.1) Eosinophils # (Auto) 0.0x10^3/uL (0.0-0.7) Basophils # (Auto) 0.1x10^3/uL (0.0-0.2) Potassium Level 4.4mmol/L (3.5-5.1) Chloride Level 98mmol/L (98-107) Carbon Dioxide Level 32mmol/L (21-32) Anion Gap 5 (6-14) Blood Urea Nitrogen 53mg/dL (7-20) Creatinine 1.5mg/dL (0.6-1.0) Estimated GFR (Cockcroft-Gault) 34.7 Glucose Level 190mg/dL (70-99) Calcium Level 8.0mg/dL (8.5-10.1) Phosphorus Level 3.7mg/dL (2.6-4.7) Magnesium Level 2.6mg/dL (1.8-2.4) Albumin 2.4g/dL (3.4-5.0) Test 02/19/17 09:10 02/19/17 12:15 02/19/17 17:07 02/19/17 20:50 Sodium Level 135mmol/L (136-145) Cortisol AM Sample 11.3ug/dL (6.2-19.4) Glucose (Fingerstick) 266mg/dL (70-99) 323mg/dL (70-99) 227mg/dL (70-99) Test 02/20/17 04:40 02/20/17 07:55 02/20/17 11:29 White Blood Count 21.7x10^3/uL (4.0-11.0) Red Blood Count 2.91x10^6/uL (3.50-5.40) Hemoglobin 8.9g/dL (12.0-15.5) Hematocrit 26.7% (36.0-47.0) Mean Corpuscular Volume 92fL (79-100) Mean Corpuscular Hemoglobin 31pg (25-35) Mean Corpuscular Hemoglobin Concent 33g/dL (31-37) Red Cell Distribution Width 16.8% (11.5-14.5) Platelet Count 412x10^3/uL (140-400) Neutrophils (%) (Auto) 84% (31-73) Lymphocytes (%) (Auto) 9% (24-48) Monocytes (%) (Auto) 7% (0-9) Eosinophils (%) (Auto) 0% (0-3) Basophils (%) (Auto) 0% (0-3) Neutrophils # (Auto) 18.3x10^3uL (1.8-7.7) Lymphocytes # (Auto) 1.9x10^3/uL (1.0-4.8) Monocytes # (Auto) 1.5x10^3/uL (0.0-1.1) Eosinophils # (Auto) 0.0x10^3/uL (0.0-0.7) Basophils # (Auto) 0.0x10^3/uL (0.0-0.2) Sodium Level 139mmol/L (136-145) Potassium Level 4.2mmol/L (3.5-5.1) Chloride Level 100mmol/L (98-107) Carbon Dioxide Level 37mmol/L (21-32) Anion Gap 2 (6-14) Blood Urea Nitrogen 34mg/dL (7-20) Creatinine 0.9mg/dL (0.6-1.0) Estimated GFR (Cockcroft-Gault) 62.6 Glucose Level 120mg/dL (70-99) Uric Acid 5.5mg/dL (2.6-6.0) Calcium Level 8.4mg/dL (8.5-10.1) Phosphorus Level 1.9mg/dL (2.6-4.7) Magnesium Level 2.5mg/dL (1.8-2.4) Lactate Dehydrogenase 370U/L (81-234) Creatine Kinase 89U/L (26-192) Albumin 2.5g/dL (3.4-5.0) Glucose (Fingerstick) 100mg/dL (70-99) 252mg/dL (70-99) Laboratory Tests Test 02/19/17 17:07 02/19/17 20:50 02/20/17 04:40 02/20/17 07:55 Glucose (Fingerstick) 323mg/dL (70-99) 227mg/dL (70-99) 100mg/dL (70-99) White Blood Count 21.7x10^3/uL (4.0-11.0) Red Blood Count 2.91x10^6/uL (3.50-5.40) Hemoglobin 8.9g/dL (12.0-15.5) Hematocrit 26.7% (36.0-47.0) Mean Corpuscular Volume 92fL (79-100) Mean Corpuscular Hemoglobin 31pg (25-35) Mean Corpuscular Hemoglobin Concent 33g/dL (31-37) Red Cell Distribution Width 16.8% (11.5-14.5) Platelet Count 412x10^3/uL (140-400) Neutrophils (%) (Auto) 84% (31-73) Lymphocytes (%) (Auto) 9% (24-48) Monocytes (%) (Auto) 7% (0-9) Eosinophils (%) (Auto) 0% (0-3) Basophils (%) (Auto) 0% (0-3) Neutrophils # (Auto) 18.3x10^3uL (1.8-7.7) Lymphocytes # (Auto) 1.9x10^3/uL (1.0-4.8) Monocytes # (Auto) 1.5x10^3/uL (0.0-1.1) Eosinophils # (Auto) 0.0x10^3/uL (0.0-0.7) Basophils # (Auto) 0.0x10^3/uL (0.0-0.2) Sodium Level 139mmol/L (136-145) Potassium Level 4.2mmol/L (3.5-5.1) Chloride Level 100mmol/L (98-107) Carbon Dioxide Level 37mmol/L (21-32) Anion Gap 2 (6-14) Blood Urea Nitrogen 34mg/dL (7-20) Creatinine 0.9mg/dL (0.6-1.0) Estimated GFR (Cockcroft-Gault) 62.6 Glucose Level 120mg/dL (70-99) Uric Acid 5.5mg/dL (2.6-6.0) Calcium Level 8.4mg/dL (8.5-10.1) Phosphorus Level 1.9mg/dL (2.6-4.7) Magnesium Level 2.5mg/dL (1.8-2.4) Lactate Dehydrogenase 370U/L (81-234) Creatine Kinase 89U/L (26-192) Albumin 2.5g/dL (3.4-5.0) Test 02/20/17 11:29 Glucose (Fingerstick) 252mg/dL (70-99) Microbiology 02/17/17 Blood Culture - Preliminary, Resulted NO GROWTH AFTER 3 DAYS 02/18/17 Gram Stain - Final, Complete Medications Current Medications Albuterol/ Ipratropium (Duoneb) 3 ml 1X ONCE NEB Last administered on 07:46; Start 02/17/17 at 07:45; Stop 02/17/17 at 07:46; Status DC Albuterol/ Ipratropium (Duoneb) 3 ml STK-MED ONCE .ROUTE ; Start 02/17/17 at 07: 40; Stop 02/17/17 at 07:41; Status DC Albuterol Sulfate (Ventolin Neb Soln) 10 mg 1X ONCE CONT NEB Last administered on 02/17/17 08:02; Start 02/17/17 at 08:00; Stop 02/17/17 at 08:01 ; Status DC Methylprednisolone Sodium Succinate 60 mg 60 mg 1X ONCE IV Last administered on 02/17/17 08:49; Start 02/17/17 at 08:00; Stop 02/17/17 at 08:06; Status DC Ceftriaxone Sodium 50 ml @ 100 mls/hr 1X ONCE IV Last administered on 08:50; Start 02/17/17 at 08:15; Stop 02/17/17 at 08:44; Status DC Doxycycline Hyclate 100 mg/ Dextrose 100 ml @ 50 mls/hr 1X ONCE IV Last administered on 02/17/17 08:50; Start 02/17/17 at 08:15; Stop 02/17/17 at 10:14 ; Status DC Ceftriaxone Sodium 50 ml @ 100 mls/hr DAILY IV ; Start 02/18/17 at 09:00; Status UNV Doxycycline Hyclate 100 mg/ Dextrose 100 ml @ 50 mls/hr BID IV Last administered on 02/19/17 21:36; Start 02/17/17 at 21:00; Stop 02/20/17 at 09:34 ; Status DC Ceftriaxone Sodium/Sodium Chloride (Rocephin/Iv Sodium Chloride 0.9% 50ml) 50 ml @ 100 mls/hr Q24H IV Last administered on 02/20/17 12:18; Start 02/18/17 at 09:00 Insulin Aspart (Novolog) 0-7 UNITS TIDWMEALS SQ Last administered on 02/20/17 12:27; Start 02/17/17 at 12:00 Dextrose 12.5 gm 12.5 gm PRN Q15MIN PRN IV SEE COMMENTS; Start 02/17/17 at 10: 00 Magnesium Sulfate/ Dextrose (Magnesium Sulfate PREMIX 2GM) 50 ml @ 25 mls/hr PRN DAILY PRN IV for Mag < 1.7 on am labs; Start 02/17/17 at 14:45 Sodium Polystyrene Sulfonate 45 gm 45 gm 1X ONCE PO Last administered on 22:21; Start 02/17/17 at 15:30; Stop 02/17/17 at 15:31; Status DC Sodium Chloride (Iv Sodium Chloride 0.9% 500ml Bag) 500 ml @ 0 mls/hr PRN QID PRN IV UO< 30cc/hr over previous 6hrs; Start 02/17/17 at 15:00 Sodium Bicarbonate 50 meq 50 meq 1X ONCE IV Last administered on 02/17/17 15: 46; Start 02/17/17 at 15:30; Stop 02/17/17 at 15:35; Status DC Sodium Chloride (Iv Sodium Chloride 0.9% 1000ml Bag) 1,000 ml @ 75 mls/hr 1X ONCE IV Last administered on 02/17/17 16:11; Start 02/17/17 at 15:45; Stop at 05:04; Status DC Prednisone (Prednisone) 60 mg DAILY07 PO Last administered on 02/20/17 09:29; Start 02/18/17 at 07:00; Stop 02/20/17 at 12:45; Status DC Alprazolam (Xanax) 1 mg PRN Q8HRS PRN PO ANXIETY / AGITATION Last administered on 02/17/17 22:13; Start 02/17/17 at 15:45 Aspirin (Ecotrin) 81 mg DAILY PO Last administered on 02/20/17 09:29; Start at 09:00 Cilostazol (Pletal) 50 mg BID PO Last administered on 02/20/17 09:30; Start at 21:00 Citalopram Hydrobromide (Celexa) 20 mg DAILY PO Last administered on 02/20/17 09:29; Start 02/18/17 at 09:00 Dabigatran (Pradaxa) 75 mg BID PO Last administered on 02/20/17 09:28; Start 02/17/17 at 21:00 Digoxin (Lanoxin) 125 mcg DAILY PO Last administered on 02/20/17 09:52; Start 02/18/17 at 09:00 Diphenhydramine HCl (Benadryl) 25 mg QHS PO Last administered on 02/19/17 21: 35; Start 02/17/17 at 21:00 Guaifenesin (Mucinex) 600 mg BID PO Last administered on 02/20/17 09:29; Start 02/17/17 at 21:00 Acetaminophen/ Hydrocodone Bitart (Lortab 7.5/325) 1 tab QID PO Last administered on 02/20/17 12:19; Start 02/17/17 at 17:00 Morphine Sulfate (Ms Contin) 30 mg TID PO Last administered on 02/20/17 09:27 ; Start 02/17/17 at 21:00 Propafenone HCl (Rythmol) 150 mg BID PO Last administered on 02/20/17 09:28; Start 02/17/17 at 21:00 Trimethoprim/ Sulfamethoxazole (Bactrim Ds) 1 tab DAILY PO ; Start 02/17/17 at 21:00; Stop 02/18/17 at 08:22; Status DC Vitamin B Complex (Moi B) 1 tab DAILY PO Last administered on 02/20/17 09:29 ; Start 02/18/17 at 09:00 Albuterol/ Ipratropium (Duoneb) 3 ml Q4HRS NEB ; Start 02/17/17 at 16:00; Status Cancel Diltiazem HCl (Cardizem 24hr Cd) 360 mg DAILY PO Last administered on 09:29; Start 02/18/17 at 09:00 Ferrous Sulfate (Feosol) 325 mg DAILYWBKFT PO Last administered on 02/20/17 09 :28; Start 02/18/17 at 08:00 Non-Formulary Medication 1 puff BID INH ; Start 02/17/17 at 21:00; Status UNV Gabapentin (Neurontin) 900 mg BID PO Last administered on 02/20/17 09:28; Start 02/17/17 at 21:00 Insulin Detemir (Levemir) 14 units BID SQ Last administered on 02/17/17 22:12 ; Start 02/17/17 at 21:00; Stop 02/18/17 at 11:35; Status DC Non-Formulary Medication 1 each HS PO ; Start 02/17/17 at 21:00; Status UNV Budesonide (Pulmicort) 0.5 mg RTBID NEB Last administered on 02/20/17 07:48; Start 02/17/17 at 20:00 Albuterol/ Ipratropium (Duoneb) 3 ml Q4HRS W/A NEB Last administered on 12:11; Start 02/17/17 at 18:00 Insulin Aspart (Novolog) 9 units TIDAC SQ Last administered on 02/18/17 09:24 ; Start 02/17/17 at 16:30; Stop 02/18/17 at 11:36; Status DC Ondansetron HCl (Zofran) 4 mg PRN Q6HRS PRN IV NAUSEA/VOMITING Last administered on 02/17/17 21:05; Start 02/17/17 at 18:15 Furosemide 80 mg 80 mg 1X ONCE IVP ; Start 02/17/17 at 20:00; Stop 02/17/17 at 20:01; Status DC Sodium Bicarbonate 150 meq/Dextrose 1,150 ml @ 100 mls/hr [id number] IV Last administered on 02/17/17 21:11; Start 02/17/17 at 21:00; Stop 02/18/17 at 06:59 ; Status DC Sodium Bicarbonate 75 meq/Dextrose 575 ml @ 100 mls/hr Q5H45M IV ; Start at 07:00; Stop 02/18/17 at 11:59; Status DC Dobutamine HCl/ Dextrose 250 ml @ 0 mls/hr CONT PRN IV SEE I/O RECORD Last administered on 02/17/17 23:38; Start 02/17/17 at 23:00; Stop 02/20/17 at 12:45 ; Status DC Calcium Acetate 1334 mg 1,334 mg TIDWMEALS PO Last administered on 02/20/17 12 :18; Start 02/18/17 at 09:00 Sodium Chloride (Hypertonic Saline) 500 ml @ 30 mls/hr CONT PRN PRN IV see comments Last administered on 02/19/17 03:09; Start 02/18/17 at 08:15 Heparin Sodium (Porcine) (Heparin Sodium) 10,000 unit STK-MED ONCE .ROUTE ; Start 02/18/17 at 09:53; Stop 02/18/17 at 09:54; Status DC Lidocaine/Sodium Bicarbonate 20 ml 20 ml STK-MED ONCE IJ ; Start 02/18/17 at 09: 53; Stop 02/18/17 at 09:54; Status DC Heparin Sodium/ Sodium Chloride 500 ml @ As Directed STK-MED ONCE .ROUTE ; Start 02/18/17 at 09:53; Stop 02/18/17 at 09:54; Status DC Heparin Sodium/ Sodium Chloride 60 unit 1X ONCE IV Last administered on 10:42; Start 02/18/17 at 10:15; Stop 02/18/17 at 10:19; Status DC Heparin Sodium (Porcine) (Heparin Sodium) 2,500 unit 1X ONCE INT CAT Last administered on 02/18/17 10:41; Start 02/18/17 at 10:15; Stop 02/18/17 at 10:19 ; Status DC Lidocaine/Sodium Bicarbonate (Buffered Lidocaine 1%) 3 ml 1X ONCE IJ Last administered on 02/18/17 10:41; Start 02/18/17 at 10:15; Stop 02/18/17 at 10:19 ; Status DC Insulin Aspart (Novolog) 10 units TIDAC SQ Last administered on 02/20/17 12:25 ; Start 02/18/17 at 12:00 Insulin Detemir 20 units 20 units BID SQ Last administered on 02/19/17 08:11; Start 02/18/17 at 21:00; Stop 02/19/17 at 12:50; Status DC Heparin Sodium/ Sodium Chloride 500 ml @ As Directed STK-MED ONCE .ROUTE ; Start 02/18/17 at 16:19; Stop 02/18/17 at 16:20; Status DC Lidocaine/ Epinephrine (Xylocaine 2%-Epi 1:100,000) 20 ml STK-MED ONCE .ROUTE ; Start 02/18/17 at 16:19; Stop 02/18/17 at 16:20; Status DC Fentanyl Citrate (Fentanyl 2ml Vial) 100 mcg STK-MED ONCE .ROUTE ; Start at 16:30; Stop 02/18/17 at 16:31; Status DC Midazolam HCl (Versed) 2 mg STK-MED ONCE .ROUTE ; Start 02/18/17 at 16:30; Stop 02/18/17 at 16:31; Status DC Heparin Sodium/ Sodium Chloride 1,000 unit 1X ONCE IART Last administered on 17:27; Start 02/18/17 at 16:45; Stop 02/18/17 at 16:46; Status DC Midazolam HCl (Versed) 2 mg 1X ONCE IV Last administered on 02/18/17 17:26; Start 02/18/17 at 16:45; Stop 02/18/17 at 16:46; Status DC Fentanyl Citrate (Fentanyl 2ml Vial) 100 mcg 1X ONCE IV Last administered on 17:27; Start 02/18/17 at 16:45; Stop 02/18/17 at 16:46; Status DC Lidocaine/ Epinephrine (Xylocaine 2%-Epi 1:100,000) 20 ml 1X ONCE IJ Last administered on 02/18/17 17:24; Start 02/18/17 at 16:45; Stop 02/18/17 at 16:46 ; Status DC Fentanyl Citrate (Fentanyl 2ml Vial) 100 mcg STK-MED ONCE .ROUTE ; Start at 16:46; Stop 02/18/17 at 16:47; Status DC Labetalol HCl (Normodyne) 20 mg STK-MED ONCE .ROUTE ; Start 02/18/17 at 16:51; Stop 02/18/17 at 16:52; Status DC Labetalol HCl (Normodyne) 10 mg 1X ONCE IVP Last administered on 02/18/17 17: 26; Start 02/18/17 at 17:00; Stop 02/18/17 at 17:01; Status DC Labetalol HCl (Normodyne) 10 mg PRN Q3HRS PRN IVP HYPERTENSION, SEE COMMENTS Last administered on 02/19/17 03:09; Start 02/18/17 at 20:15 Insulin Detemir (Levemir) 25 units BID SQ Last administered on 02/20/17 09:43 ; Start 02/19/17 at 21:00 Doxycycline Hyclate 100 mg 100 mg BID PO ; Start 02/20/17 at 10:00 Sodium Phosphate 20 mmol/Dextrose 256.6667 ml @ 64.167 m... 1X ONCE IV Last administered on 02/20/17 13:18; Start 02/20/17 at 10:00; Stop 02/20/17 at 13:59 ; Status DC Sodium Phosphate/ Dextrose 256.6667 ml @ 64.167 m... 1X ONCE IV ; Start at 12:00; Stop 02/20/17 at 15:59 Prednisone (Prednisone) 40 mg DAILY07 PO ; Start 02/21/17 at 07:00 Active Scripts Active Iron (Ferrous Sulfate) 325 Mg Capsule.er 325 Mg PO DAILY B Complex # 1 (Vitamin B Complex) 1 Each Tablet 1 Each PO DAILY Levaquin (Levofloxacin) 750 Mg Tablet 1 Tab PO DAILY Advair 250-50 Diskus (Fluticasone/Salmeterol) 1 Puff Puff 1 Puff INH BID Mucinex (Guaifenesin) 600 Mg Tablet.er 600 Mg PO BID Reported Prednisone 2.5 Mg Tablet 2 Tab PO DAILY Sulfamethoxazole-Tmp Ds Tablet (Sulfamethoxazole/Trimethoprim) 1 Each Tablet 1 Tab PO BID Albuterol Sulfate Conc Neb Soln (Albuterol Sulfate) 2.5 Mg/0.5 Ml Vial.neb 1 Vial NEB Q4HRS Lantus Solostar (Insulin Glargine,Hum.rec.anlog) 100 Unit/1 Ml Insuln.pen 14 Unit SQ BID Furosemide 40 Mg Tablet 1 Tab PO DAILY Mucinex (Guaifenesin) 600 Mg Tablet.er 400 Mg PO BID Xanax (Alprazolam) 1 Mg Tablet 1 Tab PO Q8HRS PRN Melatonin 10 Mg Tablet (Melatonin/Pyridoxine Hcl (B6)) 1 Each Tab.mphase 1 Each PO HS Nifedipine Er (Nifedipine) 60 Mg Tab.er.24 1 Tab PO DAILY Morphine Sulfate Er (Morphine Sulfate) 30 Mg Tablet.er 1 Tab PO TID Gabapentin 300 Mg Capsule 900 Mg PO QID Furosemide 20 Mg Tablet 1.5 Tab PO DAILY Cardizem Cd (Diltiazem Hcl) 360 Mg Cap.er.24h 1 Cap PO DAILY Next dose: 05/14 Rythmol (Propafenone Hcl) 150 Mg Tablet 150 Mg PO BID Next dose: 05/13 in pm Benadryl (Diphenhydramine Hcl) 25 Mg Capsule 2 Cap PO QHS Next dose: 05/14 Novolog (Insulin Aspart) 100 Unit/1 Ml Vial 100 Unit SQ Next dose: 05/13 at dinner Lantus (Insulin Glargine,Hum.rec.anlog) 100 Unit/1 Ml Vial 1 Unit SQ Next dose: 05/13 at bedtime Hydrocodone-Apap 7.5-325 (Hydrocodone Bit/Acetaminophen) 1 Each Tablet 1 Tab PO QID Next dose: 05/14 at 1 pm Combivent Respimat Inhal (Ipratropium/Albuterol Sulfate) 4 Gm Aer.w.adap 2 Inh IH QID Spiriva (Tiotropium [place]) 18 Mcg Cap.w.dev 1 Cap IH DAILY Next dose: 05/13 Dulera 100 Mcg/5 Mcg Inhaler (Mometasone/Formoterol) 13 Gm Hfa.aer.ad 2 Puff IH BID Digoxin 125 Mcg Tablet 1 Tab PO DAILY Next dose: 05/14 Citalopram Hbr (Citalopram Hydrobromide) 20 Mg Tablet 1 Tab PO DAILY Next dose: 05/14 Aspir 81 (Aspirin) 81 Mg Tablet.dr 1 Tab PO DAILY Next dose: 05/14 Cilostazol 50 Mg Tablet 50 Mg PO BID Next dose: 05/13 in PM Pradaxa (Dabigatran Etexilate Mesylate) 150 Mg Capsule 1 Cap PO BID Next dose: 05/13 in PM Potassium Chloride 20 Meq Tablet.er 20 Meq PO DAILY Next dose: 05/14 Vitals/I & O Vital Sign - Last 24 Hours 02/19/17 02/19/17 02/19/17 02/19/17 16:00 16:00 17:00 17:20 Pulse 76 84 Resp 23 29 22 B/P 178/75 184/65 Pulse Ox 95 95 90 O2 Delivery Nasal Cannula Nasal Cannula Nasal Cannula Nasal Cannula O2 Flow Rate 5.0 5.0 5.0 5.0 02/19/17 02/19/17 02/19/17 02/19/17 18:00 19:20 20:28 20:33 Temp 98.1 98.1 Pulse 76 81 Resp 24 14 B/P 168/61 117/44 Pulse Ox 91 91 95 O2 Delivery Nasal Cannula Room Air Nasal Cannula Nasal Cannula O2 Flow Rate 5.0 5.0 5.0 02/19/17 02/19/17 02/19/17 02/19/17 21:34 21:35 21:36 22:24 Pulse 81 Resp 20 18 B/P 117/44 Pulse Ox 93 93 O2 Delivery Nasal Cannula Nasal Cannula Nasal Cannula O2 Flow Rate 5.0 5.0 5.0 02/19/17 02/19/17 02/20/17 02/20/17 22:36 23:20 01:35 03:15 Temp 98.0 98.0 Pulse 81 Resp 20 16 18 B/P 140/57 Pulse Ox 93 94 95 O2 Delivery Nasal Cannula BiPAP/CPAP O2 Flow Rate 2.0 02/20/17 02/20/17 02/20/17 02/20/17 03:25 07:00 07:51 08:00 Temp 98.6 98.0 98.6 98.0 Pulse 75 77 Resp 13 19 B/P 137/58 136/73 Pulse Ox 95 93 89 O2 Delivery Nasal Cannula Nasal Cannula Nasal Cannula Nasal Cannula O2 Flow Rate 2.0 5.0 5.0 5.0 02/20/17 02/20/17 02/20/17 02/20/17 09:27 09:27 09:28 09:29 Pulse 78 78 O2 Delivery Nasal Cannula Nasal Cannula O2 Flow Rate 5.0 5.0 02/20/17 02/20/17 02/20/17 02/20/17 09:52 11:00 12:11 12:19 Temp 98.3 98.3 Pulse 92 90 Resp 21 B/P 136/79 Pulse Ox 93 96 O2 Delivery Nasal Cannula Nasal Cannula Nasal Cannula O2 Flow Rate 5.0 5.0 5.0 02/20/17 02/20/17 13:19 13:19 O2 Delivery Nasal Cannula Nasal Cannula O2 Flow Rate 5.0 5.0 Intake and Output 02/19/17 02/19/17 02/20/17 15:00 23:00 07:00 Intake Total 700 ml 400 ml 480 ml Output Total 1550 ml 550 ml 1600 ml Balance -850 ml -150 ml -1120 ml TOBY SON MD Feb 20, 2017 15:46
[2017-02-20 19:10] VITALS: BP 188/69
[2017-02-20] MEDS: DABIGATRAN ETEXILATE 150 MG CAPSULE. PO SCH (20:59)
[2017-02-20] MEDS: diphenhydrAMINE HCL 25 MG CAPSULE PO SCH (20:59)
[2017-02-20 23:10] VITALS: BP 184/69
[2017-02-20] MEDS: LABETALOL 20 MG/4 ML DISP.SYRIN. IVP PRN (23:35)
[2017-02-21 03:10] VITALS: BP 123/66
[2017-02-21 05:11] LABS: ALBUMIN 2.4 g/dL (3.4-5.0); CALCIUM 8.2 mg/dL (8.5-10.1); CREATININE 0.7 mg/dL (0.6-1.0); GFR 83.7; PHOSPHORUS 2.4 mg/dL (2.6-4.7); POTASSIUM 4.2 mmol/L (3.5-5.1)
[2017-02-21] MEDS: predniSONE 20 MG TABLET PO SCH (06:58)
[2017-02-21 07:12] VITALS: BP 155/69
[2017-02-21] MEDS: INSULIN ASPART 300 UNITS/3 ML INSULN.PEN SQ SCH ×6 (07:30→17:56)
[2017-02-21] MEDS: IPRATRPIUM/ALBUTEROL 0.5/2.5MG 3 ML NEBU. NEB SCH ×4 (07:54→19:40)
[2017-02-21] MEDS: BUDESONIDE 0.5 MG/2 ML NEBU. NEB SCH ×2 (07:54→19:40)
[2017-02-21] MEDS: FERROUS SULFATE 325 MG TABLET. PO SCH (08:00)
[2017-02-21 08:59] LABS: BASO # 0.1 x10^3/uL (0.0-0.2); BASO % 1 % (0-3); EOS % 0 % (0-3); HEMATOCRIT 29.1 % (36.0-47.0); HEMOGLOBIN 9.1 g/dL (12.0-15.5); LYMPH # 2.6 x10^3/uL (1.0-4.8); LYMPH % 13 % (24-48); MEAN CORPUSCULAR HEMOGLOBIN 30 pg (25-35); MEAN CORPUSCULAR HGB CONC 31 g/dL (31-37); MEAN CORPUSCULAR VOLUME 94 fL (79-100); MONO % 6 % (0-9); NEUT % 80 % (31-73); PLATELET COUNT 443 x10^3/uL (140-400); RED BLOOD COUNT 3.09 x10^6/uL (3.50-5.40); WHITE BLOOD COUNT 20.4 x10^3/uL (4.0-11.0)
[2017-02-21] MEDS: DOXYCYCLINE HYCLATE 100 MG TABLET PO SCH ×2 (09:19→21:40)
[2017-02-21] MEDS: VITAMIN B COMPLEX TABLET. PO SCH (09:19)
[2017-02-21] MEDS: ASPIRIN ENTERIC COATED 81 MG TABLET.DR. PO SCH (09:19)
[2017-02-21] MEDS: CALCIUM ACETATE 667 MG CAPSULE PO SCH ×3 (09:19→17:45)
[2017-02-21] MEDS: GABAPENTIN 300 MG CAPSULE. PO SCH ×2 (09:20→21:40)
[2017-02-21] MEDS: DIGOXIN 125 MCG TABLET. PO SCH (09:20)
[2017-02-21] MEDS: DABIGATRAN ETEXILATE 150 MG CAPSULE. PO SCH ×2 (09:20→21:40)
[2017-02-21] MEDS: DILTIAZEM HCL 180 MG CAP.ER.24H PO SCH (09:22)
[2017-02-21] MEDS: CILOSTAZOL 50 MG TABLET. PO SCH ×2 (09:22→21:40)
[2017-02-21] MEDS: CITALOPRAM 20 MG TABLET. PO SCH (09:22)
[2017-02-21] MEDS: GUAIFENESIN ER 600 MG TABLET.ER PO SCH ×2 (09:22→21:40)
[2017-02-21] MEDS: HYDROCODONE/APAP 7.5/325MG TABLET. PO SCH ×4 (09:23→21:40)
[2017-02-21] MEDS: MORPHINE ER 30 MG TABLET.ER PO SCH ×3 (09:23→21:39)
[2017-02-21] MEDS: PROPAFENONE 150 MG TABLET. PO SCH ×2 (09:24→21:41)
[2017-02-21] MEDS: CEFTRIAXONE SODIUM 1 GM in IV NORMAL SALINE 50ML 50 ML IV SCH (09:25)
[2017-02-21] MEDS: INSULIN DETEMIR 300 UNITS/3 ML INSULN.PEN. SQ SCH ×2 (09:31→21:48)
--- NOTE | 2017-02-21 09:53 | PDOC ---
PULMONARY PROGRESS NOTES Subjective s/p emergent pericardiocentesis 02/18 large pericardial effusion on ct chest Vitals Vital Signs Date Time Temp Pulse Resp B/P Pulse Ox O2 Delivery O2 Flow Rate FiO2 02/21/17 09:24 73 02/21/17 09:23 Nasal Cannula 5.0 02/21/17 07:54 99 02/21/17 07:12 97.9 22 155/69 97.9 General: Alert, No acute distress HEENT: Other Lungs: Other (decrease bs) Cardiovascular: S1, S2 Abdomen: Soft, Non-tender, Other Neuro Exam: Alert Extremities: Other (1+edema) Labs Laboratory Tests Test 02/19/17 12:15 02/19/17 17:07 02/19/17 20:50 02/20/17 04:40 Glucose (Fingerstick) 266mg/dL (70-99) 323mg/dL (70-99) 227mg/dL (70-99) White Blood Count 21.7x10^3/uL (4.0-11.0) Red Blood Count 2.91x10^6/uL (3.50-5.40) Hemoglobin 8.9g/dL (12.0-15.5) Hematocrit 26.7% (36.0-47.0) Mean Corpuscular Volume 92fL (79-100) Mean Corpuscular Hemoglobin 31pg (25-35) Mean Corpuscular Hemoglobin Concent 33g/dL (31-37) Red Cell Distribution Width 16.8% (11.5-14.5) Platelet Count 412x10^3/uL (140-400) Neutrophils (%) (Auto) 84% (31-73) Lymphocytes (%) (Auto) 9% (24-48) Monocytes (%) (Auto) 7% (0-9) Eosinophils (%) (Auto) 0% (0-3) Basophils (%) (Auto) 0% (0-3) Neutrophils # (Auto) 18.3x10^3uL (1.8-7.7) Lymphocytes # (Auto) 1.9x10^3/uL (1.0-4.8) Monocytes # (Auto) 1.5x10^3/uL (0.0-1.1) Eosinophils # (Auto) 0.0x10^3/uL (0.0-0.7) Basophils # (Auto) 0.0x10^3/uL (0.0-0.2) Sodium Level 139mmol/L (136-145) Potassium Level 4.2mmol/L (3.5-5.1) Chloride Level 100mmol/L (98-107) Carbon Dioxide Level 37mmol/L (21-32) Anion Gap 2 (6-14) Blood Urea Nitrogen 34mg/dL (7-20) Creatinine 0.9mg/dL (0.6-1.0) Estimated GFR (Cockcroft-Gault) 62.6 Glucose Level 120mg/dL (70-99) Uric Acid 5.5mg/dL (2.6-6.0) Calcium Level 8.4mg/dL (8.5-10.1) Phosphorus Level 1.9mg/dL (2.6-4.7) Magnesium Level 2.5mg/dL (1.8-2.4) Lactate Dehydrogenase 370U/L (81-234) Creatine Kinase 89U/L (26-192) Albumin 2.5g/dL (3.4-5.0) Test 02/20/17 07:55 02/20/17 11:29 02/20/17 16:51 02/20/17 20:48 Glucose (Fingerstick) 100mg/dL (70-99) 252mg/dL (70-99) 263mg/dL (70-99) 187mg/dL (70-99) Test 02/21/17 03:50 White Blood Count 20.4x10^3/uL (4.0-11.0) Red Blood Count 3.09x10^6/uL (3.50-5.40) Hemoglobin 9.1g/dL (12.0-15.5) Hematocrit 29.1% (36.0-47.0) Mean Corpuscular Volume 94fL (79-100) Mean Corpuscular Hemoglobin 30pg (25-35) Mean Corpuscular Hemoglobin Concent 31g/dL (31-37) Red Cell Distribution Width 17.0% (11.5-14.5) Platelet Count 443x10^3/uL (140-400) Neutrophils (%) (Auto) 80% (31-73) Lymphocytes (%) (Auto) 13% (24-48) Monocytes (%) (Auto) 6% (0-9) Eosinophils (%) (Auto) 0% (0-3) Basophils (%) (Auto) 1% (0-3) Neutrophils # (Auto) 16.4x10^3uL (1.8-7.7) Lymphocytes # (Auto) 2.6x10^3/uL (1.0-4.8) Monocytes # (Auto) 1.3x10^3/uL (0.0-1.1) Eosinophils # (Auto) 0.0x10^3/uL (0.0-0.7) Basophils # (Auto) 0.1x10^3/uL (0.0-0.2) Sodium Level 139mmol/L (136-145) Potassium Level 4.2mmol/L (3.5-5.1) Chloride Level 101mmol/L (98-107) Carbon Dioxide Level 36mmol/L (21-32) Anion Gap 2 (6-14) Blood Urea Nitrogen 20mg/dL (7-20) Creatinine 0.7mg/dL (0.6-1.0) Estimated GFR (Cockcroft-Gault) 83.7 Glucose Level 69mg/dL (70-99) Calcium Level 8.2mg/dL (8.5-10.1) Phosphorus Level 2.4mg/dL (2.6-4.7) Magnesium Level 2.3mg/dL (1.8-2.4) Creatine Kinase 49U/L (26-192) Albumin 2.4g/dL (3.4-5.0) Laboratory Tests Test 02/20/17 11:29 02/20/17 16:51 02/20/17 20:48 02/21/17 03:50 Glucose (Fingerstick) 252mg/dL (70-99) 263mg/dL (70-99) 187mg/dL (70-99) White Blood Count 20.4x10^3/uL (4.0-11.0) Red Blood Count 3.09x10^6/uL (3.50-5.40) Hemoglobin 9.1g/dL (12.0-15.5) Hematocrit 29.1% (36.0-47.0) Mean Corpuscular Volume 94fL (79-100) Mean Corpuscular Hemoglobin 30pg (25-35) Mean Corpuscular Hemoglobin Concent 31g/dL (31-37) Red Cell Distribution Width 17.0% (11.5-14.5) Platelet Count 443x10^3/uL (140-400) Neutrophils (%) (Auto) 80% (31-73) Lymphocytes (%) (Auto) 13% (24-48) Monocytes (%) (Auto) 6% (0-9) Eosinophils (%) (Auto) 0% (0-3) Basophils (%) (Auto) 1% (0-3) Neutrophils # (Auto) 16.4x10^3uL (1.8-7.7) Lymphocytes # (Auto) 2.6x10^3/uL (1.0-4.8) Monocytes # (Auto) 1.3x10^3/uL (0.0-1.1) Eosinophils # (Auto) 0.0x10^3/uL (0.0-0.7) Basophils # (Auto) 0.1x10^3/uL (0.0-0.2) Sodium Level 139mmol/L (136-145) Potassium Level 4.2mmol/L (3.5-5.1) Chloride Level 101mmol/L (98-107) Carbon Dioxide Level 36mmol/L (21-32) Anion Gap 2 (6-14) Blood Urea Nitrogen 20mg/dL (7-20) Creatinine 0.7mg/dL (0.6-1.0) Estimated GFR (Cockcroft-Gault) 83.7 Glucose Level 69mg/dL (70-99) Calcium Level 8.2mg/dL (8.5-10.1) Phosphorus Level 2.4mg/dL (2.6-4.7) Magnesium Level 2.3mg/dL (1.8-2.4) Creatine Kinase 49U/L (26-192) Albumin 2.4g/dL (3.4-5.0) Medications Active Scripts Medications Dose Route/Sig Days Date Category Dose Instructions Prednisone 2.5 Mg Tablet 2 Tab PO DAILY 02/17/17 Reported Sulfamethoxazole-Tmp Ds Tablet (Sulfamethoxazole/Trimethoprim) 1 Each Tablet 1 Tab PO BID 02/17/17 Reported Albuterol Sulfate Conc Neb Soln (Albuterol Sulfate) 2.5 Mg/0.5 Ml Vial.neb 1 Vial NEB Q4HRS 11/03/16 Reported Lantus Solostar (Insulin Glargine,Hum.rec.anlog) 100 Unit/1 Ml Insuln.pen 14 Unit SQ BID 11/03/16 Reported Furosemide 40 Mg Tablet 1 Tab PO DAILY 11/03/16 Reported Mucinex (Guaifenesin) 600 Mg Tablet.er 400 Mg PO BID 11/03/16 Reported Xanax (Alprazolam) 1 Mg Tablet 1 Tab PO Q8HRS PRN 11/03/16 Reported Melatonin 10 Mg Tablet (Melatonin/Pyridoxine Hcl (B6)) 1 Each Tab.mphase 1 Each PO HS 11/03/16 Reported Iron (Ferrous Sulfate) 325 Mg Capsule.er 325 Mg PO DAILY 06/07/16 Rx B Complex # 1 (Vitamin B Complex) 1 Each Tablet 1 Each PO DAILY 06/07/16 Rx Levaquin (Levofloxacin) 750 Mg Tablet 1 Tab PO DAILY 06/07/16 Rx Nifedipine Er (Nifedipine) 60 Mg Tab.er.24 1 Tab PO DAILY 06/03/16 Reported Morphine Sulfate Er (Morphine Sulfate) 30 Mg Tablet.er 1 Tab PO TID 06/03/16 Reported Gabapentin 300 Mg Capsule 900 Mg PO QID 06/03/16 Reported Furosemide 20 Mg Tablet 1.5 Tab PO DAILY 06/03/16 Reported Cardizem Cd (Diltiazem Hcl) 360 Mg Cap.er.24h 1 Cap PO DAILY 03/07/15 Reported Next dose: 05/14 Rythmol (Propafenone Hcl) 150 Mg Tablet 150 Mg PO BID 03/07/15 Reported Next dose: 05/13 in pm Advair 250-50 Diskus (Fluticasone/Salmeterol) 1 Puff Puff 1 Puff INH BID 01/11/15 Rx Mucinex (Guaifenesin) 600 Mg Tablet.er 600 Mg PO BID 01/11/15 Rx Benadryl (Diphenhydramine Hcl) 25 Mg Capsule 2 Cap PO QHS 01/09/15 Reported Next dose: 05/14 Novolog (Insulin Aspart) 100 Unit/1 Ml Vial 100 Unit SQ 01/08/15 Reported Next dose: 05/13 at dinner Lantus (Insulin Glargine,Hum.rec.anlog) 100 Unit/1 Ml Vial 1 Unit SQ 01/08/15 Reported Next dose: 05/13 at bedtime Hydrocodone-Apap 7.5-325 (Hydrocodone Bit/Acetaminophen) 1 Each Tablet 1 Tab PO QID 01/08/15 Reported Next dose: 05/14 at 1 pm Combivent Respimat Inhal (Ipratropium/Albuterol Sulfate) 4 Gm Aer.w.adap 2 Inh IH QID 01/08/15 Reported Spiriva (Tiotropium [place]) 18 Mcg Cap.w.dev 1 Cap IH DAILY 01/08/15 Reported Next dose: 05/13 Dulera 100 Mcg/5 Mcg Inhaler (Mometasone/Formoterol) 13 Gm Hfa.aer.ad 2 Puff IH BID 01/08/15 Reported Digoxin 125 Mcg Tablet 1 Tab PO DAILY 01/08/15 Reported Next dose: 05/14 Citalopram Hbr (Citalopram Hydrobromide) 20 Mg Tablet 1 Tab PO DAILY 01/08/15 Reported Next dose: 05/14 Aspir 81 (Aspirin) 81 Mg Tablet.dr 1 Tab PO DAILY 01/08/15 Reported Next dose: 05/14 Cilostazol 50 Mg Tablet 50 Mg PO BID 01/08/15 Reported Next dose: 05/13 in PM Pradaxa (Dabigatran Etexilate Mesylate) 150 Mg Capsule 1 Cap PO BID 01/08/15 Reported Next dose: 05/13 in PM Potassium Chloride 20 Meq Tablet.er 20 Meq PO DAILY 01/08/15 Reported Next dose: 05/14 Impression . 1. Acute respiratory failure, secondary to combination of metabolic and respiratory acidosis and large pericardial effusion 2. Abnormal chest x-ray with bilateral prominent interstitial markings, CT chest with no significant ILD/CHF but large pericardial effusion 3. Previously abnormal transesophageal echo with moderate to severe mitral regurgitation. 4. Acute renal failure with metabolic acidosis. resolved post pericardiocentesis due to improved renal perfusion 5. Secondary pulmonary hypertension with a pulmonary artery systolic pressure of 70 on transesophageal echo from 07/2016. 6. Leukocytosis Plan . 1. respiratory status much improved 2. prn bicarbonate. 3. follow pericardial fluid analysis 4. pericardial drain per cardiology 5. Follow renal recommendations. 6. Follow up ABGs improved 7. follow wbc 8. nebs 9. antibiotics BARBARA KELLOGG MD Feb 21, 2017 09:53
--- NOTE | 2017-02-21 10:20 | PDOC ---
Renal-Progress Notes Subjective Notes Notes NONE History of Present Illness Hx of present illness STABLE Vitals Vitals Vital Signs Date Time Temp Pulse Resp B/P Pulse Ox O2 Delivery O2 Flow Rate FiO2 02/21/17 09:24 73 02/21/17 09:23 Nasal Cannula 5.0 02/21/17 07:54 99 02/21/17 07:12 97.9 22 155/69 97.9 Weight Weight [ ] I.O. Intake and Output Intake and Output 02/21/17 07:00 Output Total 2425 ml Balance -2425 ml Output Urine Total 2250 ml Drainage Total 175 ml Labs Labs Laboratory Tests Test 02/20/17 11:29 02/20/17 16:51 02/20/17 20:48 02/21/17 03:50 Glucose (Fingerstick) 252mg/dL (70-99) 263mg/dL (70-99) 187mg/dL (70-99) White Blood Count 20.4x10^3/uL (4.0-11.0) Red Blood Count 3.09x10^6/uL (3.50-5.40) Hemoglobin 9.1g/dL (12.0-15.5) Hematocrit 29.1% (36.0-47.0) Mean Corpuscular Volume 94fL (79-100) Mean Corpuscular Hemoglobin 30pg (25-35) Mean Corpuscular Hemoglobin Concent 31g/dL (31-37) Red Cell Distribution Width 17.0% (11.5-14.5) Platelet Count 443x10^3/uL (140-400) Neutrophils (%) (Auto) 80% (31-73) Lymphocytes (%) (Auto) 13% (24-48) Monocytes (%) (Auto) 6% (0-9) Eosinophils (%) (Auto) 0% (0-3) Basophils (%) (Auto) 1% (0-3) Neutrophils # (Auto) 16.4x10^3uL (1.8-7.7) Lymphocytes # (Auto) 2.6x10^3/uL (1.0-4.8) Monocytes # (Auto) 1.3x10^3/uL (0.0-1.1) Eosinophils # (Auto) 0.0x10^3/uL (0.0-0.7) Basophils # (Auto) 0.1x10^3/uL (0.0-0.2) Sodium Level 139mmol/L (136-145) Potassium Level 4.2mmol/L (3.5-5.1) Chloride Level 101mmol/L (98-107) Carbon Dioxide Level 36mmol/L (21-32) Anion Gap 2 (6-14) Blood Urea Nitrogen 20mg/dL (7-20) Creatinine 0.7mg/dL (0.6-1.0) Estimated GFR (Cockcroft-Gault) 83.7 Glucose Level 69mg/dL (70-99) Calcium Level 8.2mg/dL (8.5-10.1) Phosphorus Level 2.4mg/dL (2.6-4.7) Magnesium Level 2.3mg/dL (1.8-2.4) Creatine Kinase 49U/L (26-192) Albumin 2.4g/dL (3.4-5.0) Micro Micro Microbiology 02/17/17 Blood Culture - Preliminary, Resulted NO GROWTH AFTER 4 DAYS 02/18/17 Gram Stain - Final, Complete Review of Systems Constitutional: yes: no symptom reported Physical Exam General Appearance: no apparent distress Skin: warm Respiratory: decreased breath sounds Heart: S1S2 Abdomen: soft, bowel sounds present Extremities: pulses present Assessment Assessment IMP JOSE-RESOLVED HYPONATREMIA-RESOLVED PERICARDIAL EFFUSION-S/P DRAINAGE LOW PO4-BETTER AND WILL RESOLVE ON ITS OWN HYPERKALEMIA - RESOLVED PLAN WILL SIGN OFF NEERAJ DELACRUZ MD Feb 21, 2017 10:20
[2017-02-21 11:12] VITALS: BP 123/69
--- NOTE | 2017-02-21 12:30 | PDOC ---
PROGRESS NOTES Chief Complaint Chief Complaint Acute hypoxic resp failure pericardiac effusion post pericardiocentesis 02/18 COPD exacerbation JOSE, vasomotor, dehydration CHF, chroinc diastolic chronic afib hypovolumic hyponatremia and hyperkalemia mild malnutrition transaminitis DM2, metabolic acidosis chronic normocytic anemia HYPOPHOsphotemia plan: 1. still has pericardial drainage, may remove on Wednesday as per card 2. FU WITH card, pulm, renal 3. on duoneb, doxy, decrease prednisone 40mg daily 4. decrease insulin to levemir 18u bid, aspart 10u tid, SSI 5. PTOT 6. dvt ppx, gi ppx History of Present Illness History of Present Illness better post pericardiocentesis 02/18 low P cr normal off dobutamine drip still some sob , on NC 4-5L Vitals Vitals Vital Signs Date Time Temp Pulse Resp B/P Pulse Ox O2 Delivery O2 Flow Rate FiO2 02/21/17 11:12 98.0 72 20 123/69 92 Nasal Cannula 4.0 98.0 Physical Exam Physical Exam eye closing, follow commands on bipap General: Alert, Cooperative, moderate distress Heart: Regular rate Lungs: Other (decrease bs) Abdomen: Normal bowel sounds, Soft Extremities: No clubbing, No cyanosis, No edema Skin: No rashes, No significant lesion, Other (dry) Labs LABS Laboratory Tests Test 02/20/17 16:51 02/20/17 20:48 02/21/17 03:50 02/21/17 11:58 Glucose (Fingerstick) 263mg/dL (70-99) 187mg/dL (70-99) 242mg/dL (70-99) White Blood Count 20.4x10^3/uL (4.0-11.0) Red Blood Count 3.09x10^6/uL (3.50-5.40) Hemoglobin 9.1g/dL (12.0-15.5) Hematocrit 29.1% (36.0-47.0) Mean Corpuscular Volume 94fL (79-100) Mean Corpuscular Hemoglobin 30pg (25-35) Mean Corpuscular Hemoglobin Concent 31g/dL (31-37) Red Cell Distribution Width 17.0% (11.5-14.5) Platelet Count 443x10^3/uL (140-400) Neutrophils (%) (Auto) 80% (31-73) Lymphocytes (%) (Auto) 13% (24-48) Monocytes (%) (Auto) 6% (0-9) Eosinophils (%) (Auto) 0% (0-3) Basophils (%) (Auto) 1% (0-3) Neutrophils # (Auto) 16.4x10^3uL (1.8-7.7) Lymphocytes # (Auto) 2.6x10^3/uL (1.0-4.8) Monocytes # (Auto) 1.3x10^3/uL (0.0-1.1) Eosinophils # (Auto) 0.0x10^3/uL (0.0-0.7) Basophils # (Auto) 0.1x10^3/uL (0.0-0.2) Sodium Level 139mmol/L (136-145) Potassium Level 4.2mmol/L (3.5-5.1) Chloride Level 101mmol/L (98-107) Carbon Dioxide Level 36mmol/L (21-32) Anion Gap 2 (6-14) Blood Urea Nitrogen 20mg/dL (7-20) Creatinine 0.7mg/dL (0.6-1.0) Estimated GFR (Cockcroft-Gault) 83.7 Glucose Level 69mg/dL (70-99) Calcium Level 8.2mg/dL (8.5-10.1) Phosphorus Level 2.4mg/dL (2.6-4.7) Magnesium Level 2.3mg/dL (1.8-2.4) Creatine Kinase 49U/L (26-192) Albumin 2.4g/dL (3.4-5.0) Review of Systems Review of Systems no fever, chills, chest pain Assessment and Plan Assessmemt and Plan Problems Medical Problems: (1) Community acquired pneumonia Status: Acute (2) COPD exacerbation Status: Acute Problems: Comment Review of Relevant I have reviewed the following items luke (where applicable) has been applied. Labs Laboratory Tests Test 02/19/17 17:07 02/19/17 20:50 02/20/17 04:40 02/20/17 07:55 Glucose (Fingerstick) 323mg/dL (70-99) 227mg/dL (70-99) 100mg/dL (70-99) White Blood Count 21.7x10^3/uL (4.0-11.0) Red Blood Count 2.91x10^6/uL (3.50-5.40) Hemoglobin 8.9g/dL (12.0-15.5) Hematocrit 26.7% (36.0-47.0) Mean Corpuscular Volume 92fL (79-100) Mean Corpuscular Hemoglobin 31pg (25-35) Mean Corpuscular Hemoglobin Concent 33g/dL (31-37) Red Cell Distribution Width 16.8% (11.5-14.5) Platelet Count 412x10^3/uL (140-400) Neutrophils (%) (Auto) 84% (31-73) Lymphocytes (%) (Auto) 9% (24-48) Monocytes (%) (Auto) 7% (0-9) Eosinophils (%) (Auto) 0% (0-3) Basophils (%) (Auto) 0% (0-3) Neutrophils # (Auto) 18.3x10^3uL (1.8-7.7) Lymphocytes # (Auto) 1.9x10^3/uL (1.0-4.8) Monocytes # (Auto) 1.5x10^3/uL (0.0-1.1) Eosinophils # (Auto) 0.0x10^3/uL (0.0-0.7) Basophils # (Auto) 0.0x10^3/uL (0.0-0.2) Sodium Level 139mmol/L (136-145) Potassium Level 4.2mmol/L (3.5-5.1) Chloride Level 100mmol/L (98-107) Carbon Dioxide Level 37mmol/L (21-32) Anion Gap 2 (6-14) Blood Urea Nitrogen 34mg/dL (7-20) Creatinine 0.9mg/dL (0.6-1.0) Estimated GFR (Cockcroft-Gault) 62.6 Glucose Level 120mg/dL (70-99) Uric Acid 5.5mg/dL (2.6-6.0) Calcium Level 8.4mg/dL (8.5-10.1) Phosphorus Level 1.9mg/dL (2.6-4.7) Magnesium Level 2.5mg/dL (1.8-2.4) Lactate Dehydrogenase 370U/L (81-234) Creatine Kinase 89U/L (26-192) Albumin 2.5g/dL (3.4-5.0) Test 02/20/17 11:29 02/20/17 16:51 02/20/17 20:48 02/21/17 03:50 Glucose (Fingerstick) 252mg/dL (70-99) 263mg/dL (70-99) 187mg/dL (70-99) White Blood Count 20.4x10^3/uL (4.0-11.0) Red Blood Count 3.09x10^6/uL (3.50-5.40) Hemoglobin 9.1g/dL (12.0-15.5) Hematocrit 29.1% (36.0-47.0) Mean Corpuscular Volume 94fL (79-100) Mean Corpuscular Hemoglobin 30pg (25-35) Mean Corpuscular Hemoglobin Concent 31g/dL (31-37) Red Cell Distribution Width 17.0% (11.5-14.5) Platelet Count 443x10^3/uL (140-400) Neutrophils (%) (Auto) 80% (31-73) Lymphocytes (%) (Auto) 13% (24-48) Monocytes (%) (Auto) 6% (0-9) Eosinophils (%) (Auto) 0% (0-3) Basophils (%) (Auto) 1% (0-3) Neutrophils # (Auto) 16.4x10^3uL (1.8-7.7) Lymphocytes # (Auto) 2.6x10^3/uL (1.0-4.8) Monocytes # (Auto) 1.3x10^3/uL (0.0-1.1) Eosinophils # (Auto) 0.0x10^3/uL (0.0-0.7) Basophils # (Auto) 0.1x10^3/uL (0.0-0.2) Sodium Level 139mmol/L (136-145) Potassium Level 4.2mmol/L (3.5-5.1) Chloride Level 101mmol/L (98-107) Carbon Dioxide Level 36mmol/L (21-32) Anion Gap 2 (6-14) Blood Urea Nitrogen 20mg/dL (7-20) Creatinine 0.7mg/dL (0.6-1.0) Estimated GFR (Cockcroft-Gault) 83.7 Glucose Level 69mg/dL (70-99) Calcium Level 8.2mg/dL (8.5-10.1) Phosphorus Level 2.4mg/dL (2.6-4.7) Magnesium Level 2.3mg/dL (1.8-2.4) Creatine Kinase 49U/L (26-192) Albumin 2.4g/dL (3.4-5.0) Test 02/21/17 11:58 Glucose (Fingerstick) 242mg/dL (70-99) Laboratory Tests Test 02/20/17 16:51 02/20/17 20:48 02/21/17 03:50 02/21/17 11:58 Glucose (Fingerstick) 263mg/dL (70-99) 187mg/dL (70-99) 242mg/dL (70-99) White Blood Count 20.4x10^3/uL (4.0-11.0) Red Blood Count 3.09x10^6/uL (3.50-5.40) Hemoglobin 9.1g/dL (12.0-15.5) Hematocrit 29.1% (36.0-47.0) Mean Corpuscular Volume 94fL (79-100) Mean Corpuscular Hemoglobin 30pg (25-35) Mean Corpuscular Hemoglobin Concent 31g/dL (31-37) Red Cell Distribution Width 17.0% (11.5-14.5) Platelet Count 443x10^3/uL (140-400) Neutrophils (%) (Auto) 80% (31-73) Lymphocytes (%) (Auto) 13% (24-48) Monocytes (%) (Auto) 6% (0-9) Eosinophils (%) (Auto) 0% (0-3) Basophils (%) (Auto) 1% (0-3) Neutrophils # (Auto) 16.4x10^3uL (1.8-7.7) Lymphocytes # (Auto) 2.6x10^3/uL (1.0-4.8) Monocytes # (Auto) 1.3x10^3/uL (0.0-1.1) Eosinophils # (Auto) 0.0x10^3/uL (0.0-0.7) Basophils # (Auto) 0.1x10^3/uL (0.0-0.2) Sodium Level 139mmol/L (136-145) Potassium Level 4.2mmol/L (3.5-5.1) Chloride Level 101mmol/L (98-107) Carbon Dioxide Level 36mmol/L (21-32) Anion Gap 2 (6-14) Blood Urea Nitrogen 20mg/dL (7-20) Creatinine 0.7mg/dL (0.6-1.0) Estimated GFR (Cockcroft-Gault) 83.7 Glucose Level 69mg/dL (70-99) Calcium Level 8.2mg/dL (8.5-10.1) Phosphorus Level 2.4mg/dL (2.6-4.7) Magnesium Level 2.3mg/dL (1.8-2.4) Creatine Kinase 49U/L (26-192) Albumin 2.4g/dL (3.4-5.0) Microbiology 02/17/17 Blood Culture - Preliminary, Resulted NO GROWTH AFTER 4 DAYS 02/18/17 Gram Stain - Final, Complete Medications Current Medications Albuterol/ Ipratropium (Duoneb) 3 ml 1X ONCE NEB Last administered on 07:46; Start 02/17/17 at 07:45; Stop 02/17/17 at 07:46; Status DC Albuterol/ Ipratropium (Duoneb) 3 ml STK-MED ONCE .ROUTE ; Start 02/17/17 at 07: 40; Stop 02/17/17 at 07:41; Status DC Albuterol Sulfate (Ventolin Neb Soln) 10 mg 1X ONCE CONT NEB Last administered on 02/17/17 08:02; Start 02/17/17 at 08:00; Stop 02/17/17 at 08:01 ; Status DC Methylprednisolone Sodium Succinate 60 mg 60 mg 1X ONCE IV Last administered on 02/17/17 08:49; Start 02/17/17 at 08:00; Stop 02/17/17 at 08:06; Status DC Ceftriaxone Sodium 50 ml @ 100 mls/hr 1X ONCE IV Last administered on 08:50; Start 02/17/17 at 08:15; Stop 02/17/17 at 08:44; Status DC Doxycycline Hyclate 100 mg/ Dextrose 100 ml @ 50 mls/hr 1X ONCE IV Last administered on 02/17/17 08:50; Start 02/17/17 at 08:15; Stop 02/17/17 at 10:14 ; Status DC Ceftriaxone Sodium 50 ml @ 100 mls/hr DAILY IV ; Start 02/18/17 at 09:00; Status UNV Doxycycline Hyclate 100 mg/ Dextrose 100 ml @ 50 mls/hr BID IV Last administered on 02/19/17 21:36; Start 02/17/17 at 21:00; Stop 02/20/17 at 09:34 ; Status DC Ceftriaxone Sodium/Sodium Chloride (Rocephin/Iv Sodium Chloride 0.9% 50ml) 50 ml @ 100 mls/hr Q24H IV Last administered on 02/21/17 09:25; Start 02/18/17 at 09:00 Insulin Aspart (Novolog) 0-7 UNITS TIDWMEALS SQ Last administered on 02/20/17 17:46; Start 02/17/17 at 12:00 Dextrose 12.5 gm 12.5 gm PRN Q15MIN PRN IV SEE COMMENTS; Start 02/17/17 at 10: 00 Magnesium Sulfate/ Dextrose (Magnesium Sulfate PREMIX 2GM) 50 ml @ 25 mls/hr PRN DAILY PRN IV for Mag < 1.7 on am labs; Start 02/17/17 at 14:45 Sodium Polystyrene Sulfonate 45 gm 45 gm 1X ONCE PO Last administered on 22:21; Start 02/17/17 at 15:30; Stop 02/17/17 at 15:31; Status DC Sodium Chloride (Iv Sodium Chloride 0.9% 500ml Bag) 500 ml @ 0 mls/hr PRN QID PRN IV UO< 30cc/hr over previous 6hrs; Start 02/17/17 at 15:00 Sodium Bicarbonate 50 meq 50 meq 1X ONCE IV Last administered on 02/17/17 15: 46; Start 02/17/17 at 15:30; Stop 02/17/17 at 15:35; Status DC Sodium Chloride (Iv Sodium Chloride 0.9% 1000ml Bag) 1,000 ml @ 75 mls/hr 1X ONCE IV Last administered on 02/17/17 16:11; Start 02/17/17 at 15:45; Stop at 05:04; Status DC Prednisone (Prednisone) 60 mg DAILY07 PO Last administered on 02/20/17 09:29; Start 02/18/17 at 07:00; Stop 02/20/17 at 12:45; Status DC Alprazolam (Xanax) 1 mg PRN Q8HRS PRN PO ANXIETY / AGITATION Last administered on 02/17/17 22:13; Start 02/17/17 at 15:45 Aspirin (Ecotrin) 81 mg DAILY PO Last administered on 02/21/17 09:19; Start at 09:00 Cilostazol (Pletal) 50 mg BID PO Last administered on 02/21/17 09:22; Start at 21:00 Citalopram Hydrobromide (Celexa) 20 mg DAILY PO Last administered on 02/21/17 09:22; Start 02/18/17 at 09:00 Dabigatran (Pradaxa) 75 mg BID PO Last administered on 02/20/17 09:28; Start 02/17/17 at 21:00; Stop 02/20/17 at 15:48; Status DC Digoxin (Lanoxin) 125 mcg DAILY PO Last administered on 02/21/17 09:20; Start 02/18/17 at 09:00 Diphenhydramine HCl (Benadryl) 25 mg QHS PO Last administered on 02/20/17 20: 59; Start 02/17/17 at 21:00 Guaifenesin (Mucinex) 600 mg BID PO Last administered on 02/21/17 09:22; Start 02/17/17 at 21:00 Acetaminophen/ Hydrocodone Bitart (Lortab 7.5/325) 1 tab QID PO Last administered on 02/21/17 09:23; Start 02/17/17 at 17:00 Morphine Sulfate (Ms Contin) 30 mg TID PO Last administered on 02/21/17 09:23 ; Start 02/17/17 at 21:00 Propafenone HCl (Rythmol) 150 mg BID PO Last administered on 02/21/17 09:24; Start 02/17/17 at 21:00 Trimethoprim/ Sulfamethoxazole (Bactrim Ds) 1 tab DAILY PO ; Start 02/17/17 at 21:00; Stop 02/18/17 at 08:22; Status DC Vitamin B Complex (Moi B) 1 tab DAILY PO Last administered on 02/21/17 09:19 ; Start 02/18/17 at 09:00 Albuterol/ Ipratropium (Duoneb) 3 ml Q4HRS NEB ; Start 02/17/17 at 16:00; Status Cancel Diltiazem HCl (Cardizem 24hr Cd) 360 mg DAILY PO Last administered on 09:22; Start 02/18/17 at 09:00 Ferrous Sulfate (Feosol) 325 mg DAILYWBKFT PO Last administered on 02/20/17 09 :28; Start 02/18/17 at 08:00 Non-Formulary Medication 1 puff BID INH ; Start 02/17/17 at 21:00; Status UNV Gabapentin (Neurontin) 900 mg BID PO Last administered on 02/21/17 09:20; Start 02/17/17 at 21:00 Insulin Detemir (Levemir) 14 units BID SQ Last administered on 02/17/17 22:12 ; Start 02/17/17 at 21:00; Stop 02/18/17 at 11:35; Status DC Non-Formulary Medication 1 each HS PO ; Start 02/17/17 at 21:00; Status UNV Budesonide (Pulmicort) 0.5 mg RTBID NEB Last administered on 02/21/17 07:54; Start 02/17/17 at 20:00 Albuterol/ Ipratropium (Duoneb) 3 ml Q4HRS W/A NEB Last administered on 07:54; Start 02/17/17 at 18:00 Insulin Aspart (Novolog) 9 units TIDAC SQ Last administered on 02/18/17 09:24 ; Start 02/17/17 at 16:30; Stop 02/18/17 at 11:36; Status DC Ondansetron HCl (Zofran) 4 mg PRN Q6HRS PRN IV NAUSEA/VOMITING Last administered on 02/17/17 21:05; Start 02/17/17 at 18:15 Furosemide 80 mg 80 mg 1X ONCE IVP ; Start 02/17/17 at 20:00; Stop 02/17/17 at 20:01; Status DC Sodium Bicarbonate 150 meq/Dextrose 1,150 ml @ 100 mls/hr [id number] IV Last administered on 02/17/17 21:11; Start 02/17/17 at 21:00; Stop 02/18/17 at 06:59 ; Status DC Sodium Bicarbonate 75 meq/Dextrose 575 ml @ 100 mls/hr Q5H45M IV ; Start at 07:00; Stop 02/18/17 at 11:59; Status DC Dobutamine HCl/ Dextrose 250 ml @ 0 mls/hr CONT PRN IV SEE I/O RECORD Last administered on 02/17/17 23:38; Start 02/17/17 at 23:00; Stop 02/20/17 at 12:45 ; Status DC Calcium Acetate 1334 mg 1,334 mg TIDWMEALS PO Last administered on 02/21/17 09 :19; Start 02/18/17 at 09:00 Sodium Chloride (Hypertonic Saline) 500 ml @ 30 mls/hr CONT PRN PRN IV see comments Last administered on 02/19/17 03:09; Start 02/18/17 at 08:15 Heparin Sodium (Porcine) (Heparin Sodium) 10,000 unit STK-MED ONCE .ROUTE ; Start 02/18/17 at 09:53; Stop 02/18/17 at 09:54; Status DC Lidocaine/Sodium Bicarbonate 20 ml 20 ml STK-MED ONCE IJ ; Start 02/18/17 at 09: 53; Stop 02/18/17 at 09:54; Status DC Heparin Sodium/ Sodium Chloride 500 ml @ As Directed STK-MED ONCE .ROUTE ; Start 02/18/17 at 09:53; Stop 02/18/17 at 09:54; Status DC Heparin Sodium/ Sodium Chloride 60 unit 1X ONCE IV Last administered on 10:42; Start 02/18/17 at 10:15; Stop 02/18/17 at 10:19; Status DC Heparin Sodium (Porcine) (Heparin Sodium) 2,500 unit 1X ONCE INT CAT Last administered on 02/18/17 10:41; Start 02/18/17 at 10:15; Stop 02/18/17 at 10:19 ; Status DC Lidocaine/Sodium Bicarbonate (Buffered Lidocaine 1%) 3 ml 1X ONCE IJ Last administered on 02/18/17 10:41; Start 02/18/17 at 10:15; Stop 02/18/17 at 10:19 ; Status DC Insulin Aspart (Novolog) 10 units TIDAC SQ Last administered on 02/20/17 17:45 ; Start 02/18/17 at 12:00 Insulin Detemir 20 units 20 units BID SQ Last administered on 02/19/17 08:11; Start 02/18/17 at 21:00; Stop 02/19/17 at 12:50; Status DC Heparin Sodium/ Sodium Chloride 500 ml @ As Directed STK-MED ONCE .ROUTE ; Start 02/18/17 at 16:19; Stop 02/18/17 at 16:20; Status DC Lidocaine/ Epinephrine (Xylocaine 2%-Epi 1:100,000) 20 ml STK-MED ONCE .ROUTE ; Start 02/18/17 at 16:19; Stop 02/18/17 at 16:20; Status DC Fentanyl Citrate (Fentanyl 2ml Vial) 100 mcg STK-MED ONCE .ROUTE ; Start at 16:30; Stop 02/18/17 at 16:31; Status DC Midazolam HCl (Versed) 2 mg STK-MED ONCE .ROUTE ; Start 02/18/17 at 16:30; Stop 02/18/17 at 16:31; Status DC Heparin Sodium/ Sodium Chloride 1,000 unit 1X ONCE IART Last administered on 17:27; Start 02/18/17 at 16:45; Stop 02/18/17 at 16:46; Status DC Midazolam HCl (Versed) 2 mg 1X ONCE IV Last administered on 02/18/17 17:26; Start 02/18/17 at 16:45; Stop 02/18/17 at 16:46; Status DC Fentanyl Citrate (Fentanyl 2ml Vial) 100 mcg 1X ONCE IV Last administered on 17:27; Start 02/18/17 at 16:45; Stop 02/18/17 at 16:46; Status DC Lidocaine/ Epinephrine (Xylocaine 2%-Epi 1:100,000) 20 ml 1X ONCE IJ Last administered on 02/18/17 17:24; Start 02/18/17 at 16:45; Stop 02/18/17 at 16:46 ; Status DC Fentanyl Citrate (Fentanyl 2ml Vial) 100 mcg STK-MED ONCE .ROUTE ; Start at 16:46; Stop 02/18/17 at 16:47; Status DC Labetalol HCl (Normodyne) 20 mg STK-MED ONCE .ROUTE ; Start 02/18/17 at 16:51; Stop 02/18/17 at 16:52; Status DC Labetalol HCl (Normodyne) 10 mg 1X ONCE IVP Last administered on 02/18/17 17: 26; Start 02/18/17 at 17:00; Stop 02/18/17 at 17:01; Status DC Labetalol HCl (Normodyne) 10 mg PRN Q3HRS PRN IVP HYPERTENSION, SEE COMMENTS Last administered on 02/20/17 23:35; Start 02/18/17 at 20:15 Insulin Detemir (Levemir) 25 units BID SQ Last administered on 02/20/17 21:06 ; Start 02/19/17 at 21:00; Stop 02/21/17 at 08:44; Status DC Doxycycline Hyclate 100 mg 100 mg BID PO Last administered on 02/21/17 09:19; Start 02/20/17 at 10:00 Sodium Phosphate 20 mmol/Dextrose 256.6667 ml @ 64.167 m... 1X ONCE IV Last administered on 02/20/17 13:18; Start 02/20/17 at 10:00; Stop 02/20/17 at 13:59 ; Status DC Sodium Phosphate/ Dextrose 256.6667 ml @ 64.167 m... 1X ONCE IV Last administered on 02/20/17 17:40; Start 02/20/17 at 12:00; Stop 02/20/17 at 15:59 ; Status DC Prednisone (Prednisone) 40 mg DAILY07 PO Last administered on 02/21/17 06:58; Start 02/21/17 at 07:00 Dabigatran (Pradaxa) 150 mg BID PO Last administered on 02/21/17 09:20; Start 02/20/17 at 21:00 Insulin Detemir (Levemir) 18 units BID SQ Last administered on 02/21/17t 09:31 ; Start 02/21/17 at 09:00 Active Scripts Active Iron (Ferrous Sulfate) 325 Mg Capsule.er 325 Mg PO DAILY B Complex # 1 (Vitamin B Complex) 1 Each Tablet 1 Each PO DAILY Levaquin (Levofloxacin) 750 Mg Tablet 1 Tab PO DAILY Advair 250-50 Diskus (Fluticasone/Salmeterol) 1 Puff Puff 1 Puff INH BID Mucinex (Guaifenesin) 600 Mg Tablet.er 600 Mg PO BID Reported Prednisone 2.5 Mg Tablet 2 Tab PO DAILY Sulfamethoxazole-Tmp Ds Tablet (Sulfamethoxazole/Trimethoprim) 1 Each Tablet 1 Tab PO BID Albuterol Sulfate Conc Neb Soln (Albuterol Sulfate) 2.5 Mg/0.5 Ml Vial.neb 1 Vial NEB Q4HRS Lantus Solostar (Insulin Glargine,Hum.rec.anlog) 100 Unit/1 Ml Insuln.pen 14 Unit SQ BID Furosemide 40 Mg Tablet 1 Tab PO DAILY Mucinex (Guaifenesin) 600 Mg Tablet.er 400 Mg PO BID Xanax (Alprazolam) 1 Mg Tablet 1 Tab PO Q8HRS PRN Melatonin 10 Mg Tablet (Melatonin/Pyridoxine Hcl (B6)) 1 Each Tab.mphase 1 Each PO HS Nifedipine Er (Nifedipine) 60 Mg Tab.er.24 1 Tab PO DAILY Morphine Sulfate Er (Morphine Sulfate) 30 Mg Tablet.er 1 Tab PO TID Gabapentin 300 Mg Capsule 900 Mg PO QID Furosemide 20 Mg Tablet 1.5 Tab PO DAILY Cardizem Cd (Diltiazem Hcl) 360 Mg Cap.er.24h 1 Cap PO DAILY Next dose: 05/14 Rythmol (Propafenone Hcl) 150 Mg Tablet 150 Mg PO BID Next dose: 05/13 in pm Benadryl (Diphenhydramine Hcl) 25 Mg Capsule 2 Cap PO QHS Next dose: 05/14 Novolog (Insulin Aspart) 100 Unit/1 Ml Vial 100 Unit SQ Next dose: 05/13 at dinner Lantus (Insulin Glargine,Hum.rec.anlog) 100 Unit/1 Ml Vial 1 Unit SQ Next dose: 05/13 at bedtime Hydrocodone-Apap 7.5-325 (Hydrocodone Bit/Acetaminophen) 1 Each Tablet 1 Tab PO QID Next dose: 05/14 at 1 pm Combivent Respimat Inhal (Ipratropium/Albuterol Sulfate) 4 Gm Aer.w.adap 2 Inh IH QID Spiriva (Tiotropium [place]) 18 Mcg Cap.w.dev 1 Cap IH DAILY Next dose: 05/13 Dulera 100 Mcg/5 Mcg Inhaler (Mometasone/Formoterol) 13 Gm Hfa.aer.ad 2 Puff IH BID Digoxin 125 Mcg Tablet 1 Tab PO DAILY Next dose: 05/14 Citalopram Hbr (Citalopram Hydrobromide) 20 Mg Tablet 1 Tab PO DAILY Next dose: 05/14 Aspir 81 (Aspirin) 81 Mg Tablet.dr 1 Tab PO DAILY Next dose: 05/14 Cilostazol 50 Mg Tablet 50 Mg PO BID Next dose: 05/13 in PM Pradaxa (Dabigatran Etexilate Mesylate) 150 Mg Capsule 1 Cap PO BID Next dose: 05/13 in PM Potassium Chloride 20 Meq Tablet.er 20 Meq PO DAILY Next dose: 05/14 Vitals/I & O Vital Sign - Last 24 Hours 02/20/17 02/20/17 02/20/17 02/20/17 13:19 15:00 16:36 17:41 Temp 98.1 98.1 Pulse 81 Resp 18 B/P 132/72 Pulse Ox 94 94 O2 Delivery Nasal Cannula Room Air Nasal Cannula Nasal Cannula O2 Flow Rate 5.0 5.0 4.0 5.0 02/20/17 02/20/17 02/20/17 02/20/17 19:10 19:39 19:40 20:10 Temp 98.1 98.1 Pulse 74 Resp 18 B/P 188/69 Pulse Ox 100 100 100 O2 Delivery Nasal Cannula Nasal Cannula Nasal Cannula Nasal Cannula O2 Flow Rate 5.0 4.0 4.0 5.0 02/20/17 02/20/17 02/20/17 02/20/17 20:59 21:01 21:01 22:01 Pulse 91 Resp 22 22 20 O2 Delivery Nasal Cannula Nasal Cannula O2 Flow Rate 5.0 5.0 02/20/17 02/20/17 02/20/17 02/21/17 23:10 23:11 23:19 03:10 Temp 98.6 97.8 98.6 97.8 Pulse 81 78 Resp 16 14 B/P 184/69 123/66 Pulse Ox 95 91 95 93 O2 Delivery Nasal Cannula BiPAP/CPAP BiPAP/CPAP Nasal Cannula O2 Flow Rate 5.0 5.0 02/21/17 02/21/17 02/21/17 02/21/17 07:12 07:54 08:00 09:20 Temp 97.9 97.9 Pulse 64 77 Resp 22 B/P 155/69 Pulse Ox 93 99 O2 Delivery Nasal Cannula Nasal Cannula Nasal Cannula O2 Flow Rate 5.0 4.0 5.0 02/21/17 02/21/17 02/21/17 02/21/17 09:22 09:23 09:23 09:24 Pulse 72 73 O2 Delivery Nasal Cannula Nasal Cannula O2 Flow Rate 5.0 02/21/17 02/21/17 10:23 11:12 Temp 98.0 98.0 Pulse 72 Resp 20 B/P 123/69 Pulse Ox 92 O2 Delivery Nasal Cannula Nasal Cannula O2 Flow Rate 5.0 4.0 Intake and Output 02/20/17 02/20/17 02/21/17 15:00 23:00 07:00 Output Total 1400 ml 175 ml 850 ml Balance -1400 ml -175 ml -850 ml NASIM FABIAN MD Feb 21, 2017 12:30
--- NOTE | 2017-02-21 14:48 | PDOC ---
Provider Note Provider Note Covering for Dr. Lovett. She feels much better today. Echocardiogram drainage was 800 mL on 02/18, 700 mL on 02/19, and 300 mL on 02/20. returns tomorrow. JACQUELYN COUCH MD Feb 21, 2017 14:48
[2017-02-21 15:46] VITALS: BP 123/51
[2017-02-21 19:15] VITALS: BP 137/59
[2017-02-21] MEDS: diphenhydrAMINE HCL 25 MG CAPSULE PO SCH (21:40)
[2017-02-21 23:15] VITALS: BP 138/57
[2017-02-22 03:00] VITALS: BP 137/57
[2017-02-22 04:46] LABS: BASO % 0 % (0-3); EOS % 1 % (0-3); HEMATOCRIT 32.1 % (36.0-47.0); HEMOGLOBIN 10.4 g/dL (12.0-15.5); LYMPH # 3.7 x10^3/uL (1.0-4.8); LYMPH % 20 % (24-48); MEAN CORPUSCULAR HEMOGLOBIN 30 pg (25-35); MEAN CORPUSCULAR HGB CONC 32 g/dL (31-37); MEAN CORPUSCULAR VOLUME 92 fL (79-100); MONO % 8 % (0-9); NEUT % 71 % (31-73); PLATELET COUNT 569 x10^3/uL (140-400); RED BLOOD COUNT 3.49 x10^6/uL (3.50-5.40); RED CELL DISTRIBUTION WIDTH 16.8 % (11.5-14.5); WHITE BLOOD COUNT 18.7 x10^3/uL (4.0-11.0)
[2017-02-22 05:13] LABS: ALBUMIN 2.5 g/dL (3.4-5.0); CALCIUM 8.4 mg/dL (8.5-10.1); CREATININE 0.7 mg/dL (0.6-1.0); GFR 83.7; PHOSPHORUS 2.3 mg/dL (2.6-4.7); POTASSIUM 3.7 mmol/L (3.5-5.1)
[2017-02-22] MEDS: predniSONE 20 MG TABLET PO SCH (06:36)
[2017-02-22 07:30] VITALS: BP 193/89
[2017-02-22] MEDS: INSULIN ASPART 300 UNITS/3 ML INSULN.PEN SQ SCH ×7 (07:30→17:50)
[2017-02-22] MEDS: FERROUS SULFATE 325 MG TABLET. PO SCH (08:00)
[2017-02-22] MEDS: IPRATRPIUM/ALBUTEROL 0.5/2.5MG 3 ML NEBU. NEB SCH ×4 (08:21→21:29)
[2017-02-22] MEDS: BUDESONIDE 0.5 MG/2 ML NEBU. NEB SCH ×2 (08:21→21:29)
--- NOTE | 2017-02-22 08:38 | PDOC ---
PROGRESS NOTES Chief Complaint Chief Complaint Acute hypoxic, hypercarbic respir failure ASSESSMENT AND PLAN: 1. COPD exacerbation: on doxy, nebs, steroid taper 2. Pericardiac effusion: s/p pericardiocentesis 02/18, drain in place 3. CHF: chronic diastolic 4. Afib: chronic 5. JOSE: vasomotor/ dehydration 6. Hyponatremia and hyperkalemia 7. Hypophosphatemia 8. metabolic acidosis 9. transaminitis 10. DM2: monitor with decreasing steroid dose, taper insulin 11. Chronic normocytic anemia 12. mild malnutrition 13. Prohpylaxis 14. OT/PT History of Present Illness History of Present Illness feels ok; eager to go home. CT in place, minimal drainage Vitals Vitals Vital Signs Date Time Temp Pulse Resp B/P Pulse Ox O2 Delivery O2 Flow Rate FiO2 02/22/17 08:24 95 Nasal Cannula 4.0 02/22/17 07:30 97.6 95 22 193/89 97.6 Physical Exam Physical Exam eye closing, follow commands on bipap General: Alert, Oriented X3, Cooperative, No acute distress Heart: Regular rate Lungs: Clear, Other (decrease bs) Abdomen: Normal bowel sounds, Soft, No tenderness Extremities: No clubbing, No edema Skin: No rashes, No significant lesion, Other (dry) Labs LABS Laboratory Tests Test 02/21/17 11:58 02/21/17 17:13 02/21/17 20:57 02/22/17 03:20 Glucose (Fingerstick) 242mg/dL (70-99) 266mg/dL (70-99) 124mg/dL (70-99) White Blood Count 18.7x10^3/uL (4.0-11.0) Red Blood Count 3.49x10^6/uL (3.50-5.40) Hemoglobin 10.4g/dL (12.0-15.5) Hematocrit 32.1% (36.0-47.0) Mean Corpuscular Volume 92fL (79-100) Mean Corpuscular Hemoglobin 30pg (25-35) Mean Corpuscular Hemoglobin Concent 32g/dL (31-37) Red Cell Distribution Width 16.8% (11.5-14.5) Platelet Count 569x10^3/uL (140-400) Neutrophils (%) (Auto) 71% (31-73) Lymphocytes (%) (Auto) 20% (24-48) Monocytes (%) (Auto) 8% (0-9) Eosinophils (%) (Auto) 1% (0-3) Basophils (%) (Auto) 0% (0-3) Neutrophils # (Auto) 13.3x10^3uL (1.8-7.7) Lymphocytes # (Auto) 3.7x10^3/uL (1.0-4.8) Monocytes # (Auto) 1.5x10^3/uL (0.0-1.1) Eosinophils # (Auto) 0.2x10^3/uL (0.0-0.7) Basophils # (Auto) 0.0x10^3/uL (0.0-0.2) Sodium Level 141mmol/L (136-145) Potassium Level 3.7mmol/L (3.5-5.1) Chloride Level 101mmol/L (98-107) Carbon Dioxide Level 36mmol/L (21-32) Anion Gap 4 (6-14) Blood Urea Nitrogen 18mg/dL (7-20) Creatinine 0.7mg/dL (0.6-1.0) Estimated GFR (Cockcroft-Gault) 83.7 Glucose Level 51mg/dL (70-99) Calcium Level 8.4mg/dL (8.5-10.1) Phosphorus Level 2.3mg/dL (2.6-4.7) Magnesium Level 2.0mg/dL (1.8-2.4) Creatine Kinase 36U/L (26-192) Albumin 2.5g/dL (3.4-5.0) Test 02/22/17 07:36 02/22/17 08:22 Glucose (Fingerstick) 61mg/dL (70-99) 89mg/dL (70-99) HANG LANZA MD Feb 22, 2017 08:38
[2017-02-22] MEDS: DABIGATRAN ETEXILATE 150 MG CAPSULE. PO SCH ×2 (08:42→21:38)
[2017-02-22] MEDS: CALCIUM ACETATE 667 MG CAPSULE PO SCH ×2 (08:42→12:56)
[2017-02-22] MEDS: CILOSTAZOL 50 MG TABLET. PO SCH ×2 (08:43→21:39)
[2017-02-22] MEDS: GABAPENTIN 300 MG CAPSULE. PO SCH ×2 (08:43→21:38)
[2017-02-22] MEDS: GUAIFENESIN ER 600 MG TABLET.ER PO SCH ×2 (08:43→21:37)
[2017-02-22] MEDS: MORPHINE ER 30 MG TABLET.ER PO SCH ×3 (08:43→21:38)
[2017-02-22] MEDS: HYDROCODONE/APAP 7.5/325MG TABLET. PO SCH ×4 (08:44→21:39)
[2017-02-22] MEDS: DOXYCYCLINE HYCLATE 100 MG TABLET PO SCH ×2 (08:44→21:37)
[2017-02-22] MEDS: CITALOPRAM 20 MG TABLET. PO SCH (08:44)
[2017-02-22] MEDS: DILTIAZEM HCL 180 MG CAP.ER.24H PO SCH (08:46)
[2017-02-22] MEDS: PROPAFENONE 150 MG TABLET. PO SCH ×2 (08:46→21:39)
[2017-02-22] MEDS: VITAMIN B COMPLEX TABLET. PO SCH (08:47)
[2017-02-22] MEDS: DIGOXIN 125 MCG TABLET. PO SCH (08:47)
[2017-02-22] MEDS: ASPIRIN ENTERIC COATED 81 MG TABLET.DR. PO SCH (08:53)
[2017-02-22] MEDS: CEFTRIAXONE SODIUM 1 GM in IV NORMAL SALINE 50ML 50 ML IV SCH (08:54)
[2017-02-22] MEDS: INSULIN DETEMIR 300 UNITS/3 ML INSULN.PEN. SQ SCH ×2 (09:00→21:45)
[2017-02-22 11:00] VITALS: BP 102/66
--- NOTE | 2017-02-22 12:56 | PDOC ---
PROGRESS NOTES Subjective Subjective Patient had some SOB overnight. She attributed to pain from catheter incision site and from sitting up for nearly 12 hours. SOB resolved. No pain. No cardiac complaints. Objective Objective Vital Signs Date Time Temp Pulse Resp B/P Pulse Ox O2 Delivery O2 Flow Rate FiO2 02/22/17 11:51 Nasal Cannula 4.0 02/22/17 11:00 98.1 66 18 102/66 92 98.1 Intake and Output 02/22/17 07:00 Intake Total 945 ml Output Total 2705 ml Balance -1760 ml Intake Oral 945 ml Output Urine Total 2675 ml Drainage Total 25 ml Other 5 ml # Bowel Movements 1 Physical Exam Physical Exam Unchanged cardiac exam. CDI dressing substernally. Assessment Assessment Problems Medical Problems: (1) Community acquired pneumonia Status: Acute (2) COPD exacerbation Status: Acute Plan Plan of Care Pericardial catheter removed today (800 mL blood removed day 1; 700 mL removed day 2; 250 mL removed day 3; 5 mL removed day 4) Monitor vitals closely Repeat CXR today Repeat echo and CXR tomorrow Comment Review of Relevant I have reviewed the following items luke (where applicable) has been applied. Labs Laboratory Tests Test 02/20/17 16:51 02/20/17 20:48 02/21/17 03:50 02/21/17 11:58 Glucose (Fingerstick) 263mg/dL (70-99) 187mg/dL (70-99) 242mg/dL (70-99) White Blood Count 20.4x10^3/uL (4.0-11.0) Red Blood Count 3.09x10^6/uL (3.50-5.40) Hemoglobin 9.1g/dL (12.0-15.5) Hematocrit 29.1% (36.0-47.0) Mean Corpuscular Volume 94fL (79-100) Mean Corpuscular Hemoglobin 30pg (25-35) Mean Corpuscular Hemoglobin Concent 31g/dL (31-37) Red Cell Distribution Width 17.0% (11.5-14.5) Platelet Count 443x10^3/uL (140-400) Neutrophils (%) (Auto) 80% (31-73) Lymphocytes (%) (Auto) 13% (24-48) Monocytes (%) (Auto) 6% (0-9) Eosinophils (%) (Auto) 0% (0-3) Basophils (%) (Auto) 1% (0-3) Neutrophils # (Auto) 16.4x10^3uL (1.8-7.7) Lymphocytes # (Auto) 2.6x10^3/uL (1.0-4.8) Monocytes # (Auto) 1.3x10^3/uL (0.0-1.1) Eosinophils # (Auto) 0.0x10^3/uL (0.0-0.7) Basophils # (Auto) 0.1x10^3/uL (0.0-0.2) Sodium Level 139mmol/L (136-145) Potassium Level 4.2mmol/L (3.5-5.1) Chloride Level 101mmol/L (98-107) Carbon Dioxide Level 36mmol/L (21-32) Anion Gap 2 (6-14) Blood Urea Nitrogen 20mg/dL (7-20) Creatinine 0.7mg/dL (0.6-1.0) Estimated GFR (Cockcroft-Gault) 83.7 Glucose Level 69mg/dL (70-99) Calcium Level 8.2mg/dL (8.5-10.1) Phosphorus Level 2.4mg/dL (2.6-4.7) Magnesium Level 2.3mg/dL (1.8-2.4) Creatine Kinase 49U/L (26-192) Albumin 2.4g/dL (3.4-5.0) Test 02/21/17 17:13 02/21/17 20:57 02/22/17 03:20 02/22/17 07:36 Glucose (Fingerstick) 266mg/dL (70-99) 124mg/dL (70-99) 61mg/dL (70-99) White Blood Count 18.7x10^3/uL (4.0-11.0) Red Blood Count 3.49x10^6/uL (3.50-5.40) Hemoglobin 10.4g/dL (12.0-15.5) Hematocrit 32.1% (36.0-47.0) Mean Corpuscular Volume 92fL (79-100) Mean Corpuscular Hemoglobin 30pg (25-35) Mean Corpuscular Hemoglobin Concent 32g/dL (31-37) Red Cell Distribution Width 16.8% (11.5-14.5) Platelet Count 569x10^3/uL (140-400) Neutrophils (%) (Auto) 71% (31-73) Lymphocytes (%) (Auto) 20% (24-48) Monocytes (%) (Auto) 8% (0-9) Eosinophils (%) (Auto) 1% (0-3) Basophils (%) (Auto) 0% (0-3) Neutrophils # (Auto) 13.3x10^3uL (1.8-7.7) Lymphocytes # (Auto) 3.7x10^3/uL (1.0-4.8) Monocytes # (Auto) 1.5x10^3/uL (0.0-1.1) Eosinophils # (Auto) 0.2x10^3/uL (0.0-0.7) Basophils # (Auto) 0.0x10^3/uL (0.0-0.2) Sodium Level 141mmol/L (136-145) Potassium Level 3.7mmol/L (3.5-5.1) Chloride Level 101mmol/L (98-107) Carbon Dioxide Level 36mmol/L (21-32) Anion Gap 4 (6-14) Blood Urea Nitrogen 18mg/dL (7-20) Creatinine 0.7mg/dL (0.6-1.0) Estimated GFR (Cockcroft-Gault) 83.7 Glucose Level 51mg/dL (70-99) Calcium Level 8.4mg/dL (8.5-10.1) Phosphorus Level 2.3mg/dL (2.6-4.7) Magnesium Level 2.0mg/dL (1.8-2.4) Creatine Kinase 36U/L (26-192) Albumin 2.5g/dL (3.4-5.0) Test 02/22/17 08:22 02/22/17 09:50 02/22/17 12:19 Glucose (Fingerstick) 89mg/dL (70-99) 183mg/dL (70-99) 181mg/dL (70-99) Laboratory Tests Test 02/21/17 17:13 02/21/17 20:57 02/22/17 03:20 02/22/17 07:36 Glucose (Fingerstick) 266mg/dL (70-99) 124mg/dL (70-99) 61mg/dL (70-99) White Blood Count 18.7x10^3/uL (4.0-11.0) Red Blood Count 3.49x10^6/uL (3.50-5.40) Hemoglobin 10.4g/dL (12.0-15.5) Hematocrit 32.1% (36.0-47.0) Mean Corpuscular Volume 92fL (79-100) Mean Corpuscular Hemoglobin 30pg (25-35) Mean Corpuscular Hemoglobin Concent 32g/dL (31-37) Red Cell Distribution Width 16.8% (11.5-14.5) Platelet Count 569x10^3/uL (140-400) Neutrophils (%) (Auto) 71% (31-73) Lymphocytes (%) (Auto) 20% (24-48) Monocytes (%) (Auto) 8% (0-9) Eosinophils (%) (Auto) 1% (0-3) Basophils (%) (Auto) 0% (0-3) Neutrophils # (Auto) 13.3x10^3uL (1.8-7.7) Lymphocytes # (Auto) 3.7x10^3/uL (1.0-4.8) Monocytes # (Auto) 1.5x10^3/uL (0.0-1.1) Eosinophils # (Auto) 0.2x10^3/uL (0.0-0.7) Basophils # (Auto) 0.0x10^3/uL (0.0-0.2) Sodium Level 141mmol/L (136-145) Potassium Level 3.7mmol/L (3.5-5.1) Chloride Level 101mmol/L (98-107) Carbon Dioxide Level 36mmol/L (21-32) Anion Gap 4 (6-14) Blood Urea Nitrogen 18mg/dL (7-20) Creatinine 0.7mg/dL (0.6-1.0) Estimated GFR (Cockcroft-Gault) 83.7 Glucose Level 51mg/dL (70-99) Calcium Level 8.4mg/dL (8.5-10.1) Phosphorus Level 2.3mg/dL (2.6-4.7) Magnesium Level 2.0mg/dL (1.8-2.4) Creatine Kinase 36U/L (26-192) Albumin 2.5g/dL (3.4-5.0) Test 02/22/17 08:22 02/22/17 09:50 02/22/17 12:19 Glucose (Fingerstick) 89mg/dL (70-99) 183mg/dL (70-99) 181mg/dL (70-99) Microbiology 02/17/17 Blood Culture - Final, Complete NO GROWTH AFTER 5 DAYS 02/18/17 Gram Stain - Final, Complete Medications Current Medications Albuterol/ Ipratropium (Duoneb) 3 ml 1X ONCE NEB Last administered on 07:46; Start 02/17/17 at 07:45; Stop 02/17/17 at 07:46; Status DC Albuterol/ Ipratropium (Duoneb) 3 ml STK-MED ONCE .ROUTE ; Start 02/17/17 at 07: 40; Stop 02/17/17 at 07:41; Status DC Albuterol Sulfate (Ventolin Neb Soln) 10 mg 1X ONCE CONT NEB Last administered on 02/17/17 08:02; Start 02/17/17 at 08:00; Stop 02/17/17 at 08:01 ; Status DC Methylprednisolone Sodium Succinate 60 mg 60 mg 1X ONCE IV Last administered on 02/17/17 08:49; Start 02/17/17 at 08:00; Stop 02/17/17 at 08:06; Status DC Ceftriaxone Sodium 50 ml @ 100 mls/hr 1X ONCE IV Last administered on 08:50; Start 02/17/17 at 08:15; Stop 02/17/17 at 08:44; Status DC Doxycycline Hyclate 100 mg/ Dextrose 100 ml @ 50 mls/hr 1X ONCE IV Last administered on 02/17/17 08:50; Start 02/17/17 at 08:15; Stop 02/17/17 at 10:14 ; Status DC Ceftriaxone Sodium 50 ml @ 100 mls/hr DAILY IV ; Start 02/18/17 at 09:00; Status UNV Doxycycline Hyclate 100 mg/ Dextrose 100 ml @ 50 mls/hr BID IV Last administered on 02/19/17 21:36; Start 02/17/17 at 21:00; Stop 02/20/17 at 09:34 ; Status DC Ceftriaxone Sodium/Sodium Chloride (Rocephin/Iv Sodium Chloride 0.9% 50ml) 50 ml @ 100 mls/hr Q24H IV Last administered on 02/22/17 08:54; Start 02/18/17 at 09:00 Insulin Aspart (Novolog) 0-7 UNITS TIDWMEALS SQ Last administered on 02/22/17 10:09; Start 02/17/17 at 12:00 Dextrose 12.5 gm 12.5 gm PRN Q15MIN PRN IV SEE COMMENTS; Start 02/17/17 at 10: 00 Magnesium Sulfate/ Dextrose (Magnesium Sulfate PREMIX 2GM) 50 ml @ 25 mls/hr PRN DAILY PRN IV for Mag < 1.7 on am labs; Start 02/17/17 at 14:45 Sodium Polystyrene Sulfonate 45 gm 45 gm 1X ONCE PO Last administered on 22:21; Start 02/17/17 at 15:30; Stop 02/17/17 at 15:31; Status DC Sodium Chloride (Iv Sodium Chloride 0.9% 500ml Bag) 500 ml @ 0 mls/hr PRN QID PRN IV UO< 30cc/hr over previous 6hrs; Start 02/17/17 at 15:00 Sodium Bicarbonate 50 meq 50 meq 1X ONCE IV Last administered on 02/17/17 15: 46; Start 02/17/17 at 15:30; Stop 02/17/17 at 15:35; Status DC Sodium Chloride (Iv Sodium Chloride 0.9% 1000ml Bag) 1,000 ml @ 75 mls/hr 1X ONCE IV Last administered on 02/17/17 16:11; Start 02/17/17 at 15:45; Stop at 05:04; Status DC Prednisone (Prednisone) 60 mg DAILY07 PO Last administered on 02/20/17 09:29; Start 02/18/17 at 07:00; Stop 02/20/17 at 12:45; Status DC Alprazolam (Xanax) 1 mg PRN Q8HRS PRN PO ANXIETY / AGITATION Last administered on 02/17/17 22:13; Start 02/17/17 at 15:45 Aspirin (Ecotrin) 81 mg DAILY PO Last administered on 02/22/17 08:53; Start at 09:00 Cilostazol (Pletal) 50 mg BID PO Last administered on 02/22/17 08:43; Start at 21:00 Citalopram Hydrobromide (Celexa) 20 mg DAILY PO Last administered on 02/22/17 08:44; Start 02/18/17 at 09:00 Dabigatran (Pradaxa) 75 mg BID PO Last administered on 02/20/17 09:28; Start 02/17/17 at 21:00; Stop 02/20/17 at 15:48; Status DC Digoxin (Lanoxin) 125 mcg DAILY PO Last administered on 02/22/17 08:47; Start 02/18/17 at 09:00 Diphenhydramine HCl (Benadryl) 25 mg QHS PO Last administered on 02/21/17 21: 40; Start 02/17/17 at 21:00 Guaifenesin (Mucinex) 600 mg BID PO Last administered on 02/22/17 08:43; Start 02/17/17 at 21:00 Acetaminophen/ Hydrocodone Bitart (Lortab 7.5/325) 1 tab QID PO Last administered on 02/22/17 08:44; Start 02/17/17 at 17:00 Morphine Sulfate (Ms Contin) 30 mg TID PO Last administered on 02/22/17 08:43 ; Start 02/17/17 at 21:00 Propafenone HCl (Rythmol) 150 mg BID PO Last administered on 02/22/17 08:46; Start 02/17/17 at 21:00 Trimethoprim/ Sulfamethoxazole (Bactrim Ds) 1 tab DAILY PO ; Start 02/17/17 at 21:00; Stop 02/18/17 at 08:22; Status DC Vitamin B Complex (Moi B) 1 tab DAILY PO Last administered on 02/22/17 08:47 ; Start 02/18/17 at 09:00 Albuterol/ Ipratropium (Duoneb) 3 ml Q4HRS NEB ; Start 02/17/17 at 16:00; Status Cancel Diltiazem HCl (Cardizem 24hr Cd) 360 mg DAILY PO Last administered on 08:46; Start 02/18/17 at 09:00 Ferrous Sulfate (Feosol) 325 mg DAILYWBKFT PO Last administered on 02/20/17 09 :28; Start 02/18/17 at 08:00 Non-Formulary Medication 1 puff BID INH ; Start 02/17/17 at 21:00; Status UNV Gabapentin (Neurontin) 900 mg BID PO Last administered on 02/22/17 08:43; Start 02/17/17 at 21:00 Insulin Detemir (Levemir) 14 units BID SQ Last administered on 02/17/17 22:12 ; Start 02/17/17 at 21:00; Stop 02/18/17 at 11:35; Status DC Non-Formulary Medication 1 each HS PO ; Start 02/17/17 at 21:00; Status UNV Budesonide (Pulmicort) 0.5 mg RTBID NEB Last administered on 02/22/17 08:21; Start 02/17/17 at 20:00 Albuterol/ Ipratropium (Duoneb) 3 ml Q4HRS W/A NEB Last administered on 11:51; Start 02/17/17 at 18:00 Insulin Aspart (Novolog) 9 units TIDAC SQ Last administered on 02/18/17 09:24 ; Start 02/17/17 at 16:30; Stop 02/18/17 at 11:36; Status DC Ondansetron HCl (Zofran) 4 mg PRN Q6HRS PRN IV NAUSEA/VOMITING Last administered on 02/17/17 21:05; Start 02/17/17 at 18:15 Furosemide 80 mg 80 mg 1X ONCE IVP ; Start 02/17/17 at 20:00; Stop 02/17/17 at 20:01; Status DC Sodium Bicarbonate 150 meq/Dextrose 1,150 ml @ 100 mls/hr [id number] IV Last administered on 02/17/17 21:11; Start 02/17/17 at 21:00; Stop 02/18/17 at 06:59 ; Status DC Sodium Bicarbonate 75 meq/Dextrose 575 ml @ 100 mls/hr Q5H45M IV ; Start at 07:00; Stop 02/18/17 at 11:59; Status DC Dobutamine HCl/ Dextrose 250 ml @ 0 mls/hr CONT PRN IV SEE I/O RECORD Last administered on 02/17/17 23:38; Start 02/17/17 at 23:00; Stop 02/20/17 at 12:45 ; Status DC Calcium Acetate 1334 mg 1,334 mg TIDWMEALS PO Last administered on 02/22/17 08 :42; Start 02/18/17 at 09:00 Sodium Chloride (Hypertonic Saline) 500 ml @ 30 mls/hr CONT PRN PRN IV see comments Last administered on 02/19/17 03:09; Start 02/18/17 at 08:15 Heparin Sodium (Porcine) (Heparin Sodium) 10,000 unit STK-MED ONCE .ROUTE ; Start 02/18/17 at 09:53; Stop 02/18/17 at 09:54; Status DC Lidocaine/Sodium Bicarbonate 20 ml 20 ml STK-MED ONCE IJ ; Start 02/18/17 at 09: 53; Stop 02/18/17 at 09:54; Status DC Heparin Sodium/ Sodium Chloride 500 ml @ As Directed STK-MED ONCE .ROUTE ; Start 02/18/17 at 09:53; Stop 02/18/17 at 09:54; Status DC Heparin Sodium/ Sodium Chloride 60 unit 1X ONCE IV Last administered on 10:42; Start 02/18/17 at 10:15; Stop 02/18/17 at 10:19; Status DC Heparin Sodium (Porcine) (Heparin Sodium) 2,500 unit 1X ONCE INT CAT Last administered on 02/18/17 10:41; Start 02/18/17 at 10:15; Stop 02/18/17 at 10:19 ; Status DC Lidocaine/Sodium Bicarbonate (Buffered Lidocaine 1%) 3 ml 1X ONCE IJ Last administered on 02/18/17 10:41; Start 02/18/17 at 10:15; Stop 02/18/17 at 10:19 ; Status DC Insulin Aspart (Novolog) 10 units TIDAC SQ Last administered on 02/21/17 17:55 ; Start 02/18/17 at 12:00 Insulin Detemir 20 units 20 units BID SQ Last administered on 02/19/17 08:11; Start 02/18/17 at 21:00; Stop 02/19/17 at 12:50; Status DC Heparin Sodium/ Sodium Chloride 500 ml @ As Directed STK-MED ONCE .ROUTE ; Start 02/18/17 at 16:19; Stop 02/18/17 at 16:20; Status DC Lidocaine/ Epinephrine (Xylocaine 2%-Epi 1:100,000) 20 ml STK-MED ONCE .ROUTE ; Start 02/18/17 at 16:19; Stop 02/18/17 at 16:20; Status DC Fentanyl Citrate (Fentanyl 2ml Vial) 100 mcg STK-MED ONCE .ROUTE ; Start at 16:30; Stop 02/18/17 at 16:31; Status DC Midazolam HCl (Versed) 2 mg STK-MED ONCE .ROUTE ; Start 02/18/17 at 16:30; Stop 02/18/17 at 16:31; Status DC Heparin Sodium/ Sodium Chloride 1,000 unit 1X ONCE IART Last administered on 17:27; Start 02/18/17 at 16:45; Stop 02/18/17 at 16:46; Status DC Midazolam HCl (Versed) 2 mg 1X ONCE IV Last administered on 02/18/17 17:26; Start 02/18/17 at 16:45; Stop 02/18/17 at 16:46; Status DC Fentanyl Citrate (Fentanyl 2ml Vial) 100 mcg 1X ONCE IV Last administered on 17:27; Start 02/18/17 at 16:45; Stop 02/18/17 at 16:46; Status DC Lidocaine/ Epinephrine (Xylocaine 2%-Epi 1:100,000) 20 ml 1X ONCE IJ Last administered on 02/18/17 17:24; Start 02/18/17 at 16:45; Stop 02/18/17 at 16:46 ; Status DC Fentanyl Citrate (Fentanyl 2ml Vial) 100 mcg STK-MED ONCE .ROUTE ; Start at 16:46; Stop 02/18/17 at 16:47; Status DC Labetalol HCl (Normodyne) 20 mg STK-MED ONCE .ROUTE ; Start 02/18/17 at 16:51; Stop 02/18/17 at 16:52; Status DC Labetalol HCl (Normodyne) 10 mg 1X ONCE IVP Last administered on 02/18/17 17: 26; Start 02/18/17 at 17:00; Stop 02/18/17 at 17:01; Status DC Labetalol HCl (Normodyne) 10 mg PRN Q3HRS PRN IVP HYPERTENSION, SEE COMMENTS Last administered on 02/20/17 23:35; Start 02/18/17 at 20:15 Insulin Detemir (Levemir) 25 units BID SQ Last administered on 02/20/17 21:06 ; Start 02/19/17 at 21:00; Stop 02/21/17 at 08:44; Status DC Doxycycline Hyclate 100 mg 100 mg BID PO Last administered on 02/22/17 08:44; Start 02/20/17 at 10:00 Sodium Phosphate 20 mmol/Dextrose 256.6667 ml @ 64.167 m... 1X ONCE IV Last administered on 02/20/17 13:18; Start 02/20/17 at 10:00; Stop 02/20/17 at 13:59 ; Status DC Sodium Phosphate/ Dextrose 256.6667 ml @ 64.167 m... 1X ONCE IV Last administered on 02/20/17 17:40; Start 02/20/17 at 12:00; Stop 02/20/17 at 15:59 ; Status DC Prednisone (Prednisone) 40 mg DAILY07 PO Last administered on 02/22/17 06:36; Start 02/21/17 at 07:00 Dabigatran (Pradaxa) 150 mg BID PO Last administered on 02/22/17 08:42; Start 02/20/17 at 21:00 Insulin Detemir (Levemir) 18 units BID SQ Last administered on 02/21/17 21:48 ; Start 02/21/17 at 09:00 Info (Anti-Coagulation Monitoring By Pharmacy) 1 each PRN DAILY PRN MC SEE COMMENTS; Start 02/22/17 at 08:30 Active Scripts Active Iron (Ferrous Sulfate) 325 Mg Capsule.er 325 Mg PO DAILY B Complex # 1 (Vitamin B Complex) 1 Each Tablet 1 Each PO DAILY Levaquin (Levofloxacin) 750 Mg Tablet 1 Tab PO DAILY Advair 250-50 Diskus (Fluticasone/Salmeterol) 1 Puff Puff 1 Puff INH BID Mucinex (Guaifenesin) 600 Mg Tablet.er 600 Mg PO BID Reported Prednisone 2.5 Mg Tablet 2 Tab PO DAILY Sulfamethoxazole-Tmp Ds Tablet (Sulfamethoxazole/Trimethoprim) 1 Each Tablet 1 Tab PO BID Albuterol Sulfate Conc Neb Soln (Albuterol Sulfate) 2.5 Mg/0.5 Ml Vial.neb 1 Vial NEB Q4HRS Lantus Solostar (Insulin Glargine,Hum.rec.anlog) 100 Unit/1 Ml Insuln.pen 14 Unit SQ BID Furosemide 40 Mg Tablet 1 Tab PO DAILY Mucinex (Guaifenesin) 600 Mg Tablet.er 400 Mg PO BID Xanax (Alprazolam) 1 Mg Tablet 1 Tab PO Q8HRS PRN Melatonin 10 Mg Tablet (Melatonin/Pyridoxine Hcl (B6)) 1 Each Tab.mphase 1 Each PO HS Nifedipine Er (Nifedipine) 60 Mg Tab.er.24 1 Tab PO DAILY Morphine Sulfate Er (Morphine Sulfate) 30 Mg Tablet.er 1 Tab PO TID Gabapentin 300 Mg Capsule 900 Mg PO QID Furosemide 20 Mg Tablet 1.5 Tab PO DAILY Cardizem Cd (Diltiazem Hcl) 360 Mg Cap.er.24h 1 Cap PO DAILY Next dose: 05/14 Rythmol (Propafenone Hcl) 150 Mg Tablet 150 Mg PO BID Next dose: 05/13 in pm Benadryl (Diphenhydramine Hcl) 25 Mg Capsule 2 Cap PO QHS Next dose: 05/14 Novolog (Insulin Aspart) 100 Unit/1 Ml Vial 100 Unit SQ Next dose: 05/13 at dinner Lantus (Insulin Glargine,Hum.rec.anlog) 100 Unit/1 Ml Vial 1 Unit SQ Next dose: 05/13 at bedtime Hydrocodone-Apap 7.5-325 (Hydrocodone Bit/Acetaminophen) 1 Each Tablet 1 Tab PO QID Next dose: 05/14 at 1 pm Combivent Respimat Inhal (Ipratropium/Albuterol Sulfate) 4 Gm Aer.w.adap 2 Inh IH QID Spiriva (Tiotropium [place]) 18 Mcg Cap.w.dev 1 Cap IH DAILY Next dose: 05/13 Dulera 100 Mcg/5 Mcg Inhaler (Mometasone/Formoterol) 13 Gm Hfa.aer.ad 2 Puff IH BID Digoxin 125 Mcg Tablet 1 Tab PO DAILY Next dose: 05/14 Citalopram Hbr (Citalopram Hydrobromide) 20 Mg Tablet 1 Tab PO DAILY Next dose: 05/14 Aspir 81 (Aspirin) 81 Mg Tablet.dr 1 Tab PO DAILY Next dose: 05/14 Cilostazol 50 Mg Tablet 50 Mg PO BID Next dose: 05/13 in PM Pradaxa (Dabigatran Etexilate Mesylate) 150 Mg Capsule 1 Cap PO BID Next dose: 05/13 in PM Potassium Chloride 20 Meq Tablet.er 20 Meq PO DAILY Next dose: 05/14 Vitals/I & O Vital Sign - Last 24 Hours 02/21/17 02/21/17 02/21/17 02/21/17 13:23 15:46 16:01 17:45 Temp 97.8 97.8 Pulse 63 Resp 16 B/P 123/51 Pulse Ox 93 O2 Delivery Nasal Cannula Nasal Cannula Nasal Cannula Nasal Cannula O2 Flow Rate 4.0 4.0 4.0 4.0 02/21/17 02/21/17 02/21/17 02/21/17 19:15 19:41 19:41 20:10 Temp 97.9 97.9 Pulse 62 Resp 16 B/P 137/59 Pulse Ox 91 O2 Delivery Nasal Cannula Nasal Cannula Nasal Cannula Nasal Cannula O2 Flow Rate 5.0 4.0 4.0 4.0 02/21/17 02/21/17 02/21/17 02/22/17 21:39 21:41 23:15 03:00 Temp 98.1 98.0 98.1 98.0 Pulse 62 73 64 Resp 14 16 B/P 137/59 138/57 137/57 Pulse Ox 91 91 O2 Delivery Nasal Cannula Nasal Cannula Nasal Cannula O2 Flow Rate 5.0 5.0 02/22/17 02/22/17 02/22/17 02/22/17 07:30 08:00 08:22 08:24 Temp 97.6 97.6 Pulse 95 Resp 22 B/P 193/89 Pulse Ox 91 95 95 O2 Delivery Nasal Cannula Nasal Cannula Nasal Cannula Nasal Cannula O2 Flow Rate 3.0 4.0 4.0 4.0 02/22/17 02/22/17 02/22/17 02/22/17 08:43 08:44 08:46 08:46 Pulse 95 95 Resp 22 22 B/P 193/89 193/89 O2 Delivery Nasal Cannula Nasal Cannula O2 Flow Rate 4.0 4.0 02/22/17 02/22/17 02/22/17 02/22/17 08:47 09:44 11:00 11:51 Temp 98.1 98.1 Pulse 95 66 Resp 18 B/P 102/66 Pulse Ox 92 92 O2 Delivery Nasal Cannula Nasal Cannula Nasal Cannula O2 Flow Rate 3.0 3.0 4.0 Intake and Output 02/21/17 02/21/17 02/22/17 15:00 23:00 07:00 Intake Total 945 ml Output Total 1250 ml 675 ml 780 ml Balance -1250 ml 270 ml -780 ml TOBY SON MD Feb 22, 2017 12:56
--- NOTE | 2017-02-22 13:32 | PATHOLOGY ---
CYTOPATHOLOGY REPORT CLINICAL HISTORY: COPD; exacerbation; LLL infiltrate See also [id number] SPECIMEN(S) RECEIVED: A.Pericardial fluid FINAL DIAGNOSIS: A. Pericardial fluid: - No malignant cells identified. Few scattered mesothelial cells identified in a background of marked acute and chronic inflammatory cells and lysed blood. PATHOLOGIST: Francesca Tiwari M.D. REPORT ELECTRONICALLY SIGNED BY: Francesca Tiwari M.D. DATE/TIME: 02/22/2017 13:31 GROSS PATHOLOGY: A. Pericardial fluid: The specimen is submitted unfixed, labeled "Nighat Mendoza". Received by the Cytology Department is 10 mL of bloody fluid. One ThinPrep slide and a cell block were prepared. (02/19) JD EDWARDS CONSULTANT(S): MARIUSZ Vaz(ASC) INITIAL CPT CODE(S): A; 01234, 85018 Professional services performed [place] [facility] [place] [address] Technical services performed by [facility] at [address] [place] [address], [address], [place] [address]. PATIENT: NIGHAT MENDOZA /AGE: 3 1950 (Age: 67) SEX: F PATIENT #: [id number] ALT CASE #: SPECIMEN COLLECTION DATE: 02/18/2017 SPECIMEN RECEIVED DATE: 02/19/[address] [facility] [address] [place] [address], [address] [place] [address] PHONE: [phone] DIRECTOR: Ryan Jimenez M.D. * * * END OF REPORT * * *
--- NOTE | 2017-02-22 13:33 | PATHOLOGY ---
CYTOPATHOLOGY REPORT CLINICAL HISTORY: COPD; Exacerbation; LLL infiltrate See also [id number] SPECIMEN(S) RECEIVED: A.Pericardial fluid FINAL DIAGNOSIS: A. Pericardial fluid: - No malignant cells identified. Inflammation and red blood cells are identified. PATHOLOGIST: Francesca Tiwari M.D. REPORT ELECTRONICALLY SIGNED BY: Francesca Tiwari M.D. DATE/TIME: 02/22/2017 13:32 GROSS PATHOLOGY: A. Pericardial fluid: The specimen is submitted unfixed, labeled "Nighat Mendoza". Received by the Cytology Department is 60 mL of grossly bloody fluid. One ThinPrep slide and a cell block were prepared. (kg 02/19) ELECTRICAL LOGGING ENGINEER(S): MARIUSZ Vaz(ASCP) INITIAL CPT CODE(S): A; 82074, 20634 Professional services performed by [facility] [place] [address] Technical services performed by [facility] at [address] [place] [address], [address], [place] [address]. PATIENT: NIGHAT MENDOZA /AGE: 3 1950 (Age: 67) SEX: F PATIENT #: [id number] ALT CASE #: SPECIMEN COLLECTION DATE: 02/19/2017 SPECIMEN RECEIVED DATE: 02/19/[address] [facility] [address] [place] [address], [address] [place] [address] PHONE: [phone] DIRECTOR: Ryan Jimenez M.D. * * * END OF REPORT * * *
[2017-02-22] MEDS: ANTI-COAG MONITOR BY PHARMACY. MC PRN (14:04)
--- NOTE | 2017-02-22 14:47 | PDOC ---
PULMONARY PROGRESS NOTES Subjective s/p emergent pericardiocentesis 02/18 large pericardial effusion on ct chest Vitals Vital Signs Date Time Temp Pulse Resp B/P Pulse Ox O2 Delivery O2 Flow Rate FiO2 02/22/17 14:25 Nasal Cannula 3.0 02/22/17 14:24 22 02/22/17 11:00 98.1 66 102/66 92 98.1 General: Alert, No acute distress HEENT: Other Lungs: Clear, Other (decrease bs) Cardiovascular: S1, S2 Abdomen: Soft, Non-tender, Other Neuro Exam: Alert Extremities: Other (1+edema) Labs Laboratory Tests Test 02/20/17 16:51 02/20/17 20:48 02/21/17 03:50 02/21/17 11:58 Glucose (Fingerstick) 263mg/dL (70-99) 187mg/dL (70-99) 242mg/dL (70-99) White Blood Count 20.4x10^3/uL (4.0-11.0) Red Blood Count 3.09x10^6/uL (3.50-5.40) Hemoglobin 9.1g/dL (12.0-15.5) Hematocrit 29.1% (36.0-47.0) Mean Corpuscular Volume 94fL (79-100) Mean Corpuscular Hemoglobin 30pg (25-35) Mean Corpuscular Hemoglobin Concent 31g/dL (31-37) Red Cell Distribution Width 17.0% (11.5-14.5) Platelet Count 443x10^3/uL (140-400) Neutrophils (%) (Auto) 80% (31-73) Lymphocytes (%) (Auto) 13% (24-48) Monocytes (%) (Auto) 6% (0-9) Eosinophils (%) (Auto) 0% (0-3) Basophils (%) (Auto) 1% (0-3) Neutrophils # (Auto) 16.4x10^3uL (1.8-7.7) Lymphocytes # (Auto) 2.6x10^3/uL (1.0-4.8) Monocytes # (Auto) 1.3x10^3/uL (0.0-1.1) Eosinophils # (Auto) 0.0x10^3/uL (0.0-0.7) Basophils # (Auto) 0.1x10^3/uL (0.0-0.2) Sodium Level 139mmol/L (136-145) Potassium Level 4.2mmol/L (3.5-5.1) Chloride Level 101mmol/L (98-107) Carbon Dioxide Level 36mmol/L (21-32) Anion Gap 2 (6-14) Blood Urea Nitrogen 20mg/dL (7-20) Creatinine 0.7mg/dL (0.6-1.0) Estimated GFR (Cockcroft-Gault) 83.7 Glucose Level 69mg/dL (70-99) Calcium Level 8.2mg/dL (8.5-10.1) Phosphorus Level 2.4mg/dL (2.6-4.7) Magnesium Level 2.3mg/dL (1.8-2.4) Creatine Kinase 49U/L (26-192) Albumin 2.4g/dL (3.4-5.0) Test 02/21/17 17:13 02/21/17 20:57 02/22/17 03:20 02/22/17 07:36 Glucose (Fingerstick) 266mg/dL (70-99) 124mg/dL (70-99) 61mg/dL (70-99) White Blood Count 18.7x10^3/uL (4.0-11.0) Red Blood Count 3.49x10^6/uL (3.50-5.40) Hemoglobin 10.4g/dL (12.0-15.5) Hematocrit 32.1% (36.0-47.0) Mean Corpuscular Volume 92fL (79-100) Mean Corpuscular Hemoglobin 30pg (25-35) Mean Corpuscular Hemoglobin Concent 32g/dL (31-37) Red Cell Distribution Width 16.8% (11.5-14.5) Platelet Count 569x10^3/uL (140-400) Neutrophils (%) (Auto) 71% (31-73) Lymphocytes (%) (Auto) 20% (24-48) Monocytes (%) (Auto) 8% (0-9) Eosinophils (%) (Auto) 1% (0-3) Basophils (%) (Auto) 0% (0-3) Neutrophils # (Auto) 13.3x10^3uL (1.8-7.7) Lymphocytes # (Auto) 3.7x10^3/uL (1.0-4.8) Monocytes # (Auto) 1.5x10^3/uL (0.0-1.1) Eosinophils # (Auto) 0.2x10^3/uL (0.0-0.7) Basophils # (Auto) 0.0x10^3/uL (0.0-0.2) Sodium Level 141mmol/L (136-145) Potassium Level 3.7mmol/L (3.5-5.1) Chloride Level 101mmol/L (98-107) Carbon Dioxide Level 36mmol/L (21-32) Anion Gap 4 (6-14) Blood Urea Nitrogen 18mg/dL (7-20) Creatinine 0.7mg/dL (0.6-1.0) Estimated GFR (Cockcroft-Gault) 83.7 Glucose Level 51mg/dL (70-99) Calcium Level 8.4mg/dL (8.5-10.1) Phosphorus Level 2.3mg/dL (2.6-4.7) Magnesium Level 2.0mg/dL (1.8-2.4) Creatine Kinase 36U/L (26-192) Albumin 2.5g/dL (3.4-5.0) Test 02/22/17 08:22 02/22/17 09:50 02/22/17 12:19 Glucose (Fingerstick) 89mg/dL (70-99) 183mg/dL (70-99) 181mg/dL (70-99) Laboratory Tests Test 02/21/17 17:13 02/21/17 20:57 02/22/17 03:20 02/22/17 07:36 Glucose (Fingerstick) 266mg/dL (70-99) 124mg/dL (70-99) 61mg/dL (70-99) White Blood Count 18.7x10^3/uL (4.0-11.0) Red Blood Count 3.49x10^6/uL (3.50-5.40) Hemoglobin 10.4g/dL (12.0-15.5) Hematocrit 32.1% (36.0-47.0) Mean Corpuscular Volume 92fL (79-100) Mean Corpuscular Hemoglobin 30pg (25-35) Mean Corpuscular Hemoglobin Concent 32g/dL (31-37) Red Cell Distribution Width 16.8% (11.5-14.5) Platelet Count 569x10^3/uL (140-400) Neutrophils (%) (Auto) 71% (31-73) Lymphocytes (%) (Auto) 20% (24-48) Monocytes (%) (Auto) 8% (0-9) Eosinophils (%) (Auto) 1% (0-3) Basophils (%) (Auto) 0% (0-3) Neutrophils # (Auto) 13.3x10^3uL (1.8-7.7) Lymphocytes # (Auto) 3.7x10^3/uL (1.0-4.8) Monocytes # (Auto) 1.5x10^3/uL (0.0-1.1) Eosinophils # (Auto) 0.2x10^3/uL (0.0-0.7) Basophils # (Auto) 0.0x10^3/uL (0.0-0.2) Sodium Level 141mmol/L (136-145) Potassium Level 3.7mmol/L (3.5-5.1) Chloride Level 101mmol/L (98-107) Carbon Dioxide Level 36mmol/L (21-32) Anion Gap 4 (6-14) Blood Urea Nitrogen 18mg/dL (7-20) Creatinine 0.7mg/dL (0.6-1.0) Estimated GFR (Cockcroft-Gault) 83.7 Glucose Level 51mg/dL (70-99) Calcium Level 8.4mg/dL (8.5-10.1) Phosphorus Level 2.3mg/dL (2.6-4.7) Magnesium Level 2.0mg/dL (1.8-2.4) Creatine Kinase 36U/L (26-192) Albumin 2.5g/dL (3.4-5.0) Test 02/22/17 08:22 02/22/17 09:50 02/22/17 12:19 Glucose (Fingerstick) 89mg/dL (70-99) 183mg/dL (70-99) 181mg/dL (70-99) Medications Active Scripts Medications Dose Route/Sig Days Date Category Dose Instructions Prednisone 2.5 Mg Tablet 2 Tab PO DAILY 02/17/17 Reported Sulfamethoxazole-Tmp Ds Tablet (Sulfamethoxazole/Trimethoprim) 1 Each Tablet 1 Tab PO BID 02/17/17 Reported Albuterol Sulfate Conc Neb Soln (Albuterol Sulfate) 2.5 Mg/0.5 Ml Vial.neb 1 Vial NEB Q4HRS 11/03/16 Reported Lantus Solostar (Insulin Glargine,Hum.rec.anlog) 100 Unit/1 Ml Insuln.pen 14 Unit SQ BID 11/03/16 Reported Furosemide 40 Mg Tablet 1 Tab PO DAILY 11/03/16 Reported Mucinex (Guaifenesin) 600 Mg Tablet.er 400 Mg PO BID 11/03/16 Reported Xanax (Alprazolam) 1 Mg Tablet 1 Tab PO Q8HRS PRN 11/03/16 Reported Melatonin 10 Mg Tablet (Melatonin/Pyridoxine Hcl (B6)) 1 Each Tab.mphase 1 Each PO HS 11/03/16 Reported Iron (Ferrous Sulfate) 325 Mg Capsule.er 325 Mg PO DAILY 06/07/16 Rx B Complex # 1 (Vitamin B Complex) 1 Each Tablet 1 Each PO DAILY 06/07/16 Rx Levaquin (Levofloxacin) 750 Mg Tablet 1 Tab PO DAILY 06/07/16 Rx Nifedipine Er (Nifedipine) 60 Mg Tab.er.24 1 Tab PO DAILY 06/03/16 Reported Morphine Sulfate Er (Morphine Sulfate) 30 Mg Tablet.er 1 Tab PO TID 06/03/16 Reported Gabapentin 300 Mg Capsule 900 Mg PO QID 06/03/16 Reported Furosemide 20 Mg Tablet 1.5 Tab PO DAILY 06/03/16 Reported Cardizem Cd (Diltiazem Hcl) 360 Mg Cap.er.24h 1 Cap PO DAILY 03/07/15 Reported Next dose: 05/14 Rythmol (Propafenone Hcl) 150 Mg Tablet 150 Mg PO BID 03/07/15 Reported Next dose: 05/13 in pm Advair 250-50 Diskus (Fluticasone/Salmeterol) 1 Puff Puff 1 Puff INH BID 01/11/15 Rx Mucinex (Guaifenesin) 600 Mg Tablet.er 600 Mg PO BID 01/11/15 Rx Benadryl (Diphenhydramine Hcl) 25 Mg Capsule 2 Cap PO QHS 01/09/15 Reported Next dose: 05/14 Novolog (Insulin Aspart) 100 Unit/1 Ml Vial 100 Unit SQ 01/08/15 Reported Next dose: 05/13 at dinner Lantus (Insulin Glargine,Hum.rec.anlog) 100 Unit/1 Ml Vial 1 Unit SQ 01/08/15 Reported Next dose: 05/13 at bedtime Hydrocodone-Apap 7.5-325 (Hydrocodone Bit/Acetaminophen) 1 Each Tablet 1 Tab PO QID 01/08/15 Reported Next dose: 05/14 at 1 pm Combivent Respimat Inhal (Ipratropium/Albuterol Sulfate) 4 Gm Aer.w.adap 2 Inh IH QID 01/08/15 Reported Spiriva (Tiotropium [place]) 18 Mcg Cap.w.dev 1 Cap IH DAILY 01/08/15 Reported Next dose: 05/13 Dulera 100 Mcg/5 Mcg Inhaler (Mometasone/Formoterol) 13 Gm Hfa.aer.ad 2 Puff IH BID 01/08/15 Reported Digoxin 125 Mcg Tablet 1 Tab PO DAILY 01/08/15 Reported Next dose: 05/14 Citalopram Hbr (Citalopram Hydrobromide) 20 Mg Tablet 1 Tab PO DAILY 01/08/15 Reported Next dose: 05/14 Aspir 81 (Aspirin) 81 Mg Tablet.dr 1 Tab PO DAILY 01/08/15 Reported Next dose: 05/14 Cilostazol 50 Mg Tablet 50 Mg PO BID 01/08/15 Reported Next dose: 05/13 in PM Pradaxa (Dabigatran Etexilate Mesylate) 150 Mg Capsule 1 Cap PO BID 01/08/15 Reported Next dose: 05/13 in PM Potassium Chloride 20 Meq Tablet.er 20 Meq PO DAILY 01/08/15 Reported Next dose: 05/14 Impression . 1. Acute respiratory failure, secondary to combination of metabolic and respiratory acidosis and large pericardial effusion 2. Abnormal chest x-ray with bilateral prominent interstitial markings, CT chest with no significant ILD/CHF but large pericardial effusion 3. Previously abnormal transesophageal echo with moderate to severe mitral regurgitation. 4. Acute renal failure with metabolic acidosis. resolved post pericardiocentesis due to improved renal perfusion 5. Secondary pulmonary hypertension with a pulmonary artery systolic pressure of 70 on transesophageal echo from 07/2016. 6. Leukocytosis Plan . 1. respiratory status much improved 2. Nebs 3. follow pericardial fluid analysis 4. pericardial drain per cardiology, may come off today 5. Follow renal recommendations. 6. Follow up ABGs improved 7. follow wbc 8. nebs 9. antibiotics clinically much improved BARBARA KELLOGG MD Feb 22, 2017 14:47
[2017-02-22 15:00] VITALS: BP 160/51
--- NOTE | 2017-02-22 15:17 | RAD ---
Portable chest, 02/22/2017: History: Check pericardial effusion Comparison is made to a study from 02/20/2017. The right jugular dialysis type catheter has been removed. A left-sided transvenous pacemaker remains in place with a single lead extending into the right ventricle. EKG leads are projected over the chest. A small catheter projected over the heart on the previous study is no longer visible. The cardiac silhouette is enlarged. It appears to have improved slightly since the previous study. The pulmonary vascularity is at the upper limits of normal. The basilar lung markings remain mildly prominent. There is persistent blunting of the lateral costophrenic angles suggesting a small amount of pleural fluid. No new abnormality is seen. IMPRESSION: 1. The cardiac silhouette appears to have decreased slightly in width, although comparison is difficult due to technical factors. 2. No other significant interval change.
[2017-02-22 19:22] VITALS: BP 108/50
[2017-02-22] MEDS: diphenhydrAMINE HCL 25 MG CAPSULE PO SCH (21:37)
[2017-02-22 23:06] VITALS: BP 145/61
[2017-02-23 03:45] VITALS: BP 177/72
[2017-02-23] MEDS: predniSONE 20 MG TABLET PO SCH (06:33)
[2017-02-23 06:48] LABS: BASO # 0.1 x10^3/uL (0.0-0.2); BASO % 0 % (0-3); EOS % 2 % (0-3); HEMATOCRIT 34.4 % (36.0-47.0); HEMOGLOBIN 10.6 g/dL (12.0-15.5); LYMPH # 3.6 x10^3/uL (1.0-4.8); LYMPH % 25 % (24-48); MEAN CORPUSCULAR HEMOGLOBIN 29 pg (25-35); MEAN CORPUSCULAR HGB CONC 31 g/dL (31-37); MEAN CORPUSCULAR VOLUME 93 fL (79-100); MONO % 8 % (0-9); NEUT % 65 % (31-73); PLATELET COUNT 543 x10^3/uL (140-400); RED BLOOD COUNT 3.72 x10^6/uL (3.50-5.40); WHITE BLOOD COUNT 14.2 x10^3/uL (4.0-11.0)
[2017-02-23 07:01] LABS: ALBUMIN 2.5 g/dL (3.4-5.0); CALCIUM 8.2 mg/dL (8.5-10.1); CREATININE 0.6 mg/dL (0.6-1.0); PHOSPHORUS 2.6 mg/dL (2.6-4.7); POTASSIUM 3.8 mmol/L (3.5-5.1)
[2017-02-23] MEDS: INSULIN ASPART 300 UNITS/3 ML INSULN.PEN SQ SCH ×6 (07:30→17:42)
[2017-02-23 07:55] VITALS: BP 166/85
[2017-02-23] MEDS: IPRATRPIUM/ALBUTEROL 0.5/2.5MG 3 ML NEBU. NEB SCH ×4 (07:57→18:17)
[2017-02-23] MEDS: BUDESONIDE 0.5 MG/2 ML NEBU. NEB SCH ×2 (07:57→18:17)
[2017-02-23] MEDS: FERROUS SULFATE 325 MG TABLET. PO SCH (08:00)
[2017-02-23] MEDS: GUAIFENESIN ER 600 MG TABLET.ER PO SCH (08:06)
[2017-02-23] MEDS: GABAPENTIN 300 MG CAPSULE. PO SCH (08:07)
[2017-02-23] MEDS: ASPIRIN ENTERIC COATED 81 MG TABLET.DR. PO SCH (08:07)
[2017-02-23] MEDS: DILTIAZEM HCL 180 MG CAP.ER.24H PO SCH (08:07)
[2017-02-23] MEDS: VITAMIN B COMPLEX TABLET. PO SCH (08:07)
[2017-02-23] MEDS: CILOSTAZOL 50 MG TABLET. PO SCH (08:07)
[2017-02-23] MEDS: DIGOXIN 125 MCG TABLET. PO SCH (08:08)
[2017-02-23] MEDS: MORPHINE ER 30 MG TABLET.ER PO SCH ×2 (08:08→14:10)
[2017-02-23] MEDS: PROPAFENONE 150 MG TABLET. PO SCH (08:08)
[2017-02-23] MEDS: CITALOPRAM 20 MG TABLET. PO SCH (08:09)
[2017-02-23] MEDS: DOXYCYCLINE HYCLATE 100 MG TABLET PO SCH (08:09)
[2017-02-23] MEDS: DABIGATRAN ETEXILATE 150 MG CAPSULE. PO SCH (08:09)
[2017-02-23] MEDS: HYDROCODONE/APAP 7.5/325MG TABLET. PO SCH ×3 (08:09→17:37)
[2017-02-23] MEDS: INSULIN DETEMIR 300 UNITS/3 ML INSULN.PEN. SQ SCH (08:17)
[2017-02-23] MEDS: ANTI-COAG MONITOR BY PHARMACY. MC PRN (09:00)
[2017-02-23 11:19] VITALS: BP 144/50
--- NOTE | 2017-02-23 12:35 | PDOC ---
PROGRESS NOTES Subjective Subjective The pt had no new complaints today. Pt reported feeling a little sore where the incision from the drain is especially when she takes a deep breath. Pt reports her breathing to her is getting better and close to her baseline. Objective Objective Vital Signs Date Time Temp Pulse Resp B/P Pulse Ox O2 Delivery O2 Flow Rate FiO2 02/23/17 11:56 90 Nasal Cannula 3.0 02/23/17 11:19 98.5 73 19 144/50 98.5 Intake and Output 02/23/17 06:59 Intake Total 1670 ml Output Total 2405 ml Balance -735 ml Intake Oral 1670 ml Output Urine Total 2400 ml Drainage Total 5 ml # Voids 1 Physical Exam Abdomen: Normal bowel sounds, Soft, No tenderness Heart: No murmurs, Other (Irregular irregular ) Extremities: No clubbing, No edema General: Alert, Oriented X3, Cooperative HEENT: Atraumatic, PERRLA Lungs: Clear to auscultation Skin: Other (incision to her anterior chest from pericardial drain. dressing is c/d/i) Assessment Assessment The pt's echocardiogram done today does not show any significant pericardial effusion. She may go home to be followed as an out-pt. Will get a repeat echocardiogram in 2 weeks. Problems Medical Problems: (1) Community acquired pneumonia Status: Acute (2) COPD exacerbation Status: Acute - Pericardial effusion, drain removed 02/18; Total ~1500cc removed - COPD exacerbation - Chronic diastolic heart failure, with afib Plan Plan of Care - Pericardial effusion: drain removed 02/18; Total ~1500cc removed - Please monitor the patient for excessive drainage at sight, increase in SOB , and if she becomes tachycardic - Echo done this morning - Repeat CXR today - Will continue to monitor her while she is in the hospital Thank you for consultation and for allowing me to participate in the care of this patient! Comment Review of Relevant I have reviewed the following items luke (where applicable) has been applied. Labs Laboratory Tests Test 02/21/17 17:13 02/21/17 20:57 02/22/17 03:20 02/22/17 07:36 Glucose (Fingerstick) 266mg/dL (70-99) 124mg/dL (70-99) 61mg/dL (70-99) White Blood Count 18.7x10^3/uL (4.0-11.0) Red Blood Count 3.49x10^6/uL (3.50-5.40) Hemoglobin 10.4g/dL (12.0-15.5) Hematocrit 32.1% (36.0-47.0) Mean Corpuscular Volume 92fL (79-100) Mean Corpuscular Hemoglobin 30pg (25-35) Mean Corpuscular Hemoglobin Concent 32g/dL (31-37) Red Cell Distribution Width 16.8% (11.5-14.5) Platelet Count 569x10^3/uL (140-400) Neutrophils (%) (Auto) 71% (31-73) Lymphocytes (%) (Auto) 20% (24-48) Monocytes (%) (Auto) 8% (0-9) Eosinophils (%) (Auto) 1% (0-3) Basophils (%) (Auto) 0% (0-3) Neutrophils # (Auto) 13.3x10^3uL (1.8-7.7) Lymphocytes # (Auto) 3.7x10^3/uL (1.0-4.8) Monocytes # (Auto) 1.5x10^3/uL (0.0-1.1) Eosinophils # (Auto) 0.2x10^3/uL (0.0-0.7) Basophils # (Auto) 0.0x10^3/uL (0.0-0.2) Sodium Level 141mmol/L (136-145) Potassium Level 3.7mmol/L (3.5-5.1) Chloride Level 101mmol/L (98-107) Carbon Dioxide Level 36mmol/L (21-32) Anion Gap 4 (6-14) Blood Urea Nitrogen 18mg/dL (7-20) Creatinine 0.7mg/dL (0.6-1.0) Estimated GFR (Cockcroft-Gault) 83.7 Glucose Level 51mg/dL (70-99) Calcium Level 8.4mg/dL (8.5-10.1) Phosphorus Level 2.3mg/dL (2.6-4.7) Magnesium Level 2.0mg/dL (1.8-2.4) Creatine Kinase 36U/L (26-192) Albumin 2.5g/dL (3.4-5.0) Test 02/22/17 08:22 02/22/17 09:50 02/22/17 12:19 02/22/17 17:02 Glucose (Fingerstick) 89mg/dL (70-99) 183mg/dL (70-99) 181mg/dL (70-99) 231mg/dL (70-99) Test 02/22/17 20:47 02/23/17 06:10 02/23/17 07:32 02/23/17 08:29 Glucose (Fingerstick) 193mg/dL (70-99) 63mg/dL (70-99) 106mg/dL (70-99) White Blood Count 14.2x10^3/uL (4.0-11.0) Red Blood Count 3.72x10^6/uL (3.50-5.40) Hemoglobin 10.6g/dL (12.0-15.5) Hematocrit 34.4% (36.0-47.0) Mean Corpuscular Volume 93fL (79-100) Mean Corpuscular Hemoglobin 29pg (25-35) Mean Corpuscular Hemoglobin Concent 31g/dL (31-37) Red Cell Distribution Width 17.0% (11.5-14.5) Platelet Count 543x10^3/uL (140-400) Neutrophils (%) (Auto) 65% (31-73) Lymphocytes (%) (Auto) 25% (24-48) Monocytes (%) (Auto) 8% (0-9) Eosinophils (%) (Auto) 2% (0-3) Basophils (%) (Auto) 0% (0-3) Neutrophils # (Auto) 9.2x10^3uL (1.8-7.7) Lymphocytes # (Auto) 3.6x10^3/uL (1.0-4.8) Monocytes # (Auto) 1.1x10^3/uL (0.0-1.1) Eosinophils # (Auto) 0.2x10^3/uL (0.0-0.7) Basophils # (Auto) 0.1x10^3/uL (0.0-0.2) Sodium Level 139mmol/L (136-145) Potassium Level 3.8mmol/L (3.5-5.1) Chloride Level 101mmol/L (98-107) Carbon Dioxide Level 34mmol/L (21-32) Anion Gap 4 (6-14) Blood Urea Nitrogen 18mg/dL (7-20) Creatinine 0.6mg/dL (0.6-1.0) Estimated GFR (Cockcroft-Gault) 100.0 Glucose Level 52mg/dL (70-99) Calcium Level 8.2mg/dL (8.5-10.1) Phosphorus Level 2.6mg/dL (2.6-4.7) Creatine Kinase 29U/L (26-192) Albumin 2.5g/dL (3.4-5.0) Test 02/23/17 12:04 Glucose (Fingerstick) 180mg/dL (70-99) Laboratory Tests Test 02/22/17 17:02 02/22/17 20:47 02/23/17 06:10 02/23/17 07:32 Glucose (Fingerstick) 231mg/dL (70-99) 193mg/dL (70-99) 63mg/dL (70-99) White Blood Count 14.2x10^3/uL (4.0-11.0) Red Blood Count 3.72x10^6/uL (3.50-5.40) Hemoglobin 10.6g/dL (12.0-15.5) Hematocrit 34.4% (36.0-47.0) Mean Corpuscular Volume 93fL (79-100) Mean Corpuscular Hemoglobin 29pg (25-35) Mean Corpuscular Hemoglobin Concent 31g/dL (31-37) Red Cell Distribution Width 17.0% (11.5-14.5) Platelet Count 543x10^3/uL (140-400) Neutrophils (%) (Auto) 65% (31-73) Lymphocytes (%) (Auto) 25% (24-48) Monocytes (%) (Auto) 8% (0-9) Eosinophils (%) (Auto) 2% (0-3) Basophils (%) (Auto) 0% (0-3) Neutrophils # (Auto) 9.2x10^3uL (1.8-7.7) Lymphocytes # (Auto) 3.6x10^3/uL (1.0-4.8) Monocytes # (Auto) 1.1x10^3/uL (0.0-1.1) Eosinophils # (Auto) 0.2x10^3/uL (0.0-0.7) Basophils # (Auto) 0.1x10^3/uL (0.0-0.2) Sodium Level 139mmol/L (136-145) Potassium Level 3.8mmol/L (3.5-5.1) Chloride Level 101mmol/L (98-107) Carbon Dioxide Level 34mmol/L (21-32) Anion Gap 4 (6-14) Blood Urea Nitrogen 18mg/dL (7-20) Creatinine 0.6mg/dL (0.6-1.0) Estimated GFR (Cockcroft-Gault) 100.0 Glucose Level 52mg/dL (70-99) Calcium Level 8.2mg/dL (8.5-10.1) Phosphorus Level 2.6mg/dL (2.6-4.7) Creatine Kinase 29U/L (26-192) Albumin 2.5g/dL (3.4-5.0) Test 02/23/17 08:29 02/23/17 12:04 Glucose (Fingerstick) 106mg/dL (70-99) 180mg/dL (70-99) Microbiology 02/17/17 Blood Culture - Final, Complete NO GROWTH AFTER 5 DAYS 02/18/17 Gram Stain - Final, Complete Medications Current Medications Albuterol/ Ipratropium (Duoneb) 3 ml 1X ONCE NEB Last administered on 07:46; Start 02/17/17 at 07:45; Stop 02/17/17 at 07:46; Status DC Albuterol/ Ipratropium (Duoneb) 3 ml STK-MED ONCE .ROUTE ; Start 02/17/17 at 07: 40; Stop 02/17/17 at 07:41; Status DC Albuterol Sulfate (Ventolin Neb Soln) 10 mg 1X ONCE CONT NEB Last administered on 02/17/17 08:02; Start 02/17/17 at 08:00; Stop 02/17/17 at 08:01 ; Status DC Methylprednisolone Sodium Succinate 60 mg 60 mg 1X ONCE IV Last administered on 02/17/17 08:49; Start 02/17/17 at 08:00; Stop 02/17/17 at 08:06; Status DC Ceftriaxone Sodium 50 ml @ 100 mls/hr 1X ONCE IV Last administered on 08:50; Start 02/17/17 at 08:15; Stop 02/17/17 at 08:44; Status DC Doxycycline Hyclate 100 mg/ Dextrose 100 ml @ 50 mls/hr 1X ONCE IV Last administered on 02/17/17 08:50; Start 02/17/17 at 08:15; Stop 02/17/17 at 10:14 ; Status DC Ceftriaxone Sodium 50 ml @ 100 mls/hr DAILY IV ; Start 02/18/17 at 09:00; Status UNV Doxycycline Hyclate 100 mg/ Dextrose 100 ml @ 50 mls/hr BID IV Last administered on 02/19/17 21:36; Start 02/17/17 at 21:00; Stop 02/20/17 at 09:34 ; Status DC Ceftriaxone Sodium/Sodium Chloride (Rocephin/Iv Sodium Chloride 0.9% 50ml) 50 ml @ 100 mls/hr Q24H IV Last administered on 02/22/17 08:54; Start 02/18/17 at 09:00; Stop 02/22/17 at 14:29; Status DC Insulin Aspart (Novolog) 0-7 UNITS TIDWMEALS SQ Last administered on 02/22/17 17:50; Start 02/17/17 at 12:00 Dextrose 12.5 gm 12.5 gm PRN Q15MIN PRN IV SEE COMMENTS; Start 02/17/17 at 10: 00 Magnesium Sulfate/ Dextrose (Magnesium Sulfate PREMIX 2GM) 50 ml @ 25 mls/hr PRN DAILY PRN IV for Mag < 1.7 on am labs; Start 02/17/17 at 14:45 Sodium Polystyrene Sulfonate 45 gm 45 gm 1X ONCE PO Last administered on 22:21; Start 02/17/17 at 15:30; Stop 02/17/17 at 15:31; Status DC Sodium Chloride (Iv Sodium Chloride 0.9% 500ml Bag) 500 ml @ 0 mls/hr PRN QID PRN IV UO< 30cc/hr over previous 6hrs; Start 02/17/17 at 15:00 Sodium Bicarbonate 50 meq 50 meq 1X ONCE IV Last administered on 02/17/17 15: 46; Start 02/17/17 at 15:30; Stop 02/17/17 at 15:35; Status DC Sodium Chloride (Iv Sodium Chloride 0.9% 1000ml Bag) 1,000 ml @ 75 mls/hr 1X ONCE IV Last administered on 02/17/17 16:11; Start 02/17/17 at 15:45; Stop at 05:04; Status DC Prednisone (Prednisone) 60 mg DAILY07 PO Last administered on 02/20/17 09:29; Start 02/18/17 at 07:00; Stop 02/20/17 at 12:45; Status DC Alprazolam (Xanax) 1 mg PRN Q8HRS PRN PO ANXIETY / AGITATION Last administered on 02/17/17 22:13; Start 02/17/17 at 15:45 Aspirin (Ecotrin) 81 mg DAILY PO Last administered on 02/23/17 08:07; Start at 09:00 Cilostazol (Pletal) 50 mg BID PO Last administered on 02/23/17 08:07; Start at 21:00 Citalopram Hydrobromide (Celexa) 20 mg DAILY PO Last administered on 02/23/17 08:09; Start 02/18/17 at 09:00 Dabigatran (Pradaxa) 75 mg BID PO Last administered on 02/20/17 09:28; Start 02/17/17 at 21:00; Stop 02/20/17 at 15:48; Status DC Digoxin (Lanoxin) 125 mcg DAILY PO Last administered on 02/23/17 08:08; Start 02/18/17 at 09:00 Diphenhydramine HCl (Benadryl) 25 mg QHS PO Last administered on 02/22/17 21: 37; Start 02/17/17 at 21:00 Guaifenesin (Mucinex) 600 mg BID PO Last administered on 02/23/17 08:06; Start 02/17/17 at 21:00 Acetaminophen/ Hydrocodone Bitart (Lortab 7.5/325) 1 tab QID PO Last administered on 02/23/17 08:09; Start 02/17/17 at 17:00 Morphine Sulfate (Ms Contin) 30 mg TID PO Last administered on 02/23/17 08:08 ; Start 02/17/17 at 21:00 Propafenone HCl (Rythmol) 150 mg BID PO Last administered on 02/23/17 08:08; Start 02/17/17 at 21:00 Trimethoprim/ Sulfamethoxazole (Bactrim Ds) 1 tab DAILY PO ; Start 02/17/17 at 21:00; Stop 02/18/17 at 08:22; Status DC Vitamin B Complex (Moi B) 1 tab DAILY PO Last administered on 02/23/17 08:07 ; Start 02/18/17 at 09:00 Albuterol/ Ipratropium (Duoneb) 3 ml Q4HRS NEB ; Start 02/17/17 at 16:00; Status Cancel Diltiazem HCl (Cardizem 24hr Cd) 360 mg DAILY PO Last administered on 08:07; Start 02/18/17 at 09:00 Ferrous Sulfate (Feosol) 325 mg DAILYWBKFT PO Last administered on 02/20/17 09 :28; Start 02/18/17 at 08:00 Non-Formulary Medication 1 puff BID INH ; Start 02/17/17 at 21:00; Status UNV Gabapentin (Neurontin) 900 mg BID PO Last administered on 02/23/17 08:07; Start 02/17/17 at 21:00 Insulin Detemir (Levemir) 14 units BID SQ Last administered on 02/17/17 22:12 ; Start 02/17/17 at 21:00; Stop 02/18/17 at 11:35; Status DC Non-Formulary Medication 1 each HS PO ; Start 02/17/17 at 21:00; Status UNV Budesonide (Pulmicort) 0.5 mg RTBID NEB Last administered on 02/23/17 07:57; Start 02/17/17 at 20:00 Albuterol/ Ipratropium (Duoneb) 3 ml Q4HRS W/A NEB Last administered on 11:56; Start 02/17/17 at 18:00 Insulin Aspart (Novolog) 9 units TIDAC SQ Last administered on 02/18/17 09:24 ; Start 02/17/17 at 16:30; Stop 02/18/17 at 11:36; Status DC Ondansetron HCl (Zofran) 4 mg PRN Q6HRS PRN IV NAUSEA/VOMITING Last administered on 02/17/17 21:05; Start 02/17/17 at 18:15 Furosemide 80 mg 80 mg 1X ONCE IVP ; Start 02/17/17 at 20:00; Stop 02/17/17 at 20:01; Status DC Sodium Bicarbonate 150 meq/Dextrose 1,150 ml @ 100 mls/hr [id number] IV Last administered on 02/17/17 21:11; Start 02/17/17 at 21:00; Stop 02/18/17 at 06:59 ; Status DC Sodium Bicarbonate 75 meq/Dextrose 575 ml @ 100 mls/hr Q5H45M IV ; Start at 07:00; Stop 02/18/17 at 11:59; Status DC Dobutamine HCl/ Dextrose 250 ml @ 0 mls/hr CONT PRN IV SEE I/O RECORD Last administered on 02/17/17 23:38; Start 02/17/17 at 23:00; Stop 02/20/17 at 12:45 ; Status DC Calcium Acetate 1334 mg 1,334 mg TIDWMEALS PO Last administered on 02/22/17 12 :56; Start 02/18/17 at 09:00; Stop 02/22/17 at 14:29; Status DC Sodium Chloride (Hypertonic Saline) 500 ml @ 30 mls/hr CONT PRN PRN IV see comments Last administered on 02/19/17 03:09; Start 02/18/17 at 08:15; Stop at 13:55; Status DC Heparin Sodium (Porcine) (Heparin Sodium) 10,000 unit STK-MED ONCE .ROUTE ; Start 02/18/17 at 09:53; Stop 02/18/17 at 09:54; Status DC Lidocaine/Sodium Bicarbonate 20 ml 20 ml STK-MED ONCE IJ ; Start 02/18/17 at 09: 53; Stop 02/18/17 at 09:54; Status DC Heparin Sodium/ Sodium Chloride 500 ml @ As Directed STK-MED ONCE .ROUTE ; Start 02/18/17 at 09:53; Stop 02/18/17 at 09:54; Status DC Heparin Sodium/ Sodium Chloride 60 unit 1X ONCE IV Last administered on 10:42; Start 02/18/17 at 10:15; Stop 02/18/17 at 10:19; Status DC Heparin Sodium (Porcine) (Heparin Sodium) 2,500 unit 1X ONCE INT CAT Last administered on 02/18/17 10:41; Start 02/18/17 at 10:15; Stop 02/18/17 at 10:19 ; Status DC Lidocaine/Sodium Bicarbonate (Buffered Lidocaine 1%) 3 ml 1X ONCE IJ Last administered on 02/18/17 10:41; Start 02/18/17 at 10:15; Stop 02/18/17 at 10:19 ; Status DC Insulin Aspart (Novolog) 10 units TIDAC SQ Last administered on 02/22/17 17:49 ; Start 02/18/17 at 12:00 Insulin Detemir 20 units 20 units BID SQ Last administered on 02/19/17 08:11; Start 02/18/17 at 21:00; Stop 02/19/17 at 12:50; Status DC Heparin Sodium/ Sodium Chloride 500 ml @ As Directed STK-MED ONCE .ROUTE ; Start 02/18/17 at 16:19; Stop 02/18/17 at 16:20; Status DC Lidocaine/ Epinephrine (Xylocaine 2%-Epi 1:100,000) 20 ml STK-MED ONCE .ROUTE ; Start 02/18/17 at 16:19; Stop 02/18/17 at 16:20; Status DC Fentanyl Citrate (Fentanyl 2ml Vial) 100 mcg STK-MED ONCE .ROUTE ; Start at 16:30; Stop 02/18/17 at 16:31; Status DC Midazolam HCl (Versed) 2 mg STK-MED ONCE .ROUTE ; Start 02/18/17 at 16:30; Stop 02/18/17 at 16:31; Status DC Heparin Sodium/ Sodium Chloride 1,000 unit 1X ONCE IART Last administered on 17:27; Start 02/18/17 at 16:45; Stop 02/18/17 at 16:46; Status DC Midazolam HCl (Versed) 2 mg 1X ONCE IV Last administered on 02/18/17 17:26; Start 02/18/17 at 16:45; Stop 02/18/17 at 16:46; Status DC Fentanyl Citrate (Fentanyl 2ml Vial) 100 mcg 1X ONCE IV Last administered on 17:27; Start 02/18/17 at 16:45; Stop 02/18/17 at 16:46; Status DC Lidocaine/ Epinephrine (Xylocaine 2%-Epi 1:100,000) 20 ml 1X ONCE IJ Last administered on 02/18/17 17:24; Start 02/18/17 at 16:45; Stop 02/18/17 at 16:46 ; Status DC Fentanyl Citrate (Fentanyl 2ml Vial) 100 mcg STK-MED ONCE .ROUTE ; Start at 16:46; Stop 02/18/17 at 16:47; Status DC Labetalol HCl (Normodyne) 20 mg STK-MED ONCE .ROUTE ; Start 02/18/17 at 16:51; Stop 02/18/17 at 16:52; Status DC Labetalol HCl (Normodyne) 10 mg 1X ONCE IVP Last administered on 02/18/17 17: 26; Start 02/18/17 at 17:00; Stop 02/18/17 at 17:01; Status DC Labetalol HCl (Normodyne) 10 mg PRN Q3HRS PRN IVP HYPERTENSION, SEE COMMENTS Last administered on 02/20/17 23:35; Start 02/18/17 at 20:15 Insulin Detemir (Levemir) 25 units BID SQ Last administered on 02/20/17 21:06 ; Start 02/19/17 at 21:00; Stop 02/21/17 at 08:44; Status DC Doxycycline Hyclate 100 mg 100 mg BID PO Last administered on 02/23/17 08:09; Start 02/20/17 at 10:00 Sodium Phosphate 20 mmol/Dextrose 256.6667 ml @ 64.167 m... 1X ONCE IV Last administered on 02/20/17 13:18; Start 02/20/17 at 10:00; Stop 02/20/17 at 13:59 ; Status DC Sodium Phosphate/ Dextrose 256.6667 ml @ 64.167 m... 1X ONCE IV Last administered on 02/20/17 17:40; Start 02/20/17 at 12:00; Stop 02/20/17 at 15:59 ; Status DC Prednisone (Prednisone) 40 mg DAILY07 PO Last administered on 02/23/17 06:33; Start 02/21/17 at 07:00 Dabigatran (Pradaxa) 150 mg BID PO Last administered on 02/23/17 08:09; Start 02/20/17 at 21:00 Insulin Detemir (Levemir) 18 units BID SQ Last administered on 02/23/17 08:17 ; Start 02/21/17 at 09:00 Info (Anti-Coagulation Monitoring By Pharmacy) 1 each PRN DAILY PRN MC SEE COMMENTS Last administered on 02/23/17 09:00; Start 02/22/17 at 08:30 Active Scripts Active Iron (Ferrous Sulfate) 325 Mg Capsule.er 325 Mg PO DAILY B Complex # 1 (Vitamin B Complex) 1 Each Tablet 1 Each PO DAILY Levaquin (Levofloxacin) 750 Mg Tablet 1 Tab PO DAILY Advair 250-50 Diskus (Fluticasone/Salmeterol) 1 Puff Puff 1 Puff INH BID Mucinex (Guaifenesin) 600 Mg Tablet.er 600 Mg PO BID Reported Prednisone 2.5 Mg Tablet 2 Tab PO DAILY Sulfamethoxazole-Tmp Ds Tablet (Sulfamethoxazole/Trimethoprim) 1 Each Tablet 1 Tab PO BID Albuterol Sulfate Conc Neb Soln (Albuterol Sulfate) 2.5 Mg/0.5 Ml Vial.neb 1 Vial NEB Q4HRS Lantus Solostar (Insulin Glargine,Hum.rec.anlog) 100 Unit/1 Ml Insuln.pen 14 Unit SQ BID Furosemide 40 Mg Tablet 1 Tab PO DAILY Mucinex (Guaifenesin) 600 Mg Tablet.er 400 Mg PO BID Xanax (Alprazolam) 1 Mg Tablet 1 Tab PO Q8HRS PRN Melatonin 10 Mg Tablet (Melatonin/Pyridoxine Hcl (B6)) 1 Each Tab.mphase 1 Each PO HS Nifedipine Er (Nifedipine) 60 Mg Tab.er.24 1 Tab PO DAILY Morphine Sulfate Er (Morphine Sulfate) 30 Mg Tablet.er 1 Tab PO TID Gabapentin 300 Mg Capsule 900 Mg PO QID Furosemide 20 Mg Tablet 1.5 Tab PO DAILY Cardizem Cd (Diltiazem Hcl) 360 Mg Cap.er.24h 1 Cap PO DAILY Next dose: 05/14 Rythmol (Propafenone Hcl) 150 Mg Tablet 150 Mg PO BID Next dose: 05/13 in pm Benadryl (Diphenhydramine Hcl) 25 Mg Capsule 2 Cap PO QHS Next dose: 05/14 Novolog (Insulin Aspart) 100 Unit/1 Ml Vial 100 Unit SQ Next dose: 05/13 at dinner Lantus (Insulin Glargine,Hum.rec.anlog) 100 Unit/1 Ml Vial 1 Unit SQ Next dose: 05/13 at bedtime Hydrocodone-Apap 7.5-325 (Hydrocodone Bit/Acetaminophen) 1 Each Tablet 1 Tab PO QID Next dose: 05/14 at 1 pm Combivent Respimat Inhal (Ipratropium/Albuterol Sulfate) 4 Gm Aer.w.adap 2 Inh IH QID Spiriva (Tiotropium [place]) 18 Mcg Cap.w.dev 1 Cap IH DAILY Next dose: 05/13 Dulera 100 Mcg/5 Mcg Inhaler (Mometasone/Formoterol) 13 Gm Hfa.aer.ad 2 Puff IH BID Digoxin 125 Mcg Tablet 1 Tab PO DAILY Next dose: 05/14 Citalopram Hbr (Citalopram Hydrobromide) 20 Mg Tablet 1 Tab PO DAILY Next dose: 05/14 Aspir 81 (Aspirin) 81 Mg Tablet.dr 1 Tab PO DAILY Next dose: 05/14 Cilostazol 50 Mg Tablet 50 Mg PO BID Next dose: 05/13 in PM Pradaxa (Dabigatran Etexilate Mesylate) 150 Mg Capsule 1 Cap PO BID Next dose: 05/13 in PM Potassium Chloride 20 Meq Tablet.er 20 Meq PO DAILY Next dose: 05/14 Vitals/I & O Vital Sign - Last 24 Hours 02/22/17 02/22/17 02/22/17 02/22/17 12:54 13:02 14:24 15:00 Temp 98.3 98.3 Pulse 65 Resp 22 22 22 B/P 160/51 Pulse Ox 84 O2 Delivery Nasal Cannula Nasal Cannula Nasal Cannula Nasal Cannula O2 Flow Rate 4.0 3.0 3.0 3.0 02/22/17 02/22/17 02/22/17 02/22/17 15:44 17:43 19:22 19:30 Temp 97.9 97.9 Pulse 84 Resp 20 18 B/P 108/50 Pulse Ox 92 94 O2 Delivery Nasal Cannula Nasal Cannula Nasal Cannula Nasal Cannula O2 Flow Rate 3.0 3.0 3.0 3.0 02/22/17 02/22/17 02/22/17 02/23/17 21:30 21:39 23:06 03:45 Temp 98.8 98.6 98.8 98.6 Pulse 84 88 87 Resp 18 20 B/P 108/50 145/61 177/72 Pulse Ox 94 94 98 O2 Delivery Nasal Cannula Nasal Cannula Nasal Cannula O2 Flow Rate 3.0 3.0 3.0 02/23/17 02/23/17 02/23/17 02/23/17 07:55 07:57 08:00 08:07 Temp 98.0 98.0 Pulse 80 80 Resp 17 B/P 166/85 166/85 Pulse Ox 95 95 O2 Delivery Nasal Cannula Nasal Cannula Nasal Cannula O2 Flow Rate 3.0 3.0 02/23/17 02/23/17 02/23/17 02/23/17 08:08 08:08 08:08 08:09 Pulse 80 80 B/P 166/85 166/85 Pulse Ox 95 95 O2 Delivery Nasal Cannula Nasal Cannula O2 Flow Rate 3.0 3.0 02/23/17 02/23/17 02/23/17 09:09 11:19 11:56 Temp 98.5 98.5 Pulse 73 Resp 19 B/P 144/50 Pulse Ox 95 92 90 O2 Delivery Nasal Cannula Nasal Cannula Nasal Cannula O2 Flow Rate 3.0 3.0 Intake and Output 02/22/17 02/22/17 02/23/17 14:59 22:59 06:59 Intake Total 120 ml 1550 ml Output Total 2105 ml 300 ml Balance 120 ml -555 ml -300 ml TOBY SON MD Feb 23, 2017 12:35
--- NOTE | 2017-02-23 13:03 | RAD ---
Exam: AP portable chest. History: Removal of left drain. Comparison: 02/22/2017. Findings: Cardiac silhouette is borderline in size. Single lead pacemaker by left subclavian approach is seen. Aortic atherosclerosis is noted. No pneumothorax is seen. There appear to be small bilateral pleural effusions. Left greater than right bibasilar densities are seen, may be atelectasis. Pulmonary vascularity is borderline. No pneumothorax is seen. Impression: 1. Persistent small bilateral pleural effusions. Borderline pulmonary vascular congestion. 2. Bibasilar densities, probably atelectasis.
--- NOTE | 2017-02-23 13:21 | PDOC ---
PROGRESS NOTES Chief Complaint Chief Complaint cc: Dyspnea and a cough -COPD exacerbation -Pericardial effusion -JOSE -Hypertension -Hyponatremia, hypophosphatemia, hyperkalemia -UT -Atrial fibrillation -CHF -PVD -Pacemaker -Hemothorax -SOB -Asthma -Pneumonia -Tracheostomy -Diarrhea -Tubal ligation -Arthritis -Amputation right index finger -DM -Panic disorder -Depression -Anxiety -Tobacco use Anemia History of Present Illness History of Present Illness Ms. Mendoza was lying in her bed in NAD when we visited her. She reports she is doing well today and has no acute symptoms. Her breathing ability has not changed much according to her, and she was on 3L N/C when we were in the room. She reports she had a bowel movement last night, which is easier for her to do since her clark catheter has been removed. Vitals Vitals Vital Signs Date Time Temp Pulse Resp B/P Pulse Ox O2 Delivery O2 Flow Rate FiO2 02/23/17 12:58 90 Nasal Cannula 3.0 02/23/17 11:19 98.5 73 19 144/50 98.5 Physical Exam General: Alert, Cooperative Heart: Normal S1, Normal S2, No murmurs Lungs: Clear, Other (Respiratory effort noted) Abdomen: Soft, No tenderness Extremities: No clubbing, No edema Skin: No rashes, Other (Bruising noted on right upper extremity) Labs LABS Laboratory Tests Test 02/22/17 17:02 02/22/17 20:47 02/23/17 06:10 02/23/17 07:32 Glucose (Fingerstick) 231mg/dL (70-99) 193mg/dL (70-99) 63mg/dL (70-99) White Blood Count 14.2x10^3/uL (4.0-11.0) Red Blood Count 3.72x10^6/uL (3.50-5.40) Hemoglobin 10.6g/dL (12.0-15.5) Hematocrit 34.4% (36.0-47.0) Mean Corpuscular Volume 93fL (79-100) Mean Corpuscular Hemoglobin 29pg (25-35) Mean Corpuscular Hemoglobin Concent 31g/dL (31-37) Red Cell Distribution Width 17.0% (11.5-14.5) Platelet Count 543x10^3/uL (140-400) Neutrophils (%) (Auto) 65% (31-73) Lymphocytes (%) (Auto) 25% (24-48) Monocytes (%) (Auto) 8% (0-9) Eosinophils (%) (Auto) 2% (0-3) Basophils (%) (Auto) 0% (0-3) Neutrophils # (Auto) 9.2x10^3uL (1.8-7.7) Lymphocytes # (Auto) 3.6x10^3/uL (1.0-4.8) Monocytes # (Auto) 1.1x10^3/uL (0.0-1.1) Eosinophils # (Auto) 0.2x10^3/uL (0.0-0.7) Basophils # (Auto) 0.1x10^3/uL (0.0-0.2) Sodium Level 139mmol/L (136-145) Potassium Level 3.8mmol/L (3.5-5.1) Chloride Level 101mmol/L (98-107) Carbon Dioxide Level 34mmol/L (21-32) Anion Gap 4 (6-14) Blood Urea Nitrogen 18mg/dL (7-20) Creatinine 0.6mg/dL (0.6-1.0) Estimated GFR (Cockcroft-Gault) 100.0 Glucose Level 52mg/dL (70-99) Calcium Level 8.2mg/dL (8.5-10.1) Phosphorus Level 2.6mg/dL (2.6-4.7) Creatine Kinase 29U/L (26-192) Albumin 2.5g/dL (3.4-5.0) Test 02/23/17 08:29 02/23/17 12:04 Glucose (Fingerstick) 106mg/dL (70-99) 180mg/dL (70-99) Review of Systems Review of Systems Ms. Mendoza reports she did not have nausea or vomiting overnight. She has not had any dizziness. She has not had any chest pain. Assessment and Plan Assessmemt and Plan Problems Medical Problems: (1) Community acquired pneumonia Status: Acute (2) COPD exacerbation Status: Acute Assessment: Ms. Mendoza is a 67 year old female who presented with dyspnea and a cough. -COPD exacerbation -Pericardial effusion -JOSE -Hypertension -Hyponatremia, hypophosphatemia, hyperkalemia -UT -Atrial fibrillation -CHF -PVD -Pacemaker -Hemothorax -SOB -Asthma -Pneumonia -Tracheostomy -Diarrhea -Tubal ligation -Arthritis -Amputation right index finger -DM -Panic disorder -Depression -Anxiety -Tobacco use -Anemia Plan: 1. Continue breathing treatments with budesonide 2. Discharge when verified by pulmonology 3. PT/OT 4. Recheck labs 5. Continue home medications 6. Continue anti-nausea medication with ondansetron 7. Continue labetalol prn hypertension 8. Continue antibiotic doxycycline 9. Appreciate consultation from cardiology, nephrology, pulmonology, IR, and ID. Problems: Comment Review of Relevant I have reviewed the following items luke (where applicable) has been applied. Labs Laboratory Tests Test 02/21/17 17:13 02/21/17 20:57 02/22/17 03:20 02/22/17 07:36 Glucose (Fingerstick) 266mg/dL (70-99) 124mg/dL (70-99) 61mg/dL (70-99) White Blood Count 18.7x10^3/uL (4.0-11.0) Red Blood Count 3.49x10^6/uL (3.50-5.40) Hemoglobin 10.4g/dL (12.0-15.5) Hematocrit 32.1% (36.0-47.0) Mean Corpuscular Volume 92fL (79-100) Mean Corpuscular Hemoglobin 30pg (25-35) Mean Corpuscular Hemoglobin Concent 32g/dL (31-37) Red Cell Distribution Width 16.8% (11.5-14.5) Platelet Count 569x10^3/uL (140-400) Neutrophils (%) (Auto) 71% (31-73) Lymphocytes (%) (Auto) 20% (24-48) Monocytes (%) (Auto) 8% (0-9) Eosinophils (%) (Auto) 1% (0-3) Basophils (%) (Auto) 0% (0-3) Neutrophils # (Auto) 13.3x10^3uL (1.8-7.7) Lymphocytes # (Auto) 3.7x10^3/uL (1.0-4.8) Monocytes # (Auto) 1.5x10^3/uL (0.0-1.1) Eosinophils # (Auto) 0.2x10^3/uL (0.0-0.7) Basophils # (Auto) 0.0x10^3/uL (0.0-0.2) Sodium Level 141mmol/L (136-145) Potassium Level 3.7mmol/L (3.5-5.1) Chloride Level 101mmol/L (98-107) Carbon Dioxide Level 36mmol/L (21-32) Anion Gap 4 (6-14) Blood Urea Nitrogen 18mg/dL (7-20) Creatinine 0.7mg/dL (0.6-1.0) Estimated GFR (Cockcroft-Gault) 83.7 Glucose Level 51mg/dL (70-99) Calcium Level 8.4mg/dL (8.5-10.1) Phosphorus Level 2.3mg/dL (2.6-4.7) Magnesium Level 2.0mg/dL (1.8-2.4) Creatine Kinase 36U/L (26-192) Albumin 2.5g/dL (3.4-5.0) Test 02/22/17 08:22 02/22/17 09:50 02/22/17 12:19 02/22/17 17:02 Glucose (Fingerstick) 89mg/dL (70-99) 183mg/dL (70-99) 181mg/dL (70-99) 231mg/dL (70-99) Test 02/22/17 20:47 02/23/17 06:10 02/23/17 07:32 02/23/17 08:29 Glucose (Fingerstick) 193mg/dL (70-99) 63mg/dL (70-99) 106mg/dL (70-99) White Blood Count 14.2x10^3/uL (4.0-11.0) Red Blood Count 3.72x10^6/uL (3.50-5.40) Hemoglobin 10.6g/dL (12.0-15.5) Hematocrit 34.4% (36.0-47.0) Mean Corpuscular Volume 93fL (79-100) Mean Corpuscular Hemoglobin 29pg (25-35) Mean Corpuscular Hemoglobin Concent 31g/dL (31-37) Red Cell Distribution Width 17.0% (11.5-14.5) Platelet Count 543x10^3/uL (140-400) Neutrophils (%) (Auto) 65% (31-73) Lymphocytes (%) (Auto) 25% (24-48) Monocytes (%) (Auto) 8% (0-9) Eosinophils (%) (Auto) 2% (0-3) Basophils (%) (Auto) 0% (0-3) Neutrophils # (Auto) 9.2x10^3uL (1.8-7.7) Lymphocytes # (Auto) 3.6x10^3/uL (1.0-4.8) Monocytes # (Auto) 1.1x10^3/uL (0.0-1.1) Eosinophils # (Auto) 0.2x10^3/uL (0.0-0.7) Basophils # (Auto) 0.1x10^3/uL (0.0-0.2) Sodium Level 139mmol/L (136-145) Potassium Level 3.8mmol/L (3.5-5.1) Chloride Level 101mmol/L (98-107) Carbon Dioxide Level 34mmol/L (21-32) Anion Gap 4 (6-14) Blood Urea Nitrogen 18mg/dL (7-20) Creatinine 0.6mg/dL (0.6-1.0) Estimated GFR (Cockcroft-Gault) 100.0 Glucose Level 52mg/dL (70-99) Calcium Level 8.2mg/dL (8.5-10.1) Phosphorus Level 2.6mg/dL (2.6-4.7) Creatine Kinase 29U/L (26-192) Albumin 2.5g/dL (3.4-5.0) Test 02/23/17 12:04 Glucose (Fingerstick) 180mg/dL (70-99) Laboratory Tests Test 02/22/17 17:02 02/22/17 20:47 02/23/17 06:10 02/23/17 07:32 Glucose (Fingerstick) 231mg/dL (70-99) 193mg/dL (70-99) 63mg/dL (70-99) White Blood Count 14.2x10^3/uL (4.0-11.0) Red Blood Count 3.72x10^6/uL (3.50-5.40) Hemoglobin 10.6g/dL (12.0-15.5) Hematocrit 34.4% (36.0-47.0) Mean Corpuscular Volume 93fL (79-100) Mean Corpuscular Hemoglobin 29pg (25-35) Mean Corpuscular Hemoglobin Concent 31g/dL (31-37) Red Cell Distribution Width 17.0% (11.5-14.5) Platelet Count 543x10^3/uL (140-400) Neutrophils (%) (Auto) 65% (31-73) Lymphocytes (%) (Auto) 25% (24-48) Monocytes (%) (Auto) 8% (0-9) Eosinophils (%) (Auto) 2% (0-3) Basophils (%) (Auto) 0% (0-3) Neutrophils # (Auto) 9.2x10^3uL (1.8-7.7) Lymphocytes # (Auto) 3.6x10^3/uL (1.0-4.8) Monocytes # (Auto) 1.1x10^3/uL (0.0-1.1) Eosinophils # (Auto) 0.2x10^3/uL (0.0-0.7) Basophils # (Auto) 0.1x10^3/uL (0.0-0.2) Sodium Level 139mmol/L (136-145) Potassium Level 3.8mmol/L (3.5-5.1) Chloride Level 101mmol/L (98-107) Carbon Dioxide Level 34mmol/L (21-32) Anion Gap 4 (6-14) Blood Urea Nitrogen 18mg/dL (7-20) Creatinine 0.6mg/dL (0.6-1.0) Estimated GFR (Cockcroft-Gault) 100.0 Glucose Level 52mg/dL (70-99) Calcium Level 8.2mg/dL (8.5-10.1) Phosphorus Level 2.6mg/dL (2.6-4.7) Creatine Kinase 29U/L (26-192) Albumin 2.5g/dL (3.4-5.0) Test 02/23/17 08:29 02/23/17 12:04 Glucose (Fingerstick) 106mg/dL (70-99) 180mg/dL (70-99) Microbiology 02/17/17 Blood Culture - Final, Complete NO GROWTH AFTER 5 DAYS 02/18/17 Gram Stain - Final, Complete Medications Current Medications Albuterol/ Ipratropium (Duoneb) 3 ml 1X ONCE NEB Last administered on 07:46; Start 02/17/17 at 07:45; Stop 02/17/17 at 07:46; Status DC Albuterol/ Ipratropium (Duoneb) 3 ml STK-MED ONCE .ROUTE ; Start 02/17/17 at 07: 40; Stop 02/17/17 at 07:41; Status DC Albuterol Sulfate (Ventolin Neb Soln) 10 mg 1X ONCE CONT NEB Last administered on 02/17/17 08:02; Start 02/17/17 at 08:00; Stop 02/17/17 at 08:01 ; Status DC Methylprednisolone Sodium Succinate 60 mg 60 mg 1X ONCE IV Last administered on 02/17/17 08:49; Start 02/17/17 at 08:00; Stop 02/17/17 at 08:06; Status DC Ceftriaxone Sodium 50 ml @ 100 mls/hr 1X ONCE IV Last administered on 08:50; Start 02/17/17 at 08:15; Stop 02/17/17 at 08:44; Status DC Doxycycline Hyclate 100 mg/ Dextrose 100 ml @ 50 mls/hr 1X ONCE IV Last administered on 02/17/17 08:50; Start 02/17/17 at 08:15; Stop 02/17/17 at 10:14 ; Status DC Ceftriaxone Sodium 50 ml @ 100 mls/hr DAILY IV ; Start 02/18/17 at 09:00; Status UNV Doxycycline Hyclate 100 mg/ Dextrose 100 ml @ 50 mls/hr BID IV Last administered on 02/19/17 21:36; Start 02/17/17 at 21:00; Stop 02/20/17 at 09:34 ; Status DC Ceftriaxone Sodium/Sodium Chloride (Rocephin/Iv Sodium Chloride 0.9% 50ml) 50 ml @ 100 mls/hr Q24H IV Last administered on 02/22/17 08:54; Start 02/18/17 at 09:00; Stop 02/22/17 at 14:29; Status DC Insulin Aspart (Novolog) 0-7 UNITS TIDWMEALS SQ Last administered on 02/23/17 12:48; Start 02/17/17 at 12:00 Dextrose 12.5 gm 12.5 gm PRN Q15MIN PRN IV SEE COMMENTS; Start 02/17/17 at 10: 00 Magnesium Sulfate/ Dextrose (Magnesium Sulfate PREMIX 2GM) 50 ml @ 25 mls/hr PRN DAILY PRN IV for Mag < 1.7 on am labs; Start 02/17/17 at 14:45 Sodium Polystyrene Sulfonate 45 gm 45 gm 1X ONCE PO Last administered on 22:21; Start 02/17/17 at 15:30; Stop 02/17/17 at 15:31; Status DC Sodium Chloride (Iv Sodium Chloride 0.9% 500ml Bag) 500 ml @ 0 mls/hr PRN QID PRN IV UO< 30cc/hr over previous 6hrs; Start 02/17/17 at 15:00 Sodium Bicarbonate 50 meq 50 meq 1X ONCE IV Last administered on 02/17/17 15: 46; Start 02/17/17 at 15:30; Stop 02/17/17 at 15:35; Status DC Sodium Chloride (Iv Sodium Chloride 0.9% 1000ml Bag) 1,000 ml @ 75 mls/hr 1X ONCE IV Last administered on 02/17/17 16:11; Start 02/17/17 at 15:45; Stop at 05:04; Status DC Prednisone (Prednisone) 60 mg DAILY07 PO Last administered on 02/20/17 09:29; Start 02/18/17 at 07:00; Stop 02/20/17 at 12:45; Status DC Alprazolam (Xanax) 1 mg PRN Q8HRS PRN PO ANXIETY / AGITATION Last administered on 02/17/17 22:13; Start 02/17/17 at 15:45 Aspirin (Ecotrin) 81 mg DAILY PO Last administered on 02/23/17 08:07; Start at 09:00 Cilostazol (Pletal) 50 mg BID PO Last administered on 02/23/17 08:07; Start at 21:00 Citalopram Hydrobromide (Celexa) 20 mg DAILY PO Last administered on 02/23/17 08:09; Start 02/18/17 at 09:00 Dabigatran (Pradaxa) 75 mg BID PO Last administered on 02/20/17 09:28; Start 02/17/17 at 21:00; Stop 02/20/17 at 15:48; Status DC Digoxin (Lanoxin) 125 mcg DAILY PO Last administered on 02/23/17 08:08; Start 02/18/17 at 09:00 Diphenhydramine HCl (Benadryl) 25 mg QHS PO Last administered on 02/22/17 21: 37; Start 02/17/17 at 21:00 Guaifenesin (Mucinex) 600 mg BID PO Last administered on 02/23/17 08:06; Start 02/17/17 at 21:00 Acetaminophen/ Hydrocodone Bitart (Lortab 7.5/325) 1 tab QID PO Last administered on 02/23/17 12:58; Start 02/17/17 at 17:00 Morphine Sulfate (Ms Contin) 30 mg TID PO Last administered on 02/23/17 08:08 ; Start 02/17/17 at 21:00 Propafenone HCl (Rythmol) 150 mg BID PO Last administered on 02/23/17 08:08; Start 02/17/17 at 21:00 Trimethoprim/ Sulfamethoxazole (Bactrim Ds) 1 tab DAILY PO ; Start 02/17/17 at 21:00; Stop 02/18/17 at 08:22; Status DC Vitamin B Complex (Omi B) 1 tab DAILY PO Last administered on 02/23/17 08:07 ; Start 02/18/17 at 09:00 Albuterol/ Ipratropium (Duoneb) 3 ml Q4HRS NEB ; Start 02/17/17 at 16:00; Status Cancel Diltiazem HCl (Cardizem 24hr Cd) 360 mg DAILY PO Last administered on 08:07; Start 02/18/17 at 09:00 Ferrous Sulfate (Feosol) 325 mg DAILYWBKFT PO Last administered on 02/20/17 09 :28; Start 02/18/17 at 08:00 Non-Formulary Medication 1 puff BID INH ; Start 02/17/17 at 21:00; Status UNV Gabapentin (Neurontin) 900 mg BID PO Last administered on 02/23/17 08:07; Start 02/17/17 at 21:00 Insulin Detemir (Levemir) 14 units BID SQ Last administered on 02/17/17 22:12 ; Start 02/17/17 at 21:00; Stop 02/18/17 at 11:35; Status DC Non-Formulary Medication 1 each HS PO ; Start 02/17/17 at 21:00; Status UNV Budesonide (Pulmicort) 0.5 mg RTBID NEB Last administered on 02/23/17 07:57; Start 02/17/17 at 20:00 Albuterol/ Ipratropium (Duoneb) 3 ml Q4HRS W/A NEB Last administered on 11:56; Start 02/17/17 at 18:00 Insulin Aspart (Novolog) 9 units TIDAC SQ Last administered on 02/18/17 09:24 ; Start 02/17/17 at 16:30; Stop 02/18/17 at 11:36; Status DC Ondansetron HCl (Zofran) 4 mg PRN Q6HRS PRN IV NAUSEA/VOMITING Last administered on 02/17/17 21:05; Start 02/17/17 at 18:15 Furosemide 80 mg 80 mg 1X ONCE IVP ; Start 02/17/17 at 20:00; Stop 02/17/17 at 20:01; Status DC Sodium Bicarbonate 150 meq/Dextrose 1,150 ml @ 100 mls/hr [id number] IV Last administered on 02/17/17 21:11; Start 02/17/17 at 21:00; Stop 02/18/17 at 06:59 ; Status DC Sodium Bicarbonate 75 meq/Dextrose 575 ml @ 100 mls/hr Q5H45M IV ; Start at 07:00; Stop 02/18/17 at 11:59; Status DC Dobutamine HCl/ Dextrose 250 ml @ 0 mls/hr CONT PRN IV SEE I/O RECORD Last administered on 02/17/17 23:38; Start 02/17/17 at 23:00; Stop 02/20/17 at 12:45 ; Status DC Calcium Acetate 1334 mg 1,334 mg TIDWMEALS PO Last administered on 02/22/17 12 :56; Start 02/18/17 at 09:00; Stop 02/22/17 at 14:29; Status DC Sodium Chloride (Hypertonic Saline) 500 ml @ 30 mls/hr CONT PRN PRN IV see comments Last administered on 02/19/17 03:09; Start 02/18/17 at 08:15; Stop at 13:55; Status DC Heparin Sodium (Porcine) (Heparin Sodium) 10,000 unit STK-MED ONCE .ROUTE ; Start 02/18/17 at 09:53; Stop 02/18/17 at 09:54; Status DC Lidocaine/Sodium Bicarbonate 20 ml 20 ml STK-MED ONCE IJ ; Start 02/18/17 at 09: 53; Stop 02/18/17 at 09:54; Status DC Heparin Sodium/ Sodium Chloride 500 ml @ As Directed STK-MED ONCE .ROUTE ; Start 02/18/17 at 09:53; Stop 02/18/17 at 09:54; Status DC Heparin Sodium/ Sodium Chloride 60 unit 1X ONCE IV Last administered on 10:42; Start 02/18/17 at 10:15; Stop 02/18/17 at 10:19; Status DC Heparin Sodium (Porcine) (Heparin Sodium) 2,500 unit 1X ONCE INT CAT Last administered on 02/18/17 10:41; Start 02/18/17 at 10:15; Stop 02/18/17 at 10:19 ; Status DC Lidocaine/Sodium Bicarbonate (Buffered Lidocaine 1%) 3 ml 1X ONCE IJ Last administered on 02/18/17 10:41; Start 02/18/17 at 10:15; Stop 02/18/17 at 10:19 ; Status DC Insulin Aspart (Novolog) 10 units TIDAC SQ Last administered on 02/23/17 12:47 ; Start 02/18/17 at 12:00 Insulin Detemir 20 units 20 units BID SQ Last administered on 02/19/17 08:11; Start 02/18/17 at 21:00; Stop 02/19/17 at 12:50; Status DC Heparin Sodium/ Sodium Chloride 500 ml @ As Directed STK-MED ONCE .ROUTE ; Start 02/18/17 at 16:19; Stop 02/18/17 at 16:20; Status DC Lidocaine/ Epinephrine (Xylocaine 2%-Epi 1:100,000) 20 ml STK-MED ONCE .ROUTE ; Start 02/18/17 at 16:19; Stop 02/18/17 at 16:20; Status DC Fentanyl Citrate (Fentanyl 2ml Vial) 100 mcg STK-MED ONCE .ROUTE ; Start at 16:30; Stop 02/18/17 at 16:31; Status DC Midazolam HCl (Versed) 2 mg STK-MED ONCE .ROUTE ; Start 02/18/17 at 16:30; Stop 02/18/17 at 16:31; Status DC Heparin Sodium/ Sodium Chloride 1,000 unit 1X ONCE IART Last administered on 17:27; Start 02/18/17 at 16:45; Stop 02/18/17 at 16:46; Status DC Midazolam HCl (Versed) 2 mg 1X ONCE IV Last administered on 02/18/17 17:26; Start 02/18/17 at 16:45; Stop 02/18/17 at 16:46; Status DC Fentanyl Citrate (Fentanyl 2ml Vial) 100 mcg 1X ONCE IV Last administered on 17:27; Start 02/18/17 at 16:45; Stop 02/18/17 at 16:46; Status DC Lidocaine/ Epinephrine (Xylocaine 2%-Epi 1:100,000) 20 ml 1X ONCE IJ Last administered on 02/18/17 17:24; Start 02/18/17 at 16:45; Stop 02/18/17 at 16:46 ; Status DC Fentanyl Citrate (Fentanyl 2ml Vial) 100 mcg STK-MED ONCE .ROUTE ; Start at 16:46; Stop 02/18/17 at 16:47; Status DC Labetalol HCl (Normodyne) 20 mg STK-MED ONCE .ROUTE ; Start 02/18/17 at 16:51; Stop 02/18/17 at 16:52; Status DC Labetalol HCl (Normodyne) 10 mg 1X ONCE IVP Last administered on 02/18/17 17: 26; Start 02/18/17 at 17:00; Stop 02/18/17 at 17:01; Status DC Labetalol HCl (Normodyne) 10 mg PRN Q3HRS PRN IVP HYPERTENSION, SEE COMMENTS Last administered on 02/20/17 23:35; Start 02/18/17 at 20:15 Insulin Detemir (Levemir) 25 units BID SQ Last administered on 02/20/17 21:06 ; Start 02/19/17 at 21:00; Stop 02/21/17 at 08:44; Status DC Doxycycline Hyclate 100 mg 100 mg BID PO Last administered on 02/23/17 08:09; Start 02/20/17 at 10:00 Sodium Phosphate 20 mmol/Dextrose 256.6667 ml @ 64.167 m... 1X ONCE IV Last administered on 02/20/17 13:18; Start 02/20/17 at 10:00; Stop 02/20/17 at 13:59 ; Status DC Sodium Phosphate/ Dextrose 256.6667 ml @ 64.167 m... 1X ONCE IV Last administered on 02/20/17 17:40; Start 02/20/17 at 12:00; Stop 02/20/17 at 15:59 ; Status DC Prednisone (Prednisone) 40 mg DAILY07 PO Last administered on 02/23/17 06:33; Start 02/21/17 at 07:00 Dabigatran (Pradaxa) 150 mg BID PO Last administered on 02/23/17 08:09; Start 02/20/17 at 21:00 Insulin Detemir (Levemir) 18 units BID SQ Last administered on 02/23/17 08:17 ; Start 02/21/17 at 09:00 Info (Anti-Coagulation Monitoring By Pharmacy) 1 each PRN DAILY PRN MC SEE COMMENTS Last administered on 02/23/17 09:00; Start 02/22/17 at 08:30 Active Scripts Active Iron (Ferrous Sulfate) 325 Mg Capsule.er 325 Mg PO DAILY B Complex # 1 (Vitamin B Complex) 1 Each Tablet 1 Each PO DAILY Levaquin (Levofloxacin) 750 Mg Tablet 1 Tab PO DAILY Advair 250-50 Diskus (Fluticasone/Salmeterol) 1 Puff Puff 1 Puff INH BID Mucinex (Guaifenesin) 600 Mg Tablet.er 600 Mg PO BID Reported Prednisone 2.5 Mg Tablet 2 Tab PO DAILY Sulfamethoxazole-Tmp Ds Tablet (Sulfamethoxazole/Trimethoprim) 1 Each Tablet 1 Tab PO BID Albuterol Sulfate Conc Neb Soln (Albuterol Sulfate) 2.5 Mg/0.5 Ml Vial.neb 1 Vial NEB Q4HRS Lantus Solostar (Insulin Glargine,Hum.rec.anlog) 100 Unit/1 Ml Insuln.pen 14 Unit SQ BID Furosemide 40 Mg Tablet 1 Tab PO DAILY Mucinex (Guaifenesin) 600 Mg Tablet.er 400 Mg PO BID Xanax (Alprazolam) 1 Mg Tablet 1 Tab PO Q8HRS PRN Melatonin 10 Mg Tablet (Melatonin/Pyridoxine Hcl (B6)) 1 Each Tab.mphase 1 Each PO HS Nifedipine Er (Nifedipine) 60 Mg Tab.er.24 1 Tab PO DAILY Morphine Sulfate Er (Morphine Sulfate) 30 Mg Tablet.er 1 Tab PO TID Gabapentin 300 Mg Capsule 900 Mg PO QID Furosemide 20 Mg Tablet 1.5 Tab PO DAILY Cardizem Cd (Diltiazem Hcl) 360 Mg Cap.er.24h 1 Cap PO DAILY Next dose: 05/14 Rythmol (Propafenone Hcl) 150 Mg Tablet 150 Mg PO BID Next dose: 05/13 in pm Benadryl (Diphenhydramine Hcl) 25 Mg Capsule 2 Cap PO QHS Next dose: 05/14 Novolog (Insulin Aspart) 100 Unit/1 Ml Vial 100 Unit SQ Next dose: 05/13 at dinner Lantus (Insulin Glargine,Hum.rec.anlog) 100 Unit/1 Ml Vial 1 Unit SQ Next dose: 05/13 at bedtime Hydrocodone-Apap 7.5-325 (Hydrocodone Bit/Acetaminophen) 1 Each Tablet 1 Tab PO QID Next dose: 05/14 at 1 pm Combivent Respimat Inhal (Ipratropium/Albuterol Sulfate) 4 Gm Aer.w.adap 2 Inh IH QID Spiriva (Tiotropium Quentin) 18 Mcg Cap.w.dev 1 Cap IH DAILY Next dose: 05/13 Dulera 100 Mcg/5 Mcg Inhaler (Mometasone/Formoterol) 13 Gm Hfa.aer.ad 2 Puff IH BID Digoxin 125 Mcg Tablet 1 Tab PO DAILY Next dose: 05/14 Citalopram Hbr (Citalopram Hydrobromide) 20 Mg Tablet 1 Tab PO DAILY Next dose: 05/14 Aspir 81 (Aspirin) 81 Mg Tablet.dr 1 Tab PO DAILY Next dose: 05/14 Cilostazol 50 Mg Tablet 50 Mg PO BID Next dose: 05/13 in PM Pradaxa (Dabigatran Etexilate Mesylate) 150 Mg Capsule 1 Cap PO BID Next dose: 05/13 in PM Potassium Chloride 20 Meq Tablet.er 20 Meq PO DAILY Next dose: 05/14 Vitals/I & O Vital Sign - Last 24 Hours 02/22/17 02/22/17 02/22/17 02/22/17 14:24 15:00 15:44 17:43 Temp 98.3 98.3 Pulse 65 Resp 20 B/P 160/51 Pulse Ox 84 92 O2 Delivery Nasal Cannula Nasal Cannula Nasal Cannula Nasal Cannula O2 Flow Rate 3.0 3.0 3.0 3.0 02/22/17 02/22/17 02/22/17 02/22/17 19:22 19:30 21:30 21:39 Temp 97.9 97.9 Pulse 84 84 Resp 18 B/P 108/50 108/50 Pulse Ox 94 94 O2 Delivery Nasal Cannula Nasal Cannula Nasal Cannula O2 Flow Rate 3.0 3.0 3.0 02/22/17 02/23/17 02/23/17 02/23/17 23:06 03:45 07:55 07:57 Temp 98.8 98.6 98.0 98.8 98.6 98.0 Pulse 88 87 80 Resp 17 B/P 145/61 177/72 166/85 Pulse Ox 94 98 95 95 O2 Delivery Nasal Cannula Nasal Cannula Nasal Cannula Nasal Cannula O2 Flow Rate 3.0 3.0 3.0 02/23/17 02/23/17 02/23/17 02/23/17 08:00 08:07 08:08 08:08 Pulse 80 80 B/P 166/85 166/85 Pulse Ox 95 O2 Delivery Nasal Cannula Nasal Cannula O2 Flow Rate 3.0 3.0 02/23/17 02/23/17 02/23/17 02/23/17 08:08 08:09 09:09 11:19 Temp 98.5 98.5 Pulse 80 73 Resp 19 B/P 166/85 144/50 Pulse Ox 95 95 92 O2 Delivery Nasal Cannula Nasal Cannula Nasal Cannula O2 Flow Rate 3.0 3.0 402/23/17 02/23/17 11:56 12:51 12:58 Pulse Ox 90 90 90 O2 Delivery Nasal Cannula Nasal Cannula Nasal Cannula O2 Flow Rate 3.0 3.0 3.0 Intake and Output 02/22/17 02/22/17 02/23/17 15:00 23:00 07:00 Intake Total 120 ml 1550 ml Output Total 2105 ml 300 ml Balance 120 ml -555 ml -300 ml [facility] III DO Feb 23, 2017 13:20
[2017-02-23 14:31] VITALS: BP 157/42
--- NOTE | 2017-02-23 15:49 | PDOC ---
PULMONARY PROGRESS NOTES Subjective not more soa s/p emergent pericardiocentesis 02/18 large pericardial effusion on ct chest Vitals Vital Signs Date Time Temp Pulse Resp B/P Pulse Ox O2 Delivery O2 Flow Rate FiO2 02/23/17 14:31 98.5 77 20 157/42 92 Nasal Cannula 98.5 02/23/17 14:13 3.0 General: Alert, No acute distress HEENT: Other Lungs: Clear Cardiovascular: S1, S2 Abdomen: Soft, Non-tender, Other Neuro Exam: Alert Extremities: Other (1+edema) Skin: Warm Labs Laboratory Tests Test 02/21/17 17:13 02/21/17 20:57 02/22/17 03:20 02/22/17 07:36 Glucose (Fingerstick) 266mg/dL (70-99) 124mg/dL (70-99) 61mg/dL (70-99) White Blood Count 18.7x10^3/uL (4.0-11.0) Red Blood Count 3.49x10^6/uL (3.50-5.40) Hemoglobin 10.4g/dL (12.0-15.5) Hematocrit 32.1% (36.0-47.0) Mean Corpuscular Volume 92fL (79-100) Mean Corpuscular Hemoglobin 30pg (25-35) Mean Corpuscular Hemoglobin Concent 32g/dL (31-37) Red Cell Distribution Width 16.8% (11.5-14.5) Platelet Count 569x10^3/uL (140-400) Neutrophils (%) (Auto) 71% (31-73) Lymphocytes (%) (Auto) 20% (24-48) Monocytes (%) (Auto) 8% (0-9) Eosinophils (%) (Auto) 1% (0-3) Basophils (%) (Auto) 0% (0-3) Neutrophils # (Auto) 13.3x10^3uL (1.8-7.7) Lymphocytes # (Auto) 3.7x10^3/uL (1.0-4.8) Monocytes # (Auto) 1.5x10^3/uL (0.0-1.1) Eosinophils # (Auto) 0.2x10^3/uL (0.0-0.7) Basophils # (Auto) 0.0x10^3/uL (0.0-0.2) Sodium Level 141mmol/L (136-145) Potassium Level 3.7mmol/L (3.5-5.1) Chloride Level 101mmol/L (98-107) Carbon Dioxide Level 36mmol/L (21-32) Anion Gap 4 (6-14) Blood Urea Nitrogen 18mg/dL (7-20) Creatinine 0.7mg/dL (0.6-1.0) Estimated GFR (Cockcroft-Gault) 83.7 Glucose Level 51mg/dL (70-99) Calcium Level 8.4mg/dL (8.5-10.1) Phosphorus Level 2.3mg/dL (2.6-4.7) Magnesium Level 2.0mg/dL (1.8-2.4) Creatine Kinase 36U/L (26-192) Albumin 2.5g/dL (3.4-5.0) Test 02/22/17 08:22 02/22/17 09:50 02/22/17 12:19 02/22/17 17:02 Glucose (Fingerstick) 89mg/dL (70-99) 183mg/dL (70-99) 181mg/dL (70-99) 231mg/dL (70-99) Test 02/22/17 20:47 02/23/17 06:10 02/23/17 07:32 02/23/17 08:29 Glucose (Fingerstick) 193mg/dL (70-99) 63mg/dL (70-99) 106mg/dL (70-99) White Blood Count 14.2x10^3/uL (4.0-11.0) Red Blood Count 3.72x10^6/uL (3.50-5.40) Hemoglobin 10.6g/dL (12.0-15.5) Hematocrit 34.4% (36.0-47.0) Mean Corpuscular Volume 93fL (79-100) Mean Corpuscular Hemoglobin 29pg (25-35) Mean Corpuscular Hemoglobin Concent 31g/dL (31-37) Red Cell Distribution Width 17.0% (11.5-14.5) Platelet Count 543x10^3/uL (140-400) Neutrophils (%) (Auto) 65% (31-73) Lymphocytes (%) (Auto) 25% (24-48) Monocytes (%) (Auto) 8% (0-9) Eosinophils (%) (Auto) 2% (0-3) Basophils (%) (Auto) 0% (0-3) Neutrophils # (Auto) 9.2x10^3uL (1.8-7.7) Lymphocytes # (Auto) 3.6x10^3/uL (1.0-4.8) Monocytes # (Auto) 1.1x10^3/uL (0.0-1.1) Eosinophils # (Auto) 0.2x10^3/uL (0.0-0.7) Basophils # (Auto) 0.1x10^3/uL (0.0-0.2) Sodium Level 139mmol/L (136-145) Potassium Level 3.8mmol/L (3.5-5.1) Chloride Level 101mmol/L (98-107) Carbon Dioxide Level 34mmol/L (21-32) Anion Gap 4 (6-14) Blood Urea Nitrogen 18mg/dL (7-20) Creatinine 0.6mg/dL (0.6-1.0) Estimated GFR (Cockcroft-Gault) 100.0 Glucose Level 52mg/dL (70-99) Calcium Level 8.2mg/dL (8.5-10.1) Phosphorus Level 2.6mg/dL (2.6-4.7) Creatine Kinase 29U/L (26-192) Albumin 2.5g/dL (3.4-5.0) Test 02/23/17 12:04 Glucose (Fingerstick) 180mg/dL (70-99) Laboratory Tests Test 02/22/17 17:02 02/22/17 20:47 02/23/17 06:10 02/23/17 07:32 Glucose (Fingerstick) 231mg/dL (70-99) 193mg/dL (70-99) 63mg/dL (70-99) White Blood Count 14.2x10^3/uL (4.0-11.0) Red Blood Count 3.72x10^6/uL (3.50-5.40) Hemoglobin 10.6g/dL (12.0-15.5) Hematocrit 34.4% (36.0-47.0) Mean Corpuscular Volume 93fL (79-100) Mean Corpuscular Hemoglobin 29pg (25-35) Mean Corpuscular Hemoglobin Concent 31g/dL (31-37) Red Cell Distribution Width 17.0% (11.5-14.5) Platelet Count 543x10^3/uL (140-400) Neutrophils (%) (Auto) 65% (31-73) Lymphocytes (%) (Auto) 25% (24-48) Monocytes (%) (Auto) 8% (0-9) Eosinophils (%) (Auto) 2% (0-3) Basophils (%) (Auto) 0% (0-3) Neutrophils # (Auto) 9.2x10^3uL (1.8-7.7) Lymphocytes # (Auto) 3.6x10^3/uL (1.0-4.8) Monocytes # (Auto) 1.1x10^3/uL (0.0-1.1) Eosinophils # (Auto) 0.2x10^3/uL (0.0-0.7) Basophils # (Auto) 0.1x10^3/uL (0.0-0.2) Sodium Level 139mmol/L (136-145) Potassium Level 3.8mmol/L (3.5-5.1) Chloride Level 101mmol/L (98-107) Carbon Dioxide Level 34mmol/L (21-32) Anion Gap 4 (6-14) Blood Urea Nitrogen 18mg/dL (7-20) Creatinine 0.6mg/dL (0.6-1.0) Estimated GFR (Cockcroft-Gault) 100.0 Glucose Level 52mg/dL (70-99) Calcium Level 8.2mg/dL (8.5-10.1) Phosphorus Level 2.6mg/dL (2.6-4.7) Creatine Kinase 29U/L (26-192) Albumin 2.5g/dL (3.4-5.0) Test 02/23/17 08:29 02/23/17 12:04 Glucose (Fingerstick) 106mg/dL (70-99) 180mg/dL (70-99) Medications Active Scripts Medications Dose Route/Sig Days Date Category Dose Instructions Prednisone 2.5 Mg Tablet 2 Tab PO DAILY 02/17/17 Reported Sulfamethoxazole-Tmp Ds Tablet (Sulfamethoxazole/Trimethoprim) 1 Each Tablet 1 Tab PO BID 02/17/17 Reported Albuterol Sulfate Conc Neb Soln (Albuterol Sulfate) 2.5 Mg/0.5 Ml Vial.neb 1 Vial NEB Q4HRS 11/03/16 Reported Lantus Solostar (Insulin Glargine,Hum.rec.anlog) 100 Unit/1 Ml Insuln.pen 14 Unit SQ BID 11/03/16 Reported Furosemide 40 Mg Tablet 1 Tab PO DAILY 11/03/16 Reported Mucinex (Guaifenesin) 600 Mg Tablet.er 400 Mg PO BID 11/03/16 Reported Xanax (Alprazolam) 1 Mg Tablet 1 Tab PO Q8HRS PRN 11/03/16 Reported Melatonin 10 Mg Tablet (Melatonin/Pyridoxine Hcl (B6)) 1 Each Tab.mphase 1 Each PO HS 11/03/16 Reported Iron (Ferrous Sulfate) 325 Mg Capsule.er 325 Mg PO DAILY 06/07/16 Rx B Complex # 1 (Vitamin B Complex) 1 Each Tablet 1 Each PO DAILY 06/07/16 Rx Levaquin (Levofloxacin) 750 Mg Tablet 1 Tab PO DAILY 06/07/16 Rx Nifedipine Er (Nifedipine) 60 Mg Tab.er.24 1 Tab PO DAILY 06/03/16 Reported Morphine Sulfate Er (Morphine Sulfate) 30 Mg Tablet.er 1 Tab PO TID 06/03/16 Reported Gabapentin 300 Mg Capsule 900 Mg PO QID 06/03/16 Reported Furosemide 20 Mg Tablet 1.5 Tab PO DAILY 06/03/16 Reported Cardizem Cd (Diltiazem Hcl) 360 Mg Cap.er.24h 1 Cap PO DAILY 03/07/15 Reported Next dose: 05/14 Rythmol (Propafenone Hcl) 150 Mg Tablet 150 Mg PO BID 03/07/15 Reported Next dose: 05/13 in pm Advair 250-50 Diskus (Fluticasone/Salmeterol) 1 Puff Puff 1 Puff INH BID 01/11/15 Rx Mucinex (Guaifenesin) 600 Mg Tablet.er 600 Mg PO BID 01/11/15 Rx Benadryl (Diphenhydramine Hcl) 25 Mg Capsule 2 Cap PO QHS 01/09/15 Reported Next dose: 05/14 Novolog (Insulin Aspart) 100 Unit/1 Ml Vial 100 Unit SQ 01/08/15 Reported Next dose: 05/13 at dinner Lantus (Insulin Glargine,Hum.rec.anlog) 100 Unit/1 Ml Vial 1 Unit SQ 01/08/15 Reported Next dose: 05/13 at bedtime Hydrocodone-Apap 7.5-325 (Hydrocodone Bit/Acetaminophen) 1 Each Tablet 1 Tab PO QID 01/08/15 Reported Next dose: 05/14 at 1 pm Combivent Respimat Inhal (Ipratropium/Albuterol Sulfate) 4 Gm Aer.w.adap 2 Inh IH QID 01/08/15 Reported Spiriva (Tiotropium [place]) 18 Mcg Cap.w.dev 1 Cap IH DAILY 01/08/15 Reported Next dose: 05/13 Dulera 100 Mcg/5 Mcg Inhaler (Mometasone/Formoterol) 13 Gm Hfa.aer.ad 2 Puff IH BID 01/08/15 Reported Digoxin 125 Mcg Tablet 1 Tab PO DAILY 01/08/15 Reported Next dose: 05/14 Citalopram Hbr (Citalopram Hydrobromide) 20 Mg Tablet 1 Tab PO DAILY 01/08/15 Reported Next dose: 05/14 Aspir 81 (Aspirin) 81 Mg Tablet.dr 1 Tab PO DAILY 01/08/15 Reported Next dose: 05/14 Cilostazol 50 Mg Tablet 50 Mg PO BID 01/08/15 Reported Next dose: 05/13 in PM Pradaxa (Dabigatran Etexilate Mesylate) 150 Mg Capsule 1 Cap PO BID 01/08/15 Reported Next dose: 05/13 in PM Potassium Chloride 20 Meq Tablet.er 20 Meq PO DAILY 01/08/15 Reported Next dose: 05/14 Impression . 1. Acute respiratory failure, secondary to combination of metabolic and respiratory acidosis and large pericardial effusion 2. Abnormal chest x-ray with bilateral prominent interstitial markings, CT chest with no significant ILD/CHF but large pericardial effusion 3. Previously abnormal transesophageal echo with moderate to severe mitral regurgitation. 4. Acute renal failure with metabolic acidosis. resolved post pericardiocentesis due to improved renal perfusion 5. Secondary pulmonary hypertension with a pulmonary artery systolic pressure of 70 on transesophageal echo from 07/2016. 6. Leukocytosis Plan . ok to d/c home from pulm 1. respiratory status much improved 2. Nebs 3. follow pericardial fluid analysis 4. pericardial drain per cardiology d/c 5. Follow renal recommendations. REAL VALENCIA MD Feb 23, 2017 15:49
--- NOTE | 2017-02-23 16:48 | CARD ---
APPROVED REPORT EXAM: LIMITED Two-dimensional echocardiogram. Other Information Quality : Average Rhythm : NSR INDICATION Pericardial Effusion LEFT VENTRICLE The left ventricle is normal size. There is normal left ventricular wall thickness. Left ventricle sy stolic function is normal. The Ejection Fraction is 60%. There is normal LV segmental wall motion. RIGHT VENTRICLE The right ventricle is normal size. The right ventricular systolic function is normal. ATRIA The left atrium appears dilated. The right atrium appears dilated. The interatrial septum is intact w ith no evidence for an atrial septal defect or patent foramen ovale as noted on 2-D or Doppler imagin g. GREAT VESSELS Ao root not evaluated PERICARDIAL EFFUSION There is no evidence of significant pericardial effusion. Critical Notification Critical Value: No <Conclusion> Left ventricle systolic function is normal. The Ejection Fraction is 60%. The left atrium appears dilated. The right atrium appears dilated. There is no evidence of significant pericardial effusion.
== END 2017-02-23 19:23 | disposition home or self-care (01) | DRG 682 ==
LOC: ER 07:13 → ED HOLD 07:48 → 6 SOUTH 12:25 → 1 WEST ICU 20:56 → 2 SOUTH 02-19 20:18
PROVIDERS: ADMIT Internal Medicine; ATTEND Internal Medicine
PROC: 0W9D30Z Drainage of Pericardial Cavity with Drainage Device, Percutaneous Approach (ICD-10-PCS; principal; 2017-02-18)
PROC: 02HV33Z Insertion of Infusion Device into Superior Vena Cava, Percutaneous Approach (ICD-10-PCS; 2017-02-18)
PROC: B548ZZA Ultrasonography of Superior Vena Cava, Guidance (ICD-10-PCS; 2017-02-18)
PROC: 05PYX3Z Removal of Infusion Device from Upper Vein, External Approach (ICD-10-PCS; 2017-02-18)
DX: N17.0 Acute kidney failure with tubular necrosis (principal); J96.01 Acute respiratory failure with hypoxia; J18.9 Pneumonia, unspecified organism; J96.21 Acute and chronic respiratory failure with hypoxia; E44.1 Mild protein-calorie malnutrition; E87.1 Hypo-osmolality and hyponatremia; I13.0 Hypertensive heart and chronic kidney disease with heart failure and stage 1 through stage 4 chronic kidney disease, or unspecified chronic kidney disease; I50.32 Chronic diastolic (congestive) heart failure; J44.0 Chronic obstructive pulmonary disease with (acute) lower respiratory infection; J44.1 Chronic obstructive pulmonary disease with (acute) exacerbation; J94.2 Hemothorax; J98.11 Atelectasis; I31.3 Pericardial effusion (noninflammatory); I32 Pericarditis in diseases classified elsewhere; Z68.29 Body mass index [BMI] 29.0-29.9, adult; D64.9 Anemia, unspecified; E11.22 Type 2 diabetes mellitus with diabetic chronic kidney disease; E83.39 Other disorders of phosphorus metabolism; E86.0 Dehydration; E87.5 Hyperkalemia; F32.9 Major depressive disorder, single episode, unspecified; F41.0 Panic disorder [episodic paroxysmal anxiety]; I08.3 Combined rheumatic disorders of mitral, aortic and tricuspid valves; I27.2 Other secondary pulmonary hypertension; I48.2 Chronic atrial fibrillation; E11.51 Type 2 diabetes mellitus with diabetic peripheral angiopathy without gangrene; J98.4 Other disorders of lung; K21.9 Gastro-esophageal reflux disease without esophagitis; M19.90 Unspecified osteoarthritis, unspecified site; N18.9 Chronic kidney disease, unspecified; Z72.0 Tobacco use; Z82.49 Family history of ischemic heart disease and other diseases of the circulatory system; Z82.5 Family history of asthma and other chronic lower respiratory diseases; Z83.3 Family history of diabetes mellitus; Z86.74 Personal history of sudden cardiac arrest; Z99.2 Dependence on renal dialysis; Z99.81 Dependence on supplemental oxygen; Z95.0 Presence of cardiac pacemaker; Z98.51 Tubal ligation status
CPT/HCPCS: 36415; 36556; 36600; 71010; 71250; 73110; 76770; 76937; 80053; 80069; 81001; 82533; 82550; 82570; 82805; 82947; 83615; 83690; 83735; 83880; 83930; 83935; 84156; 84295; 84300; 84439; 84443; 84484; 84550; 85007; 85027; 87040; 87071; 87075; 87205; 87641; 88112; 88305; 89050; 93005; 93308; 94250; 94640; 94660; 94760; 96365; 96368; 96375; A4215; C1769; C1892; J0690; J0696; J1250; J1815; J2250; J2405; J2930; J3010; J3490; J7030; J7512; J7620; Q0163; 97116; 97530; 97535; 99285-25

== ENCOUNTER → 2017-03-10 | Outpatient (CLI) | payer MEDICARE, BC ==
[2017-02-23 14:31] VITALS: BP 157/42
[~2017-03-10] MED LIST changes: +PRED2.5T PO; +SULF1TAB3 PO
--- NOTE | 2017-03-10 18:12 | CARD ---
APPROVED REPORT EXAM: Two-dimensional and M-mode echocardiogram with Doppler and color Doppler. Other Information Quality : GoodHR: 94bpm Rhythm : Atrial Fibrillation INDICATION Chronic systolic CHF RISK FACTORS Smoking COPD 2D DIMENSIONS RVDd3.2 (2.9-3.5cm)Left Atrium(2D)4.7 (1.6-4.0cm) IVSd1.1 (0.7-1.1cm)Aortic Root(2D)2.7 (2.0-3.7cm) LVDd5.4 (3.9-5.9cm)LVOT Diameter2.2 (1.8-2.4cm) PWd1.1 (0.7-1.1cm)LVDs3.7 (2.5-4.0cm) FS (%) 31.7 %SV84.5 ml LVEF(%)58.0 (>50%) Aortic Valve AoV Peak Jos.151.0cm/sAoV VTI31.1cm AO Peak GR.9.1mmHgLVOT Peak Jos.96.6cm/s AO Mean GR.5mmHgAVA (VMAX)2.38cm2 AI P 1/2 [id number] Mitral Valve MV E Peak Gr.15mmHgMV E Mean Gr.8mmHg Pulmonary Valve PV Peak Hysspefq419.4cm/s Tricuspid Valve TR P. [id number] [id number] TR Peak Gr.[id number] Pulmonary Vein S1 Gnnqkvmo63.9cm/s LEFT VENTRICLE The left ventricle is normal size. There is mild concentric left ventricular hypertrophy. The left ve ntricular systolic function is normal and the ejection fraction is within normal range. The Ejection Fraction is 58%. There is normal LV segmental wall motion. Atrial fibrillation, unable to assess left ventricular compliance. No left ventricle thrombus noted on this study. RIGHT VENTRICLE The right ventricle is normal size. There is normal right ventricular wall thickness. The right ventr icular systolic function is normal. There is a pacemaker lead in the right ventricle. ATRIA The left atrium is severely dilated. The right atrium is moderately dilated. The interatrial septum i s intact with no evidence for an atrial septal defect or patent foramen ovale as noted on 2-D or Dopp ler imaging. AORTIC VALVE The aortic valve is sclerotic. The aortic valve is trileaflet. Doppler and Color Flow revealed modera te aortic regurgitation. There is no significant aortic valvular stenosis. MITRAL VALVE The mitral valve leaflets are thickened. There is no evidence of mitral valve prolapse. There is no m itral valve stenosis. Doppler and Color Flow revealed moderate to severe mitral regurgitation. TRICUSPID VALVE Doppler and Color Flow revealed moderate tricuspid regurgitation. The pulmonary artery systolic press ure is estimated at 74 mmHg. There is severe pulmonary hypertension. PULMONIC VALVE Doppler and Color Flow revealed trace pulmonic valvular regurgitation. There is no pulmonic valvular stenosis. GREAT VESSELS The aortic root is normal in size. The ascending aorta is normal in size. The pulmonary artery is nor mal. The IVC is normal in size and collapses >50% with inspiration. PERICARDIAL EFFUSION There is no evidence of significant pericardial effusion. Critical Notification Critical Value: No <Conclusion> The left ventricular systolic function is normal and the ejection fraction is within normal range. The Ejection Fraction is 58%. The left atrium is severely dilated. The right atrium is moderately dilated. The aortic valve is sclerotic. The aortic valve is trileaflet. Doppler and Color Flow revealed moderate aortic regurgitation. Doppler and Color Flow revealed moderate to severe mitral regurgitation. The mitral valve leaflets are thickened. Doppler and Color Flow revealed moderate tricuspid regurgitation. The pulmonary artery systolic pressure is estimated at 74 mmHg. There is severe pulmonary hypertension. Doppler and Color Flow revealed trace pulmonic valvular regurgitation. There is no evidence of significant pericardial effusion.
== END | disposition home or self-care (01) ==
LOC: ECHO 10:07
PROVIDERS: ATTEND Internal Medicine Cardiovascular Disease
DX: I50.22 Chronic systolic (congestive) heart failure (principal); I42.9 Cardiomyopathy, unspecified
CPT/HCPCS: 93306

== ENCOUNTER → 2017-12-01 | Outpatient (CLI) | payer MEDICARE, BC | END | disposition home or self-care (01) | LOC: RAD 11:29 | DX: I70.0 Atherosclerosis of aorta (principal); R91.8 Other nonspecific abnormal finding of lung field | CPT/HCPCS: 71046 ==

== ENCOUNTER 2018-05-30 11:55 | Inpatient (IN) | payer MEDICARE, BC ==
[2018-05-30] MEDS: IPRATRPIUM/ALBUTEROL 0.5/2.5MG 3 ML NEBU. NEB ×3 (12:24→20:13)
[2018-05-30] MEDS: methylPREDNISolone SOD SUCC PF 125 MG/2 ML VIAL. IV (12:30)
[2018-05-30 12:36] LABS: ADD MAN DIFF? YES; BASO # 0.1 x10^3/uL (0.0-0.2); BASO % 1 % (0-3); EOS # 0.3 x10^3/uL (0.0-0.7); EOS % 2 % (0-3); HEMATOCRIT 46.2 % (36.0-47.0); HEMOGLOBIN 15.2 g/dL (12.0-15.5); LYMPH # 1.2 x10^3/uL (1.0-4.8); LYMPH % 8 % (24-48); MEAN CORPUSCULAR HEMOGLOBIN 28 pg (25-35); MEAN CORPUSCULAR HGB CONC 33 g/dL (31-37); MEAN CORPUSCULAR VOLUME 84 fL (79-100); MONO # 0.4 x10^3/uL (0.0-1.1); MONO % 3 % (0-9); NEUT # 13.5 x10^3uL (1.8-7.7); NEUT % 87 % (31-73); PLATELET COUNT 375 x10^3/uL (140-400); RED BLOOD COUNT 5.47 x10^6/uL (3.50-5.40); RED CELL DISTRIBUTION WIDTH 17.7 % (11.5-14.5); WHITE BLOOD COUNT 15.5 x10^3/uL (4.0-11.0)
[2018-05-30 12:43] LABS: ANION GAP 10 (6-14); BLOOD UREA NITROGEN 19 mg/dL (7-20); BUN/CREATININE RATIO 17 (6-20); CALCIUM 9.5 mg/dL (8.5-10.1); CARBON DIOXIDE 27 mmol/L (21-32); CHLORIDE 98 mmol/L (98-107); CREATININE 1.1 mg/dL (0.6-1.0); GFR 49.5; GLUCOSE 322 mg/dL (70-99); POTASSIUM 4.5 mmol/L (3.5-5.1); SODIUM 135 mmol/L (136-145)
[2018-05-30 12:49] LABS: LACTIC ACID 2.4 mmol/L (0.4-2.0)
[2018-05-30 12:50] LABS: INR 1.1 (0.8-1.1); PROTHROMBIN TIME PATIENT 13.9 SEC (11.7-14.0)
[2018-05-30 12:51] LABS: ALBUMIN 3.6 g/dL (3.4-5.0); ALBUMIN/GLOBULIN RATIO 0.9 (1.0-1.7); ALK PHOS 95 U/L (46-116); ALT (SGPT) 16 U/L (14-59); AST (SGOT) 11 U/L (15-37); DIG 0.3 ng/mL (0.9-2.0); TOTAL BILIRUBIN 0.3 mg/dL (0.2-1.0); TOTAL PROTEIN 7.4 g/dL (6.4-8.2)
[2018-05-30 12:59] LABS: CKMB MASS 1.3 ng/mL (0.0-3.6); CREATINE KINASE 35 U/L (26-192)
[2018-05-30 12:59] LABS: NT-PRO BNP 876 pg/mL (0-124); TROPONINI < 0.017 ng/mL (0.000-0.055)
[2018-05-30 13:10] LABS: BASE EXCESS ABG 1 mmol/L (-3-3); HCO3 ABG 25 mmol/L (21-28); PCO2 ABG 37 mmHg (35-46); PH ABG 7.44 (7.35-7.45); PO2 ABG 55 mmHg (65-108); SAT O2 ABG 89 % (92-99)
[2018-05-30 13:14] LABS: % BANDS 1 % (0-9); % BASOS 1 % (0-3); % EOS 3 % (0-5); % LYMPHS 10 % (24-48); % MYELOS 1 % (0-0); % SEGS 84 % (35-66)
[2018-05-30 13:15] LABS: PLT ESTIMATE ADEQUATE (ADEQUATE)
[2018-05-30] MEDS: IV NORMAL SALINE 500ML BAG 500 ML IV (13:55)
[2018-05-30 17:28] LABS: POC GLUCOSE 362 mg/dL (70-99)
[2018-05-30] MEDS ORDERED: ALPRAZolam 1 MG TABLET PO (19:00)
[2018-05-30] MEDS ORDERED: DEXTROSE 50% 25 GM / 50ML DISP.SYRIN. IV (19:15)
[2018-05-30] MEDS ORDERED: ALBUTEROL SULFATE 2.5 MG/3 ML NEBU. NEB (19:15)
[2018-05-30] MEDS ORDERED: IPRATRPIUM/ALBUTEROL 0.5/2.5MG 3 ML NEBU. NEB (20:00)
[2018-05-30] MEDS: BUDESONIDE 0.5 MG/2 ML NEBU. NEB (20:14)
[2018-05-30 20:52] LABS: POC GLUCOSE 398 mg/dL (70-99)
[2018-05-30] MEDS ORDERED: NON FORMULARY ITEM (Fluticasone/Salmeterol (Advair 250-50 Diskus) 1 PUFF) INH (21:00)
[2018-05-30] MEDS ORDERED: NON FORMULARY ITEM (Ipratropium/Albuterol Sulfate (Combivent Respimat Inhal) 2 INH) IH (21:00)
[2018-05-30] MEDS: GABAPENTIN 300 MG CAPSULE. PO (21:28)
[2018-05-30] MEDS: PROPAFENONE SR 225 MG CAP.ER.12H. PO (21:28)
[2018-05-30] MEDS: CILOSTAZOL 50 MG TABLET. PO (21:29)
[2018-05-30] MEDS: diphenhydrAMINE HCL 25 MG CAPSULE PO (21:29)
[2018-05-30] MEDS: MORPHINE ER 30 MG TABLET.ER PO (21:30)
[2018-05-30] MEDS: methylPREDNISolone SOD SUCC PF 40 MG/ML VIAL. IV (21:33)
[2018-05-30] MEDS: INSULIN GLARGINE 300 UNITS/3 ML INSULN.PEN. SQ (21:39)
[2018-05-30] MEDS: INSULIN LISPRO 300 UNITS/3 ML INSULN.PEN. SQ (23:05)
[2018-05-30] MEDS: HYDROcodone/APAP 7.5/325MG 1 TAB TABLET PO (23:10)
[2018-05-31] MEDS: methylPREDNISolone SOD SUCC PF 40 MG/ML VIAL. IV ×4 (00:43→16:59)
[2018-05-31] MEDS ORDERED: INSULIN ASPART 100 UNIT/ML 10ML VIAL. SQ (07:30)
[2018-05-31 07:35] LABS: POC GLUCOSE 293 mg/dL (70-99)
[2018-05-31] MEDS: IPRATRPIUM/ALBUTEROL 0.5/2.5MG 3 ML NEBU. NEB ×3 (07:59→16:16)
[2018-05-31] MEDS: BUDESONIDE 0.5 MG/2 ML NEBU. NEB (07:59)
[2018-05-31] MEDS: CILOSTAZOL 50 MG TABLET. PO (08:35)
[2018-05-31] MEDS: ASPIRIN ENTERIC COATED 81 MG TABLET.DR. PO (08:35)
[2018-05-31] MEDS: CITALOPRAM 20 MG TABLET. PO (08:35)
[2018-05-31] MEDS: FUROSEMIDE 40 MG TABLET. PO (08:35)
[2018-05-31] MEDS: POTASSIUM CHLORIDE 20 MEQ TABLET.ER. PO (08:36)
[2018-05-31] MEDS: GABAPENTIN 300 MG CAPSULE. PO ×3 (08:36→16:59)
[2018-05-31] MEDS: DIGOXIN 250 MCG TABLET. PO (08:37)
[2018-05-31] MEDS: MORPHINE ER 30 MG TABLET.ER PO ×2 (08:39→14:41)
[2018-05-31] MEDS: PROPAFENONE SR 225 MG CAP.ER.12H. PO (08:40)
[2018-05-31] MEDS: INSULIN LISPRO 300 UNITS/3 ML INSULN.PEN. SQ ×4 (08:51→17:28)
[2018-05-31] MEDS: INSULIN GLARGINE 300 UNITS/3 ML INSULN.PEN. SQ (08:51)
[2018-05-31] MEDS ORDERED: FUROSEMIDE 20 MG TABLET PO (09:00)
[2018-05-31] MEDS ORDERED: NON FORMULARY ITEM (Tiotropium Bromide (Spiriva) 1 CAP) IH (09:00)
[2018-05-31] MEDS: HYDROcodone/APAP 7.5/325MG 1 TAB TABLET PO (09:14)
[2018-05-31 16:50] LABS: POC GLUCOSE 503 mg/dL (70-99)
[2018-05-31 17:44] LABS: GLUCOSE 491 mg/dL (70-99)
[2018-06-01 00:27] LABS: POC GLUCOSE 381 mg/dL (70-99)
== END 2018-05-31 18:45 | disposition home or self-care (01) | DRG 189 ==
LOC: ER 11:55 → 6 SOUTH 13:10
DX: J96.21 Acute and chronic respiratory failure with hypoxia (principal); J44.1 Chronic obstructive pulmonary disease with (acute) exacerbation; E11.9 Type 2 diabetes mellitus without complications; F41.9 Anxiety disorder, unspecified; I11.0 Hypertensive heart disease with heart failure; I25.10 Atherosclerotic heart disease of native coronary artery without angina pectoris; I27.29 Other secondary pulmonary hypertension; I48.2 Chronic atrial fibrillation; I50.9 Heart failure, unspecified; K21.9 Gastro-esophageal reflux disease without esophagitis; Z87.891 Personal history of nicotine dependence; Z99.81 Dependence on supplemental oxygen; Z88.8 Allergy status to other drugs, medicaments and biological substances; Z98.51 Tubal ligation status; Z89.021 Acquired absence of right finger(s); Z79.82 Long term (current) use of aspirin; Z79.51 Long term (current) use of inhaled steroids; Z79.02 Long term (current) use of antithrombotics/antiplatelets; Z79.4 Long term (current) use of insulin; Z79.899 Other long term (current) drug therapy; Z82.49 Family history of ischemic heart disease and other diseases of the circulatory system
CPT/HCPCS: 36415; 36600; 71045; 80053; 80162; 82553; 82805; 82947; 82962; 83605; 83880; 84484; 85007; 85025; 85610; 93005; 94640; 94760; J0690; J1815; J2920; J2930; J7040; J7620; J7626; Q0163

== ENCOUNTER → 2020-07-30 | Outpatient (CLI) | payer MEDICARE, BC ==
[2018-05-31 14:57] VITALS: BP 125/59
[~2020-07-30] MED LIST changes: +APIX5TAB PO; -CITA20TA5 PO; +CITA20TA6 PO; +CLON0.1T PO; -DIGO125T PO; +DIGO125T3 PO; +DOXY100C2 PO; -GABA-586 PO; +GABA300C18 PO; -GUAI600T38 PO; +GUAI600T47 PO; -HYDR-2762 PO; +HYDR-2765 PO; +METO50TA6 PO; +MORP-16 PO; -MORP30TA3 PO; -NIFE60TA16 PO; +NIFE60TA90 PO; +POTA20TA4 PO; -POTA20TA82 PO; +PRED20TA PO; +SULF-143 PO; -SULF1TAB3 PO
== END | disposition home or self-care (01) ==
LOC: LAB 08:35
PROVIDERS: ATTEND Internal Medicine Cardiovascular Disease
DX: Z01.812 Encounter for preprocedural laboratory examination (principal); I27.0 Primary pulmonary hypertension; Z20.828 Contact with and (suspected) exposure to other viral communicable diseases
CPT/HCPCS: U0003-CS

== ENCOUNTER 2020-08-01 07:00 | Outpatient (CLI) | payer MEDICARE, BC ==
[~2020-08-01] VITALS: Ht 177.8 cm; Wt 73.0 kg
[2020-08-01] VITALS (12 sets, daily range): BP systolic 135–187; BP diastolic 54–80
[~2020-08-01 07:00] MED LIST changes: -APIX5TAB PO; -CLON0.1T PO; -DOXY100C2 PO; -METO50TA6 PO
[2020-08-01] MEDS ORDERED: LIDOCAINE 1% PF 2 ML VIAL. ONE (07:49)
[2020-08-01] MEDS ORDERED: HEPARIN for ARTERIAL LINE 1,500 ML ONE (07:49)
[2020-08-01] MEDS ORDERED: IODIXANOL 320 MG/ML 100 ML VIAL. ONE (07:54)
[2020-08-01 08:04] LABS: HEMATOCRIT 36.1 % (36.0-47.0); HEMOGLOBIN 11.7 g/dL (12.0-15.5); RED BLOOD COUNT 4.15 x10^6/uL (3.50-5.40); RED CELL DISTRIBUTION WIDTH 17.5 % (11.5-14.5); WHITE BLOOD COUNT 10.6 x10^3/uL (4.0-11.0)
[2020-08-01 08:13] LABS: PROTHROMBIN TIME PATIENT 15.4 SEC (11.7-14.0)
[2020-08-01 08:25] LABS: CALCIUM 8.5 mg/dL (8.5-10.1); CREATININE 0.9 mg/dL (0.6-1.0); GFR 62.1; POTASSIUM 4.6 mmol/L (3.5-5.1)
[2020-08-01] MEDS ORDERED: DOXY100C2 PO (08:29)
[2020-08-01] MEDS ORDERED: APIX5TAB PO (08:29)
[2020-08-01] MEDS ORDERED: METO50TA6 PO (08:29)
[2020-08-01] MEDS ORDERED: CLON0.1T PO (08:29)
[2020-08-01] MEDS ORDERED: VERAPAMIL 5 MG/2 ML VIAL. ONE (08:41)
[2020-08-01] MEDS ORDERED: NITROGLYCERIN 200 MCG/2 ML SYRINGE FOR CATH/VASC LAB. ONE (08:41)
[2020-08-01] MEDS ORDERED: MIDAZOLAM HCL/PF 2 MG/2 ML VIAL. ONE (08:41)
[2020-08-01] MEDS ORDERED: HEPARIN for IV BOLUS 10,000 UNIT/10 ML VIAL. ONE (08:41)
[2020-08-01] MEDS ORDERED: fentaNYL PF VIAL 100 MCG/2 ML VIAL ONE (08:41)
[2020-08-01] MEDS ORDERED: LIDOCAINE 1% Multi-Dose 20 ML VIAL. ONE (08:54)
[2020-08-01] MEDS ORDERED: fentaNYL PF VIAL 100 MCG/2 ML VIAL IV ONE (09:00)
[2020-08-01] MEDS ORDERED: HEPARIN for IV BOLUS 10,000 UNIT/10 ML VIAL. IART ONE (09:00)
[2020-08-01] MEDS ORDERED: VERAPAMIL 5 MG/2 ML VIAL. IART ONE (09:00)
[2020-08-01] MEDS ORDERED: IODIXANOL 320 MG/ML 100 ML VIAL. IART ONE (09:00)
[2020-08-01] MEDS ORDERED: NITROGLYCERIN 200 MCG/2 ML SYRINGE FOR CATH/VASC LAB. IART ONE (09:00)
[2020-08-01] MEDS ORDERED: LIDOCAINE 1% PF 2 ML VIAL. INJ ONE (09:00)
[2020-08-01] MEDS ORDERED: MIDAZOLAM HCL/PF 2 MG/2 ML VIAL. IV ONE (09:00)
[2020-08-01] MEDS ORDERED: LIDOCAINE 1% Multi-Dose 20 ML VIAL. INJ ONE (09:15)
--- NOTE | 2020-08-01 10:04 | CARD ---
MR#: [id number] Date of Study: 08/01/2020 Ordering Physician: PALLAVI MENDOZA, Referring Physician: PALLAVI MENDOZA, Tech: Hunter Quinn RT(R) APPROVED REPORT Technologist: Hunter Quinn RT(R) Nurse: Poly Mcdaniel RN Procedure(s) performed: Sedation Time: 30 Minutes Dose: 22.95 Gycm2 Fluoro Time: 3.7 Minutes Contrast: 28 mL Visipaque LHC, RHC, Coronary angiography HISTORY The patient is a 70 year-old female with a history of : hypertension, dyslipidemia. INDICATION The indication(s) include : dyspnea, Severe pulmonary hypertension. CS Clinical Frailty Scale [facility] Clinical Frailty Scale: Severely Frail Heart Failure Heart Failure: Yes If Yes, Newly Diagnosed: No If Yes, HF Type: Diastolic If Yes, NYHA Class: Class III CASE TECHNIQUE During this case, Fluoroscopy and low osmolar contrast were used for imaging. PROCEDURE NARRATIVE After appropriate informed consent the right wrist and right neck were prepped and draped in usual st erile fashion. Under 2% lidocaine local anesthesia a 5 [place]an sheath was placed in the right interna l jugular vein via ultrasound guidance. A 6 [place]an sheath was placed in the right radial artery via the Seldinger technique. Next, diagnostic angiography was performed with a 6 [place]an Ceres catheter and the left ventricular en d-diastolic pressure was obtained with a pigtail catheter. A right heart catheterization was perform ed with a 5 [place]an PA catheter and pressures and saturations were obtained. Findings: Right heart catheterization: RA: RV 56/1/9 PA 56/18/34 LVEDP 18 mmHg PA saturation 59.1 Radial artery saturation: 95.7 Tarsha cardiac output 2.9 L/min Coronary angiography: Left main is a large-caliber vessel with normal angiographic appearance LAD is a large caliber vessel with proximal 20 to 30% stenosis Left circumflex is a moderate caliber nondominant vessel with mild luminal irregularities RCA is a moderate caliber dominant vessel with mid 30 to 40% stenosis. At case completion the right radial sheath was removed and a Terumo radial band was applied. The rig ht neck sheath was removed and hemostasis achieved with manual compression. No acute complications a re noted. Conclusion 1. Mildly elevated left-sided filling pressures, LVEDP 18 mmHg 2. Moderate pulmonary hypertension, mean PA 34 mmHg 3. Low cardiac output 4. No significant obstructive coronary disease Recommendations 1. Patient has normal ejection fraction, near normal left ventricular end-diastolic pressures with a n elevated pulmonary artery pressure overall consistent with group 3 pulmonary hypertension related t o her severe emphysema. Discussed case with primary sealant mixer, Dr. Aguayo, plan for referral to [facility] Pulmonary HTN clinic for further assessment and treatment. Signed by : Pallavi Mendoza, Electronically Approved : 08/01/2020 10:03:52
--- NOTE | 2020-08-01 12:30 | NUR ---
Discharge Note: LILIAN CABRAL Discharge instructions and discharge home medications reviewed with Spouse and a copy given. All questions have been answered and understanding verbalized. The following instructions and handouts were given: incision care,adult moderate sedation,and radial site care Discontinued lines and drains: Peripheral IV intact. Patient discharged to Home or Self Care withSpousevia Wheelchair
--- NOTE | 2020-08-01 12:31 | NUR ---
Patient's is having nuclear medicine test done and as soon as he is finished he will be over to take her home. Patient brought home oxygen tank with her to assist her when she travels back home. Patient currently is 98% oxygen saturation on 2L nasal cannula. Dressings to right wrist and right IJ/neck are clean,dry,intact with no bleeding noted.
== END 2020-08-01 13:08 | disposition home or self-care (01) ==
LOC: CCL 07:00
PROVIDERS: ATTEND Internal Medicine Cardiovascular Disease
DX: R06.09 Other forms of dyspnea (principal); I27.23 Pulmonary hypertension due to lung diseases and hypoxia; J44.9 Chronic obstructive pulmonary disease, unspecified; I48.91 Unspecified atrial fibrillation; I11.0 Hypertensive heart disease with heart failure; I50.9 Heart failure, unspecified; E78.5 Hyperlipidemia, unspecified; F17.210 Nicotine dependence, cigarettes, uncomplicated; Z98.890 Other specified postprocedural states; Z79.899 Other long term (current) drug therapy; Z88.8 Allergy status to other drugs, medicaments and biological substances
CPT/HCPCS: 36415; 80048; 85027; 85610; 93460; 99152; 99153; C1769; C1773; C1892; J1644; J2250; J3010; J3490; Q9967

== ENCOUNTER 2020-11-14 22:27 | Inpatient (IN) | payer MEDICARE, BC ==
[~2020-11-14] VITALS: Ht 167.6 cm; Wt 88.6 kg
[~2020-11-14 22:27] MED LIST changes: +ALBU2.5V8 IH; +APIX5TAB PO; +ASPI-630 PO; +CLON0.1T PO; +DILT360C49 PO; +DOXY100C2 PO; +DOXY50CA PO; +FURO80TA3 PO; +METO50TA6 PO
--- NOTE | 2020-11-14 22:41 | PHYS DOC ---
Past Medical History Past Medical History: A-Fib, Asthma, CHF, COPD, Diabetes-Type II, Hypertension Past Surgical History: Pacemaker, Tubal ligation Additional Past Surgical Histo: TIP OF RIGHT FINGER #2 AMPUTATED Smoking Status: Current Every Day Smoker Alcohol Use: None Drug Use: None General Adult EDM: Chief Complaint: DYSPNEA/RESPIRATOY DISTRESS HPI: HPI: Patient is a 70-year-old female who presents via EMS for shortness of breath. Patient has history of chronic respiratory failure and typically on 4 L oxygen daily. Was reportedly more short of breath than usual for preceding 48 hours but acutely worsened in the past 1 hour. EMS arrived to scene and found patient to be on typical home 4 L supplemental oxygen with oxygen saturations in the 50s. Patient was immediately placed on BiPAP with improvement in oxygen saturations up to 90% and transported patient to our facility for evaluation. Patient denies any recent fever, ingestions, sick contacts, known COVID-19 individual contact, chest pain, ripping or tearing torso pain, productive cough, abdominal pain, urinary symptoms, no neurologic symptoms. Patient is a AOx3, states she is had increased shortness of breath only, states she is a DNI Review of Systems: Review of Systems: Fourteen body systems of review of systems have been reviewed. See HPI for pertinent positives and negative responses, other wang all other systems are n egative, non-pertinent or non-contributory Heart Score: HEART Score for Chest Pain: HEART Score for Chest Pain Response (Comments) Value History Slighlty/Non-Suspicious 0 ECG Normal 0 Age > 65 2 Risk Factors >3 Risk Factors or Hx CAD 2 Troponin < Normal Limit 0 Total 4 Risk Factors: Risk Factors: DM, Current or recent (<one month) smoker, HTN, HLP, family history of CAD, obesity. Risk Scores: Score 0 - 3: 2.5% MACE over next 6 weeks - Discharge Home Score 4 - 6: 20.3% MACE over next 6 weeks - Admit for Clinical Observation Score 7 - 10: 72.7% MACE over next 6 weeks - Early Invasive Strategies Allergies: Allergies: Allergies Coded Allergies Type Severity Reaction Last Updated Verified lisinopril Allergy Severe Anaphylaxis 09/17/20 Yes warfarin Allergy Severe tissue necrosis 09/17/20 Yes zolpidem Adverse Reaction Intermediate 09/17/20 Yes Physical Exam: PE: Constitutional: Pt is oriented to person, place, and time. Pt appears age-appropriate, in respiratory distress, appears tired HEENT: Head: Normocephalic and atraumatic. TMs clear, no hemotympanum Conjunctivae and EOM are normal. Pupils are equal, round, and reactive to light. Oropharynx is clear and dry No hematomas or lacerations or abrasions to face or scalp OP clear, no blood, no malocclusion, dentition intact Nares clear, no nasal septal hematoma Midface stable Neck: C-spine midline nontender, no step-offs Cardiovascular: Regular rate, regular rhythm and normal heart sounds. Pulmonary/Chest: Increased work of breathing, tachypneic with accessory muscles of neck and abdomen present, and expiratory wheezes present bilaterally, moderate respiratory distress speaking in few word sentences only Abdominal: Soft. Bowel sounds are normal. Pt exhibits no distension. There is no tenderness. Musculoskeletal: No bony tenderness to extremities, full ROM extremities Deformity present to distal tip of right index finger with entire nailbed matrix missing distal to DIP from prior amputation Chest wall stable Pelvis stable and non-tender No vertebral TTP and spine without stepoffs Neurological: Pt is alert and oriented to person, place, and time. Moving all extremities willfully, able to wiggle all fingers and toes Motor and sensory function grossly intact Skin: Skin is warm and dry. No abrasions, no lacerations. Patient has approximately 3 x 3 cm wound with black eschar present on medial portion of right knee, also has several areas of skin breakdown and 0.5 x 0.5 cm open draining wound to right ankle lateral aspect over the lateral malleolus Psychiatric: Behavior is appropriate for situation Current Patient Data: Labs: Laboratory Tests Test 11/14/20 22:49 11/14/20 22:58 O2 Saturation > 100 % Arterial Blood pH 7.08 Arterial Blood pCO2 at Patient Temp 27 mmHg Arterial Blood pO2 at Patient Temp 489 mmHg Arterial Blood HCO3 8 mmol/L Arterial Blood Base Excess -21 mmol/L FiO2 100 White Blood Count 41.9 x10^3/uL Red Blood Count 3.66 x10^6/uL Hemoglobin 7.9 g/dL Hematocrit 30.8 % Mean Corpuscular Volume 84 fL Mean Corpuscular Hemoglobin 22 pg Mean Corpuscular Hemoglobin Concent 26 g/dL Red Cell Distribution Width 22.6 % Platelet Count 392 x10^3/uL Neutrophils (%) (Auto) 91 % Lymphocytes (%) (Auto) 4 % Monocytes (%) (Auto) 4 % Eosinophils (%) (Auto) 0 % Basophils (%) (Auto) 1 % Neutrophils # (Auto) 38.2 x10^3/uL Lymphocytes # (Auto) 1.8 x10^3/uL Monocytes # (Auto) 1.7 x10^3/uL Eosinophils # (Auto) 0.0 x10^3/uL Basophils # (Auto) 0.2 x10^3/uL Segmented Neutrophils % 89 % Band Neutrophils % 5 % Lymphocytes % 4 % Monocytes % 1 % Myelocytes % 1 % Nucleated Red Blood Cells 5 Toxic Vacuolation Slight Platelet Estimate Adequate Large Platelets Present Giant Platelets Present Hypochromasia Mod Poikilocytosis Mod Anisocytosis Mod Ovalocytes Mod [place] Cells Present Schistocytes Few Sodium Level 127 mmol/L Potassium Level 7.5 mmol/L Chloride Level 93 mmol/L Carbon Dioxide Level 10 mmol/L Anion Gap 24 Blood Urea Nitrogen 59 mg/dL Creatinine 2.8 mg/dL Estimated GFR (Cockcroft-Gault) 16.8 BUN/Creatinine Ratio 21 Glucose Level 89 mg/dL Lactic Acid Level 17.4 mmol/L Calcium Level 8.3 mg/dL Total Bilirubin 2.2 mg/dL Aspartate Amino Transf (AST/SGOT) 2235 U/L Alanine Aminotransferase (ALT/SGPT) 797 U/L Alkaline Phosphatase 100 U/L Troponin I Quantitative 0.017 ng/mL Total Protein 6.6 g/dL Albumin 2.6 g/dL Albumin/Globulin Ratio 0.7 Current Medications Medications (Trade) Dose Ordered Sig/Myrtle Route PRN Reason Start Time Stop Time Status Last Admin Dose Admin Sodium Chloride 1,000 ml @ 0 mls/hr 1X ONCE IV 11/14/20 23:00 11/14/20 23:01 DC 11/14/20 23:21 75 MLS/HR Vital Signs: Vital Signs Date Time Temp Pulse Resp B/P (MAP) Pulse Ox O2 Delivery O2 Flow Rate FiO2 11/15/20 00:07 97.3 60 19 109/51 (70) 100 BiPAP/CPAP 40.0 97.3 11/14/20 23:52 97.3 60 18 104/50 (68) 100 BiPAP/CPAP 40.0 97.3 11/14/20 23:37 97.3 60 18 107/50 (69) 99 BiPAP/CPAP 40.0 97.3 11/14/20 23:22 97.3 60 23 112/51 (71) 99 BiPAP/CPAP 40.0 97.3 11/14/20 23:10 100 BiPAP/CPAP 11/14/20 23:07 97.3 60 22 116/54 (74) 100 BiPAP/CPAP 40.0 97.3 11/14/20 22:52 97.3 60 24 109/51 (70) 100 BiPAP/CPAP 40.0 97.3 11/14/20 22:37 97.3 60 26 131/53 (79) 100 BiPAP/CPAP 40.0 97.3 11/14/20 22:27 97.3 60 26 148/59 (88) 100 BiPAP/CPAP 97.3 EKG: EKG: EKG ordered and interpreted by myself at 2257 hrs. as an obscure intraventricular rhythm at 60 bpm, prolonged QRS at 230, prolonged QT at 500 and QTC at 505, right axis deviation with T wave inversions noted in leads III and V6. Peaked T waves present in leads V3 and V4, no STEMI Radiology/Procedures: Radiology/Procedures: EXAM: AP View of the chest DATE: 11/14/2020 11:02 PM INDICATION: Shortness of breath COMPARISON: 09/25/2020 09/17/2020 FINDINGS: Cardiac generator pack obscures a portion of the chest with single lead in stable position. Heart is moderately enlarged. Atherosclerotic calcifications of the aorta are seen. Left lung base airspace opacities are seen. Bilateral interstitial prominence. Small left pleural effusion. No pneumothorax. IMPRESSION: Left lung base airspace opacities likely consolidative process such as pneumonia. Small left pleural effusion. Electronically signed by: Brock Seo MD (11/14/2020 11:21 PM) YAKELIN EXAM: AP View of the chest DATE: 11/15/2020 2:09 AM INDICATION: Reason: s/p left IJ central line / Spl. Instructions: / History: COMPARISON: 11/14/2020 09/25/2020 FINDINGS/ IMPRESSION: Left IJ vascular catheter tip projects over the mid SVC. Cardiac generator pack obscures a portion of the left chest with lead in stable position. Stable cardiomegaly. Aortic calcifications are seen. Small bilateral pleural effusions. Left lung base and patchy right lung base opacities are essentially unchanged. No pneumothorax. Electronically signed by: Brock Seo MD (11/15/2020 2:33 AM) [facility] Course & Med Decision Making: Course & Med Decision Making Pertinent Labs and Imaging studies reviewed. (See chart for details) Patient profoundly ill. Broad-spectrum IV vancomycin and cefepime started for left lower lobe pneumonia and concerning lower extremity skin wounds Patient in profound respiratory distress that improved with application of CPAP while in ER Patient has profound electrolyte/kidney abnormalities. Nephrology was consulted and case was discussed. Nephrology agreed with initial hyperkalemia treatment (1G Ca Gluc, 1amp Bicarb, 10u insulin, 30 Kayex), recommended starting half- normal saline with 2amp of bicarb drip Patient had full capacity and ready reiterated that she was DNI only. I obtained verbal consent for central central line placement and subsequently placed central line in left IJ Repeat BMP performed with improvement in potassium, additional 1 g calcium gluconate and 1 amp sodium bicarb administered I contacted on-call hospitalist and reviewed the case, they agreed need for admission to ICU setting for continued inpatient medical management and specialist intervention as indicated. Patient was updated on proposed plan of care that involved hospital admission to ICU setting, she was amenable. All questions and concerns addressed prior to transport to ICU Critical Care Time This patient required critical care. Due to the fact that the patient required a significant amount of one on one physician - patient contact time, ordering and review of studies, arranging urgent treatment with development of a management plan, evaluation of patients response to treatment with frequent reassessments, and discussions with other providers this patient required 75 minutes of critical care time. Critical care time was indicated due to the inherent instability and/or potential for instability in this patient. The critical care time that is allocated to this patient is above and beyond any time spent on any other billable procedures performed on this patient. Dragon Disclaimer: Dragadonis Disclaimer: This electronic medical record was generated, in whole or in part, using a voice recognition dictation system. Central Line Central Line : Central Line Lumen: triple Central Line Procedure: betadine prep Central Line Postion: internal jugular (L) Anesthesia: Lidocaine cc's of anesthesia: 5 Complications: none Central Line Post Position: sutured, good blood return, position confirmed w/ CXR Progress Patient was put in Trendelenburg position and cleaned with Betadine wipe. Ultrasound was used to find left IJ, 5 cc lidocaine 1% without epinephrine used for anesthetic, introducer probe was inserted into the vein, Seldinger technique was used to thread guidewire into the vein, skin ilda was made and dilator was inserted. Triple-lumen catheter was then inserted over guidewire into place with positive nonpulsatile blood return present and x3 ports. Line was sutured in place. Estimated blood loss 0 cc. There were no observed or reported complications. Postprocedural chest x-ray obtained confirming placement of left internal jugular central venous line Departure Departure Impression: Primary Impression: Hyperkalemia Additional Impressions: Acute and chronic respiratory failure LLL pneumonia Sepsis Anemia Person under investigation for COVID-19 Pj-hio-mqtnniqu resuscitation status Disposition: 09 ADMITTED INPT THIS HOSP Admitting Physician: SHELBY (AGUSTIN) Condition: CRITICAL Referrals: MINERVA BOWLING MD (PCP) SADIQ LUZ DO Nov 14, 2020 22:41
[2020-11-14] MEDS ORDERED: IV NORMAL SALINE 1000ML BAG 1,000 ML IV ONE (23:00)
[2020-11-14 23:16] LABS: BASE EXCESS ABG -21 mmol/L (-3-3); HCO3 ABG 8 mmol/L (21-28); PCO2 ABG 27 mmHg (35-46); PO2 ABG 489 mmHg (65-108)
[2020-11-14 23:17] LABS: FIO2 ABG 100; SAT O2 ABG > 100 % (92-99)
--- NOTE | 2020-11-14 23:23 | RAD ---
EXAM: AP View of the chest DATE: 11/14/2020 11:02 PM INDICATION: Shortness of breath COMPARISON: 09/25/2020 09/17/2020 FINDINGS: Cardiac generator pack obscures a portion of the chest with single lead in stable position. Heart is moderately enlarged. Atherosclerotic calcifications of the aorta are seen. Left lung base ai rspace opacities are seen. Bilateral interstitial prominence. Small left pleural effusion. No pneumothorax. IMPRESSION: Left lung base airspace opacities likely consolidative process such as pneumonia. Small left pleural effusion. Electronically signed by: Brock Seo MD (11/14/2020 11:21 PM) YAKELIN
[2020-11-14 23:37] LABS: BASO # 0.2 x10^3/uL (0.0-0.2); BASO % 1 % (0-3); EOS % 0 % (0-3); HEMATOCRIT 30.8 % (36.0-47.0); HEMOGLOBIN 7.9 g/dL (12.0-15.5); LYMPH # 1.8 x10^3/uL (1.0-4.8); LYMPH % 4 % (24-48); MEAN CORPUSCULAR HEMOGLOBIN 22 pg (25-35); MEAN CORPUSCULAR HGB CONC 26 g/dL (31-37); MEAN CORPUSCULAR VOLUME 84 fL (79-100); MONO # 1.7 x10^3/uL (0.0-1.1); MONO % 4 % (0-9); NEUT # 38.2 x10^3/uL (1.8-7.7); NEUT % 91 % (31-73); PLATELET COUNT 392 x10^3/uL (140-400); RED BLOOD COUNT 3.66 x10^6/uL (3.50-5.40); RED CELL DISTRIBUTION WIDTH 22.6 % (11.5-14.5)
[2020-11-14 23:46] LABS: WHITE BLOOD COUNT 41.9 x10^3/uL (4.0-11.0)
[2020-11-14 23:53] LABS: % BANDS 5 % (0-9); % LYMPHS 4 % (24-48); % MONOS 1 % (0-10); % MYELOS 1 % (0-0); % SEGS 89 % (35-66); ANISOCYTOSIS MOD; HYPOCHROMIA MOD; NUCLEATED RBC 5; PLT ESTIMATE ADEQUATE (ADEQUATE); POIKILOCYTOSIS MOD
[2020-11-14 23:54] LABS: OVALOCYTES MOD
[2020-11-14 23:55] LABS: SCHISTOCYTES FEW
[2020-11-14 23:56] LABS: BURR CELLS PRESENT; TOXIC VACUOLATION SLIGHT
[2020-11-14 23:59] LABS: ALBUMIN 2.6 g/dL (3.4-5.0); ALBUMIN/GLOBULIN RATIO 0.7 (1.0-1.7); CALCIUM 8.3 mg/dL (8.5-10.1); CREATININE 2.8 mg/dL (0.6-1.0); GFR 16.8; TOTAL BILIRUBIN 2.2 mg/dL (0.2-1.0); TOTAL PROTEIN 6.6 g/dL (6.4-8.2)
[2020-11-15] VITALS (31 sets, daily range): BP systolic 67–185; BP diastolic 31–58
[2020-11-15 00:01] LABS: POTASSIUM 7.5 mmol/L (3.5-5.1)
[2020-11-15] MEDS ORDERED: DEXTROSE 50% 25 GM / 50ML DISP.SYRIN. IV ONE ×3 (00:30→19:09)
[2020-11-15] MEDS ORDERED: SODIUM POLYSTYRENE SULFON/SORB 15 GM/60 ML ORAL.SUSP. PO ONE (00:30)
[2020-11-15] MEDS ORDERED: CALCIUM GLUCONATE 1,000 MG/10 ML VIAL. IVP ONE ×2 (00:30→04:00)
[2020-11-15] MEDS ORDERED: VANCOMYCIN PER PHARMACY MC PRN (00:30)
[2020-11-15] MEDS ORDERED: INSULIN REGULAR 100 UNIT/ML 3ML VIAL. IV ONE (00:30)
[2020-11-15] MEDS ORDERED: SODIUM BICARB ADULT 8.4% 50 MEQ/50 ML DISP.SYRIN. IV ONE ×3 (00:30→10:30)
[2020-11-15] MEDS: SODIUM BICARBONATE VIAL 100 MEQ in IV 1/2 NORMAL SALINE 1,000 ML IV SCH ×2 (00:56→11:13)
[2020-11-15] MEDS ORDERED: CEFEPIME HCL IV Push 2 GM VIAL. IVP ONE (01:00)
[2020-11-15] MEDS ORDERED: VANCOMYCIN 2 GM in IV NORMAL SALINE 500ML BAG 500 ML IV ONE (01:00)
--- NOTE | 2020-11-15 02:35 | RAD ---
EXAM: AP View of the chest DATE: 11/15/2020 2:09 AM INDICATION: Reason: s/p left IJ central line / Spl. Instructions: / History: COMPARISON: 11/14/2020 09/25/2020 FINDINGS/ IMPRESSION: Left IJ vascular catheter tip projects over the mid SVC. Cardiac generator pack obscures a portion of the left chest with lead in stable position. Stable cardiomegaly. Aortic calcifications are seen. Small bilateral pleural effusions. Left lung bas e and patchy right lung base opacities are essentially unchanged. No pneumothorax. Electronically signed by: Brock Seo MD (11/15/2020 2:33 AM) YAKELIN
[2020-11-15 03:04] LABS: CALCIUM 8.1 mg/dL (8.5-10.1); GFR 15.5
[2020-11-15 03:13] LABS: POTASSIUM 6.6 mmol/L (3.5-5.1)
--- NOTE | 2020-11-15 04:00 | NUR ---
Patient arrived to ICU room 115 from the ED. Patient on 2L via NC. Sodium Bicarb and vancomycin were/are infusing. Patient very drowsy and "cold," not able to tell me where she is or why she came tonight. Mumbles. Vital signs documented, wound documented and physician informed. Tangela luu currently on patient. Informed of current status. Fluids are running and sepsis protocol started. Will continue to monitor.
--- NOTE | 2020-11-15 05:04 | NUR ---
Pharmacy Vancomycin Dosing Note S:Consulted to monitor and dose vancomycin started 11/15/20. O:LILIAN CABRAL is a 70 year old F with Sepsis Pneumonia . Height: 5 feet, 11 inches Weight: 88.6 kg [place] Body Weight: 70.80 Adjusted Body Weight: 77.92 Dosing Weight: Actual Other Antibiotics: CEFEPIME 1 GM Q24H LABS: Last BUN: 59 Last Creatinine: 2.8 Creatinine Clearance: 22 mL/min Last WBC: 41.9 Last Procalcitonin: Tmax (past 24 hours): Microbiology: I/O: Drug Levels: Last level: on at Last dose given 11/15/20 at 0300 Vancomycin Dosing: Loading Dose: 2000 mg x1 Dosing Weight: Actual Target Trough: 15-20 A: Based on: WT AND CRCL P: 1. Begin Vancomycin 1250 mg IV Dose Per Levels 2. Follow up Random level on 11/16/20 at 0500 3. Pharmacy will continue to monitor, follow and adjust therapy as needed. CASS JAMES RPH, 11/15/20 0504 Signed: 11/15/20 at 0505 by CASS JAMES RPH PHA
[2020-11-15] MEDS: IV NORMAL SALINE 1000ML BAG 1,000 ML IV SCH ×3 (06:00→09:02)
[2020-11-15 07:54] LABS: BILIRUBIN,URINE SMALL (NEG); CLARITY,URINE CLEAR; COLOR,URINE AMBER; NITRITE,URINE NEGATIVE (NEG); PROTEIN,URINE 30 mg/dL (NEG-TRACE)
[2020-11-15 08:39] LABS: AMORPHOUS SEDIMENT,UR PRESENT /HPF; BACTERIA,URINE FEW /HPF (0-FEW); HYALINE CASTS, URINE FEW /HPF; RBC,URINE 0 /HPF (0-2); WBC,URINE 0 /HPF (0-4)
[2020-11-15 09:44] LABS: CALCIUM 7.9 mg/dL (8.5-10.1); GFR 15.5
[2020-11-15 09:48] LABS: POTASSIUM 6.8 mmol/L (3.5-5.1)
--- NOTE | 2020-11-15 09:54 | PDOC ---
Infectious Disease Note Vital Signs: Vital Signs Vital Signs Date Time Temp Pulse Resp B/P (MAP) Pulse Ox O2 Delivery O2 Flow Rate FiO2 11/15/20 08:00 98.9 60 18 103/41 (61) 100 BiPAP/CPAP 98.9 11/15/20 06:00 2.0 Medications: Inpatient Meds: Current Medications Medications (Trade) Dose Ordered Sig/Myrtle Start Time Stop Time Status Last Admin Dose Admin Calcium Gluconate (Calcium Gluconate) 1,000 mg 1X ONCE 11/15/20 04:00 11/15/20 04:01 DC 11/15/20 04:29 1,000 MG Cefepime HCl (Maxipime) 1 gm Q24H 11/15/20 23:00 11/15/20 09:33 DC Daptomycin 500 mg/ Sodium Chloride 50 ml @ 100 mls/hr Q48H 11/15/20 11:00 Dextrose (Dextrose 50%-Water Syringe) 25 gm 1X ONCE 11/15/20 00:30 11/15/20 00:31 DC 11/15/20 00:58 25 GM Insulin Human Regular (HumuLIN R VIAL) 10 unit 1X ONCE 11/15/20 00:30 11/15/20 00:31 DC 11/15/20 01:10 10 UNIT Meropenem 500 mg/ Sodium Chloride 50 ml @ 100 mls/hr DAILY 11/15/20 12:00 Micafungin Sodium 100 mg/Dextrose 100 ml @ 100 mls/hr Q24H 11/15/20 10:00 Norepinephrine Bitartrate 8 mg/ Dextrose 258 ml @ 17.144 mls/ hr CONT PRN 11/15/20 09:30 Sodium Bicarbonate 100 meq/Sodium Chloride 1,100 ml @ 125 mls/hr Q8H48M 11/15/20 00:30 11/16/20 00:29 11/15/20 00:56 125 MLS/HR Sodium Polystyrene Sulfonate (Kayexalate) 30 gm 1X ONCE 11/15/20 00:30 11/15/20 00:31 DC Sodium Bicarbonate (Sodium Bicarb Adult 8.4% Syr) 50 meq 1X ONCE 11/15/20 04:00 11/15/20 04:01 DC 11/15/20 04:29 50 MEQ Sodium Chloride 1,000 ml @ 1,000 mls/hr Q1H 11/15/20 05:00 11/15/20 07:06 DC 11/15/20 09:02 1,000 MLS/HR Vancomycin HCl (Vanco Per Pharmacy) 1 each PRN DAILY PRN 11/15/20 00:30 11/15/20 09:42 DC 11/15/20 05:04 1 EACH Vancomycin HCl (Vancomycin Random Level) 1 each 1X ONCE 11/16/20 05:00 11/15/20 09:42 DC Vancomycin HCl 2 gm/Sodium Chloride 500 ml @ 250 mls/hr 1X ONCE 11/15/20 01:00 11/15/20 02:59 DC 11/15/20 02:50 250 MLS/HR Labs: Lab Laboratory Tests Test 11/14/20 22:49 11/14/20 22:58 11/14/20 23:11 11/15/20 01:56 O2 Saturation > 100 % (92-99) Arterial Blood pH 7.08 (7.35-7.45) Arterial Blood pCO2 at Patient Temp 27 mmHg (35-46) Arterial Blood pO2 at Patient Temp 489 mmHg (65-108) Arterial Blood HCO3 8 mmol/L (21-28) Arterial Blood Base Excess -21 mmol/L (-3-3) FiO2 100 White Blood Count 41.9 x10^3/uL (4.0-11.0) Red Blood Count 3.66 x10^6/uL (3.50-5.40) Hemoglobin 7.9 g/dL (12.0-15.5) Hematocrit 30.8 % (36.0-47.0) Mean Corpuscular Volume 84 fL (79-100) Mean Corpuscular Hemoglobin 22 pg (25-35) Mean Corpuscular Hemoglobin Concent 26 g/dL (31-37) Red Cell Distribution Width 22.6 % (11.5-14.5) Platelet Count 392 x10^3/uL (140-400) Neutrophils (%) (Auto) 91 % (31-73) Lymphocytes (%) (Auto) 4 % (24-48) Monocytes (%) (Auto) 4 % (0-9) Eosinophils (%) (Auto) 0 % (0-3) Basophils (%) (Auto) 1 % (0-3) Neutrophils # (Auto) 38.2 x10^3/uL (1.8-7.7) Lymphocytes # (Auto) 1.8 x10^3/uL (1.0-4.8) Monocytes # (Auto) 1.7 x10^3/uL (0.0-1.1) Eosinophils # (Auto) 0.0 x10^3/uL (0.0-0.7) Basophils # (Auto) 0.2 x10^3/uL (0.0-0.2) Segmented Neutrophils % 89 % (35-66) Band Neutrophils % 5 % (0-9) Lymphocytes % 4 % (24-48) Monocytes % 1 % (0-10) Myelocytes % 1 % (0-0) Nucleated Red Blood Cells 5 Toxic Vacuolation Slight Platelet Estimate Adequate (ADEQUATE) Large Platelets Present Giant Platelets Present Hypochromasia Mod Poikilocytosis Mod Anisocytosis Mod Ovalocytes Mod [place] Cells Present Schistocytes Few Sodium Level 127 mmol/L (136-145) 129 mmol/L (136-145) Potassium Level 7.5 mmol/L (3.5-5.1) 6.6 mmol/L (3.5-5.1) Chloride Level 93 mmol/L (98-107) 94 mmol/L (98-107) Carbon Dioxide Level 10 mmol/L (21-32) 11 mmol/L (21-32) Anion Gap 24 (6-14) 24 (6-14) Blood Urea Nitrogen 59 mg/dL (7-20) 60 mg/dL (7-20) Creatinine 2.8 mg/dL (0.6-1.0) 3.0 mg/dL (0.6-1.0) Estimated GFR (Cockcroft-Gault) 16.8 15.5 BUN/Creatinine Ratio 21 (6-20) Glucose Level 89 mg/dL (70-99) 138 mg/dL (70-99) Lactic Acid Level 17.4 mmol/L (0.4-2.0) 17.8 mmol/L (0.4-2.0) Calcium Level 8.3 mg/dL (8.5-10.1) 8.1 mg/dL (8.5-10.1) Total Bilirubin 2.2 mg/dL (0.2-1.0) Aspartate Amino Transf (AST/SGOT) 2235 U/L (15-37) Alanine Aminotransferase (ALT/SGPT) 797 U/L (14-59) Alkaline Phosphatase 100 U/L (46-116) Troponin I Quantitative 0.017 ng/mL (0.000-0.055) Total Protein 6.6 g/dL (6.4-8.2) Albumin 2.6 g/dL (3.4-5.0) Albumin/Globulin Ratio 0.7 (1.0-1.7) Glucose (Fingerstick) 109 mg/dL (70-99) Test 11/15/20 02:47 11/15/20 07:40 11/15/20 08:55 Glucose (Fingerstick) 126 mg/dL (70-99) Urine Collection Type Unknown Urine Color Hui Urine Clarity Clear Urine pH 5.0 (<5.0-8.0) Urine Specific [place] 1.020 (1.000-1.030) Urine Protein 30 mg/dL (NEG-TRACE) Urine Glucose (UA) Negative mg/dL (NEG) Urine Ketones (Stick) Negative mg/dL (NEG) Urine Blood Negative (NEG) Urine Nitrite Negative (NEG) Urine Bilirubin Small (NEG) Urine Urobilinogen Dipstick 1.0 mg/dL (0.2 mg/dL) Urine Leukocyte Esterase Negative (NEG) Urine RBC 0 /HPF (0-2) Urine WBC 0 /HPF (0-4) Urine Squamous Epithelial Cells Mod /LPF Urine Transitional Epithelial Cells Occ /LPF Urine Amorphous Sediment Present /HPF Urine Bacteria Few /HPF (0-FEW) Urine Hyaline Casts Few /HPF Urine Mucus Slight /LPF Sodium Level 133 mmol/L (136-145) Potassium Level 6.8 mmol/L (3.5-5.1) Chloride Level 93 mmol/L (98-107) Carbon Dioxide Level 10 mmol/L (21-32) Anion Gap 30 (6-14) Blood Urea Nitrogen 59 mg/dL (7-20) Creatinine 3.0 mg/dL (0.6-1.0) Estimated GFR (Cockcroft-Gault) 15.5 Glucose Level 139 mg/dL (70-99) Calcium Level 7.9 mg/dL (8.5-10.1) Creatine Kinase 213 U/L (26-192) Objective: Assessment: Pt seen and examined IMP: Severe Sepsis Acute hypoxic resp failure on chronic resp failure Leucocytosis Lactic acidosis JOSE,severe metabolic acidosis,Hyponatremia, Hyperkalemia A fib, PPM Abn LFTs likely shock liver DM2 Plan: Plan of Care See orders Critically ill Prognosis Poor DNI Thank you [id number] JAVIER VALERIO MD Nov 15, 2020 09:53
[2020-11-15] MEDS ORDERED: MICAFUNGIN 100 MG in IV DEXTROSE 5% 100ML 100 ML IV SCH (10:00)
[2020-11-15] MEDS ORDERED: SODIUM BICARB ADULT 8.4% 50 MEQ/50 ML DISP.SYRIN. ONE (10:05)
[2020-11-15 10:09] LABS: BASE EXCESS ABG -16 mmol/L (-3-3); HCO3 ABG 10 mmol/L (21-28); PCO2 ABG 26 mmHg (35-46); PO2 ABG 103 mmHg (65-108); SAT O2 ABG 96 % (92-99)
--- NOTE | 2020-11-15 10:12 | PDOC2 ---
LUISA MEJÍA FLIGHT KITCHEN MANAGER 11/15/20 1012: CARDIAC CONSULT DATE OF CONSULT Date of Consult DATE: 11/15/20 TIME: 10:12 REASON FOR CONSULT Reason for Consult: Pacemaker/AFIB REFERRING PHYSICIAN Referring Physician: Fullbright SOURCE Source: Chart review HISTORY OF PRESENT ILLNESS HISTORY OF PRESENT ILLNESS This is a 70 yo female admitted for complains of shortness of breath. She had O2 at 4 LPM and remained to have O2 sat at 50%. Pt was placed on bipap. She is currently very lethargic and unable to communicate. She currently remains on bipap due toher code status. No reported symptoms of fever, leg swelling or chest pain. There was also no mention of diarrhea, n/v. She does have a pacemaker and currently V pacing and with underlying AFIB which is controlled. She is significant for COPD, pulmonary HTN and mild CAD from recent [facility]. She follows with [facility] for her PHTN. PAST MEDICAL HISTORY Past Medical History Cardiovascular: AFIB, CHF, HTN, Pulmonary hypertension, Other (PVD) Pulmonary: COPD, Pneumonia CENTRAL NERVOUS SYSTEM: Peripheral neuropathy Heme/Onc: Anemia NOS Psych: Anxiety, Depression Endocrine: Diabetes PAST SURGICAL HISTORY Past Surgical History: Pacemaker, Other (tracheostomy, cardiac cath) FAMILY HISTORY Family History: Diabetes, Hypertension SOCIAL HISTORY Smoke: # pack years (hx unclear if she still smokes tobacco) ALCOHOL: none Drugs: None Lives: with Family CURRENT MEDICATIONS CURRENT MEDICATIONS Current Medications Medications (Trade) Dose Ordered Sig/Myrtle Route PRN Reason Start Time Stop Time Status Last Admin Dose Admin Sodium Chloride 1,000 ml @ 0 mls/hr 1X ONCE IV 11/14/20 23:00 11/14/20 23:01 DC 11/14/20 23:21 Calcium Gluconate (Calcium Gluconate) 1,000 mg 1X ONCE IVP 11/15/20 00:30 11/15/20 00:31 DC 11/15/20 00:58 Sodium Bicarbonate (Sodium Bicarb Adult 8.4% Syr) 50 meq 1X ONCE IV 11/15/20 00:30 11/15/20 00:31 DC 11/15/20 00:58 Dextrose (Dextrose 50%-Water Syringe) 25 gm 1X ONCE IV 11/15/20 00:30 11/15/20 00:31 DC 11/15/20 00:58 Insulin Human Regular (HumuLIN R VIAL) 10 unit 1X ONCE IV 11/15/20 00:30 11/15/20 00:31 DC 11/15/20 01:10 Sodium Bicarbonate 100 meq/Sodium Chloride 1,100 ml @ 125 mls/hr Q8H48M IV 11/15/20 00:30 11/16/20 00:29 11/15/20 00:56 Cefepime HCl (Maxipime) 2 gm 1X ONCE IVP 11/15/20 01:00 11/15/20 01:01 DC 11/15/20 01:00 Vancomycin HCl (Vanco Per Pharmacy) 1 each PRN DAILY PRN MC SEE COMMENTS 11/15/20 00:30 11/15/20 09:42 DC 11/15/20 05:04 Vancomycin HCl 2 gm/Sodium Chloride 500 ml @ 250 mls/hr 1X ONCE IV 11/15/20 01:00 11/15/20 02:59 DC 11/15/20 02:50 Calcium Gluconate (Calcium Gluconate) 1,000 mg 1X ONCE IVP 11/15/20 04:00 11/15/20 04:01 DC 11/15/20 04:29 Sodium Bicarbonate (Sodium Bicarb Adult 8.4% Syr) 50 meq 1X ONCE IV 11/15/20 04:00 11/15/20 04:01 DC 11/15/20 04:29 Sodium Chloride 1,000 ml @ 1,000 mls/hr Q1H IV 11/15/20 05:00 11/15/20 07:06 DC 11/15/20 09:02 ALLERGIES ALLERGIES: Coded Allergies: lisinopril (Verified Allergy, Severe, Anaphylaxis, 09/17/20) warfarin (Verified Allergy, Severe, tissue necrosis, 09/17/20) zolpidem (Verified Adverse Reaction, Intermediate, 09/17/20) "Gets really loopy, 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" ROS Review of System unreliable, lethargic PHYSICAL EXAM General: moderate distress HEENT: Atraumatic Lungs: Other (diminished, bipap) Heart: Other (Vpaced with underlying AFIB) Abdomen: Other (obese) Extremities: No cyanosis Skin: No breakdown Neuro: Other (very lethargic) MUSCULOSKELETAL: Osteoarthritic changes both hands VITALS/I&O VITALS/I&O: Vital Signs Date Time Temp Pulse Resp B/P (MAP) Pulse Ox O2 Delivery O2 Flow Rate FiO2 11/15/20 08:00 98.9 60 18 103/41 (61) 100 BiPAP/CPAP 98.9 11/15/20 06:00 2.0 I & O 11/14/20 11/14/20 11/15/20 15:00 23:00 07:00 Output Total 60 ml Balance -60 ml LABS Lab: Laboratory Tests Test 11/14/20 22:49 11/14/20 22:58 11/14/20 23:11 11/15/20 01:56 O2 Saturation > 100 % (92-99) H Arterial Blood pH 7.08 (7.35-7.45) *L Arterial Blood pCO2 at Patient Temp 27 mmHg (35-46) L Arterial Blood pO2 at Patient Temp 489 mmHg (65-108) H Arterial Blood HCO3 8 mmol/L (21-28) L Arterial Blood Base Excess -21 mmol/L (-3-3) L FiO2 100 White Blood Count 41.9 x10^3/uL (4.0-11.0) *H Red Blood Count 3.66 x10^6/uL (3.50-5.40) Hemoglobin 7.9 g/dL (12.0-15.5) L Hematocrit 30.8 % (36.0-47.0) L Mean Corpuscular Volume 84 fL (79-100) Mean Corpuscular Hemoglobin 22 pg (25-35) L Mean Corpuscular Hemoglobin Concent 26 g/dL (31-37) L Red Cell Distribution Width 22.6 % (11.5-14.5) H Platelet Count 392 x10^3/uL (140-400) Neutrophils (%) (Auto) 91 % (31-73) H Lymphocytes (%) (Auto) 4 % (24-48) L Monocytes (%) (Auto) 4 % (0-9) Eosinophils (%) (Auto) 0 % (0-3) Basophils (%) (Auto) 1 % (0-3) Neutrophils # (Auto) 38.2 x10^3/uL (1.8-7.7) H Lymphocytes # (Auto) 1.8 x10^3/uL (1.0-4.8) Monocytes # (Auto) 1.7 x10^3/uL (0.0-1.1) H Eosinophils # (Auto) 0.0 x10^3/uL (0.0-0.7) Basophils # (Auto) 0.2 x10^3/uL (0.0-0.2) Segmented Neutrophils % 89 % (35-66) H Band Neutrophils % 5 % (0-9) Lymphocytes % 4 % (24-48) L Monocytes % 1 % (0-10) Myelocytes % 1 % (0-0) H Nucleated Red Blood Cells 5 Toxic Vacuolation Slight Platelet Estimate Adequate (ADEQUATE) Large Platelets Present Giant Platelets Present Hypochromasia Mod Poikilocytosis Mod Anisocytosis Mod Ovalocytes Mod [place] Cells Present Schistocytes Few Sodium Level 127 mmol/L (136-145) L 129 mmol/L (136-145) L Potassium Level 7.5 mmol/L (3.5-5.1) *H 6.6 mmol/L (3.5-5.1) *H Chloride Level 93 mmol/L (98-107) L 94 mmol/L (98-107) L Carbon Dioxide Level 10 mmol/L (21-32) *L 11 mmol/L (21-32) *L Anion Gap 24 (6-14) H 24 (6-14) H Blood Urea Nitrogen 59 mg/dL (7-20) H 60 mg/dL (7-20) H Creatinine 2.8 mg/dL (0.6-1.0) H 3.0 mg/dL (0.6-1.0) H Estimated GFR (Cockcroft-Gault) 16.8 15.5 BUN/Creatinine Ratio 21 (6-20) H Glucose Level 89 mg/dL (70-99) 138 mg/dL (70-99) H Lactic Acid Level 17.4 mmol/L (0.4-2.0) *H 17.8 mmol/L (0.4-2.0) *H Calcium Level 8.3 mg/dL (8.5-10.1) L 8.1 mg/dL (8.5-10.1) L Total Bilirubin 2.2 mg/dL (0.2-1.0) H Aspartate Amino Transferase (AST) 2235 U/L (15-37) H Alanine Aminotransferase (ALT) 797 U/L (14-59) H Alkaline Phosphatase 100 U/L (46-116) Troponin I Quantitative 0.017 ng/mL (0.000-0.055) Total Protein 6.6 g/dL (6.4-8.2) Albumin 2.6 g/dL (3.4-5.0) L Albumin/Globulin Ratio 0.7 (1.0-1.7) L Glucose (Fingerstick) 109 mg/dL (70-99) H Test 11/15/20 02:47 11/15/20 07:40 11/15/20 08:55 Glucose (Fingerstick) 126 mg/dL (70-99) H Urine Collection Type Unknown Urine Color Hui Urine Clarity Clear Urine pH 5.0 (<5.0-8.0) Urine Specific [place] 1.020 (1.000-1.030) Urine Protein 30 mg/dL (NEG-TRACE) Urine Glucose (UA) Negative mg/dL (NEG) Urine Ketones (Stick) Negative mg/dL (NEG) Urine Blood Negative (NEG) Urine Nitrite Negative (NEG) Urine Bilirubin Small (NEG) Urine Urobilinogen Dipstick 1.0 mg/dL (0.2 mg/dL) Urine Leukocyte Esterase Negative (NEG) Urine RBC 0 /HPF (0-2) Urine WBC 0 /HPF (0-4) Urine Squamous Epithelial Cells Mod /LPF Urine Transitional Epithelial Cells Occ /LPF Urine Amorphous Sediment Present /HPF Urine Bacteria Few /HPF (0-FEW) Urine Hyaline Casts Few /HPF Urine Mucus Slight /LPF Sodium Level 133 mmol/L (136-145) L Potassium Level 6.8 mmol/L (3.5-5.1) *H Chloride Level 93 mmol/L (98-107) L Carbon Dioxide Level 10 mmol/L (21-32) *L Anion Gap 30 (6-14) H Blood Urea Nitrogen 59 mg/dL (7-20) H Creatinine 3.0 mg/dL (0.6-1.0) H Estimated GFR (Cockcroft-Gault) 15.5 Glucose Level 139 mg/dL (70-99) H Calcium Level 7.9 mg/dL (8.5-10.1) L Creatine Kinase 213 U/L (26-192) H Laboratory Tests 11/14/20 22:58 Laboratory Tests 11/14/20 22:58 11/15/20 01:56 11/15/20 08:55 ECHOCARDIOGRAM ECHOCARDIOGRAM <Conclusion> The left ventricular systolic function is normal and the ejection fraction is within normal range. The Ejection Fraction is 58%. The left atrium is severely dilated. The right atrium is moderately dilated. The aortic valve is sclerotic. The aortic valve is trileaflet. Doppler and Color Flow revealed moderate aortic regurgitation. Doppler and Color Flow revealed moderate to severe mitral regurgitation. The mitral valve leaflets are thickened. Doppler and Color Flow revealed moderate tricuspid regurgitation. The pulmonary artery systolic pressure is estimated at 74 mmHg. There is severe pulmonary hypertension. Doppler and Color Flow revealed trace pulmonic valvular regurgitation. There is no evidence of significant pericardial effusion. DATE: 03/10/171810 HEART CATH HEART CATH Coronary angiography: Left main is a large-caliber vessel with normal angiographic appearance LAD is a large caliber vessel with proximal 20 to 30% stenosis Left circumflex is a moderate caliber nondominant vessel with mild luminal irregularities RCA is a moderate caliber dominant vessel with mid 30 to 40% stenosis. At case completion the right radial sheath was removed and a Terumo radial band was applied. The right neck sheath was removed and hemostasis achieved with manual compression. No acute complications are noted. Conclusion 1. Mildly elevated left-sided filling pressures, LVEDP 18 mmHg 2. Moderate pulmonary hypertension, mean PA 34 mmHg 3. Low cardiac output 4. No significant obstructive coronary disease Recommendations 1. Patient has normal ejection fraction, near normal left ventricular end-diastolic pressures with an elevated pulmonary artery pressure overall consistent with group 3 pulmonary hypertension related to her severe emphysema. Discussed case with primary fretted instrument repairer, Dr. Aguayo, plan for referral to [facility] Pulmonary HTN clinic for further assessment and treatment. DATE: 08/01/20925 ASSESSMENT/PLAN ASSESSMENT/PLAN 1. Multiorgan failure: unclear details leading up to this event 2. Suspecting sepsis with shock 3. Severe metabolic acidosis with severe JOSE and hyperkalemia: received K reversal agents 4. Acute on chronic respiratory failure:with diastolic CHF, COPD, cor pulmonale, and pneumonia 5. Chronic AFIB: rate controlled with V pacing 6. PPM in situ: Erwin VVI 7. Anemia of chronic disease 8. HTN: controlled 9. PUI 10. Metabolic encephalopathy 11. DM2 12. HLP Recommendations 1. Pressor support. BIpap 2. Will need HD, nephrology consulted 3. Will check INR. Hold any anticoagulation for pending HD cath placement. 4. Hold BP meds avoid nephrotoxins. She takes lasix, cardizem, metoprolol, potassium and digoxin at home. Will check Dig level. 5. Critically ill supportive care. she is a DNI PALLAVI ORELLANA MD 11/15/20 2334: LUISA MEJÍA APRN Nov 15, 2020 10:12 PALLAVI ORELLANA MD Nov 15, 2020 23:34
[2020-11-15 10:15] LABS: FIO2 ABG 40/BIPAP
[2020-11-15] MEDS ORDERED: VASOPRESSIN 20 UNIT in IV DEXTROSE 5% 100ML 100 ML IV PRN (10:30)
[2020-11-15] MEDS ORDERED: HEPARIN PF 500 UNIT/5 ML DISP.SYRIN. IVP ONE (10:52)
[2020-11-15] MEDS ORDERED: HEPARIN for IV BOLUS 10,000 UNIT/10 ML VIAL. ONE (10:53)
--- NOTE | 2020-11-15 10:53 | CONS ---
DATE OF CONSULTATION: 11/15/2020 REFERRING PHYSICIAN: Dr. Wetzel. REASON FOR CONSULTATION: Sepsis. HISTORY OF PRESENT ILLNESS: A 70-year-old female with history of recent COVID-19, AFib, CHF, status post pacemaker, chronic respiratory failure, on home O2 at 1-2 liters, diabetes, hypertension, anemia, GERD, was brought in to the ER on 11/14/2020 by EMS for shortness of breath. The patient is currently on BiPAP, unable to get history from the patient, she is admitted to ICU. History obtained from chart and medical staff. The patient had worsening of shortness of breath 1 hour prior to admission. She was hypoxic. She was started on BiPAP. The patient is a DNI. White count on presentation was 41.9 thousand, hemoglobin of 7.9, platelets of 392. Creatinine of 2.8. Lactate of 17.4, later was 17.8, bilirubin of 2.2, AST of 2235, ALT of 797, alkaline phosphatase of 100. Troponin of 0.017, albumin of 2.6. Chest x-ray showed left lung base airspace opacities, likely a consolidation process such as pneumonia, small left pleural effusion. The patient underwent left IJ placement, was given a dose of vancomycin and cefepime. She is currently on IV cefepime. Her sodium was 129, potassium of 7.5. She was given bicarbonate, insulin, Kayexalate and 2 amps of bicarbonate drip. The patient also got additional calcium gluconate and 1 amp of sodium bicarbonate. ID consultation has been requested for antibiotic management. The patient's blood pressure was in the 80s systolic. She received IV fluid bolus. REVIEW OF SYSTEMS: Unable to obtain. PAST MEDICAL HISTORY: COPD, chronic respiratory failure, on home O2, AFib, CHF, status post pacemaker, hypertension, diabetes, history of COVID-19 on 09/26/2020 treated with remdesivir, steroids, discharged on 10/04/2020 from [facility]. FAMILY HISTORY: Noncontributory. SOCIAL HISTORY: Smokes less than 1 pack per day. Alcohol: None. Drugs: None. Lives with . CURRENT MEDICATION: IV cefepime, status post one dose of vancomycin. Other medications reviewed in medication list. ALLERGIES: LISINOPRIL, WARFARIN, ZOLPIDEM. PHYSICAL EXAMINATION: VITAL SIGNS: Temperature 98.9, pulse 60, respiratory rate 18, blood pressure 80s/50s, oxygen saturation 100% on BiPAP, temperature dropped to 94 earlier this morning. GENERAL: Lethargic. The patient is on BiPAP, does not answer any questions. HEENT: Normocephalic, atraumatic. LUNGS: Coarse breath sounds bilaterally. Few expiratory rhonchi. HEART: S1, S2. Chest wall pacemaker site looks okay. ABDOMEN: Soft, nontender, nondistended. Bowel sounds present. GENITOURINARY: Felton in place. EXTREMITIES: No edema, no cyanosis. DERMATOLOGIC: No generalized rash. Cold, clammy skin. NEUROLOGIC: Lethargic. LINES: Left IJ blood stained otherwise clean. LABORATORY DATA: WBC 41.9, hemoglobin 7.9, hematocrit 30.6, platelets 392. Sodium 129, potassium 6.6, chloride 94, bicarbonate 11, BUN 60, creatinine 3.0, lactate 17.8. UA, leukocyte esterase negative. Troponin negative. Total bilirubin 2.2, AST 2235, ALT 797. IMAGING: Chest x-ray, left IJ vascular catheter tip projects over the SVC. Cardiac generator pack obscures the portion of the left chest with leads in stable position, stable cardiomegaly, aortic calcification is seen. Small bilateral pleural effusion, left lung base and patchy right lung base opacities essentially unchanged. No pneumothorax. IMPRESSION: 1. Severe sepsis, source unclear. 2. Leukocytosis and lactic acidosis. 3. Severe metabolic acidosis and acute kidney injury. 4. Hyponatremia and hyperkalemia. 5. Acute hypoxic respiratory failure, on BiPAP with underlying history of chronic respiratory failure, on home O2. 6. Anemia. 7. Abnormal liver function tests, could be from shock liver. 8. Atrial fibrillation and PPM in place for sick sinus syndrome. 9. Diabetes. 10. Encephalopathy. 11. History of COVID-19 infection with acute hypoxic respiratory failure, treated in 10/2020. RECOMMENDATIONS: 1. The patient is critically ill. 2. Discontinue cefepime. 3. Start Merrem, daptomycin and micafungin. 4. CT chest, abdomen and pelvis without. 5. Follow up blood cultures. 6. Prognosis is very poor. Pt will likely not survive this hospitalization. 7. DNI Discussed with nursing staff. Thank you for allowing me to participate in this patient's care. If you have any questions, do not hesitate to contact me. JAVIER VALERIO MD DR: SHAHRIAR/kina JOB#: [id number] / [id number] HARPAL
--- NOTE | 2020-11-15 10:53 | HP ---
ADMIT DATE: 11/15/2020 CHIEF COMPLAINT: Shortness of breath. HISTORY OF PRESENT ILLNESS: The patient is a pleasant middle-aged female, well known to our service, who has chronic COPD and heart failure and asthma and other comorbidities, please see below. Basically, she presented to the ER with shortness of breath. She typically is on 4 liters of oxygen at home. This has been occurring for about 48 hours, but got particularly worse about an hour before she called the ambulance. When they arrived, her sats were in the 50s. She was placed on BiPAP and transferred to the ER. She has now been admitted to the ICU where she has been examined. PAST MEDICAL HISTORY: AFib, asthma, CHF, COPD, diabetes, hypertension, pacemaker, tubal ligation, right second finger amputation, continued tobacco use. ALLERGIES: LISINOPRIL, COUMADIN, AND AMBIEN. FAMILY HISTORY: Coronary artery disease. SOCIAL HISTORY: She still smokes. No drink, or drugs. MEDICATIONS: Reviewed, please refer to the MRAD. REVIEW OF SYSTEMS: Unable to obtain. She is on BiPAP, very weak. Not speaking. PHYSICAL EXAMINATION: VITALS: Within normal limits and are stable. GENERAL: She is very weak and somnolent, not talking on BiPAP.. HEENT: Normal cephalic atraumatic, external auditory canals are patent EYES: Extraocular muscles are intact, pupils are equally round and reactive to light and accommodation MUSCULOSKELETAL: Well developed, well nourished, good range of motion ENDOCRINE: No thyromegaly was palpated LYMPHATICS: No cervical chain or axillary nodes were noted HEMATOPOIETIC: No bruising NECK: Supple, no JVD, no thyromegaly was noted. LUNGS: She has bibasilar crackles and she is on BiPAP with 40% FiO2, 16 IPAP, 6 EPAP with a rate of 18. HEART: RRR, S1, S2 present. Peripheral pulses intact, no obvious murmurs were noted. ABDOMEN: Soft, nontender. Positive bowel sounds no organomegaly, normal bowel sounds. EXTREMITIES: Without any cyanosis, clubbing, or edema. Pedal pulses intact, Homans sign is negative. NEUROLOGIC: She is weak and not talking. PSYCHIATRIC: She is depressed. SKIN: No ulcerations or rashes, good skin turgor, no jaundice. VASCULAR: Good capillary refill, neurovascular bundle appears to be intact. LABORATORY DATA: Chest x-ray shows left lung base airspace opacity, likely consolidative process such as pneumonia and a small left pleural effusion. White count is 42, hemoglobin 7.9, platelets 392. Electrolytes: Sodium 133, potassium 6.8, chloride 93, bicarbonate 10, BUN 59, creatinine 3, glucose 139. Lactic acid is 15. ASSESSMENT AND PLAN: Respiratory failure, severe leukocytosis, anemia, severe electrolyte derangement, hyperkalemia, azotemia, renal failure, lactic acidosis. The patient has been admitted to the ICU. She is critically ill. We are going to consult Pulmonary Medicine, Infectious Disease, Nephrology, and Cardiology. Home meds, DVT prophylaxis. Partial full code according to the record. IV steroids. Rule out COVID-19. Continue her BiPAP. Infectious Disease has ordered meropenem and IV micafungin and IV daptomycin. We certainly agree and appreciate their input. Levophed drip for hypotension. Urine culture. Wound care consult. Trend labs. She also received IV vancomycin. PROGNOSIS: Extremely guarded. Critical care time: 31 minutes. VALE FOUNTAIN DO DR: ARNEL/kina JOB#: [id number] / [id number]
[2020-11-15] MEDS: NOREPINEPHRINE VIAL 8 MG in IV DEXTROSE 5% 250 ML IV PRN ×2 (10:57→14:17)
[2020-11-15] MEDS ORDERED: DAPTOmycin (GENERIC) IVPB 500 MG in IV NORMAL SALINE 50ML 50 ML IV SCH ×2 (11:00→12:00)
[2020-11-15] MEDS ORDERED: LIDOCAINE WITH 8.4% SOD BICARB 3 ML DISP.SYRIN. INJ ONE (11:00)
[2020-11-15] MEDS ORDERED: DIALYSIS PATIENT. MC PRN (11:15)
[2020-11-15] MEDS ORDERED: diphenhydrAMINE 50 MG/ML VIAL IV PRN ×2 (11:15)
[2020-11-15] MEDS ORDERED: IV NORMAL SALINE 1000ML BAG 1,000 ML IV PRN ×2 (11:15)
[2020-11-15] MEDS ORDERED: MEROPENEM 500 MG in IV NORMAL SALINE 50ML 50 ML IV SCH (12:00)
--- NOTE | 2020-11-15 12:18 | NUR ---
Patient received 2L of NS per fluid resuscitation protocol. Order dc'd per Dr. Eng.
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
--- NOTE | 2020-11-15 12:39 | RAD ---
Procedure: Temporary hemodialysis catheter placement at the bedside. Clinical Indication: Adult female requiring hemodialysis Sedation: Local anesthesia only Antibiotics: None Fluoro Time: Not applicable Contrast: None Sterility: All elements of maximal sterile barrier technique including the use of a cap, mask, sterile gown, sterile gloves, large sterile sheet, appropriate hand hygiene, and 2% chlorhexidine for cutaneous antisepsis (or acceptable alternative antiseptic per current guidelines) were followed for this procedure. Consent: The procedure was explained in its entirety to the patient or the patients designated parts representative by a member of the treatment team, including a discussion of the risks, benefits and commonly accepted alternatives to the procedure, as well as the expected consequences of no therapy whatsoever. Discussion of the risks included, but was not limited to, those that are most frequent and those that are rare but possibly severe or life-threatening, as well as the possibility of unforeseen complications. Technique and Findings: Following informed consent, the patient was prepped and draped in the usual sterile fashion. Ultrasound interrogation of the right neck revealed patency and compressibility of the right internal jugular vein. A 21-gauge micropuncture needle was used to gain access to this vein after 1% Lidocaine was used to achieve local anesthesia. A hardcopy ultrasound image was recorded. The needle was exchanged over a wire for serial dilators followed by a 27 year Schon temporary hemodialysis catheter which was deployed in the expected location of the mid right atrium. The catheter flow rates were assessed manually and found to be excellent. The catheter was then flushed, packed with Heparin, capped, and sutured to the skin. Chest x-ray was then obtained to assess line position. Complications: No immediate Impression: 1. Ultrasound guided placement of a temporary hemodialysis catheter which exhibits excellent manual flow rates as described.
--- NOTE | 2020-11-15 13:40 | PDOC ---
PULMONARY PROGRESS NOTES DATE: 11/15/20 TIME: 13:39 Vitals Vital Signs Date Time Temp Pulse Resp B/P (MAP) Pulse Ox O2 Delivery O2 Flow Rate FiO2 11/15/20 13:00 99.1 60 24 144/36 (72) 93 BiPAP/CPAP 99.1 11/15/20 06:00 2.0 General: Alert, No acute distress HEENT: Other Lungs: Wheezing Cardiovascular: S1, S2 Abdomen: Soft, Non-tender, Other Extremities: Other Labs Laboratory Tests Test 11/14/20 22:49 11/14/20 22:58 11/14/20 23:11 11/15/20 01:56 O2 Saturation > 100 % (92-99) Arterial Blood pH 7.08 (7.35-7.45) Arterial Blood pCO2 at Patient Temp 27 mmHg (35-46) Arterial Blood pO2 at Patient Temp 489 mmHg (65-108) Arterial Blood HCO3 8 mmol/L (21-28) Arterial Blood Base Excess -21 mmol/L (-3-3) FiO2 100 White Blood Count 41.9 x10^3/uL (4.0-11.0) Red Blood Count 3.66 x10^6/uL (3.50-5.40) Hemoglobin 7.9 g/dL (12.0-15.5) Hematocrit 30.8 % (36.0-47.0) Mean Corpuscular Volume 84 fL (79-100) Mean Corpuscular Hemoglobin 22 pg (25-35) Mean Corpuscular Hemoglobin Concent 26 g/dL (31-37) Red Cell Distribution Width 22.6 % (11.5-14.5) Platelet Count 392 x10^3/uL (140-400) Neutrophils (%) (Auto) 91 % (31-73) Lymphocytes (%) (Auto) 4 % (24-48) Monocytes (%) (Auto) 4 % (0-9) Eosinophils (%) (Auto) 0 % (0-3) Basophils (%) (Auto) 1 % (0-3) Neutrophils # (Auto) 38.2 x10^3/uL (1.8-7.7) Lymphocytes # (Auto) 1.8 x10^3/uL (1.0-4.8) Monocytes # (Auto) 1.7 x10^3/uL (0.0-1.1) Eosinophils # (Auto) 0.0 x10^3/uL (0.0-0.7) Basophils # (Auto) 0.2 x10^3/uL (0.0-0.2) Segmented Neutrophils % 89 % (35-66) Band Neutrophils % 5 % (0-9) Lymphocytes % 4 % (24-48) Monocytes % 1 % (0-10) Myelocytes % 1 % (0-0) Nucleated Red Blood Cells 5 Toxic Vacuolation Slight Platelet Estimate Adequate (ADEQUATE) Large Platelets Present Giant Platelets Present Hypochromasia Mod Poikilocytosis Mod Anisocytosis Mod Ovalocytes Mod Parrish Cells Present Schistocytes Few Sodium Level 127 mmol/L (136-145) 129 mmol/L (136-145) Potassium Level 7.5 mmol/L (3.5-5.1) 6.6 mmol/L (3.5-5.1) Chloride Level 93 mmol/L (98-107) 94 mmol/L (98-107) Carbon Dioxide Level 10 mmol/L (21-32) 11 mmol/L (21-32) Anion Gap 24 (6-14) 24 (6-14) Blood Urea Nitrogen 59 mg/dL (7-20) 60 mg/dL (7-20) Creatinine 2.8 mg/dL (0.6-1.0) 3.0 mg/dL (0.6-1.0) Estimated GFR (Cockcroft-Gault) 16.8 15.5 BUN/Creatinine Ratio 21 (6-20) Glucose Level 89 mg/dL (70-99) 138 mg/dL (70-99) Lactic Acid Level 17.4 mmol/L (0.4-2.0) 17.8 mmol/L (0.4-2.0) Calcium Level 8.3 mg/dL (8.5-10.1) 8.1 mg/dL (8.5-10.1) Total Bilirubin 2.2 mg/dL (0.2-1.0) Aspartate Amino Transf (AST/SGOT) 2235 U/L (15-37) Alanine Aminotransferase (ALT/SGPT) 797 U/L (14-59) Alkaline Phosphatase 100 U/L (46-116) Troponin I Quantitative 0.017 ng/mL (0.000-0.055) Total Protein 6.6 g/dL (6.4-8.2) Albumin 2.6 g/dL (3.4-5.0) Albumin/Globulin Ratio 0.7 (1.0-1.7) Glucose (Fingerstick) 109 mg/dL (70-99) Test 11/15/20 02:47 11/15/20 07:40 11/15/20 08:55 11/15/20 09:54 Glucose (Fingerstick) 126 mg/dL (70-99) Urine Collection Type Unknown Urine Color Hui Urine Clarity Clear Urine pH 5.0 (<5.0-8.0) Urine Specific Coleman 1.020 (1.000-1.030) Urine Protein 30 mg/dL (NEG-TRACE) Urine Glucose (UA) Negative mg/dL (NEG) Urine Ketones (Stick) Negative mg/dL (NEG) Urine Blood Negative (NEG) Urine Nitrite Negative (NEG) Urine Bilirubin Small (NEG) Urine Urobilinogen Dipstick 1.0 mg/dL (0.2 mg/dL) Urine Leukocyte Esterase Negative (NEG) Urine RBC 0 /HPF (0-2) Urine WBC 0 /HPF (0-4) Urine Squamous Epithelial Cells Mod /LPF Urine Transitional Epithelial Cells Occ /LPF Urine Amorphous Sediment Present /HPF Urine Bacteria Few /HPF (0-FEW) Urine Hyaline Casts Few /HPF Urine Mucus Slight /LPF Sodium Level 133 mmol/L (136-145) Potassium Level 6.8 mmol/L (3.5-5.1) Chloride Level 93 mmol/L (98-107) Carbon Dioxide Level 10 mmol/L (21-32) Anion Gap 30 (6-14) Blood Urea Nitrogen 59 mg/dL (7-20) Creatinine 3.0 mg/dL (0.6-1.0) Estimated GFR (Cockcroft-Gault) 15.5 Glucose Level 139 mg/dL (70-99) Lactic Acid Level 15.0 mmol/L (0.4-2.0) Calcium Level 7.9 mg/dL (8.5-10.1) Creatine Kinase 213 U/L (26-192) O2 Saturation 96 % (92-99) Arterial Blood pH 7.21 (7.35-7.45) Arterial Blood pCO2 at Patient Temp 26 mmHg (35-46) Arterial Blood pO2 at Patient Temp 103 mmHg (65-108) Arterial Blood HCO3 10 mmol/L (21-28) Arterial Blood Base Excess -16 mmol/L (-3-3) FiO2 40/bipap Laboratory Tests Test 11/14/20 22:49 11/14/20 22:58 11/14/20 23:11 11/15/20 01:56 O2 Saturation > 100 % (92-99) Arterial Blood pH 7.08 (7.35-7.45) Arterial Blood pCO2 at Patient Temp 27 mmHg (35-46) Arterial Blood pO2 at Patient Temp 489 mmHg (65-108) Arterial Blood HCO3 8 mmol/L (21-28) Arterial Blood Base Excess -21 mmol/L (-3-3) FiO2 100 White Blood Count 41.9 x10^3/uL (4.0-11.0) Red Blood Count 3.66 x10^6/uL (3.50-5.40) Hemoglobin 7.9 g/dL (12.0-15.5) Hematocrit 30.8 % (36.0-47.0) Mean Corpuscular Volume 84 fL (79-100) Mean Corpuscular Hemoglobin 22 pg (25-35) Mean Corpuscular Hemoglobin Concent 26 g/dL (31-37) Red Cell Distribution Width 22.6 % (11.5-14.5) Platelet Count 392 x10^3/uL (140-400) Neutrophils (%) (Auto) 91 % (31-73) Lymphocytes (%) (Auto) 4 % (24-48) Monocytes (%) (Auto) 4 % (0-9) Eosinophils (%) (Auto) 0 % (0-3) Basophils (%) (Auto) 1 % (0-3) Neutrophils # (Auto) 38.2 x10^3/uL (1.8-7.7) Lymphocytes # (Auto) 1.8 x10^3/uL (1.0-4.8) Monocytes # (Auto) 1.7 x10^3/uL (0.0-1.1) Eosinophils # (Auto) 0.0 x10^3/uL (0.0-0.7) Basophils # (Auto) 0.2 x10^3/uL (0.0-0.2) Segmented Neutrophils % 89 % (35-66) Band Neutrophils % 5 % (0-9) Lymphocytes % 4 % (24-48) Monocytes % 1 % (0-10) Myelocytes % 1 % (0-0) Nucleated Red Blood Cells 5 Toxic Vacuolation Slight Platelet Estimate Adequate (ADEQUATE) Large Platelets Present Giant Platelets Present Hypochromasia Mod Poikilocytosis Mod Anisocytosis Mod Ovalocytes Mod Canmer Cells Present Schistocytes Few Sodium Level 127 mmol/L (136-145) 129 mmol/L (136-145) Potassium Level 7.5 mmol/L (3.5-5.1) 6.6 mmol/L (3.5-5.1) Chloride Level 93 mmol/L (98-107) 94 mmol/L (98-107) Carbon Dioxide Level 10 mmol/L (21-32) 11 mmol/L (21-32) Anion Gap 24 (6-14) 24 (6-14) Blood Urea Nitrogen 59 mg/dL (7-20) 60 mg/dL (7-20) Creatinine 2.8 mg/dL (0.6-1.0) 3.0 mg/dL (0.6-1.0) Estimated GFR (Cockcroft-Gault) 16.8 15.5 BUN/Creatinine Ratio 21 (6-20) Glucose Level 89 mg/dL (70-99) 138 mg/dL (70-99) Lactic Acid Level 17.4 mmol/L (0.4-2.0) 17.8 mmol/L (0.4-2.0) Calcium Level 8.3 mg/dL (8.5-10.1) 8.1 mg/dL (8.5-10.1) Total Bilirubin 2.2 mg/dL (0.2-1.0) Aspartate Amino Transf (AST/SGOT) 2235 U/L (15-37) Alanine Aminotransferase (ALT/SGPT) 797 U/L (14-59) Alkaline Phosphatase 100 U/L (46-116) Troponin I Quantitative 0.017 ng/mL (0.000-0.055) Total Protein 6.6 g/dL (6.4-8.2) Albumin 2.6 g/dL (3.4-5.0) Albumin/Globulin Ratio 0.7 (1.0-1.7) Glucose (Fingerstick) 109 mg/dL (70-99) Test 11/15/20 02:47 11/15/20 07:40 11/15/20 08:55 11/15/20 09:54 Glucose (Fingerstick) 126 mg/dL (70-99) Urine Collection Type Unknown Urine Color Hui Urine Clarity Clear Urine pH 5.0 (<5.0-8.0) Urine Specific Coleman 1.020 (1.000-1.030) Urine Protein 30 mg/dL (NEG-TRACE) Urine Glucose (UA) Negative mg/dL (NEG) Urine Ketones (Stick) Negative mg/dL (NEG) Urine Blood Negative (NEG) Urine Nitrite Negative (NEG) Urine Bilirubin Small (NEG) Urine Urobilinogen Dipstick 1.0 mg/dL (0.2 mg/dL) Urine Leukocyte Esterase Negative (NEG) Urine RBC 0 /HPF (0-2) Urine WBC 0 /HPF (0-4) Urine Squamous Epithelial Cells Mod /LPF Urine Transitional Epithelial Cells Occ /LPF Urine Amorphous Sediment Present /HPF Urine Bacteria Few /HPF (0-FEW) Urine Hyaline Casts Few /HPF Urine Mucus Slight /LPF Sodium Level 133 mmol/L (136-145) Potassium Level 6.8 mmol/L (3.5-5.1) Chloride Level 93 mmol/L (98-107) Carbon Dioxide Level 10 mmol/L (21-32) Anion Gap 30 (6-14) Blood Urea Nitrogen 59 mg/dL (7-20) Creatinine 3.0 mg/dL (0.6-1.0) Estimated GFR (Cockcroft-Gault) 15.5 Glucose Level 139 mg/dL (70-99) Lactic Acid Level 15.0 mmol/L (0.4-2.0) Calcium Level 7.9 mg/dL (8.5-10.1) Creatine Kinase 213 U/L (26-192) O2 Saturation 96 % (92-99) Arterial Blood pH 7.21 (7.35-7.45) Arterial Blood pCO2 at Patient Temp 26 mmHg (35-46) Arterial Blood pO2 at Patient Temp 103 mmHg (65-108) Arterial Blood HCO3 10 mmol/L (21-28) Arterial Blood Base Excess -16 mmol/L (-3-3) FiO2 40/bipap Medications Active Scripts Medications Dose Route/Sig Max Daily Dose Days Date Category Dose Instructions Proair Hfa (Albuterol Sulfate) 8.5 Gm Hfa.aer.ad 2 Puff IH PRN Q4-6HRS PRN 21 09/26/20 Reported Furosemide 40 Mg Tablet 60 Mg PO DAILY 09/26/20 Reported Doxycycline Hyclate 50 Mg Capsule 25 Mg PO DAILY 09/26/20 Reported Aspirin 81 Mg Tab.chew 1 Tab PO DAILY 09/18/20 Reported Tiadylt ER (Diltiazem HCl) 360 Mg Cap.sa.24h 360 Mg PO DAILY 09/18/20 Reported Eliquis (Apixaban) 5 Mg Tablet 5 Mg PO BID 08/01/20 Reported Metoprolol Tartrate 50 Mg Tablet 1 Tab PO BID 08/01/20 Reported Clonidine Hcl 0.1 Mg Tablet 0.1 Mg PO BID 08/01/20 Reported Lantus Solostar (Insulin Glargine,Hum.rec.anlog) 100 Unit/1 Ml Insuln.pen 14 Unit SQ BID 11/03/16 Reported Morphine Sulfate Er (Morphine Sulfate) 30 Mg Tablet.er 1 Tab PO TID 06/03/16 Reported Gabapentin (Gabapentin) 300 Mg Capsule 600 Mg PO QID 06/03/16 Reported Novolog (Insulin Aspart) 100 Unit/1 Ml Vial 1 Unit SQ TIDAC 01/08/15 Reported Hydrocodone-Apap 7.5-325 (Hydrocodone Bit/Acetaminophen) 1 Each Tablet 1 Tab PO QID PRN 01/08/15 Reported Next dose: 05/14 at 1 pm Combivent Respimat Inhal (Ipratropium/Albuterol Sulfate) 4 Gm Aer.w.adap 2 Inh IH QID 01/08/15 Reported Digoxin 125 Mcg Tablet 2 Tab PO DAILY 01/08/15 Reported Next dose: 05/14 Citalopram Hbr (Citalopram Hydrobromide) 20 Mg Tablet 1 Tab PO DAILY 01/08/15 Reported Next dose: 05/14 Potassium Chloride (Potassium Chloride) 20 Meq Tablet.er 20 Meq PO DAILY 01/08/15 Reported Next dose: 05/14 Impression . Full consult dictated Acute on chronic respiratory failure, septic shock, acute renal failure. REAL VALENCIA MD Nov 15, 2020 13:40
[2020-11-15] MEDS ORDERED: HEPARIN for SUB-Q USE 5,000 UNIT/ML VIAL. SQ SCH (14:00)
--- NOTE | 2020-11-15 14:00 | CONS ---
DATE OF CONSULTATION: 11/15/2020 ATTENDING PHYSICIAN: Dr. Paul Wetzel. REASON FOR CONSULTATION: The patient is seen in pulmonary consultation at the request of Dr. Wetzel for acute on chronic respiratory failure requiring noninvasive ventilation with BiPAP. Arterial blood gas initially revealed a pH of 7.08, PaCO2 of 27, pO2 of 49, bicarb of 18. HISTORY OF PRESENT ILLNESS: The patient is a 70-year-old female well known to me from previous hospitalization. She has chronic respiratory failure in the past. She has been mechanically ventilated, was on mechanical ventilation for quite some time, had a tracheostomy tube in place. She was successfully weaned off. She was decannulated. She presented to the Emergency Room yesterday with shortness of breath. She is normally on 4 liters of oxygen supplementation. She became worse over the last 24-48 hours. EMS arrived, the patient was found to be severely short of air, oxygen saturation of 50%. She was placed on BiPAP. She was transferred to the Emergency Department and admitted to the intensive care unit. The patient denied any recent fever. No sick contacts. There is no history given of any COVID-19 contacts. The patient is currently in the intensive care unit. She is currently undergoing emergent hemodialysis. She is hypotensive, receiving pressors. She has been seen in consultation by the Infectious Disease Service and is currently being treated for severe sepsis, source is unclear. She is on meropenem, daptomycin and micafungin. CT chest, abdomen and pelvis have been ordered. Blood cultures have been ordered. SARS-CoV-2 is currently pending. The patient's white count was 41,000, hemoglobin and hematocrit were low. Electrolytes were noted, deranged. BUN and creatinine were elevated. Lactic acid level was 15. PAST MEDICAL HISTORY: Chronic respiratory failure, normally on 4 liters of oxygen supplementation in the past. In the past she has had tracheotomy which was reversed. She has a history of chronic heart failure, pacemaker implantation, hypertension, diabetes. She had COVID-19 on 09/26/2020 treated with remdesivir and steroids. Discharged on 10/04 from . PAST SURGICAL HISTORY: As indicated above. SOCIAL HISTORY: She continues to smoke. ALLERGIES: LISTED TO LISINOPRIL, WARFARIN AND ZOLPIDEM. REVIEW OF SYSTEMS: Unobtainable secondary to the patient's condition. CURRENT MEDICATIONS: List was reviewed. PHYSICAL EXAMINATION: GENERAL: The patient was encephalopathic on BiPAP, O2 saturation greater than 92%. She was undergoing hemodialysis. She was on multiple pressors. Blood pressure was labile. NECK: Jugular venous distention was not elevated. LUNGS: Anteriorly were with slight crackles. CARDIOVASCULAR: Regular rate and rhythm with S1, S2, no S3. ABDOMEN: Soft. EXTREMITIES: No clubbing, cyanosis or pitting edema. NEUROLOGICAL: The patient was encephalopathic, responded to painful stimuli. LABORATORY DATA: As indicated above. White count was elevated at 41,000. Arterial blood gas repeat pH of 7.21, PaCO2 of 26, pO2 of 203. UA was noted. Chest x-ray revealed left lung airspace opacities, consolidation, small left-sided effusion. IMPRESSION: 1. Acute on chronic hypoxemic respiratory failure. 2. Septic shock. Etiology and source unclear at this time. Workup in progress. 3. Abnormal x-ray revealing lower lobe pneumonia, suspect gram-negative, possibly gram-positive. 4. Acute renal failure, undergoing hemodialysis. 5. Leukocytosis. 6. Severe metabolic acidosis. 7. Abnormal LFTs, suspect shock liver. 8. Atrial fibrillation. 9. Diabetes. 10. History of COVID-19 infection with hypoxemic respiratory failure, treated in 10/20/2020 patient at that time underwent treatment with remdesivir and steroids. 11. Protein malnutrition, present upon admission. 12. Electrolyte abnormalities. 13. Hyperkalemia. PLAN: 1. We will continue support with BiPAP. 2. Emergent hemodialysis. 3. Empiric antibiotics per ID. 4. Maintain sats above 90. 5. DVT and GI prophylaxis. 6. Continue pressors for mean arterial pressure above 60. We will discuss advanced directive with family whom I am well versed with. Total cumulative critical care time of 38 minutes from 1:00 p.m. to 1:38 p.m. I do appreciate the privilege in sharing in the patient's care. REAL VALENCIA MD DR: LAINE/kina JOB#: [id number] / [id number]
[2020-11-15 14:44] LABS: DIG 4.6 ng/mL (0.9-2.0)
--- NOTE | 2020-11-15 14:53 | RAD ---
XR CHEST 1V INDICATION: Reason: TEMPORARY DIALYSIS CATHETER PLACEMENT / Spl. Instructions: / History: . COMPARISON STUDY: 11/15/2020. FINDINGS: Life Support Devices: New right IJ dual-lumen catheter with tip overlying the mid right atrium. Stabl e left IJ central venous catheter. Left pectoral pacemaker. Lungs: Normal lung volume. Improving bilateral perihilar and basilar opacities. Pleura: No pneumothorax. Small left pleural effusion. Heart and Mediastinum: Stable cardiomediastinal silhouette and great vessels. IMPRESSION: 1. New right IJ dual-lumen catheter. No pneumothorax. 2. Improving bilateral perihilar and basilar opacities. 3. Small left pleural effusion. Electronically signed by: Mikael Adan MD (11/15/2020 2:51 PM) [id number]
--- NOTE | 2020-11-15 16:15 | NUR ---
SS following for discharge planning. SS reviewed pt chart and discussed with pt RN. Pt is from home with spouse and is currently on the BIPAP at 40%. COVID19 test pending. Pt septic and on IV Daptomycin, IV Micafungin, and IV Meropenem. Multiple pressors. Hemodialysis today. Not stable. SS will continue to follow for discharge planning.
--- NOTE | 2020-11-15 16:15 | NUR ---
Wound/Ostomy Care Wound Type/Assessment: Wound care consult for leg wound. Pt has unstageable PU to rigght medial knee that is eschar and slough covered. Pt has unstageable PU on right lateral ankle that is slough covered. Pt has abrasions/DFU to right great toe and right 5th toe. Pt seen while on dialysis so unable to do full skin assessment, will assess tomorrow. Treatment Recommendations/Plan: Medihoney, xeroform and foam applied to knee, ankle and great toe, recommend to reapply every other day. 5th toe painted with betadine. Education provided: Pt not responsive to teaching d/t mental status Offloading surface/device: ICU bed, pillows, TQ2H Recommended Referrals/Tests: Recommend bedside debridement of wounds by Dr Curry. Will send referral to be seen Wednesday if Covid negative. Discharge Recommendations for dressings: Continue as above noted
--- NOTE | 2020-11-15 16:34 | NUR ---
Patients 1400 heparin non administered. Lab stated that initial PT/INR result came back critically high. Lab will send tech for venipuncture as soon as they can to get another specimen and recheck results. Holding heparin until then.
[2020-11-15] MEDS ORDERED: DIGOXIN IMMUNE FAB IV ONE (17:00)
[2020-11-15] MEDS ORDERED: NORMAL SALINE IV ONE (17:00)
[2020-11-15 17:52] LABS: PROTHROMBIN TIME PATIENT > 120.0 SEC (11.7-14.0)
[2020-11-15] MEDS ORDERED: PHYTONADIONE 10 MG/ML AMPUL. SQ ONE (18:30)
--- NOTE | 2020-11-15 19:26 | NUR ---
Patients vital signs were WNL at 1845. O2 saturation was 91% on BIPAP 50%. At 190 during shift change a nurse reported to me that the patients O2 saturation was dropping into the 50's. Patients BIPAP FIO2 was increase to 100%. O2 saturation continued to decline and a blood pressure was taken and the patient was 63/45. Levophed restarted immediately. I contacted Mynor, the patients at 190 to notify of the patients change in status and confirmed that he did not want to intubate her. He confirmed that she was not to be intubated. The patients O2 saturation continued to decline and I asked Mynor if he wanted us to do CPR and he stated, "no there is nothing more we can do." I told him that she was dying and that it could be sudden and he stated that he understood. At 1909 the patient became pulseless and her skin color turned schaeffer. I asked the if he wanted us to continue treatment and he said "No". The patients pacemaker was turned off and immediately she went asystole at 1911. I informed Mynor and told him to come to the hospital to be with her. He stated that he was on his way. At 1913 Dr. Wetzel was notified of patients . Addendum: 11/15/20 at 1939 by ANU RYDER RN Report given to DAVID Umanzor. NGUYEN notified.
[2020-11-15] MEDS ORDERED: CEFEPIME HCL IV Push 1 GM VIAL. IVP SCH (23:00)
[2020-11-16] MEDS ORDERED: VANCOMYCIN RANDOM LEVEL. MC ONE (05:00)
[2020-11-16 07:17] LABS: HEP B SURFACE AG Confirm. indicated (Negative)
--- NOTE | 2020-11-17 15:16 | EKG ---
[facility] [address] [place] [address] Test Date: 2020-11-14 Test Time: 22:53:30 Pat Name: LILIAN CABRAL Department: Room: Gender: F Crew Lead: : 1950 Requested By: SADIQ LUZ Order Number: [id number] Reading MD: Measurements Intervals [place] Rate: 60 P: TX: QRS: 166 QRSD: 230 T: -28 QT: 500 QTc: 505 Interpretive Statements REGULAR RHYTHM, NO P WAVE FOUND COMPLEX(ES) WITH ABERRANT INTRAVENTRICULAR CONDUCTION ABNORMAL RIGHT AXIS DEVIATION NON SPECIFIC INTRAVENTRICULAR BLOCK ABNORMAL ECG RI6.01 No previous ECG available for comparison
--- NOTE | 2020-12-10 21:01 | DS ---
DATE OF DISCHARGE: 11/15/2020 SUMMARY DATE OF : 11/15/2020 ADMISSION DIAGNOSES: Respiratory failure, leukocytosis, probable sepsis, multiple comorbidities including chronic obstructive pulmonary disease, congestive heart failure, asthma, depression, diabetes, hypertension, tobacco abuse, pacemaker, previous tubal ligation and right foot surgery. CONSULTS: Pulmonary Medicine, Nephrology, Infectious Disease and Cardiology. PROCEDURES: None. HOSPITAL COURSE: The patient was a pleasant middle-aged female who presented with fulminant respiratory failure and probable sepsis. She was admitted to the ICU on BiPAP. The above consults were obtained. The patient was given fluids and IV antibiotics. During her brief course, she suddenly dropped her O2 saturations into the 50s and continued to have decline in her blood pressure. Levophed drip was started. She was DNR and did not want to be intubated. At 19:10 p.m., the patient became pulseless. was contacted and asked that we not do any further treatment. The patient was pronounced at 19:12 p.m. [place] DO DR: ARNEL/kina JOB#: [id number] / [id number]
== END 2020-11-15 21:00 | DRG 871 ==
LOC: ER 22:27 → 1 WEST ICU 11-15 00:27
PROVIDERS: ADMIT Family Medicine; ATTEND Family Medicine
PROC: 5A09357 Assistance with Respiratory Ventilation, Less than 24 Consecutive Hours, Continuous Positive Airway Pressure (ICD-10-PCS; 2020-11-14)
PROC: 5A09357 Assistance with Respiratory Ventilation, Less than 24 Consecutive Hours, Continuous Positive Airway Pressure (ICD-10-PCS; principal; 2020-11-15)
PROC: 02H633Z Insertion of Infusion Device into Right Atrium, Percutaneous Approach (ICD-10-PCS; 2020-11-15)
PROC: B548ZZA Ultrasonography of Superior Vena Cava, Guidance (ICD-10-PCS; 2020-11-15)
PROC: 5A1D70Z Performance of Urinary Filtration, Intermittent, Less than 6 Hours Per Day (ICD-10-PCS; 2020-11-15)
PROC: 02HV33Z Insertion of Infusion Device into Superior Vena Cava, Percutaneous Approach (ICD-10-PCS; 2020-11-15)
PROC: B548ZZA Ultrasonography of Superior Vena Cava, Guidance (ICD-10-PCS; 2020-11-15)
DX: A41.9 Sepsis, unspecified organism (principal); G93.41 Metabolic encephalopathy; N17.0 Acute kidney failure with tubular necrosis; R65.21 Severe sepsis with septic shock; J96.21 Acute and chronic respiratory failure with hypoxia; J18.9 Pneumonia, unspecified organism; E46 Unspecified protein-calorie malnutrition; E87.1 Hypo-osmolality and hyponatremia; I48.20 Chronic atrial fibrillation, unspecified; J44.0 Chronic obstructive pulmonary disease with (acute) lower respiratory infection; D63.8 Anemia in other chronic diseases classified elsewhere; E11.51 Type 2 diabetes mellitus with diabetic peripheral angiopathy without gangrene; E78.5 Hyperlipidemia, unspecified; E87.5 Hyperkalemia; F17.210 Nicotine dependence, cigarettes, uncomplicated; I11.0 Hypertensive heart disease with heart failure; I25.10 Atherosclerotic heart disease of native coronary artery without angina pectoris; I27.81 Cor pulmonale (chronic); I49.5 Sick sinus syndrome; I50.9 Heart failure, unspecified; Z20.822 Contact with and (suspected) exposure to COVID-19; Z82.49 Family history of ischemic heart disease and other diseases of the circulatory system; Z83.3 Family history of diabetes mellitus; Z86.16 Personal history of COVID-19; Z93.0 Tracheostomy status; Z95.0 Presence of cardiac pacemaker; F32.9 Major depressive disorder, single episode, unspecified; F41.9 Anxiety disorder, unspecified; K21.9 Gastro-esophageal reflux disease without esophagitis; Z98.51 Tubal ligation status; Z88.8 Allergy status to other drugs, medicaments and biological substances; Z68.31 Body mass index [BMI] 31.0-31.9, adult
CPT/HCPCS: 36415; 36556; 36600; 71045; 76937; 80048; 80053; 80162; 81001; 82550; 82805; 82962; 83605; 84484; 85007; 85025; 85610; 86317; 86704; 87040; 87340; 93005; 94660; 96361; 96365; 96375; 99292; C1769; C1892; J0610; J0692; J0878; J1162; J1644; J1815; J2185; J2248; J3370; J3430; J3490; J7030; J7040; J7060; 99291-25; G0378